=== PATIENT | female | born 1965 | race Caucasian/White ===

== ENCOUNTER → 2020-06-13 14:08 | Outpatient (BNVA) | payer OTHER, SELFPAY | PROVIDERS: PCP Internal Medicine; Visit Provider Physician Assistant | DX: M17.11 Unilateral primary osteoarthritis, right knee (principal) | CPT/HCPCS: 20610; 99213 ==

== ENCOUNTER 2020-06-29 10:14 | Outpatient (RCR) | payer OTHER, SELFPAY ==
--- NOTE | 2020-06-29 16:40 | MHC.PT.EP ---
[facility] [place] Office [place] Office [place] Office [address] [place] [address] [phone] F: [phone] F: [phone] F: [phone] F: [phone] Physical Therapy Plan of Care Date of Evaluation: 06/29/20 Date of Surgery: N/A Diagnosis: unilateral primary osteoarthritis, right knee Assessment: pt presents to physical therapy with pain, decreased range of motion, decreased strength, impaired functional mobility, impaired postural awareness, and gait deviations. pt is a good candidate for skilled PT due to age, potential remediation of impairments, typical disease/condition progression and prognosis, comorbidities, and motivation. pt would benefit from tailored strengthening and stretching exercise program, functional training, gait training, postural re-training, neuromuscular re-education, and modalities as needed for pain. Frequency and Duration: The patient will be seen 2x/wk for 5 wks Short Term Goals: pt will be I w/ HEP to promote self-management of condition. pt will improve R knee extension to 0 to remediate gait impairments on even ground. Advertising Space Clerk Goals: pt will report statistically significant improvement in self-reported outcome measure, LEFI, to facilitate return to PLOF. pt will report <2/10 R knee pain w/ standing for >30 min to facilitate return to toaster operator. Treatment Plan: Modalities to reduce pain, spasms and effusion. Manual therapy to restore motion and function. Therapeutic exercise to improve strength and flexibility. Neuromuscular re-education for posture and balance. Therapeutic activities to return to functional activities of daily living. Please sign and return to therapist. Thank you for your referral.
--- NOTE | 2020-07-23 13:43 | MHC.PT.DC ---
[facility] [place] Office [place] Office [address] [place] 140 [facility] [phone] F: [phone] F: [phone] F: [phone] F: [phone] Physical Therapy Discharge Report Diagnosis: unilateral primary osteoarthritis, right knee Date of Surgery: N/A Date of Evaluation: 06/29/20 Date of Discharge: 07/23/20 Treatments to Date: 1 Cancellations to Date: 5 No Shows to Date: 2 Discharge Status: Recommend MD Follow-up Visit Non-compliance Discharge Summary: The patient came for her initial evaluation and found out she tested positive for COVID-19 on the same day. She did not call our office to inform us of her status. We attempted to discharge her due to visit noncompliance; however, she explained that she was quarantining. She told us approximately a week ago she was going to have another follow-up regarding her COVID status. She has missed another two consecutive appointments without contacting our office. She is discharged from this physical therapy plan of care due to visit noncompliance. Electronically signed by: Daisy Haynes PT, DPT Please sign and return to therapist. Thank you for your referral.
== END 2020-07-23 13:43 | disposition other institution (70) ==
LOC: HO.PT 10:14
PROVIDERS: Visit Provider Physician Assistant
DX: M17.11 Unilateral primary osteoarthritis, right knee (principal)
CPT/HCPCS: 97110; 97161

== ENCOUNTER 2020-06-29 15:15 | Outpatient (REF) | payer OTHER, SELFPAY | END 2020-06-29 15:16 | disposition home or self-care (01) | LOC: HO.LAB 15:15 | PROVIDERS: PCP Nurse Practitioner Family; Visit Provider Internal Medicine | DX: Z20.828 Contact with and (suspected) exposure to other viral communicable diseases (principal) | CPT/HCPCS: 87635 ==

== ENCOUNTER 2020-07-31 09:32 | Outpatient (REF) | payer OTHER, SELFPAY | END 2020-07-31 09:33 | disposition home or self-care (01) | LOC: HO.LAB 09:32 | PROVIDERS: PCP Nurse Practitioner Family; Visit Provider Internal Medicine | DX: Z20.828 Contact with and (suspected) exposure to other viral communicable diseases (principal) | CPT/HCPCS: C9803; U0003 ==

== ENCOUNTER 2020-08-14 08:18 | Outpatient (REF) | payer OTHER, SELFPAY ==
[2020-08-14 08:39] LABS: MANUAL DIFF FLAG NO
[2020-08-14 08:43] LABS: Basophils Absolute Auto 0.1 X10*3/uL (0.0-0.2); Basophils Percent Auto 0.6 % (0-2); Eosinophils Absolute Auto 0.3 X10*3/uL (0.0-0.4); Eosinophils Percent Auto 2.5 % (0-4); Hematocrit 39.1 % (37-47); Hemoglobin 12.7 g/dl (12.0-16.0); Imm Gran Abs Auto 0.04 X10*3/uL (0.00-0.03); Imm Gran Pct Auto 0.3 % (0.0-0.4); Lymphocytes Absolute Auto 4.4 X10*3/uL (1.2-4.9); Lymphocytes Percent Auto 35.2 % (20-40); Mean Corpuscular HGB Conc 32.5 g/dl (31.0-35.0); Mean Corpuscular Hemoglobin 29.3 pg (27.0-33.0); Mean Corpuscular Volume 90.3 fL (80-98); Mean Platelet Volume 9.5 fL (9.4-12.3); Monocytes Absolute Auto 0.9 X10*3/uL (0.1-1.2); Monocytes Percent Auto 6.8 % (2-11); Neutrophils Absolute Auto 6.8 X10*3/uL (2.0-8.3); Neutrophils Percent Auto 54.6 % (45-73); Platelet Count 369 X10*3/uL (160-400); Red Blood Count 4.33 X10*6/uL (4.20-5.50); Red Cell Distribution Width 13.9 % (11.0-16.0); White Blood Count 12.5 X10*3/uL (4.8-10.8)
[2020-08-14 09:16] LABS: Anion Gap 11 (12-20); Blood Urea Nitrogen 11 mg/dL (9-16); Calcium 8.9 mg/dL (8.4-10.2); Carbon Dioxide 27 mmol/L (22-29); Chloride 104 mmol/L (96-108); Cholesterol 237 mg/dL; Estimated Glomerular Filt Rate > 60; Glucose Fasting 115 mg/dL (60-99); HDL Cholesterol 51 mg/dL; LDL Cholesterol Calculated 149 mg/dl; Potassium 4.2 mmol/l (3.3-5.1); Sodium 138 mmol/L (135-145); Triglycerides 185 mg/dL
[2020-08-14 11:41] LABS: Reflex LDLD? No
== END 2020-08-14 08:19 | disposition home or self-care (01) ==
LOC: HO.LAB 08:18
PROVIDERS: PCP Nurse Practitioner Family; Visit Provider Nurse Practitioner Family
DX: I10 Essential (primary) hypertension (principal)
CPT/HCPCS: 36415; 80048; 80061; 85025

== ENCOUNTER → 2020-08-16 10:11 | Outpatient (BNVA) | payer OTHER, SELFPAY | PROVIDERS: Visit Provider Physician Assistant | DX: M17.11 Unilateral primary osteoarthritis, right knee (principal) | CPT/HCPCS: 99212 ==

== ENCOUNTER 2020-10-18 09:00 | Outpatient (RCR) | payer OTHER, SELFPAY ==
--- NOTE | 2020-10-30 14:46 | MHC.PT.DC ---
[facility] [place] Office [place] Office [place] Office [address] [place] 140 [facility] [phone] F: [phone] F: [phone] F: [phone] F: [phone] Physical Therapy Discharge Report Diagnosis: RIGHT KNEE OA Date of Surgery: NA Date of Evaluation: 09/10/20 Date of Discharge: Treatments to Date: 6 Cancellations to Date: 0 No Shows to Date: 0 Discharge Status: Discharge Summary: OVERALL WILLIE HAS PROGRESSED ANTICIPATED WITH INCREASED AROM AND STRENGTH OF RIGHT LOWER EXTREMITY. SHE SUBJECTIVELY STATES DECREASED PAIN LEVELS AND IMPROVED SENSE OF BALANCE. WILLIE IS CONFIDENT WITH HEP. SHE WILL CONT HOME PROGRAM FOR 1-2 MONTHS AND FOLLOW UP WITH MD REGARDING ANY RESIDUAL SYMPTOMS. Electronically signed by: JERILYN JAVIER PT, DPT Please sign and return to therapist. Thank you for your referral.
== END 2020-10-30 14:52 | disposition other institution (70) ==
LOC: HO.PT 09:00
PROVIDERS: Visit Provider Physician Assistant
DX: M17.11 Unilateral primary osteoarthritis, right knee (principal)
CPT/HCPCS: 97110; 97140; 97162; 97530; 97535

== ENCOUNTER 2021-01-03 11:49 | Outpatient (REF) | payer MEDICARE, MEDICAID, SELFPAY ==
--- NOTE | ~2021-01-03 | MM_ITS ---
EXAMINATION: MM SCREENING DIGITAL BREAST TOMOSYNTHESIS, BILATERAL CLINICAL INFORMATION: Screening. Asymptomatic. The lifetime risk of breast cancer based on the Tyrer-Cuzick Model is 21%. COMPARISON: Mammography: 10/04/2019, 11/30/2017; outside mammography from [place] 10/13/2016 and 09/24/2015. TECHNIQUE: Digital breast tomosynthesis is performed in both the craniocaudal and mediolateral oblique views along with computer-aided detection (CAD). Synthesized 2D images are generated from the tomosynthesis. FINDINGS: There are scattered areas of fibroglandular density (ACR BI-RADS breast composition Category b). There are no significant masses, abnormal calcifications, or other abnormalities. There is a degenerating fibroadenoma are again noted left breast mid upper outer quadrant with some coarse peripheral calcification. The axilla and skin contours are unremarkable. No significant changes. MM/MM tomosynthesis screening BI IMPRESSION: 1. No mammographic evidence of malignancy. 2. Chronic nodule left breast with coarse calcification consistent with degenerating fibroadenoma. ASSESSMENT: BI-RADS 2: Benign RECOMMENDATION: 1. Routine annual mammography screening. 2. The lifetime risk of breast cancer based on the Tyrer-Cuzick Model is 21%. Additional annual adjunct screening with breast MRI may be of benefit in women with a risk score of 20% or greater. This patient's information was entered into a reminder system with a target due date for their next mammogram.
== END 2021-01-03 11:50 | disposition home or self-care (01) ==
LOC: HO.MAMMO 11:49
PROVIDERS: PCP Family Medicine; Visit Provider Family Medicine
DX: Z12.31 Encounter for screening mammogram for malignant neoplasm of breast (principal)
CPT/HCPCS: 77063; 77067

== ENCOUNTER 2021-01-24 11:10 | Outpatient (REF) | payer MEDICARE, MEDICAID, SELFPAY ==
[2021-01-24 14:19] LABS: MANUAL DIFF FLAG NO
[2021-01-24 14:20] LABS: Basophils Absolute Auto 0.1 X10*3/uL (0.0-0.2); Basophils Percent Auto 0.6 % (0-2); Eosinophils Absolute Auto 0.4 X10*3/uL (0.0-0.4); Eosinophils Percent Auto 3.2 % (0-4); Hematocrit 41.3 % (37-47); Hemoglobin 13.2 g/dl (12.0-16.0); Imm Gran Abs Auto 0.03 X10*3/uL (0.00-0.03); Imm Gran Pct Auto 0.3 % (0.0-0.4); Lymphocytes Absolute Auto 4.7 X10*3/uL (1.2-4.9); Lymphocytes Percent Auto 40.3 % (20-40); Mean Corpuscular Hemoglobin 29.3 pg (27.0-33.0); Mean Corpuscular Volume 91.8 fL (80-98); Mean Platelet Volume 10.1 fL (9.4-12.3); Monocytes Absolute Auto 0.9 X10*3/uL (0.1-1.2); Monocytes Percent Auto 7.4 % (2-11); Neutrophils Absolute Auto 5.6 X10*3/uL (2.0-8.3); Neutrophils Percent Auto 48.2 % (45-73); Platelet Count 383 X10*3/uL (160-400); Red Cell Distribution Width 13.5 % (11.0-16.0); White Blood Count 11.6 X10*3/uL (4.8-10.8)
[2021-01-24 14:52] LABS: Alanine Aminotransferase 19 U/L (0-31); Albumin Level 4.2 g/dL (3.5-5.0); Alkaline Phosphatase 67 U/L (39-117); Anion Gap 11 (12-20); Aspartate Amino Transferase 17 U/L (5-31); Bilirubin Total 0.6 mg/dL (0.0-1.0); Blood Urea Nitrogen 17 mg/dL (9-16); Calcium 9.8 mg/dL (8.4-10.2); Carbon Dioxide 33 mmol/L (22-29); Chloride 102 mmol/L (96-108); Estimated Glomerular Filt Rate > 60; Glucose Random 114 mg/dL (60-115); Potassium 4.6 mmol/L (3.3-5.1); Sodium 141 mmol/L (135-145); Total Protein 7.5 g/dL (6.5-8.0)
[2021-01-24 15:03] LABS: Erythrocyte Sedimentation Rate 18 MM/HR (0-20)
[2021-01-24 15:12] LABS: TSH reflex Free T4 1.05 uIU/mL (0.32-4.0)
[2021-01-25 13:47] LABS: CRP High Sensitivity >10.0 mg/L
== END 2021-01-24 11:11 | disposition home or self-care (01) ==
LOC: HO.WFDLDS 11:10
PROVIDERS: Visit Provider Family Medicine
DX: Z00.00 Encounter for general adult medical examination without abnormal findings (principal); R20.2 Paresthesia of skin; M79.10 Myalgia, unspecified site
CPT/HCPCS: 36415; 80053; 84443; 85025; 85652; 86141

== ENCOUNTER 2021-01-25 12:03 | Outpatient (REF) | payer MEDICARE, MEDICAID, SELFPAY ==
--- NOTE | ~2021-01-25 | XR_ITS ---
EXAMINATION: XR CERVICAL SPINE CLINICAL INFORMATION: Neck pain COMPARISON: Previous x-ray May 2019 TECHNIQUE: 3 views of the cervical spine were obtained. FINDINGS: Bone alignment is normal. No fracture or dislocation is seen. There is mild degenerative spondylosis at C3 C5-C6. Disc spaces are normal. Prevertebral soft tissues are normal. There is increased sclerosis in the right ankle of the mandible similar to May 2019 exam. XR/XR cervical spine 2V IMPRESSION: Mild degenerative spondylosis at C5-C6. Increased sclerosis in the right angle mandible similar to 2019 exam.
== END 2021-01-25 12:04 | disposition home or self-care (01) ==
LOC: HO.XRAY 12:03
PROVIDERS: PCP Family Medicine; Visit Provider Family Medicine
DX: M54.2 Cervicalgia (principal)
CPT/HCPCS: 72040

== ENCOUNTER 2021-04-15 10:00 | Outpatient (RCR) | payer MEDICARE, MEDICAID, SELFPAY ==
--- NOTE | 2021-05-21 08:35 | MHC.PT.DC ---
[facility] [place] Office [place] Office [place] Office [address] [place] [address] [phone] F: [phone] F: [phone] F: [phone] F: [phone] Physical Therapy Discharge Report Diagnosis: Cervicalgia Date of Surgery: N/A Date of Evaluation: 03/18/21 Date of Discharge: 04/25/21 Treatments to Date: 8 Cancellations to Date: 2 No Shows to Date: 1 Discharge Status: Visit Non-compliance Discharge Summary: Cancelled appointment as she was ill, no showed for last scheduled appointment and did not return phone calls to reschedule. Electronically signed by: Floresita Fletcher PT, DPT Please sign and return to therapist. Thank you for your referral.
== END 2021-05-21 08:36 | disposition home or self-care (01) ==
LOC: HO.PT 10:00
PROVIDERS: PCP Family Medicine; Visit Provider Family Medicine
DX: M54.2 Cervicalgia (principal)
CPT/HCPCS: 97110; 97112; 97140; 97150; 97161

== ENCOUNTER → 2021-06-13 13:36 | Outpatient (BNVA) | payer MEDICARE, SELFPAY | PROVIDERS: PCP Family Medicine; Referring Provider Family Medicine; Visit Provider Physician Assistant Surgical ==

== ENCOUNTER → 2021-07-01 08:10 | Outpatient (BNVA) | payer MEDICARE, SELFPAY | PROVIDERS: PCP Family Medicine; Visit Provider Surgery | CPT/HCPCS: Q3014 ==

== ENCOUNTER 2021-07-02 10:11 | Outpatient (REF) | payer MEDICARE, MEDICAID, SELFPAY ==
--- NOTE | ~2021-07-02 | XR_ITS ---
EXAMINATION: XR CHEST CLINICAL INFORMATION: Obesity COMPARISON: September 23, 2018 TECHNIQUE: 2 views of the chest were obtained. FINDINGS: No significant abnormality is noted involving the heart, lungs, mediastinum, bony thorax or soft tissues. XR/XR chest 2V IMPRESSION: No acute disease.
[2021-07-02 10:32] LABS: MANUAL DIFF FLAG NO
--- NOTE | 2021-07-02 10:33 | ECG_ITS ---
Test Reason : obesity Blood Pressure : / mmHG Vent. Rate : 076 BPM Atrial Rate : 076 BPM P-R Int : 152 ms QRS Dur : 076 ms QT Int : 374 ms P-R-T Axes : 060 074 088 degrees QTc Int : 420 ms Normal sinus rhythm Nonspecific T wave abnormality Abnormal ECG T wave amplitude has decreased in Lateral leads Referred By: Jeremy De Oliveira Electronically Signed By:PARISH ROMERO MD
[2021-07-02 11:16] LABS: Basophils Absolute Auto 0.1 X10*3/uL (0.0-0.2); Basophils Percent Auto 0.5 % (0-2); Eosinophils Absolute Auto 0.3 X10*3/uL (0.0-0.4); Eosinophils Percent Auto 2.8 % (0-4); Hematocrit 40.6 % (37-47); Hemoglobin 13.2 g/dl (12.0-16.0); Imm Gran Abs Auto 0.04 X10*3/uL (0.00-0.03); Imm Gran Pct Auto 0.3 % (0.0-0.4); Lymphocytes Absolute Auto 4.7 X10*3/uL (1.2-4.9); Lymphocytes Percent Auto 39.6 % (20-40); Mean Corpuscular HGB Conc 32.5 g/dl (31.0-35.0); Mean Corpuscular Hemoglobin 29.3 pg (27.0-33.0); Mean Platelet Volume 9.8 fL (9.4-12.3); Monocytes Absolute Auto 0.7 X10*3/uL (0.1-1.2); Monocytes Percent Auto 6.2 % (2-11); Neutrophils Percent Auto 50.6 % (45-73); Platelet Count 419 X10*3/uL (160-400); Red Blood Count 4.51 X10*6/uL (4.20-5.50); Red Cell Distribution Width 13.2 % (11.0-16.0); White Blood Count 11.9 X10*3/uL (4.8-10.8)
[2021-07-02 11:24] LABS: Estimated Average Glucose 126 mg/dL; Hemoglobin A1C 149.1602 umol/L
[2021-07-02 12:14] LABS: Ferritin 68 ng/mL (10-250); Insulin 18 uU/mL (2-29); TSH reflex Free T4 1.74 uIU/mL (0.32-4.0); Vitamin D 25-OH Total 71.3 ng/mL (>30)
[2021-07-02 12:19] LABS: Alanine Aminotransferase 22 U/L (0-31); Albumin Level 4.1 g/dL (3.5-5.0); Alkaline Phosphatase 56 U/L (39-117); Anion Gap 13 (12-20); Aspartate Amino Transferase 21 U/L (5-31); Bilirubin Total 0.7 mg/dL (0.0-1.0); Blood Urea Nitrogen 11 mg/dL (9-16); C Reactive Protein 1.11 mg/dL (< or = 0.50); Calcium 9.4 mg/dL (8.4-10.2); Carbon Dioxide 26 mmol/L (22-29); Chloride 104 mmol/L (96-108); Cholesterol 257 mg/dL; Estimated Glomerular Filt Rate > 60; Glucose Random 112 mg/dL (60-115); HDL Cholesterol 50 mg/dL; Iron 73 mcg/dL (30-160); LDL Cholesterol Calculated 174 mg/dl; Percent Iron Saturation 25 % (15-50); Potassium 4.2 mmol/L (3.3-5.1); Sodium 139 mmol/L (135-145); Total Iron Binding Capacity 294 mcg/dL (228-428); Total Protein 7.5 g/dL (6.5-8.0); Triglycerides 165 mg/dL; Unsaturated Iron Binding 221 ug/dL
[2021-07-02 12:22] LABS: Folate > 20.0 ng/mL (> or = 4.0); Vitamin B12 1378 pg/mL (200-900)
[2021-07-04 01:33] LABS: Calcium (PTHI) 9.3 mg/dL (8.6-10.4); PTHI 29 pg/mL (14-64)
[2021-07-05 07:11] LABS: Zinc 89 mcg/dL (60-130)
[2021-07-06 11:36] LABS: Vitamin B1 11 nmol/L (8-30)
[2021-07-07 16:07] LABS: Vitamin A 47 mcg/dL (38-98)
== END 2021-07-02 10:12 | disposition home or self-care (01) ==
LOC: HO.XRAY 10:11
PROVIDERS: PCP Internal Medicine; Visit Provider Surgery
DX: E66.9 Obesity, unspecified (principal); Z68.38 Body mass index [BMI] 38.0-38.9, adult; E78.00 Pure hypercholesterolemia, unspecified; I10 Essential (primary) hypertension
CPT/HCPCS: 36415; 71046; 80053; 80061; 82306; 82607; 82728; 82746; 83036; 83525; 83540; 83970; 84425; 84443; 84590; 84630; 85025; 86140; 93005

== ENCOUNTER 2021-07-03 10:56 | Outpatient (REF) | payer MEDICARE, SELFPAY ==
[2021-07-05 10:10] LABS: H Pylori Breath Test Positive (Negative)
== END 2021-07-03 10:57 | disposition home or self-care (01) ==
LOC: HO.LNP 10:56
PROVIDERS: PCP Internal Medicine; Referring Provider Internal Medicine; Visit Provider Surgery
DX: E66.9 Obesity, unspecified (principal); Z68.38 Body mass index [BMI] 38.0-38.9, adult; E78.00 Pure hypercholesterolemia, unspecified; I10 Essential (primary) hypertension
CPT/HCPCS: 83013

== ENCOUNTER → 2021-07-15 08:06 | Outpatient (BNVA) | payer MEDICARE, MEDICAID, SELFPAY | PROVIDERS: PCP Internal Medicine; Visit Provider Dietitian, Registered | DX: E66.01 Morbid (severe) obesity due to excess calories (principal) | CPT/HCPCS: 97802 ==

== ENCOUNTER → 2021-08-05 08:12 | Outpatient (BNVA) | payer MEDICARE, SELFPAY | PROVIDERS: PCP Family Medicine; Visit Provider Surgery | DX: Z13.89 Encounter for screening for other disorder (principal) | CPT/HCPCS: Q3014 ==

== ENCOUNTER → 2021-08-06 08:52 | Outpatient (REF) | payer MEDICARE, MEDICAID, SELFPAY ==
--- NOTE | ~2021-08-06 | US_ITS ---
EXAMINATION: US COMPLETE ABDOMEN WITH LIVER ELASTOGRAPHY CLINICAL INFORMATION: Preop. Morbid obesity. COMPARISON: None. TECHNIQUE: Real-time imaging of the abdominal viscera. Noninvasive ultrasound liver fibrosis assessment is performed using Bhupendra ElastPQ point quantification shear wave elastography (pSWE) with a C5-2 MHz transducer. Multiple elastography samples are obtained. FINDINGS: PANCREAS: The head and part of the body the pancreas is homogeneous in echotexture. The rest of the body or tail of pancreas obscured by overlying gas. ABDOMINAL AORTA: The proximal, middle, and distal aortic segments are normal in caliber. INFERIOR VENA CAVA: Visualized portions are normal. LIVER: The liver demonstrates normal size, contour and increased echogenicity. No focal lesion or intrahepatic biliary duct dilatation. The right lobe measures 15.5 cm in length. The left lobe measures 13.0 cm in length. Portal flow is hepatopedal. Shear wave liver elastography median stiffness is 1.47 m/s (reference: normal median stiffness is 1.3 m/s or less). IQR/median stiffness to assess sampling precision is 0.7 (reference: good quality data set is IQR/median stiffness of 0.15 or less). GALLBLADDER: Normal. The gallbladder is physiologically distended without evidence of stones, sludge, polyps, wall thickening or pericholecystic fluid. COMMON BILE DUCT: Normal in caliber measuring 0.4 cm in diameter. RIGHT KIDNEY: Normal. No hydronephrosis. No renal calculi or focal parenchymal lesions. The kidney measures 9.0 cm in maximum dimension. LEFT KIDNEY: Normal. No hydronephrosis. No renal calculi or focal parenchymal lesions. The kidney measures 10.3 cm in maximum dimension. SPLEEN: Normal. The spleen measures 8.0 cm in maximum dimension. FREE FLUID: None. US/US abdomen comp w elastography IMPRESSION: 1. Diffuse hepatic echogenicity without focal lesion seen. Rest of the abdominal ultrasound is unremarkable. 2. Liver elastography: Median liver stiffness 1.47 m/s corresponding to cACLD ruled out. REFERENCE: Society of Radiologists in Ultrasound Liver Stiffness Thresholds (2019): LIVER STIFFNESS THRESHOLDS: *Liver Stiffness equal or less than 1.3 m/s: High probability of being normal. *Liver Stiffness less than 1.7 m/s: In the absence of other known clinical signs, rules out compensated advanced chronic liver disease. *Liver Stiffness 1.7-2.1 m/s: Suggestive of compensated advanced chronic liver disease but need further test for confirmation. *Liver Stiffness over 2.1 m/s: Rules in compensated advanced chronic liver disease. *Liver Stiffness over 2.4 m/s: Suggestive of clinically significant portal hypertension. QUALITY OF DATA SET: *IQR/Median value equal or less than 0.15 implies a quality data set. *IQR/Median value over 0.15 implies a poor quality data set. SIGNIFICANT CHANGE FROM PRIOR EXAM: Significant change if liver stiffness measurement is 10% or greater from prior exam. OTHER CONSIDERATIONS: The stage of liver fibrosis may be overestimated in the setting of acute hepatitis, liver inflammation, elevated liver function tests, hepatic vascular congestion, obstructive cholestasis, non-fasting state, and infiltrative diseases such as amyloidosis and lymphoma. In some patients with NAFLD, the liver stiffness thresholds for compensated advanced chronic liver disease may be lower. In causes other than viral hepatitis and NAFLD, liver stiffness thresholds are not well established.
--- NOTE | ~2021-08-06 | FL_ITS ---
EXAMINATION: XR FLUOROSCOPY UPPER GI WITH AIR CLINICAL INFORMATION: Obesity COMPARISON: None TECHNIQUE: Upper GI was performed using thin and thick barium and effervescent granules. FINDINGS: Esophageal motility is normal. There is a small sliding-type hiatal hernia and Schatzki ring. No gastroesophageal reflux is seen. The stomach and duodenum are normal-appearing. No fold thickening, mass, ulcer or stricture is seen. FLUOROSCOPY TIME: 0.7 minutes DOSE AREA PRODUCT: 8 mGy-cm IMAGES SAVED: 17 saved fluoroscopic images FL/FL upper GI w air IMPRESSION: Small sliding-type hiatal hernia with Schatzki ring. Otherwise unremarkable exam.
== END ==
LOC: HO.SL 08:52
PROVIDERS: PCP Internal Medicine; Visit Provider Surgery
DX: G47.33 Obstructive sleep apnea (adult) (pediatric) (principal); E66.9 Obesity, unspecified; E78.00 Pure hypercholesterolemia, unspecified; I10 Essential (primary) hypertension
CPT/HCPCS: 74246; 76705; 76981; 95806

== ENCOUNTER 2021-08-09 11:22 | Outpatient (REF) | payer MEDICARE, SELFPAY ==
[2021-08-11 13:26] LABS: H Pylori Breath Test Negative (Negative)
== END 2021-08-09 11:23 | disposition home or self-care (01) ==
LOC: HO.LNP 11:22
PROVIDERS: PCP Internal Medicine; Referring Provider Internal Medicine; Visit Provider Physician Assistant
DX: Z01.818 Encounter for other preprocedural examination (principal)
CPT/HCPCS: 83013; 99211

== ENCOUNTER → 2021-08-20 08:26 | Outpatient (REF) | payer MEDICARE, MEDICAID, SELFPAY ==
--- NOTE | 2021-08-20 08:31 | CA_ITS ---
Transthoracic Echocardiogram Patient (Last, First, Middle): Adrianne Salomon D Gender: Female Date of : 1965 Age: 56 Procedure Date: 08/20/2021 Procedure Type: Transthoracic Echocardiogram Location: OP Height: 165.1 cm Weight: 98.43 kg BSA: 2.05 m2 Heart Rate: bpm BP: 122 / 70 mmHg Dry Cell Tester: Referring MD: Jeremy De Oliveira MD Tenderizer Tender: Jaciel Verduzco MD Symptoms: R94.31 - Abnormal electrocardiogram [ECG] [EKG] Study Quality: Good ECG Rhythm: Sinus Conclusions: - 1. Normal LV systolic function with grade 1 diastolic dysfunction 2. Normal cardiac valvular Doppler 3. Normal RV systolic pressure 4. No gross pericardial effusion Findings Procedure Information Contrast agent, definity, is being given per protocol without apparent complications. Left Ventricle Normal left ventricular size, thickness, and systolic function. The visually estimated ejection fraction is between 60-65%. Spectral Doppler is indicative of an impaired relaxation filling pattern. E/E prime ratio is <8, consistent with normal filling pressures. Evidence suggests grade I (mild) diastolic dysfunction. Right Ventricle Normal right ventricular cavity size and systolic function. Atria Both atria are normal in size. There is lipomatous hypertrophy of the interatrial septum. There is no evidence of interatrial shunt. Aortic Valve Normal aortic valve structure and function. There is no aortic valve stenosis. There is no aortic valve regurgitation. Mitral Valve Normal mitral valve structure and function. There is trace mitral valve regurgitation. There is no mitral valve stenosis. Pulmonic Valve The pulmonic valve was not well visualized. Tricuspid Valve Normal tricuspid valve structure. There is trace tricuspid valve regurgitation. The right ventricular systolic pressure is normal. The right ventricular systolic pressure is 15 mmHg. Normal right atrial pressure. There is no evidence of pulmonary hypertension. Great Vessels All visible segments of the aorta are normal in size. The pulmonary artery was not well visualized. Venous The inferior vena cava is normal in size and collapses greater than 50% with inspiration. Prior Study Comparison No prior study available for comparison. Measurements 2D Linear Measurements IVSd: 1.02 0.6-0.9/0.6-1.0 cm LVIDd: 4.16 3.9-5.3/4.2-5.9 cm LVIDd Index: 2.03 2.4-3.2/2.2-3.1 cm/m2 LVIDs: 2.33 2.0-3.6 cm LVPWd: 1.10 0.7-1.1 cm Ao Root: 2.40 2.1-3.5 cm LA Diam: 3.60 2.7-3.8/3.0-4.0 cm LAIDs Index: 1.76 1.5-2.3 cm/m2 LV Mass: 182.71 67-162/88-224 g LV Mass Index: 89.13 43-95/49-115 g/m2 LVOT Diam: 2.00 3.0+(-)1.3 cm Mitral Valve MV Pk E: 0.54 MV PK A: 0.72 MV Decel Time: 228.00 E/A: 0.70 E'Lateral: 11.60 E'Medial: 8.54 E/E' Med: 6.30 E/E' Lat: 4.70 PHT: 67.00 MVA PHT: 3.28 Decel [place]: 2.37 Aortic Valve AoV Pk Sujit: 1.39 AoV Mn Sujit: 0.92 AoV VTI: 0.30 AoV Pk Grad: 8.00 Aov Mn Grad: 4.00 JAYLON Cont.VTI: 2.19 LVOT LVOT Pk Sujit: 1.01 LVOT Mn Sujit: 0.64 LVOT VTI: 0.21 LVOT Pk Grad: 4.00 LVOT Mn Grad: 2.00 LVOT Diam: 2.00 LVOT Area: 3.14 Diastolic Function MV Pk E: 0.54 MV Pk A: 0.72 E/A: 0.70 E'Medial: 8.54 E/E' Med: 6.30 E' Laterial: 11.60 E/E' Lat: 4.70 Right Ventricle TAPSE (mm): 20.00 TVS' Sujit: 9.00 Tricuspid Valve TR Pk Sujit: 1.76 TR Pk Grad: 12.00 RA Press: 3.00 RVSP: 15.00 Great Vessels Aorta Ao Root-2D: 2.40 2.0-3.7 cm Ao Asc: 2.50 2.1-3.4 cm Pulmonary Valve PV Pk Sujit: 1.00 Peak PV Grad: 4.00 Updated in Other Vendor System with Status of Final Jaciel Verduzco MD electronically signed on 08/20/2021 11:47:12 AM with status of Final
== END ==
LOC: HO.CARD 08:26
PROVIDERS: PCP Family Medicine; Visit Provider Surgery
DX: R94.31 Abnormal electrocardiogram [ECG] [EKG] (principal)
CPT/HCPCS: 93306; Q9957

== ENCOUNTER → 2021-09-03 07:37 | Outpatient (BNVA) | payer MEDICARE, SELFPAY | PROVIDERS: PCP Family Medicine; Visit Provider Surgery | DX: E66.9 Obesity, unspecified (principal); Z68.37 Body mass index [BMI] 37.0-37.9, adult | CPT/HCPCS: Q3014 ==

== ENCOUNTER 2021-09-18 09:09 | Outpatient (REF) | payer MEDICARE, MEDICAID, SELFPAY ==
--- NOTE | 2021-09-18 09:13 | EMG_ITS ---
This is a 56-year-old woman with bilateral hand pain and numbness with the left being worse than the right. She has had a right carpal tunnel release done 2 years ago, but symptoms are coming back. PHYSICAL EXAMINATION: She is alert and oriented with normal intellectual functions. Cranial nerves II through XII are normal. No Tinel or Phalen sign. IMPRESSION: Carpal tunnel syndrome. Mild carpal tunnel syndrome on the left. Normal EMG of the left C5-T1 innervated muscles. MD BOBBY Burrows/JONNATHAN / [phone]
== END 2021-09-18 09:10 | disposition home or self-care (01) ==
LOC: HO.NEURO 09:09
PROVIDERS: PCP Internal Medicine; Visit Provider Internal Medicine
DX: G56.03 Carpal tunnel syndrome, bilateral upper limbs (principal); G47.33 Obstructive sleep apnea (adult) (pediatric)
CPT/HCPCS: 95885; 95913; 99202

== ENCOUNTER → 2021-09-27 08:03 | Outpatient (BNVA) | payer MEDICARE, MEDICAID, SELFPAY | PROVIDERS: PCP Family Medicine; Visit Provider Surgery | DX: E66.9 Obesity, unspecified (principal); G47.33 Obstructive sleep apnea (adult) (pediatric); E78.00 Pure hypercholesterolemia, unspecified; I10 Essential (primary) hypertension; Z68.33 Body mass index [BMI] 33.0-33.9, adult | CPT/HCPCS: Q3014 ==

== ENCOUNTER → 2021-10-01 13:25 | Outpatient (BNVA) | payer MEDICARE, MEDICAID, SELFPAY | PROVIDERS: PCP Internal Medicine; Referring Provider Family Medicine; Visit Provider Physician Assistant ==

== ENCOUNTER 2021-10-08 06:02 | Inpatient (IN) | payer MEDICARE, MEDICAID, SELFPAY ==
[2021-10-01 08:20] VITALS: BMI 33.6
[2021-10-02 07:08] LABS: MANUAL DIFF FLAG NO
[2021-10-02 07:19] LABS: Basophils Absolute Auto 0.1 X10*3/uL (0.0-0.2); Basophils Percent Auto 0.5 % (0-2); Eosinophils Absolute Auto 0.3 X10*3/uL (0.0-0.4); Eosinophils Percent Auto 2.6 % (0-4); Hematocrit 38.1 % (37.0-47.0); Hemoglobin 12.3 g/dl (12.0-16.0); Imm Gran Abs Auto 0.03 X10*3/uL (0.00-0.03); Imm Gran Pct Auto 0.3 % (0.0-0.4); Lymphocytes Absolute Auto 4.6 X10*3/uL (1.2-4.9); Lymphocytes Percent Auto 40.2 % (20-40); Mean Corpuscular HGB Conc 32.3 g/dl (31.0-35.0); Mean Corpuscular Hemoglobin 29.2 pg (27.0-33.0); Mean Corpuscular Volume 90.5 fL (80.0-98.0); Mean Platelet Volume 9.8 fL (9.4-12.3); Monocytes Absolute Auto 0.7 X10*3/uL (0.1-1.2); Monocytes Percent Auto 5.6 % (2-11); Neutrophils Absolute Auto 5.8 x10*3/uL (2.0-8.3); Neutrophils Percent Auto 50.8 % (45-73); Platelet Count 325 X10*3/uL (160-400); Red Blood Count 4.21 X10*6/uL (4.20-5.50); Red Cell Distribution Width 13.6 % (11.0-16.0); White Blood Count 11.5 X10*3/uL (4.8-10.8)
[2021-10-02 07:25] LABS: INTERNATIONAL NORM RATIO 1.1 (0.9-1.1); Prothrombin Time 12.1 SEC (9.9-13.0)
[2021-10-02 07:26] LABS: Estimated Average Glucose 111 mg/dL; Hemoglobin A1c % 5.5 %
[2021-10-02 07:27] LABS: Partial Thromboplastin Time 42.3 SEC (24.1-38.0)
[2021-10-02 07:38] LABS: Alanine Aminotransferase 13 U/L (0-31); Albumin Level 4.1 g/dL (3.5-5.0); Alkaline Phosphatase 47 U/L (39-117); Anion Gap 12 (12-20); Aspartate Amino Transferase 17 U/L (5-31); Bilirubin Total 0.8 mg/dL (0.0-1.0); Blood Urea Nitrogen 19 mg/dL (9-16); C Reactive Protein 0.79 mg/dL (< or = 0.50); Calcium 9.7 mg/dL (8.4-10.2); Carbon Dioxide 27 mmol/L (22-29); Chloride 104 mmol/L (96-108); Cholesterol 148 mg/dL; Creatinine Clr Calc Pharmacy 86.4; Estimated Glomerular Filt Rate > 60; Glucose Random 100 mg/dL (60-115); HDL Cholesterol 44 mg/dL; LDL Cholesterol Calculated 86 mg/dl; Potassium 3.7 mmol/L (3.3-5.1); Sodium 139 mmol/L (135-145); Total Protein 7.1 g/dL (6.5-8.0); Triglycerides 92 mg/dL
[2021-10-02 08:05] LABS: TSH reflex Free T4 2.03 uIU/mL (0.32-4.0)
[2021-10-02 08:41] LABS: Insulin 8 uU/mL (2-29)
--- NOTE | 2021-10-06 13:51 | MHC.SHP ---
Pre-Procedural Eval Section A Date of Service: 10/06/21 The patient is an INPATIENT: Yes The History & Physical has been completed within 30 days and I have reviewed it.: No Section B Chief Complaint: obesity Relevant Family History (Specify if Yes): Yes Relevant Social History: None Present Medications: None Medical History: No relevant PMH History of Previous Operations: No relevant previous surgery Allergies: Allergies Allergy/AdvReac Type Severity Reaction Status Date / Time atorvastatin AdvReac Intermediate headache Verified 09/30/21 14:54 Review of Systems Sugical H&P ROS: Negative: Constitution, Cardiovascular, Respiratory, Neurological, Psychiatric, Hem-Onc, Allergic/Immunologic, Gastrointestinal, Genitourinary, Musculoskeletal, Integumentary, Endocrine and Eyes/Ears/Nose/Throat Exam Surgical H&P Exam: Normal: HEENT, Normal: Heart, Normal: Lungs, Normal: Extremities, Normal: Abdomen, Normal: Skin and Normal: Neurological Plan Diagnosis/Plan: Unchanged I have reviewed the history and physical and performed a pertinent physical examination on my patient. No changes have occurred unless specified.
--- NOTE | 2021-10-07 09:16 | HO.ANESPROP2 ---
Documented by User: Michelle Garcia NP 10/07/21 09:17 [facility] Active Problems Active Problems: All Active Problems (Updated 10/01/21 @ 08:17 by Kinza Guerrero RN) Primary osteoarthritis of right knee (Acute Unknown) Hypertension (Acute) Upper back pain (Acute) Cervicalgia (Acute) Paresthesias (Acute) Myalgia (Acute) Right knee pain (Acute) Fibromyalgia (Acute) BMI 38.0-38.9,adult (Acute) H. pylori infection (Acute) Abnormal EKG (Acute) Binge eating disorder (Acute) BMI 36.0-36.9,adult (Acute) BMI 37.0-37.9, adult (Acute) Binge-eating disorder, in full remission, moderate (Acute) BMI 34.0-34.9,adult (Acute) CHARAN (obstructive sleep apnea) (Acute) Obesity (Acute) Physical examination of employee (Acute) Other specified nonscarring hair loss (Acute) High cholesterol (Acute) Knee pain, bilateral (Acute) Rash (Acute) Past Medical History Medical History COVID-19 vaccine series completed High cholesterol HTN (hypertension) Knee pain, bilateral Obesity CHARAN (obstructive sleep apnea) Other specified nonscarring hair loss Family History Family History Father Emphysema lung Mother Afib Hypertension Brother HIV (human immunodeficiency virus infection) Brother Afib Daughter No problems noted. Son No problems noted. Son No problems noted. Daughter No problems noted. Surgical History Surgical History H/O colonoscopy History of carpal tunnel release History of partial hysterectomy History of removal of ovarian cyst Hx of dilation and curettage Social History Social History (Updated 10/01/21 @ 08:26 by Kinza Guerrero RN) Household Members: Spouse Housing: Apartment Alcohol intake: never Patient Tobacco Use Status: Former Tobacco user Quit Date: age 36 Tobacco use type: Cigarette Use of substances other than those prescribed or required for medical reasons: No Have you been hit, kicked, punched, or otherwise hurt by someone within the past year? If so, by whom?: No Are you DNR?: No Advance Directives: No Advance Directives Information Provided: Yes (brochure mailed) Advance Directives on File: No Recently lost weight without trying: No Eating poorly because of decreased appetite: No Nutrition Risks: No Nutritional Risk Patient : No (N/A) FDLMP: N/A : No (N/A) Poor oral hygiene: No (upper partial denture) Current occupational status: unemployed Meds Allergies Allergy/AdvReac Type Severity Reaction Status Date / Time atorvastatin AdvReac Intermediate headache Verified 10/08/21 06:39 Home Medications Medication Instructions Recorded Confirmed Last Taken Type epinephrine 0.3 mg/0.3 mL 0.3 mg IM ONCE PRN 08/16/20 10/01/21 Unknown History injection, auto-injector losartan 50 mg tablet 50 mg PO DAILY 09/30/21 09/30/21 Unknown History Exam Exam Date and Time: October 07, 2021 0916 Height,Weight and Vital Signs: Height 5 ft 5.5 in Weight 93.043 kg Pertinent Lab Results Pertinent Lab Results: Laboratory Tests 10/02/21 10/02/21 10/02/21 06:58 07:06 07:06 WBC 11.5 H RBC 4.21 Hgb 12.3 Hct 38.1 MCV 90.5 MCH 29.2 MCHC 32.3 RDW 13.6 Plt Count 325 MPV 9.8 Immature Gran % (Auto) 0.3 Neut % (Auto) 50.8 Lymph % (Auto) 40.2 H Josephine % (Auto) 5.6 Eos % (Auto) 2.6 Baso % (Auto) 0.5 Lymph # (Auto) 4.6 Josephine # (Auto) 0.7 Eos # (Auto) 0.3 Baso # (Auto) 0.1 Abs Immat Gran (auto) 0.03 Absolute Neuts (auto) 5.8 Absolute Nucleated RBC 0.000 Nucleated RBC % (auto) 0.0 PT 12.1 INR 1.1 APTT 42.3 H Sodium Potassium Chloride Carbon Dioxide Anion Gap BUN Creatinine Estim Creat Clear Calc Estimated GFR Random Glucose Estimat Average Glucose Hemoglobin A1c % Insulin Level Calcium Total Bilirubin AST ALT Alkaline Phosphatase C-Reactive Protein Total Protein Albumin Triglycerides Cholesterol LDL Cholesterol, Calc HDL Cholesterol TSH Blood Type O Positive Antibody Screen NEGATIVE 10/02/21 10/02/21 07:06 07:06 WBC RBC Hgb Hct MCV MCH MCHC RDW Plt Count MPV Immature Gran % (Auto) Neut % (Auto) Lymph % (Auto) Josephine % (Auto) Eos % (Auto) Baso % (Auto) Lymph # (Auto) Josephine # (Auto) Eos # (Auto) Baso # (Auto) Abs Immat Gran (auto) Absolute Neuts (auto) Absolute Nucleated RBC Nucleated RBC % (auto) PT INR APTT Sodium 139 Potassium 3.7 Chloride 104 Carbon Dioxide 27 Anion Gap 12 BUN 19 H Creatinine 0.80 Estim Creat Clear Calc 86.4 Estimated GFR > 60 Random Glucose 100 Estimat Average Glucose 111 Hemoglobin A1c % 5.5 Insulin Level 8 Calcium 9.7 Total Bilirubin 0.8 AST 17 ALT 13 Alkaline Phosphatase 47 C-Reactive Protein 0.79 H Total Protein 7.1 Albumin 4.1 Triglycerides 92 Cholesterol 148 D LDL Cholesterol, Calc 86 HDL Cholesterol 44 TSH 2.03 Blood Type Antibody Screen Narrative Narrative: EKG 06/2021 Vent. Rate : 076 BPM ? ? Atrial Rate : 076 BPM ?? P-R Int : 152 ms? QRS Dur : 076 ms ? ? QT Int : 374 ms ? ? ? P-R-T Axes : 060 074 088 degrees ?? QTc Int : 420 ms ? Normal sinus rhythm Nonspecific T wave abnormality Abnormal ECG T wave amplitude has decreased in Lateral leads ECHO 08/2021 Conclusions: - 1.? Normal LV systolic function with grade 1 diastolic ? dysfunction? 2. Normal cardiac valvular Doppler ? 3. Normal RV systolic pressure ? 4. No gross pericardial effusion ?? Assessment and Plan Assessment Anesthesia Assessment: Chart Reviewed Documented by User: Harika Gates MD 10/08/21 07:47 HPI - Anesthesia Eval Consult details Narrative: 56 yo female patient for sleeve gastrectomy, EGD, possible diaphragmatic hernia repair,possible ventral hernia repair, possible open PMFSH Past Medical History Medical History COVID-19 vaccine series completed High cholesterol HTN (hypertension) Knee pain, bilateral Obesity CHARAN (obstructive sleep apnea) Other specified nonscarring hair loss Family History Family History Father Emphysema lung Mother Afib Hypertension Brother HIV (human immunodeficiency virus infection) Brother Afib Daughter No problems noted. Son No problems noted. Son No problems noted. Daughter No problems noted. Family history of problems with anesthesia: No Surgical History Surgical History H/O colonoscopy History of carpal tunnel release History of partial hysterectomy History of removal of ovarian cyst Hx of dilation and curettage History of Problems with Anesthesia: No Social History Social History (Updated 10/01/21 @ 08:26 by Kinza Guerrero RN) Household Members: Spouse Housing: Apartment Alcohol intake: never Patient Tobacco Use Status: Former Tobacco user Quit Date: age 36 Tobacco use type: Cigarette Use of substances other than those prescribed or required for medical reasons: No Have you been hit, kicked, punched, or otherwise hurt by someone within the past year? If so, by whom?: No Are you DNR?: No Advance Directives: No Advance Directives Information Provided: Yes (brochure mailed) Advance Directives on File: No Recently lost weight without trying: No Eating poorly because of decreased appetite: No Nutrition Risks: No Nutritional Risk Patient : No (N/A) FDLMP: N/A : No (N/A) Poor oral hygiene: No (upper partial denture) Current occupational status: unemployed Meds Allergies Allergy/AdvReac Type Severity Reaction Status Date / Time atorvastatin AdvReac Intermediate headache Verified 10/08/21 06:39 Home Medications Medication Instructions Recorded Confirmed Last Taken Type epinephrine 0.3 mg/0.3 mL 0.3 mg IM ONCE PRN 08/16/20 10/01/21 Unknown History injection, auto-injector losartan 50 mg tablet 50 mg PO DAILY 09/30/21 09/30/21 Unknown History Exam Height,Weight and Vital Signs: Height 5 ft 5.5 in Weight 93.043 kg Vital Signs Temp Pulse Resp BP Pulse Ox 10/08/21 06:12 97.2 F 79 16 152/67 H 99 Pertinent Lab Results Pertinent Lab Results: Laboratory Tests 10/02/21 10/02/21 10/02/21 06:58 07:06 07:06 WBC 11.5 H RBC 4.21 Hgb 12.3 Hct 38.1 MCV 90.5 MCH 29.2 MCHC 32.3 RDW 13.6 Plt Count 325 MPV 9.8 Immature Gran % (Auto) 0.3 Neut % (Auto) 50.8 Lymph % (Auto) 40.2 H Josephine % (Auto) 5.6 Eos % (Auto) 2.6 Baso % (Auto) 0.5 Lymph # (Auto) 4.6 Josephine # (Auto) 0.7 Eos # (Auto) 0.3 Baso # (Auto) 0.1 Abs Immat Gran (auto) 0.03 Absolute Neuts (auto) 5.8 Absolute Nucleated RBC 0.000 Nucleated RBC % (auto) 0.0 PT 12.1 INR 1.1 APTT 42.3 H Sodium Potassium Chloride Carbon Dioxide Anion Gap BUN Creatinine Estim Creat Clear Calc Estimated GFR Random Glucose Estimat Average Glucose Hemoglobin A1c % Insulin Level Calcium Total Bilirubin AST ALT Alkaline Phosphatase C-Reactive Protein Total Protein Albumin Triglycerides Cholesterol LDL Cholesterol, Calc HDL Cholesterol TSH Blood Type O Positive Antibody Screen NEGATIVE 10/02/21 10/02/21 07:06 07:06 WBC RBC Hgb Hct MCV MCH MCHC RDW Plt Count MPV Immature Gran % (Auto) Neut % (Auto) Lymph % (Auto) Josephine % (Auto) Eos % (Auto) Baso % (Auto) Lymph # (Auto) Josephine # (Auto) Eos # (Auto) Baso # (Auto) Abs Immat Gran (auto) Absolute Neuts (auto) Absolute Nucleated RBC Nucleated RBC % (auto) PT INR APTT Sodium 139 Potassium 3.7 Chloride 104 Carbon Dioxide 27 Anion Gap 12 BUN 19 H Creatinine 0.80 Estim Creat Clear Calc 86.4 Estimated GFR > 60 Random Glucose 100 Estimat Average Glucose 111 Hemoglobin A1c % 5.5 Insulin Level 8 Calcium 9.7 Total Bilirubin 0.8 AST 17 ALT 13 Alkaline Phosphatase 47 C-Reactive Protein 0.79 H Total Protein 7.1 Albumin 4.1 Triglycerides 92 Cholesterol 148 D LDL Cholesterol, Calc 86 HDL Cholesterol 44 TSH 2.03 Blood Type Antibody Screen Laboratory Results - last 24 hr 10/07/21 12:20 COVID-19 (PRIT[facility]) Negative COVID-19 Clin Com See Note Airway Mallampati Class: II TM Dist: >3cm Neck ROM: Full Partial: Upper Heart: RRR Lungs: CTAB Assessment and Plan Assessment Anesthesia Assessment: Anesthesia Plan Discussed Final Anesthetic Review Family History of Problems with Anesthesia: No History of Problems with Anesthesia: No NPO: Yes ASA Class: III Final Preanesthetic Review: No Changes in Pt Med Stat, Meds/Allgs Chart Reviewed, Consent Obtained/Reviewed and Anes Risks/Benef Reviewed Patient Risk: Intermediate Procedure Risk: Intermediate Anesthetic Plan Anesthetic Plan: GA Disposition: Standard PACU and Inp. Admit - Standard Bed
[2021-10-07 12:49] LABS: COVID-19 Test Negative (Negative); IDNOW Serial# 9DD0AD1C
[2021-10-08] VITALS (13 sets, daily range): BP systolic 143–169; BP diastolic 67–79; PULSE 77–99; RESP 14–20; TEMP 36.1–37.3; O2SAT 91–100
[2021-10-08] MEDS: Lactated Ringers 1,000 ML 100 ML IVCONT ×3 (06:37→18:29)
[2021-10-08] MEDS: Lactated Ringers 1,000 ML 999 ML IV (06:37)
--- NOTE | 2021-10-08 10:18 | P.DS_ITS ---
DS: Providers Provider Date of Service: 10/09/21 Date of admission: 10/08/21 06:02 Primary care physician: Efrain Aponte MD DS: Summary Hospital Course Hospital Course: ADMITTING DIAGNOSIS: morbid obesity, HTN, CHARAN, lipids, paraesophageal hernia DISCHARGE DIAGNOSIS: same, s/p laparoscopic sleeve gastrectomy and repair diaphragmatic hernia PAST SURGICAL HISTORY: hysterectomy, ovarian cystectomy PROCEDURE: upper endoscopy, laparoscopic sleeve gastrectomy and repair of diaphragmatic hernia hernia DISCHARGE SUMMARY: History of Present Illness: The patient is a 56year-old woman with a BMI of 38.2 kg/m2 and associated co- morbidities as described above. The patient had extensive work-up,lost 24.8 lbs preoperatively and was electively scheduled for laparoscopic, possible open sleeve gastrectomy and gastropexy. Risks and complications of the surgery were discussed with the patient in advance, particularly the possibility of , pulmonary embolism, anastomotic leak, bleeding, bowel injury, GERD, cardiac, renal or pulmonary complications. The patient understood all the risks and was in agreement with the surgical plan. Hospital Course: The patient underwent an uneventful laparoscopic sleeve gastrectomy with gastropexy and repair of diaphragmatic hernia on the day of admission. Postoperatively, the patient was transferred to the surgical floor. The patient received IV Acetaminophen and IV dilaudid for pain control. Patient was started on bariatric phase 1 diet POD #0. On postoperative day one, the patient was feeling well without nausea, vomiting, fevers, or tachycardia. The patient had some mild incisional pain and the abdomen was soft. On the morning of postoperative day one, the patient was continued on 1 ounce of water or ice every half hour. During the day, the patient did fairly well, having some incisional pain, but able to ambulate adequately and to tolerate liquids well. Since the patient is doing well, we decided that the patient was ready to be discharged. The patient was given instructions to follow-up with me next week and to call my office for any fever over 101, persistent abdominal pain, nausea, vomiting, GERD, symptoms of DVT such as calf tenderness, or leg swelling, or pulmonary embolism such as chest pain or shortness of breath. The patient was also instructed to drink 40-60 ounces of liquids per day using the 1-ounce cups. The patient had been given prescriptions for Tylenol for pain, Zofran prn for nausea, and pantoprazole and carafate previously. The patient was encouraged to ambulate and use the incentive spirometer. The patient was allowed to shower, but no baths, and encouraged to stay active at home. All of these instructions were given to the patient personally. All questions were answered and the patient understood all instructions, the instructions were also given to the patient in print. Time Spent with Patient Time attestation: Total time spent providing and/or coordinating discharge services: Discharge coordination time: Less than 30 minutes Quality: Stroke Does the patient have a stroke diagnosis?: No Physical Exam Verdana 4l Vital Signs: Verdana 4d Verdana 4d Vital Signs: Verdana 4d Verdana 4Bd Last Vital Signs Verdana 4d Distribution Operation Supervisor New 4d Distribution Operation Supervisor New 4d Temp 98.4 F 10/08/21 10:14 Distribution Operation Supervisor New 4d Pulse 90 10/08/21 10:14 Distribution Operation Supervisor New 4d Resp 14 10/08/21 10:14 BP 151/71 H 10/08/21 10:14 Pulse Ox 100 10/08/21 10:14 BMI result Body Mass Index 33.6 DS: Data Data Completed and Pending Pending studies at discharge: Pending at discharge 10/08/21 09:37 Surgical [PTH] Routine Labs on day of discharge: Laboratory Results - last 24 hr 10/07/21 12:20 COVID-19 ([facility]) Negative COVID-19 Clin Com See Note Discharge Plan Discharge Anticipated Discharge Date/Time: 10/09/21 10:13 Patient Disposition: Home, Self-Care Discharge Diagnosis: s/p sleeve gastrectyomy Referrals: Efrain Aponte MD [Primary Care Provider] - 1 Week Discharge Medications: Continued losartan 50 mg tablet 50 mg PO DAILY 0RF Eucerin Skin Calming Cream 1 appl topical Q6-8H 30 Days Qty: 226 0RF cyclobenzaprine 5 mg tablet 5 mg PO BEDTIME 30 Days Qty: 30 0RF epinephrine 0.3 mg/0.3 mL auto-injector 0.3 mg IM ONCE PRN (Reason: allergic reaction/etiology unk) 0RF ezetimibe 10 mg tablet 10 mg PO DAILY 60 Days Qty: 60 0RF Nizoral A-D 1 % shampoo 1 appl topical 2XW 28 Days Qty: 125 0RF pantoprazole 40 mg tablet,delayed release (DR/EC) 40 mg PO DAILY Qty: 30 2RF sucralfate 100 mg/mL suspension 10 ml PO BID Qty: 400 2RF ondansetron HCl 4 mg tablet 4 mg PO Q6H PRN (Reason: nausea and vomiting) Qty: 20 2RF Discontinued cholecalciferol (vitamin D3) 50 mcg (2,000 unit) capsule 50 mcg PO DAILY 30 Days Qty: 30 0RF polyethylene glycol 3350 [Miralax] 17 gram powder in packet 17 g PO DAILY Qty: 14 0RF Rx Instructions: Mix each packet with 8oz of water and do 7 packets on 10/06/21 and another 7 packets on 10/07/21 Discharge Orders: Discharge Order (Routine); Ordered 10/09/21 Ordered By: Jeremy De Oliveira Diet: other Activity on Discharge: No heavy lifting Stand Alone Forms: Patient Portal Discharge page Care Plan Goals: weight loss Health Concerns: obesity Plan of Treatment: No tub baths, sex or returning to work until discussed at first post op appointment. No exercise, alcohol, tobacco or illegal drug use. Continue to use incentive spirometer hourly while awake. Walk in home for 5- 10 minutes every 2 hours during the first week. Continue phase 1 diet today and start phase 2 diet tomorrow morning. Follow all instructions in the bariatric handbook and call with any questions. 1. Please call your doctor or come back to the emergency room should any new symptoms arise. 2. You will receive a courtesy call from [facility] 24-48 hours after discharge. 3. Activity: abstain from alcohol, practice limited stair climbing, no bending, no driving, no exercise, no illicit substances, no lifting, no sex, no tub bath, no work. 4. Diet: continue as discussed with Dr. De Oliveira. 5. Dressing Change/Wound Care: Do not change or remove surgical dressings unless they are wet or soiled. 6. Call your doctor if: - Your temperature exceeds 101.5 F - You experience excessive pain or swelling - You have an unexpected reaction to medication - You have excessive bleeding - You experience continued vomiting/nausea - Your incision begins to separate - Your incision shows signs of infection such as increased redness, swelling, excessive pain, heat, or drainage (light blood or clear fluid is normal) 7. General instructions: No lifting greater than 5 lbs for the next 4 weeks[address] within 24 hours of taking narcotic pain medications. If you do not move your bowels in the next 2 days, please take milk of magnesia over the counter. Please follow the post op diet and do not advance your diet until you are seen in the office in about 2 weeks. Please walk around your home every hour or two to prevent blood clots from forming in your legs. You do not need to wake from sleeping to walk. Please sleep in a bed or couch to prevent kinking at the hips and knees. Please take your incentive spirometer (your lung clinical editor) home with you and use it for the next few days to prevent pneumonias. You may shower, no hot tubs, baths or swimming pools. Please call the office with any questions or concerns such as increasing abdominal pain, fever, chills, shortness of breath, chest pain, leg pain or swelling, or redness or drainage from your incisions. Do not hesitate to contact the office with any questions at . The patient's medical history has been reviewed and they are considered low risk for post op DVT and therefore DVT prophylaxis is not considered necessary. Travel after surgery was reviewed. The patient has not disclosed any travel plans during the first 30 days after surgery and they have been advised that within the first 30 days after surgery any bus, plane, train or car travel over 2 hours in duration is contraindicated due to the possibility of developing blood clots from immobility. Any travel, needs to include periods of ambulation of 10 minutes in duration every 2 hours. The patient was instructed to discuss any plans for travel during this period with their bariatric surgeon. Assessment: s/p sleeve gastrectomy and paraesophageal hernia Discharge Date/Time: 10/09/21 13:52
[2021-10-08] MEDS: Famotidine/PF 20 MG/2 ML VIAL IVPUSH ×2 (10:20→20:15)
--- NOTE | 2021-10-08 10:23 | P.BOP_ITS ---
Brief Operative Note Date of Service: 10/08/21 Pre-op diagnosis: Severe obesity with comorbidities (see below) Post-op diagnosis: same (& diaphragmatic hernia) Procedure: INITIAL PATIENT BMI ON PRESENTATION AT OUR OFFICE: 38.3 kg/m2 LAST BMI BEFORE SURGERY: 34.4 kg/m2 COMORBIDITIES: Diaphragmatic hernia, hypertension, sleep apnea, hyperlipidemia, DJD, anxiety, depression, liver steatosis, grade I diastolic dysfunction, liver fibrosis ?The patient presented to the Weight Management Program with significant obesity that was negatively impacting the patient's comorbidities as listed above.? The program is a phased program with a special focus on preoperative medical weight management to promote substantial weight loss and prepare the patients for the second phase of the program: bariatric surgery. The patient participated in an intensive weekly lifestyle ?intervention and exercise program during which the patient ?has lost between the initial office visit and the last preoperative visit 25.8lbs, or 11.22% of initial actual body weight. It was deemed appropriate for the patient to now have bariatric surgery. In light of the current Covid-19 pandemic and the well documented strong association of obesity and increased risk of worse outcomes if infected with Covid-19 (REFERENCES: https://pubmed.ncbi.nlm.nih.gov/19469704/ ,? https://pubmed.ncbi.nlm.nih.gov/93843532/ ), any delay in undergoing bariatric surgery may lead to the patient's worsening health condition and increased?risk of more severe Covid-19 disease if infected. In addition a recent?study from [facility] published in [facility] on 09/02/2021 ([email or web address]) found that, among patients with obesity, substantial weight loss achieved with surgery was associated with improved outcomes of COVID-19 infection. The findings suggest that obesity can be a modifiable risk factor for the severity of COVID-19 infection. In addition, the patient met the BMI-criteria for bariatric surgery based on the BMI on initial presentation. The patient should not be penalized for achieving such weight loss because ?it is not sustainable long-term without surgical intervention and it was achieved in preparation for bariatric surgery ?under my direction and based on my published research ([email or web address]).pdf and? https://www.soard.org/article/[email or web address](29)57630-X/pdf ) ?that a 10% preoperative weight loss improves long-term weight loss after surgery and reduces perioperative complications.? Insurance carriers such as [facility] have endorsed my recommendations ?and have included in their policies criteria to include a 10% preoperative weight loss requirement. PROCEDURE: Esophago-gastroscopy, laparoscopic repair of incarcerated diaphragmatic hernia, laparoscopic sleeve gastrectomy and laparoscopic gastropexy INDICATIONS: This is a 56 year-old female who was electively scheduled for laparoscopic, possibly open sleeve gastrectomy. The risks and complications of the procedure were discussed with the patient in advance, particularly the possibility of ; pulmonary embolism; staple line leak; bleeding; GERD; cardiac, pulmonary, or renal complications; as well as long-term problems such as insufficient weight loss, vitamin deficiency, strictures, or ulcers. The patient understood all the risks, and was in agreement to proceed with surgery. DESCRIPTION OF PROCEDURE: After informed consent was obtained from the patient, the patient was given preoperative antibiotics, and was transferred to the operating room. After successful induction of general anesthesia, pneumatic compression devices were placed on both lower extremities. An upper endoscopy was performed next. The oropharynx and esophagus appeared to be within normal limits. There was a diaphragmatic hernia present of moderate size consistent with the findings of the preoperative upper GI. The stomach was entered. Then after all fluid and air were suctioned and the stomach was fully decompressed, the scope was withdrawn and secured in the mid esophagus. The patient was then prepped and draped in the usual sterile manner, and abdominal access was established at the right upper quadrant with the Michael technique. A 12 mm blunt port was inserted, and the abdomen was insufflated with CO2 to a pressure of 15 mmHg. Under direct visualization, additional ports were placed, specifically two 5 mm Versi-step ports to the left upper quadrant, and a 5 mm Versi-Step port to the right upper quadrant. 1% lidocaine plain was used to infiltrate all port sites as well as all fascia defects. Following that, the patient was placed in a steep reverse Trendelenburg position. An additional 5 mm port was placed to the right flank for the Mediflex retractor that was used to retract the left lobe of the liver. The gastro-esophageal fat pad was opened with the ultrasonic device (Thunderbeat, Olympus) and the anterior esophagus and hiatus were exposed. The angle of His was opened with the ultrasonic device the fundus of the stomach from any diaphragmatic and splenic attachments. I then opened the gastrocolic ligament between the transverse colon and the greater curvature of the stomach with the ultrasonic device to enter the lesser sac and facilitate the ligation of the short gastric vessels. I started at a mid-point along the greater curvature and using the Thunderbeat, all short gastric vessels were divided all the way to the angle of His until the left bella was completely dissected at its entirety. I then divided the gastro-colic ligament distally to a distance of about 3-4 cm proximal to the esophagus. There was an obvious significant-sized hiatal hernia. I continued dissecting along the hiatus toward the left bella and the angle of His. I fully mobilized the fat pad that was incarcerated in the hernia. I then continued by dissecting even further into the posterior retro-esophageal space all the way to the angle of His. I continued to mobilize the esophagus into the mediastinum circumferentially. Both vagal nerves were seen and preserved. At that point, I was able to have at least 3 to 5 cm of esophagus into the abdomen.? After I completely mobilized the esophagus from both the left and right bella and I had a good mobilization of the esophagus circumferentially, I closed the hernia defect with four interrupted #0 Surgidac sutures using the Endo Stitch device, ?three of which was placed posterior and one of which anterior to the esophagus. ? The stomach was then divided transversely with one Endo GEREMIAS-45 purple and five GEREMIAS-60 articulating orange loads using the AEON stapler and loads. Every effort was made that the gastric sleeve had a tubular shape and an even caliber throughout. Once the sleeve resection was completed, the staple line of the gastric sleeve was reinforced with Hemoclips. The resected stomach was retrieved without difficulty from the Michael port. A gastropexy was then performed in order to prevent postoperative GERD and partial gastric volvulus. Several interrupted 2.0 Surgidac sutures were placed between the sleeve's staple line and the previously divided greater omentum and gastro-colic ligament using the Endo-Stitch device. ?An upper endoscopy was performed. There was no narrowing at the GE junction. The scope was easily advanced all the way to the pylorus which was clearly visualized. There was no narrowing anywhere and the sleeve's caliber was even throughout. The sleeve's staple line was inspected and there was no evidence of ischemia, bleeding or dehiscence. At that point the gastroscope was withdrawn from the patient?s mouth while we were decompressing the bowel and the stomach from any remaining air. I looked into the lesser sac to see how the sleeve was situating and it was situating well. There was no bleeding from the staple line, spleen, or short gastric vessels. The Mediflex retractor was removed, and the undersurface of the liver was inspected and there was no bleeding. The patient was placed in supine position. I closed the fascial defect of the 12 mm port site with a figure of eight #1 Polysorb suture. Then 100 cc 0.25 % Marcaine plain with 10 mg of Dexamethasone were used to infiltrate the fascial closure as well as all skin incisions. At this point, the abdomen was deflated, all ports were removed under direct vision, and no bleeding was noted from any of the port sites. The skin incisions were irrigated with saline and were closed with 4-0 absorbable monofilament sutures. Steri-Strips and OpSites were used to cover all incisions. The patient was extubated and was transferred in stable condition to the recovery room for further care. I was present and performed all desai parts of the procedure. Jude was the assistant professor of radiology. There were no residents to assist with this case. Khari De Oliveira MD, PhD, FACS Surgeon: Jeremy De Oliveira MD Anesthesia: GETA, local and other (TAP block) Was an Scale Manager used for this Procedure?: Yes Scale Manager: Terri Roque Estimated blood loss (mL): 10 IV fluids (mL): 3,000 Urine output (mL): 0 (No [place] to record) Pathology: other (Stomach) Condition: stable Disposition: PACU
--- NOTE | 2021-10-08 10:30 | P.PNGS_ITS ---
Subjective Subjective Date of Service: 10/09/21 Interval history: Patient has mild incisional pain, but was able to ambulate and use the incentive spirometer. She is tolerating phase 1 bariatric diet Physical Exam Verdana 4l Vital Signs: Verdana 4d Verdana 4d Vital Signs: Verdana 4d Verdana 4Bd Last Vital Signs Verdana 4d Durability Engineer New 4d Durability Engineer New 4d Temp 98.4 F 10/08/21 10:14 Durability Engineer New 4d Pulse 91 10/08/21 10:19 Durability Engineer New 4d Resp 17 10/08/21 10:19 BP 155/68 H 10/08/21 10:19 Pulse Ox 100 10/08/21 10:19 BMI result Body Mass Index 33.6 GI: Inspection: Yes normal to inspection, Yes incision (clean, dry and intact) and Yes obesity Extrem: Right lower extremity: normal to inspection (no calf tenderness) Left lower extremity: normal to inspection (no calf tenderness) Objective Data Active Medications Famotidine (Famotidine/Pf 20 Mg/2 Ml Vial) 20 mg IVPUSH BID [facility] Last Admin: 10/08/21 10:20 Dose: 20 mg Documented by: CAESAR Fentanyl (Fentanyl Citrate/Pf 100 Mcg/2 Ml Vial) 25 mcg IVPUSH Q5M PRN; Protocol PRN Reason: Pain, Moderate (Pain Scale 4-6 Hydromorphone HCl (Hydromorphone Hcl 0.5 Mg/0.5 Ml Syringe) 0.25 mg IVPUSH Q5M PRN; Protocol PRN Reason: Pain, Severe (Pain Scale 7-10) Lactated Ringer's (Lr) 1,000 mls @ 100 mls/hr IVCONT .Q10H [facility] Last Admin: 10/08/21 06:37 Dose: 100 mls/hr Documented by: VLADISLAV Promethazine HCl 6.25 mg/ (Sodium Chloride) 50.25 mls @ 201 mls/hr IV ONCE PRN PRN Reason: Nausea and Vomiting Ondansetron HCl (Ondansetron Hcl 4 Mg/2 Ml Vial) 4 mg IVPUSH ONCE PRN PRN Reason: Nausea and Vomiting Labs CBC & Chem 7: 10/09/21 05:58 10/09/21 05:58 Labs: Laboratory Results - last 24 hr 10/07/21 12:20 COVID-19 (PRITESH) Negative COVID-19 Clin Com See Note Procedures Date of Service Date of Service: 10/09/21 Progress Note: A&P Assessment and plan (1) S/P laparoscopic sleeve gastrectomy: Status: Acute Assessment and Plan: s/p laparoscopic sleeve gastrectomy, repair of diaphragmatic hernia, and gastropexy Doing well Check am labs. If OK, will discharge home? (2) S/P repair of paraesophageal hernia: Status: Acute (3) Paraesophageal hernia: Status: Acute (4) Obesity: Status: Acute (5) BMI 34.0-34.9,adult: (6) CHARAN (obstructive sleep apnea): Status: Acute (7) High cholesterol: Status: Acute (8) Knee pain, bilateral: (9) Hypertension: Status: Acute (10) Primary osteoarthritis of right knee: (11) Anxiety: Status: Acute (12) Depression: Status: Acute (13) Steatosis, liver: Status: Acute (14) Liver fibrosis: Status: Acute (15) Diastolic dysfunction without heart failure: Status: Acute Fall Risk Details Current Medications: Current Medications Famotidine (Famotidine/Pf 20 Mg/2 Ml Vial) 20 mg IVPUSH BID [facility] Last Admin: 10/08/21 10:20 Dose: 20 mg Documented by: Fentanyl (Fentanyl Citrate/Pf 100 Mcg/2 Ml Vial) 25 mcg IVPUSH Q5M PRN; Protocol PRN Reason: Pain, Moderate (Pain Scale 4-6 Hydromorphone HCl (Hydromorphone Hcl 0.5 Mg/0.5 Ml Syringe) 0.25 mg IVPUSH Q5M PRN; Protocol PRN Reason: Pain, Severe (Pain Scale 7-10) Lactated Ringer's (Lr) 1,000 mls @ 100 mls/hr IVCONT .Q10H [facility] Last Admin: 10/08/21 06:37 Dose: 100 mls/hr Documented by: Promethazine HCl 6.25 mg/ (Sodium Chloride) 50.25 mls @ 201 mls/hr IV ONCE PRN PRN Reason: Nausea and Vomiting Ondansetron HCl (Ondansetron Hcl 4 Mg/2 Ml Vial) 4 mg IVPUSH ONCE PRN PRN Reason: Nausea and Vomiting Time Spent With Patient Time: Total time spent is greater than 50% in coordination of care (as documented) at patient's floor/unit and/or counseling patient: Time with patient: less than 15 minutes Quality Stroke Does the patient have a stroke diagnosis?: No VTE Prior VTE?: No VTE Risk Level:: Surgical - moderate VTE Device Contraindication: N/A - Device Ordered VTE Drug Contraindication: Treatment Not Indicated
[2021-10-08 10:58] LABS: Hematocrit 37.6 % (37.0-47.0); Hemoglobin 12.1 g/dl (12.0-16.0)
[2021-10-08 11:20] LABS: Anion Gap 10 (12-20); Blood Urea Nitrogen 9 mg/dL (9-16); Calcium 9.3 mg/dL (8.4-10.2); Carbon Dioxide 29 mmol/L (22-29); Chloride 104 mmol/L (96-108); Estimated Glomerular Filt Rate 60; Glucose Random 143 mg/dL (60-115); Potassium 3.9 mmol/L (3.3-5.1); Sodium 139 mmol/L (135-145)
[2021-10-08] MEDS: ceFAZolin Sodium/Dextrose,Iso 2 GM/50 ML PIGGYBACK IV (12:58)
[2021-10-08] MEDS: ondansetron HCL 4 MG/2 ML VIAL IVPUSH ×2 (15:24→23:57)
[2021-10-08] MEDS: HYDROmorphone HCl 1 MG/ML SYRINGE 0.25 MG IVPUSH ×2 (16:16→20:15)
[2021-10-08] MEDS: 0.9 % Sodium Chloride Flush 3 ML SYRINGE IVFLUSH (20:16)
[2021-10-09] MEDS: HYDROmorphone HCl 1 MG/ML SYRINGE 0.25 MG IVPUSH (02:19)
[2021-10-09 04:00] VITALS: BP 154/75; PULSE 92; RESP 18; TEMP 36.3; O2SAT 93
[2021-10-09] MEDS: Lactated Ringers 1,000 ML 100 ML IVCONT (04:11)
[2021-10-09 06:00] LABS: MANUAL DIFF FLAG NO
[2021-10-09 06:09] LABS: Basophils Percent Auto 0.1 % (0-2); Eosinophils Percent Auto 0.1 % (0-4); Hematocrit 34.3 % (37.0-47.0); Hemoglobin 11.3 g/dl (12.0-16.0); Imm Gran Abs Auto 0.07 X10*3/uL (0.00-0.03); Imm Gran Pct Auto 0.4 % (0.0-0.4); Lymphocytes Absolute Auto 3.5 X10*3/uL (1.2-4.9); Mean Corpuscular HGB Conc 32.9 g/dl (31.0-35.0); Mean Corpuscular Hemoglobin 29.7 pg (27.0-33.0); Mean Corpuscular Volume 90.3 fL (80.0-98.0); Mean Platelet Volume 10.2 fL (9.4-12.3); Monocytes Absolute Auto 1.4 X10*3/uL (0.1-1.2); Monocytes Percent Auto 7.3 % (2-11); Neutrophils Absolute Auto 13.6 x10*3/uL (2.0-8.3); Neutrophils Percent Auto 73.1 % (45-73); Platelet Count 332 X10*3/uL (160-400); Red Cell Distribution Width 13.4 % (11.0-16.0); White Blood Count 18.6 X10*3/uL (4.8-10.8)
[2021-10-09 06:20] LABS: Anion Gap 14 (12-20); Blood Urea Nitrogen 9 mg/dL (9-16); Calcium 9.4 mg/dL (8.4-10.2); Carbon Dioxide 27 mmol/L (22-29); Chloride 101 mmol/L (96-108); Creatinine Clr Calc Pharmacy 86.4; Estimated Glomerular Filt Rate > 60; Glucose Random 103 mg/dL (60-115); Potassium 4.3 mmol/L (3.3-5.1); Sodium 138 mmol/L (135-145)
--- NOTE | 2021-10-09 06:58 | HO.POSTANES ---
Post Anesthesia Evaluation Post Anesthesia Evaluation Vital Signs: Vital Signs Temp Pulse Resp BP Pulse Ox 10/09/21 04:00 97.3 F 92 18 154/75 H 93 10/08/21 23:51 97.2 F 99 18 148/76 H 94 10/08/21 19:46 99.2 F 92 18 149/72 H 95 Anesthesia: General Endotracheal-GETA Mental Status: Awake Pain Control: Satisfactory Nausea/Vomiting: None Hydration: Adequate Anesthesia-Related Issues: No Anes. Related Issues
[2021-10-09] MEDS: Famotidine/PF 20 MG/2 ML VIAL IVPUSH (07:05)
[2021-10-09] MEDS: ondansetron HCL 4 MG/2 ML VIAL IVPUSH (07:05)
[2021-10-09] MEDS: Losartan Potassium 50 MG TABLET PO (07:05)
[2021-10-09 07:37] VITALS: BP 172/72; PULSE 87; RESP 18; TEMP 37.1; O2SAT 94
[2021-10-09 08:15] VITALS: BP 157/69; PULSE 80; RESP 18; O2SAT 96
[2021-10-09 11:58] VITALS: BP 155/74; PULSE 81; RESP 18; TEMP 36.7; O2SAT 97
--- NOTE | 2021-10-09 13:10 | MHC.CM.PN ---
PATIENT IS FULLY INDEPENDENT SHE LIVES WITH HER SPOUSE WHO IS PROVIDING TRANSPORT HOME. SHE BELIEVES SHE ASSIGNED A HCP PRIOR TO HER PROCEDURE AND WILL LOOK FOR IT IN HER BELONGINGS SHE IS DISCHARGED HOME TODAY, SELF CARE PATIENT REPORTS BEING VACCINATED AGAINST COVID-19 BUT DOES NOT RECALL THE DATES. IMM 10/09 IN CHART
== END 2021-10-09 13:52 | disposition home or self-care (01) | DRG 620 ==
LOC: HO.SSSA 10:18 → HO.S3 11:38
PROVIDERS: Nurse Practitioner; Physician Assistant; Admitting Provider Surgery; PCP Internal Medicine; Visit Provider Surgery
PROC: 0DB64Z3 Excision of Stomach, Percutaneous Endoscopic Approach, Vertical (ICD-10-PCS; CPT 43845; principal; 2021-10-08 07:30)
DX: E66.01 Morbid (severe) obesity due to excess calories (principal); K44.0 Diaphragmatic hernia with obstruction, without gangrene; G47.33 Obstructive sleep apnea (adult) (pediatric); M19.90 Unspecified osteoarthritis, unspecified site; I10 Essential (primary) hypertension; F32.A Depression, unspecified; I51.89 Other ill-defined heart diseases; Z68.34 Body mass index [BMI] 34.0-34.9, adult; E78.00 Pure hypercholesterolemia, unspecified; F41.9 Anxiety disorder, unspecified; K74.00 Hepatic fibrosis, unspecified; M17.11 Unilateral primary osteoarthritis, right knee; Z20.822 Contact with and (suspected) exposure to COVID-19; Z87.891 Personal history of nicotine dependence; Z79.899 Other long term (current) drug therapy
CPT/HCPCS: 36415; 80048; 80053; 80061; 83036; 83525; 84443; 85014; 85018; 85025; 85610; 85730; 86140; 86850; 86900; 86901; 87635; 88307; 88342; 99024; A4649; J0131; J0690; J1100; J1170; J2250; J2370; J2405; J3010

== ENCOUNTER → 2021-10-14 08:25 | Outpatient (BNVA) | payer MEDICARE, MEDICAID, SELFPAY | PROVIDERS: PCP Internal Medicine; Referring Provider Internal Medicine; Visit Provider Surgery | DX: E66.9 Obesity, unspecified (principal); Z98.84 Bariatric surgery status; Z68.33 Body mass index [BMI] 33.0-33.9, adult | CPT/HCPCS: 99212 ==

== ENCOUNTER → 2021-11-15 08:07 | Outpatient (BNVA) | payer MEDICARE, MEDICAID, SELFPAY | PROVIDERS: PCP Internal Medicine; Visit Provider Surgery | DX: E66.9 Obesity, unspecified (principal); Z68.31 Body mass index [BMI] 31.0-31.9, adult | CPT/HCPCS: 99212 ==

== ENCOUNTER → 2021-12-13 10:17 | Outpatient (BNVA) | payer MEDICARE, MEDICAID, SELFPAY | PROVIDERS: PCP Internal Medicine; Referring Provider Internal Medicine; Visit Provider Physician Assistant | DX: E66.9 Obesity, unspecified (principal); Z68.30 Body mass index [BMI] 30.0-30.9, adult; Z71.3 Dietary counseling and surveillance; Z98.84 Bariatric surgery status | CPT/HCPCS: 99212 ==

== ENCOUNTER → 2021-12-18 10:54 | Outpatient (BNVA) | payer MEDICARE, MEDICAID, SELFPAY | PROVIDERS: PCP Internal Medicine; Visit Provider Internal Medicine | DX: G47.33 Obstructive sleep apnea (adult) (pediatric) (principal); E66.9 Obesity, unspecified; Z68.30 Body mass index [BMI] 30.0-30.9, adult | CPT/HCPCS: 99212 ==

== ENCOUNTER → 2022-01-08 09:51 | Outpatient (BNVA) | payer MEDICARE, MEDICAID, SELFPAY | PROVIDERS: PCP Internal Medicine; Referring Provider Internal Medicine; Visit Provider Physician Assistant | DX: E66.3 Overweight (principal); Z98.84 Bariatric surgery status; Z68.29 Body mass index [BMI] 29.0-29.9, adult | CPT/HCPCS: 99212 ==

== ENCOUNTER → 2022-02-13 15:43 | Outpatient (BNVA) | payer MEDICARE, MEDICAID, SELFPAY | PROVIDERS: PCP Internal Medicine; Visit Provider Physician Assistant | DX: E66.3 Overweight (principal); Z98.84 Bariatric surgery status; Z68.27 Body mass index [BMI] 27.0-27.9, adult | CPT/HCPCS: 99212 ==

== ENCOUNTER 2022-04-10 13:44 | Outpatient (REF) | payer MEDICARE, MEDICAID, SELFPAY ==
--- NOTE | ~2022-04-10 | MM_ITS ---
EXAMINATION: MM SCREENING DIGITAL BREAST TOMOSYNTHESIS, BILATERAL CLINICAL INFORMATION: Screening. Asymptomatic. The lifetime risk of breast cancer based on the Tyrer-Cuzick Model is 7.6%. COMPARISON: Mammography: January 03, 2021 and studies dating back to April 26, 2009 TECHNIQUE: Digital breast tomosynthesis is performed in both the craniocaudal and mediolateral oblique views along with computer-aided detection (CAD). Synthesized 2D images are generated from the tomosynthesis. FINDINGS: There are scattered areas of fibroglandular density (ACR BI-RADS breast composition Category b). There are no significant masses, abnormal calcifications, or other abnormalities. MM/MM tomosynthesis screening BI IMPRESSION: There are no significant changes from prior study. ASSESSMENT: BI-RADS 1: Negative RECOMMENDATION: Routine annual mammography screening. This patient's information was entered into a reminder system with a target due date for their next mammogram.
== END 2022-04-10 13:45 | disposition home or self-care (01) ==
LOC: HO.MAMMO 13:44
PROVIDERS: PCP Internal Medicine; Visit Provider Internal Medicine
DX: Z12.31 Encounter for screening mammogram for malignant neoplasm of breast (principal)
CPT/HCPCS: 77063; 77067

== ENCOUNTER → 2022-04-17 15:18 | Outpatient (BNVA) | payer MEDICARE, MEDICAID, SELFPAY | PROVIDERS: PCP Internal Medicine; Visit Provider Physician Assistant Surgical | DX: Z98.84 Bariatric surgery status (principal) | CPT/HCPCS: 99212 ==

== ENCOUNTER 2022-04-21 08:13 | Outpatient (REF) | payer MEDICARE, MEDICAID, SELFPAY ==
[2022-04-21 09:40] LABS: MANUAL DIFF FLAG NO
[2022-04-21 10:07] LABS: Basophils Absolute Auto 0.1 X10*3/uL (0.0-0.2); Basophils Percent Auto 0.8 % (0-2); Eosinophils Absolute Auto 0.2 X10*3/uL (0.0-0.4); Eosinophils Percent Auto 2.2 % (0-4); Hematocrit 39.2 % (37.0-47.0); Hemoglobin 12.7 g/dl (12.0-16.0); Imm Gran Abs Auto 0.02 X10*3/uL (0.00-0.03); Imm Gran Pct Auto 0.2 % (0.0-0.4); Lymphocytes Absolute Auto 3.8 X10*3/uL (1.2-4.9); Mean Corpuscular HGB Conc 32.4 g/dl (31.0-35.0); Mean Corpuscular Hemoglobin 29.9 pg (27.0-33.0); Mean Corpuscular Volume 92.2 fL (80.0-98.0); Mean Platelet Volume 10.2 fL (9.4-12.3); Monocytes Absolute Auto 0.5 X10*3/uL (0.1-1.2); Monocytes Percent Auto 5.6 % (2-11); Neutrophils Percent Auto 47.2 % (45-73); Platelet Count 312 X10*3/uL (160-400); Red Blood Count 4.25 X10*6/uL (4.20-5.50); Red Cell Distribution Width 13.6 % (11.0-16.0); White Blood Count 8.6 X10*3/uL (4.8-10.8)
[2022-04-21 10:09] LABS: Estimated Average Glucose 103 mg/dL; Hemoglobin A1c % 5.2 %
[2022-04-21 10:24] LABS: Alanine Aminotransferase 12 U/L (0-31); Alkaline Phosphatase 56 U/L (39-117); Anion Gap 13 (12-20); Aspartate Amino Transferase 17 U/L (5-31); Bilirubin Total 0.8 mg/dL (0.0-1.0); Blood Urea Nitrogen 11 mg/dL (9-16); Calcium 9.2 mg/dL (8.4-10.2); Carbon Dioxide 30 mmol/L (22-29); Chloride 103 mmol/L (96-108); Cholesterol 226 mg/dL; Estimated Glomerular Filt Rate > 60; Glucose Random 90 mg/dL (60-115); HDL Cholesterol 69 mg/dL; Iron 89 mcg/dL (30-160); LDL Cholesterol Calculated 144 mg/dl; Percent Iron Saturation 31 % (15-50); Potassium 4.5 mmol/L (3.3-5.1); Sodium 141 mmol/L (135-145); Total Iron Binding Capacity 284 mcg/dL (228-428); Total Protein 6.9 g/dL (6.5-8.0); Triglycerides 69 mg/dL; Unsaturated Iron Binding 195 ug/dL
[2022-04-21 10:35] LABS: Ferritin 70 ng/mL (10-250); Syphilis Screen Nonreactive (Nonreactive); TSH reflex Free T4 1.17 uIU/mL (0.32-4.0); Vitamin D 25-OH Total 70.8 ng/mL (>30)
[2022-04-21 11:06] LABS: Insulin 3 uU/mL (2-29)
[2022-04-21 11:21] LABS: Folate > 20.0 ng/mL (> or = 4.0); Vitamin B12 1011 pg/mL (200-900)
[2022-04-23 11:57] LABS: Calcium (PTHI) 9.6 mg/dL (8.6-10.4); PTHI 21 pg/mL (16-77)
[2022-04-24 23:52] LABS: Zinc 84 mcg/dL (60-130)
[2022-04-25 17:35] LABS: Vitamin A 43 mcg/dL (38-98)
[2022-04-28 05:17] LABS: Vitamin B1 <6 nmol/L (8-30)
== END 2022-04-21 08:14 | disposition home or self-care (01) ==
LOC: HO.LAB 08:13
PROVIDERS: Absent Provider Family Medicine; PCP Internal Medicine; Visit Provider Physician Assistant Surgical
DX: Z00.00 Encounter for general adult medical examination without abnormal findings (principal); K91.2 Postsurgical malabsorption, not elsewhere classified; F39 Unspecified mood [affective] disorder; G47.30 Sleep apnea, unspecified; I10 Essential (primary) hypertension; K21.9 Gastro-esophageal reflux disease without esophagitis; Z98.890 Other specified postprocedural states; Z98.84 Bariatric surgery status
CPT/HCPCS: 36415; 80053; 80061; 82306; 82607; 82728; 82746; 83036; 83525; 83540; 83970; 84425; 84443; 84590; 84630; 85025; 86140; 86780

== ENCOUNTER 2022-06-21 21:52 | Emergency (ER) | payer MEDICARE, MEDICAID, SELFPAY ==
[2022-06-21 21:55] VITALS: BP 172/85; PULSE 86; RESP 16; TEMP 36.8; O2SAT 100; BMI 25.0
--- OUTSIDE RECORDS SUMMARY | 2022-06-21 22:09 | XMS_ITS | Continuity of Care Document ---
:1965 Author Organization [facility] Address [address] [place] [phone]- Care Team Providers Name Role Phone Adrianne Camacho MD Primary Care Physician Encounter [facility] [place] Date(s): 01/17/20 - 04/05/20 [facility] [address] [place] [phone]- [facility] Attending Physician: Merlin Bey MD Admitting Physician: Merlin Bey MD Referring Physician: Sara Cloud MD Allergies, Adverse Reactions, Alerts Substance Reaction Severity Status ciprofloxacin Active aspirin Active shellfish hives Active Immunizations Given and Recorded Vaccine Date Status Refusal Reason Influenza Inactive (IM) (oldterm)1 06/15/08 Given Pneumococcal Vaccine (oldterm)2 04/10/08 Given 1Admin Note: SANOFI [id number] Comment: [id number] exp [id number] Medications Advair Diskus 250 mcg-50 mcg inhalation powder 1 puffs, Inhalation, 2 times a day, # 180 each, 0 Refills, Maintenance, 10/27/13 14:43:15, Powder Start Date: 10/27/13 Status: Orderedamoxicillin 500 mg oral capsule 4 capsule = 2,000 mg, By Mouth, Once, given 1 hour prior to the procedure, # 4 capsule, 1 Refills, Soft Stop, 08/11/17 8:09:10 Start Date: 08/11/17 Status: OrderedBenzonatate = 100 mg, By Mouth, 3 times a day, 0 Refills, Maintenance, 08/11/17 7:54:28 Start Date: 08/11/17 Status: Orderedbisacodyl 5 mg oral delayed release tablet = 5 mg, By Mouth, Daily, PRN Constipation, 0 Refills, Maintenance, 05/31/17 14:30:04, EC Tablet Start Date: 05/31/17 Status: OrderedDulcolax Stool Softener = 100 mg, By Mouth, 2 times a day, 0 Refills, Maintenance, 08/11/17 7:53:34 Start Date: 08/11/17 Status: Orderedfurosemide 20 mg oral tablet 20 mg, 1, tablet, By Mouth, Daily, # 90 tablet, Refills 3, Tot. Refills 3, Maintenance, 01/22/20 15:19:00 EDT, Route to Pharmacy Electronically, [facility], 150, cm, 10/10/19 14:50:00 EST, Height, 79.5, kg, 11/01/18 7:46:00 EST, Dr... Start Date: 01/22/20 Stop Date: 01/16/21 Status: OrderedLoratadine 10 mg, By Mouth, Daily, Refills 0, Maintenance, 08/11/17 7:53:11 Start Date: 08/11/17 Status: OrderedLosartan = 100 mg, By Mouth, Daily, 0 Refills, Maintenance, 08/11/17 7:53:18 Start Date: 08/11/17 Status: OrderedMetformin = 500 mg, By Mouth, 2 times a day, 0 Refills, Maintenance, 08/11/17 7:53:24 Start Date: 08/11/17 Status: OrderedPlavix 75 mg oral tablet 75 mg, 1, tablet, By Mouth, Daily, # 90 tablet, Refills 3, Tot. Refills 3, Maintenance, 09/14/19 15:15:00 EST, Route to Pharmacy Electronically, [facility] - , 150, cm, 07/21/19 12:50:00 EST, Height, 79.5, kg, 11/01/18 7:46:00 ES... Start Date: 09/14/19 Status: OrderedpredniSONE 5 mg oral tablet = 2.5 mg, By Mouth, Daily, 0 Refills, Maintenance, 05/31/17 14:28:45, Tablet Start Date: 05/31/17 Status: OrderedProventil HFA 90 mcg/inh inhalation aerosol with adapter 1 puffs, Inhalation, 4 times a day, PRN for wheezing, # 25 Gm, 0 Refills, Maintenance, 10/27/13 14:44:10, Aerosol Start Date: 10/27/13 Status: Orderedranitidine 150 mg oral capsule 1 capsule = 150 mg, By Mouth, 2 times a day, 0 Refills, Maintenance Start Date: 04/09/11 Status: Orderedrosuvastatin 20 mg oral tablet 1 tablet = 20 mg, By Mouth, Daily, # 90 tablet, 3 Refills, Maintenance, 10/14/18 10:16:01 EST, Tablet Start Date: 10/14/18 Status: Orderedsertraline 50 mg oral tablet 1 tablet = 50 mg, By Mouth, Daily, # 30 tablet, 0 Refills, Maintenance, 10/27/13 14:42:40, Tablet Start Date: 10/27/13 Status: OrderedSingulair 10 mg oral tablet 1 tablet = 10 mg, By Mouth, Daily in PM, # 30 tablet, 0 Refills, Maintenance, 10/27/13 14:42:10, Tablet Start Date: 10/27/13 Status: OrderedSpiriva HandiHaler 18 mcg Inhalation Capsule 1 capsule = 18 mcg, Inhalation, Daily, # 90 capsule, 0 Refills, Maintenance, Capsule Start Date: 05/04/12 Status: OrderedTizanidine 4 mg, By Mouth, Refills 0, Maintenance, 08/11/17 7:53:43 Start Date: 08/11/17 Status: Orderedtrazodone 100 mg oral tablet 1.5 tablet, By Mouth, Daily at bedtime, 0 Refills, Maintenance, 11/27/11 13:24:22 Start Date: 11/27/11 Status: Orderedtylenol arthgritis 650mg tylenol arthgritis 650mg, Refills 0, Maintenance, 10/01/17 11:27:58, Compound Start Date: 10/01/17 Status: Ordered Social History Social History Type Response Smoking Status Current every day smoker; To bacco user in household: Yes entered on: 10/01/17 Sex
--- OUTSIDE RECORDS SUMMARY | 2022-06-21 22:09 | XMS_ITS | Continuity of Care Document ---
:1965 Author Organization [facility] Address [address] [place] [phone]- Care Team Providers Name Role Phone Sara Cloud MD Primary Care Physician Encounter [facility] [place] Date(s): 11/23/19 - 12/28/19 [facility] [address] [place] [phone]- [facility] Attending Physician: Merlin Bey MD Admitting Physician: Merlin Bey MD Referring Physician: Sara Cloud MD Allergies, Adverse Reactions, Alerts Substance Reaction Severity Status ciprofloxacin Active aspirin Active shellfish hives Active Immunizations Given and Recorded Vaccine Date Status Refusal Reason Influenza Inactive (IM) (oldterm)1 06/15/08 Given Pneumococcal Vaccine (oldterm)2 04/10/08 Given 1Admin Note: SANOFI [id number] Comment: [id number] exp [id number] Medications Advair Diskus 250 mcg-50 mcg inhalation [...] tablet, Refills 3, Tot. Refills 3, Maintenance, 01/27/19 15:19:22 EDT, Route to Pharmacy Electronically, [id number], [facility] Start Date: 01/27/19 Stop Date: 01/22/20 Status: OrderedLoratadine 10 mg, By Mouth, Daily, [...] 09/14/19 15:15:00 EST, Route to Pharmacy Electronically, [facility], 150, cm, 07/21/19 12:50:00 EST, Height, 79.5, [...]
--- OUTSIDE RECORDS SUMMARY | 2022-06-21 22:09 | XMS_ITS | Continuity of Care Document ---
:1965 Author Organization [facility] Address [address] [place] [phone]- Care Team Providers Name Role Phone Adrianne Camacho MD Primary Care Physician Encounter [facility] [place] Date(s): 02/22/21 - 06/22/21 [facility] [address] [place] [phone]- Attending Physician: Samson Abreu MD Admitting Physician: Samson Abreu MD Referring Physician: Adrianne Camacho MD Allergies, Adverse Reactions, Alerts Substance Reaction Severity Status ciprofloxacin Active aspirin Active shellfish hives Active Immunizations Given and Recorded Vaccine Date Status Refusal Reason Influenza Inactive (IM) (oldterm)1 06/15/08 Given Pneumococcal Vaccine (oldterm)2 04/10/08 Given 1Admin Note: SANOFI [id number] Comment: [id number] exp [id number] Medications Advair Diskus 250 mcg-50 mcg inhalation [...] By Mouth, Daily, # 90 tablet, Refills 2, Tot. Refills 2, Maintenance, 05/02/21 9:36:00 EDT, Route to Pharmacy Electronically, [facility], 150, cm, 05/16/20 17:54:00 EDT, Height Start Date: 05/02/21 Stop Date: 01/27/22 Status: OrderedLoratadine 10 mg, By Mouth, Daily, [...] tablet, Refills 3, Tot. Refills 3, Maintenance, 08/20/20 14:20:00 EST, Route to Pharmacy Electronically, [facility], 150, cm, 05/16/20 17:54:00 EDT, Height, 79.5, kg, 11/01/18 7:46:00 ESTDr... Start Date: 08/20/20 Stop Date: 08/15/21 Status: OrderedpredniSONE 5 mg oral tablet = [...] 11:27:58, Compound Start Date: 10/01/17 Status: Ordered Problem List Condition Effective Dates Status Health Status Informant Arthritis(Confirmed) Active Asthma(Confirmed) Active Back pain(Confirmed) Active Diabetes mellitus(Confirmed) Active Hypertension(Confirmed) Active Social History Social History Type Response Smoking Status Current every day smoker; To bacco user in household: Yes entered on: 10/01/17 Sex
--- OUTSIDE RECORDS SUMMARY | 2022-06-21 22:09 | XMS_ITS | Continuity of Care Document ---
:1965 Author Organization [facility] Address [address] [place] [address]- Care Team Providers Name Role Phone Sara Cloud MD Primary Care Physician Encounter [facility] Date(s): 08/12/19 - 12/10/19 [facility] [address] [place] [address]- [facility] Attending Physician: Merlin Bey MD Admitting Physician: Merlin Bey MD Referring Physician: Sara Cloud MD Allergies, Adverse Reactions, Alerts Substance Reaction Severity Status ciprofloxacin Active aspirin Active shellfish hives Active Immunizations Given and Recorded Vaccine Date Status Refusal Reason Influenza Inactive (IM) (oldterm)1 06/15/08 Given Pneumococcal Vaccine (oldterm)2 04/10/08 Given 1Admin Note: SANOFI [id number] Comment: [id number] 0519x exp [id number] Medications Advair Diskus 250 mcg-50 mcg inhalation [...] 01/27/19 15:19:22 EDT, Route to Pharmacy Electronically, [id number], [facility] Start Date: 01/27/19 Stop Date: 01/22/20 Status: [...] 09/14/19 15:15:00 EST, Route to Pharmacy Electronically, [facility], 150, cm, 07/21/19 12:50:00 EST, Height, 79.5, [...]
--- OUTSIDE RECORDS SUMMARY | 2022-06-21 22:09 | XMS_ITS | Continuity of Care Document ---
:1965 Author Organization [facility] Address [address] [place] [address]- Care Team Providers Name Role Phone Adrianne Camacho MD Primary Care Physician Encounter [facility] [place] Date(s): 10/23/20 - 12/22/20 [facility] [address] [place] [address]- Attending Physician: Samson Abreu MD Admitting Physician: Samson Abreu MD Allergies, Adverse Reactions, Alerts Substance Reaction Severity Status ciprofloxacin Active aspirin Active shellfish hives Active Immunizations Given and Recorded Vaccine Date Status Refusal Reason Influenza Inactive (IM) (oldterm)1 06/15/08 Given Pneumococcal Vaccine (oldterm)2 04/10/08 Given 1Admin Note: SANOFI [id number] Comment: [id number] 0519x exp [id number] Medications Advair Diskus 250 mcg-50 mcg inhalation [...] 01/22/20 15:19:00 EDT, Route to Pharmacy Electronically, [facility], 150, cm, 10/10/19 14:50:00 EST, Height, 79.5, kg, 11/01/18 7:46:00 ESTDr... Start Date: 01/22/20 Stop Date: 01/16/21 Status: [...] 08/20/20 14:20:00 EST, Route to Pharmacy Electronically, [facility], 150, cm, 05/16/20 17:54:00 EDT, Height, 79.5, kg, 11/01/18 7:46:00 Dr.. GUY. Start Date: 08/20/20 Stop Date: 08/15/21 Status: [...]
--- OUTSIDE RECORDS SUMMARY | 2022-06-21 22:09 | XMS_ITS | Continuity of Care Document ---
:1965 Author Organization [facility] Address [address] [place] [address]- Care Team Providers Name Role Phone Adrianne Camacho MD Primary Care Physician Encounter [facility] Date(s): 09/12/20 - 10/12/20 [facility] [address] [place] [address]- Allergies, Adverse Reactions, Alerts Substance Reaction Severity Status ciprofloxacin Active aspirin Active shellfish hives Active Immunizations Given and Recorded Vaccine Date Status Refusal Reason Influenza Inactive (IM) (oldterm)1 06/15/08 Given Pneumococcal Vaccine (oldterm)2 04/10/08 Given 1Admin Note: SANOFI [id number] Comment: [id number] 0519x exp [id number] Medications Advair Diskus 250 mcg-50 mcg inhalation [...] 01/22/20 15:19:00 EDT, Route to Pharmacy Electronically, [facility], 150, cm, 10/10/19 14:50:00 EST, Height, 79.5, kg, 11/01/18 7:46:00 EST, . Start Date: 01/22/20 Stop Date: 01/16/21 Status: [...] 08/20/20 14:20:00 EST, Route to Pharmacy Electronically, [facility], 150, cm, 05/16/20 17:54:00 EDT, Height, [...]
--- OUTSIDE RECORDS SUMMARY | 2022-06-21 22:09 | XMS_ITS | Continuity of Care Document ---
:1965 Author Organization [facility] Address [address] [place] [address]- Care Team Providers Name Role Phone Sara Cloud MD Primary Care Physician Encounter [facility] Date(s): 11/14/19 - 12/28/19 [facility] [address] [place] [address]- [facility] Attending Physician: Merlin Bey MD Admitting Physician: Merlin Bey MD Referring Physician: Merlin Bey MD Allergies, Adverse Reactions, Alerts Substance Reaction Severity Status ciprofloxacin Active aspirin Active shellfish hives Active Immunizations Given and Recorded Vaccine Date Status Refusal Reason Influenza Inactive (IM) (oldterm)1 06/15/08 Given Pneumococcal Vaccine (oldterm)2 04/10/08 Given 1Admin Note: SANOFI [id number] Comment: [id number] 0519x exp [id number] Medications Advair Diskus 250 mcg-50 mcg inhalation [...] 01/27/19 15:19:22 EDT, Route to Pharmacy Electronically, [id number], [facility] Start Date: 01/27/19 Stop Date: 01/22/20 Status: [...] 09/14/19 15:15:00 EST, Route to Pharmacy Electronically, [facility], 150, cm, 07/21/19 12:50:00 EST, Height, 79.5, [...]
--- OUTSIDE RECORDS SUMMARY | 2022-06-21 22:09 | XMS_ITS | Continuity of Care Document ---
:1965 Author Organization [facility] Address [address] [place] [address]- Care Team Providers Name Role Phone Sara Cloud MD Primary Care Physician Encounter [facility] [place] Date(s): 10/24/19 - 12/03/[address] [address]- [facility] Attending Physician: Samson Abreu MD Admitting Physician: Samson Abreu MD Referring Physician: Samson Abreu MD Allergies, Adverse Reactions, Alerts Substance Reaction Severity Status ciprofloxacin Active aspirin Active shellfish hives Active Immunizations Given and Recorded Vaccine Date Status Refusal Reason Influenza Inactive (IM) (oldterm)1 06/15/08 Given Pneumococcal Vaccine (oldterm)2 04/10/08 Given 1Admin Note: SANOFI [id number] Comment: [id number] 0519x exp [id number] Medications Advair Diskus 250 mcg-50 mcg inhalation [...] 01/27/19 15:19:22 EDT, Route to Pharmacy Electronically, [id number], [facility] Start Date: 01/27/19 Stop Date: 01/22/20 Status: [...] 09/14/19 15:15:00 EST, Route to Pharmacy Electronically, [facility], 150, cm, 07/21/19 12:50:00 EST, Height, 79.5, [...]
--- OUTSIDE RECORDS SUMMARY | 2022-06-21 22:09 | XMS_ITS | Continuity of Care Document ---
:1965 Author Organization [facility] Address [address] [place] [address]- Care Team Providers Name Role Phone Fay GALVAN, Efrain Mason Primary Care Physician Encounter [facility] Date(s): 11/25/21 - 11/25/[address] [address]- Discharge Disposition: A-D/C Home Attending Physician: Migel Ferrara MD, I Admitting Physician: Migel Ferrara MD, I Referring Physician: Migel Ferrara MD, I Allergies, Adverse Reactions, Alerts No Known Allergies Medications calcium (as citrate)-vitamin D 200 mg-250 intl units oral tablet 2 tablet, By Mouth, Daily, 0 Refills, Maintenance, 11/18/21 11:01:00 EDT, Partial fill upon patient request if the prescription is for a schedule II opioid drug. Start Date: 11/18/21 Status: Ordereddocusate sodium 100 mg oral capsule 100 mg, 1, capsule, By Mouth, 2 times a day, Refills 0, Maintenance, 11/18/21 10:58:00 EDT, Partial fill upon patient request if the prescription is for a schedule II opioid drug. Start Date: 11/18/21 Status: Orderedlosartan 25 mg oral tablet 25 mg, 1, tablet, By Mouth, Daily, # 30 tablet, Refills 0, Maintenance, 11/18/21 10:35:00 EDT, Partial fill upon patient request if the prescription is for a schedule II opioid drug. Start Date: 11/18/21 Status: Orderedpantoprazole 40 mg oral delayed release tablet 1 tablet = 40 mg, By Mouth, Daily, # 30 tablet, 0 Refills, Maintenance, 11/18/21 10:57:00 EDT, EC Tablet Start Date: 11/18/21 Status: OrderedSucralfate = 10 mg, By Mouth, 2 times a day, 0 Refills, Maintenance, 11/18/21 10:55:00 EDT, Partial fill upon patient request if the prescription is for a schedule II opioid drug. Start Date: 11/18/21 Status: Ordered Problem List Condition Effective Dates Status Health Status Informant Obese class I(Confirmed) Active Vital Signs Most recent to oldest 1 2 3 [Reference Range]: Height 165 cm 165 cm (11/25/21 10:34 AM) (11/18/21 11:12 AM) Weight 84 kg 84 kg (11/25/21 10:34 AM) (11/18/21 11:12 AM) Oxygen Saturation [94-100 96 % 100 % 99 % %] (11/25/21 1:45 PM) (11/25/21 1:30 PM) (11/25/21 1:1 5 PM) Pulse Rate [55-90 bpm] 68 bpm (11/25/21 10:34 AM) Body Mass Index 30.85 30.85 [18.5-24.99] *>HHI* *>HHI* (11/25/21 10:34 AM) (11/18/21 11:12 AM) Blood Pressure 133/54 mm Hg 131/56 mm Hg 123/54 mm Hg [90-138/55-84 mm Hg] (11/25/21 1:45 PM) (11/25/21 1:30 PM) ( 2 1:15 PM) Respiratory Rate [16-30 15 br/min 21 br/min 17 br/mi n br/min] *L* (11/25/21 1:30 PM) (11/25/21 1:15 PM) (11/25/21 1:45 PM) Temperature [96.8-100.4 97.9 DegF 97.3 DegF DegF] (11/25/21 1:09 PM) (11/25/21 10:34 AM) Liters per Minute 4 L/min 4 L/min (11/25/21 1:15 PM) (11/25/21 1:09 PM) Mode of Delivery (Oxygen) Room air Room air Room a ir (11/25/21 2:15 PM) (11/25/21 1:45 PM) (11/25/21 1:3 0 PM) Blood pressure sites Arm, left Arm, left (11/25/21 1:09 PM) (11/25/21 10:34 AM) Temperature Route Temporal Temporal (11/25/21 1:09 PM) (11/25/21 10:34 AM) Dry Weight 84 kg (11/18/21 11:12 AM) Weight Obtained Via Patient/family stated (11/18/21 11:12 AM) Dry Weight Obtained Via Patient/family stated (11/18/21 11:12 AM)
--- OUTSIDE RECORDS SUMMARY | 2022-06-21 22:09 | XMS_ITS | Continuity of Care Document ---
:1965 Author Organization [facility] Address [address] [place] [address]- Care Team Providers Name Role Phone Delores Cid MD, Adrianne Nielsen Primary Care Physician [phone] Encounter [facility] Date(s): 08/29/20 - 09/28/20 [facility] [address] [place] [id number] Allergies, Adverse Reactions, Alerts Substance Reaction Severity Status ciprofloxacin Active aspirin Active shellfish hives Active Immunizations Given and Recorded Vaccine Date Status Refusal Reason Influenza Inactive (IM) (oldterm)1 06/15/08 Given Pneumococcal Vaccine (oldterm)2 04/10/08 Given 1Admin Note: SANOFI [id number] Comment: [id number] 0519x exp [id number] Medications Advair Diskus 250 mcg-50 mcg inhalation [...] 01/22/20 15:19:00 EDT, Route to Pharmacy Electronically, [facility], 150, cm, 10/10/19 14:50:00 EST, [...] 08/20/20 14:20:00 EST, Route to Pharmacy Electronically, [facility], 150, cm, 05/16/20 17:54:00 EDT, [...]
--- OUTSIDE RECORDS SUMMARY | 2022-06-21 22:09 | XMS_ITS | Continuity of Care Document ---
:1965 Author Organization [facility] Address [address] [place] [address]- Care Team Providers Name Role Phone Sara Cloud MD Primary Care Physician Encounter [facility] Date(s): 09/19/19 - 10/29/[address] [address]- [facility] Attending Physician: Samson Abreu MD Admitting Physician: Samson Abreu MD Referring Physician: Samson Abreu MD Allergies, Adverse Reactions, Alerts Substance Reaction Severity Status ciprofloxacin Active aspirin Active shellfish hives Active Immunizations Given and Recorded Vaccine Date Status Refusal Reason Influenza Inactive (IM) (oldterm)1 06/15/08 Given Pneumococcal Vaccine (oldterm)2 04/10/08 Given 1Admin Note: SANOFI [id number] Comment: [id number] 0519x exp [id number] Medications Advair Diskus 250 mcg-50 mcg inhalation [...] 01/27/19 15:19:22 EDT, Route to Pharmacy Electronically, [id number], [facility] Start Date: 01/27/19 Stop Date: [...] 09/14/19 15:15:00 EST, Route to Pharmacy Electronically, [facility], 150, cm, 07/21/19 12:50:00 EST, [...]
--- OUTSIDE RECORDS SUMMARY | 2022-06-21 22:09 | XMS_ITS | Continuity of Care Document ---
:1965 Author Organization [facility] Address [address] [place] [address]- Care Team Providers Name Role Phone Willie Camacho MD Primary Care Physician Encounter [facility] Date(s): 05/17/20 - 06/16/20 [facility] [address] [place] [address]- [facility] Attending Physician: Admkimberlee, Esau Admitting Physician: Admtr, Aaron8 Referring Physician: Admtr, Ar8 Allergies, Adverse Reactions, Alerts Substance Reaction Severity Status ciprofloxacin Active aspirin Active shellfish hives Active Immunizations Given and Recorded Vaccine Date Status Refusal Reason Influenza Inactive (IM) (oldterm)1 06/15/08 Given Pneumococcal Vaccine (oldterm)2 04/10/08 Given 1Admin Note: SANOFI [id number] Comment: [id number] 0519x exp [id number] Medications Advair Diskus 250 mcg-50 mcg inhalation [...] 01/22/20 15:19:00 EDT, Route to Pharmacy Electronically, [facility], 150, cm, 10/10/19 14:50:00 EST, [...] 09/14/19 15:15:00 EST, Route to Pharmacy Electronically, [facility] - , 150, cm, 07/21/19 12:50:00 [...]
--- OUTSIDE RECORDS SUMMARY | 2022-06-21 22:09 | XMS_ITS | Continuity of Care Document ---
:1965 Author Organization [facility] Address [address] [place] [address]- Care Team Providers Name Role Phone Adrianne Camacho MD Primary Care Physician Encounter [facility] Date(s): 06/13/20 - 10/11/20 [facility] [address] [place] [address]- Attending Physician: Merlin Bey MD Admitting Physician: Merlin Bey MD Referring Physician: Adrianne Camacho MD Allergies, Adverse Reactions, Alerts Substance Reaction Severity Status ciprofloxacin Active aspirin Active shellfish hives Active Immunizations Given and Recorded Vaccine Date Status Refusal Reason Influenza Inactive (IM) (oldterm)1 06/15/08 Given Pneumococcal Vaccine (oldterm)2 04/10/08 Given 1Admin Note: SANOFI [id number] Comment: [id number] 0519x exp [id number] Medications Advair Diskus 250 mcg-50 mcg inhalation [...] 01/22/20 15:19:00 EDT, Route to Pharmacy Electronically, [facility], 150, cm, 10/10/19 14:50:00 EST, Height, [...] 08/20/20 14:20:00 EST, Route to Pharmacy Electronically, [facility], 150, cm, 05/16/20 17:54:00 EDT, Height, [...]
--- OUTSIDE RECORDS SUMMARY | 2022-06-21 22:09 | XMS_ITS | Continuity of Care Document ---
:1965 Author Organization [facility] Address [address] [place] [address]- Care Team Providers Name Role Phone Adrianne Camacho MD Primary Care Physician Encounter [facility] [place] [place] Date(s): 06/24/21 - 08/22/21 [facility] [address] [place] [address]- Attending Physician: Merlin Bey MD Admitting Physician: Merlin Bey MD Referring Physician: Adrianne Camacho MD Allergies, Adverse Reactions, Alerts Substance Reaction Severity Status ciprofloxacin Active shellfish hives Active aspirin Active Immunizations Given and Recorded Vaccine Date Status Refusal Reason Influenza Inactive (IM) (oldterm)1 06/15/08 Given Pneumococcal Vaccine (oldterm)2 04/10/08 Given 1Admin Note: SANOFI [id number] Comment: [id number] 0519x exp [id number] Medications Advair Diskus 250 mcg-50 mcg inhalation [...] 05/02/21 9:36:00 EDT, Route to Pharmacy Electronically, [facility], 150, cm, 05/16/20 17:54:00 EDT, [...] tablet, Refills 3, Tot. Refills 3, Maintenance, 08/20/21 7:45:00 EST, Route to Pharmacy Electronically, [facility], 150, cm, 05/16/20 17:54:00 EDT, Height Start Date: 08/20/21 Stop Date: 08/15/22 Status: OrderedpredniSONE 5 mg oral tablet = [...]
--- OUTSIDE RECORDS SUMMARY | 2022-06-21 22:09 | XMS_ITS | Continuity of Care Document ---
:1965 Author Organization [facility] Address [address] [place] [address]- Care Team Providers Name Role Phone Sara Cloud MD Primary Care Physician En[place] [facility] [place]s): 09/14/19 - 01/07/20 [facility] [address] [place] [address]- [facility] Attending Physician: Samson Abreu MD Admitting Physician: Samson Abreu MD Referring Physician: Sara Cloud MD Allergies, Adverse Reactions, Alerts Substance Reaction Severity Status ciprofloxacin Active aspirin Active shellfish hives Active Immunizations Given and Recorded Vaccine Date Status Refusal Reason Influenza Inactive (IM) (oldterm)1 06/15/08 Given Pneumococcal Vaccine (oldterm)2 04/10/08 Given 1Admin Note: SANOFI [id number] Comment: [id number] 0519x exp [id number] Medications Advair Diskus 250 mcg-50 mcg inhalation [...] 01/27/19 15:19:22 EDT, Route to Pharmacy Electronically, [id number], [facility] Start Date: 01/27/19 Stop Date: 01/22/20 [...] 09/14/19 15:15:00 EST, Route to Pharmacy Electronically, [facility], 150, cm, 07/21/19 12:50:00 EST, Height, [...]
--- OUTSIDE RECORDS SUMMARY | 2022-06-21 22:09 | XMS_ITS | Continuity of Care Document ---
:1965 Author Organization [facility] Address [address] [place] [address]- Care Team Providers Name Role Phone Adrianne Camacho MD Primary Care Physician [phone] [place] [facility] [place](s): 09/12/20 - 10/27/20 [facility] [address] [place] [address] Attending Physician: Merlin Bey MD Admitting Physician: Merlin Bey MD Referring Physician: Adrianne Camacho MD Allergies, Adverse Reactions, Alerts Substance Reaction Severity Status ciprofloxacin Active aspirin Active shellfish hives Active Immunizations Given and Recorded Vaccine Date Status Refusal Reason Influenza Inactive (IM) (oldterm)1 06/15/08 Given Pneumococcal Vaccine (oldterm)2 04/10/08 Given 1Admin Note: SANOFI [id number] Comment: [id number] 0519x exp [id number] Medications Advair Diskus 250 mcg-50 mcg inhalation [...] 01/22/20 15:19:00 EDT, Route to Pharmacy Electronically, [facility], 150, cm, 10/10/19 14:50:00 EST, Height, [...] 08/20/20 14:20:00 EST, Route to Pharmacy Electronically, [facility], 150, cm, 05/16/20 17:54:00 EDT, Height, [...]
--- OUTSIDE RECORDS SUMMARY | 2022-06-21 22:09 | XMS_ITS | Continuity of Care Document ---
:1965 Author Organization [facility] Address [address] [place] [address]- Care Team Providers Name Role Phone Sara Cloud MD Primary Care Physician [place] [facility] [place](s): 12/08/19 - 12/18/19 [facility] [address] [place] [address]- [facility] Attending Physician: Esau Lyons Admitting Physician: AdmtrEsau Referring Physician: Admtr, Ar8 Allergies, Adverse Reactions, Alerts Substance Reaction Severity Status ciprofloxacin Active aspirin Active shellfish hives Active Immunizations Given and Recorded Vaccine Date Status Refusal Reason Influenza Inactive (IM) (oldterm)1 06/15/08 Given Pneumococcal Vaccine (oldterm)2 04/10/08 Given 1Admin Note: SANOFI [id number] Comment: [id number] 0519x exp [id number] Medications Advair Diskus 250 mcg-50 mcg inhalation [...] 01/27/19 15:19:22 EDT, Route to Pharmacy Electronically, [id number], [facility] Start Date: 01/27/19 Stop Date: 01/22/20 Status: [...] 15:15:00 EST, Route to Pharmacy Electronically, [facility], 150, cm, 07/21/19 12:50:00 EST, Height, 79.5, [...]
--- OUTSIDE RECORDS SUMMARY | 2022-06-21 22:09 | XMS_ITS | Continuity of Care Document ---
:1965 Author Organization [facility] Address [address] [place] [address]- Care Team Providers Name Role Phone Adrianne Camacho MD Primary Care Physician Encounter [facility] [place] [facility] [id number] Date(s): 05/23/21 - 06/22/21 [facility] [address] [place] [address]- Attending Physician: Esau Lyons Admitting Physician: Esau Lyons Referring Physician: AdmtrEsau Allergies, Adverse Reactions, Alerts Substance Reaction Severity Status ciprofloxacin Active aspirin Active shellfish hives Active Immunizations Given and Recorded Vaccine Date Status Refusal Reason Influenza Inactive (IM) (oldterm)1 06/15/08 Given Pneumococcal Vaccine (oldterm)2 04/10/08 Given 1Admin Note: SANOFI [id number] Comment: [id number] 0519x exp [id number] Medications Advair Diskus 250 mcg-50 mcg inhalation [...] 05/02/21 9:36:00 EDT, Route to Pharmacy Electronically, [facility], 150, cm, 05/16/20 17:54:00 EDT, [...] 08/20/20 14:20:00 EST, Route to Pharmacy Electronically, [facility], 150, cm, 05/16/20 17:54:00 EDT, [...]
--- OUTSIDE RECORDS SUMMARY | 2022-06-21 22:09 | XMS_ITS | Continuity of Care Document ---
:1965 Author Organization [facility] Address [address] [place] [address]- Care Team Providers Name Role Phone Delores Cid MD, Adrianne Nielsen Primary Care Physician Encounter [facility] [place] Date(s): 08/16/20 - 09/15/20 [facility] [address] [place] [address]- Allergies, Adverse Reactions, Alerts Substance Reaction Severity Status ciprofloxacin Active aspirin Active shellfish hives Active Immunizations Given and Recorded Vaccine Date Status Refusal Reason Influenza Inactive (IM) (oldterm)1 06/15/08 Given Pneumococcal Vaccine (oldterm)2 04/10/08 Given 1Admin Note: SANOFI [id number] Comment: [id number] 0519x exp [id number] Medications Advair Diskus 250 mcg-50 mcg inhalation [...] 15:19:00 EDT, Route to Pharmacy Electronically, [facility], 150, cm, 10/10/19 14:50:00 EST, [...] 14:20:00 EST, Route to Pharmacy Electronically, [facility], 150, cm, 05/16/20 17:54:00 EDT, [...]
--- OUTSIDE RECORDS SUMMARY | 2022-06-21 22:09 | XMS_ITS | Continuity of Care Document ---
:1965 Author Organization [facility] Address [address] [place] [address]- Care Team Providers Name Role Phone Adrianne Camacho MD Primary Care Physician Encounter [facility] [place] Date(s): 05/14/22 - 06/13/22 [facility] [address] [place] [address]- Allergies, Adverse Reactions, Alerts Substance Reaction Severity Status ciprofloxacin Active aspirin Active shellfish hives Active Immunizations Given and Recorded Vaccine Date Status Refusal Reason Influenza Inactive (IM) (oldterm)1 06/15/08 Given Pneumococcal Vaccine (oldterm)2 04/10/08 Given 1Admin Note: SANOFI [id number] Comment: [id number] 0519x exp [id number] Medications Advair Diskus 250 mcg-50 mcg inhalation [...] By Mouth, Daily, # 90 tablet, Refills 0, Tot. Refills 0, Maintenance, 05/08/22 16:58:00 EDT, Route to Pharmacy Electronically, [facility], 150, cm, 05/16/20 17:54:00 EDT, Height Start Date: 05/08/22 Stop Date: 08/06/22 Status: OrderedLoratadine 10 mg, By Mouth, Daily, [...] 08/20/21 7:45:00 EST, Route to Pharmacy Electronically, [facility], 150, cm, 05/16/20 17:54:00 EDT, [...] Date: 10/01/17 Status: Ordered Problem List Condition Confirmation Course Effective Dates Status Health Stat us Informant Arthritis Confirmed Active Asthma Confirmed Active Back pain Confirmed Active Diabetes mellitus Confirmed Active Hypertension Confirmed Active Social History Social History Type Response Smoking Status Current every day smoker; To bacco user in household: Yes entered on: 10/01/17 Sex Patient Care team information PersonnelName: Adrianne Camacho MD Address: Address: [address] [place] [address] [address] [place], [place] [address]
--- OUTSIDE RECORDS SUMMARY | 2022-06-21 22:09 | XMS_ITS | Continuity of Care Document ---
:1965 Author Organization [facility] Address [address] [place] [address]- Care Team Providers Name Role Phone Delores Cid MD, Willie Nielsen Primary Care Physician [phone] Encounter [facility] [place] Date(s): 10/09/20 - 11/08/20 [facility] [address] [place] [address]- Attending Physician: AdmEsau mohan Admitting Physician: AdmtrEsau Referring Physician: Admtr, Ar8 Allergies, Adverse Reactions, Alerts Substance Reaction Severity Status ciprofloxacin Active aspirin Active shellfish hives Active Immunizations Given and Recorded Vaccine Date Status Refusal Reason Influenza Inactive (IM) (oldterm)1 06/15/08 Given Pneumococcal Vaccine (oldterm)2 04/10/08 Given 1Admin Note: SANOFI [id number] Comment: [id number] 0519x exp [id number] Medications Advair Diskus 250 mcg-50 mcg inhalation [...] 01/22/20 15:19:00 EDT, Route to Pharmacy Electronically, [facility], 150, cm, 10/10/19 14:50:00 EST, [...] 08/20/20 14:20:00 EST, Route to Pharmacy Electronically, [facility], 150, cm, 05/16/20 17:54:00 EDT, [...]
--- OUTSIDE RECORDS SUMMARY | 2022-06-21 22:10 | XMS_ITS | Continuity of Care Document ---
:1965 Author Organization [facility] Address [address] [place] [address]- Care Team Providers Name Role Phone Sara Cloud MD Primary Care Physician Encounter [place] Date(s): 11/28/19 - 12/08/19 [facility] [address] [place] [address]- [facility] Attending Physician: Admtr, Esau Admitting Physician: AdmtrEsau Referring Physician: Admtr, Ar8 Allergies, Adverse Reactions, Alerts Substance Reaction Severity Status ciprofloxacin Active aspirin Active shellfish hives Active Immunizations Given and Recorded Vaccine Date Status Refusal Reason Influenza Inactive (IM) (oldterm)1 06/15/08 Given Pneumococcal Vaccine (oldterm)2 04/10/08 Given 1Admin Note: SANOFI [id number] Comment: [id number] 0519x exp [id number] Medications Advair Diskus 250 mcg-50 mcg inhalation [...] 01/27/19 15:19:22 EDT, Route to Pharmacy Electronically, [id number], [facility] Start Date: 01/27/19 Stop Date: [...] 09/14/19 15:15:00 EST, Route to Pharmacy Electronically, [facility], 150, cm, 07/21/19 12:50:00 EST, [...]
--- OUTSIDE RECORDS SUMMARY | 2022-06-21 22:10 | XMS_ITS | Continuity of Care Document ---
:1965 Author Organization [facility] Address [address] [place] [address]- Care Team Providers Name Role Phone Adrianne Camacho MD Primary Care Physician En[place] [facility] [place](s): 10/01/20 - 11/08/20 [facility] [address] [place] [address] Attending Physician: Merlin Bey MD Admitting Physician: Merlin Bey MD Referring Physician: Adrianne Camacho MD Allergies, Adverse Reactions, Alerts Substance Reaction Severity Status ciprofloxacin Active aspirin Active shellfish hives Active Immunizations Given and Recorded Vaccine Date Status Refusal Reason Influenza Inactive (IM) (oldterm)1 06/15/08 Given Pneumococcal Vaccine (oldterm)2 04/10/08 Given 1Admin Note: SANOFI [id number] Comment: [id number] 0519x exp [id number] Medications Advair Diskus 250 mcg-50 mcg inhalation [...] 01/22/20 15:19:00 EDT, Route to Pharmacy Electronically, [facility], 150, cm, 10/10/19 14:50:00 EST, Height, [...] 08/20/20 14:20:00 EST, Route to Pharmacy Electronically, [facility], 150, cm, 05/16/20 17:54:00 EDT, Height, [...]
--- OUTSIDE RECORDS SUMMARY | 2022-06-21 22:10 | XMS_ITS | Continuity of Care Document ---
:1965 Author Organization [facility] Address [address] [place] [address]- Care Team Providers Name Role Phone Adrianne Camacho MD Primary Care Physician [place] [facility] [place] 09/06/21 - 01/04/22 [facility] [address] [place] [address]- Attending Physician: Samson Abreu MD Admitting Physician: Samson Abreu MD Allergies, Adverse Reactions, Alerts Substance Reaction Severity Status ciprofloxacin Active aspirin Active shellfish hives Active Immunizations Given and Recorded Vaccine Date Status Refusal Reason Influenza Inactive (IM) (oldterm)1 06/15/08 Given Pneumococcal Vaccine (oldterm)2 04/10/08 Given 1Admin Note: SANOFI [id number] Comment: [id number] 0519x exp [id number] Medications Advair Diskus 250 mcg-50 mcg inhalation [...] 05/02/21 9:36:00 EDT, Route to Pharmacy Electronically, [facility], 150, cm, 05/16/20 17:54:00 EDT, Height [...] 08/20/21 7:45:00 EST, Route to Pharmacy Electronically, [facility], 150, cm, 05/16/20 17:54:00 EDT, Height [...]
--- OUTSIDE RECORDS SUMMARY | 2022-06-21 22:10 | XMS_ITS | Continuity of Care Document ---
:1965 Author Organization [facility] Address [address] [place] [address]- Care Team Providers Name Role Phone Delores Cid MD, Adrianne Nielsen Primary Care Physician [phone] [place] [facility] [place](s): 08/20/20 - 09/19/20 [facility] [address] [place] [address]- Allergies, Adverse Reactions, Alerts Substance Reaction Severity Status ciprofloxacin Active aspirin Active shellfish hives Active Immunizations Given and Recorded Vaccine Date Status Refusal Reason Influenza Inactive (IM) (oldterm)1 06/15/08 Given Pneumococcal Vaccine (oldterm)2 04/10/08 Given 1Admin Note: SANOFI [id number] Comment: [id number] 0519x exp [id number] Medications Advair Diskus 250 mcg-50 mcg inhalation [...] 01/22/20 15:19:00 EDT, Route to Pharmacy Electronically, [facility], 150, cm, 10/10/19 14:50:00 EST, [...] 08/20/20 14:20:00 EST, Route to Pharmacy Electronically, [facility], 150, cm, 05/16/20 17:54:00 [...]
--- OUTSIDE RECORDS SUMMARY | 2022-06-21 22:10 | XMS_ITS | Continuity of Care Document ---
:1965 Author Organization [facility] Address [address] [place] [address]- Care Team Providers Name Role Phone Adrianne Camacho MD Primary Care Physician En[place] [facility] [place] Date(s): 07/24/21 - 09/19/21 [facility] [address] [place] [address]- Attending Physician: Merlin Bey MD Admitting Physician: Merlin Bey MD Referring Physician: Adrianne Camacho MD Allergies, Adverse Reactions, Alerts Substance Reaction Severity Status ciprofloxacin Active aspirin Active shellfish hives Active Immunizations Given and Recorded Vaccine Date Status Refusal Reason Influenza Inactive (IM) (oldterm)1 06/15/08 Given Pneumococcal Vaccine (oldterm)2 04/10/08 Given 1Admin Note: SANOFI [id number] Comment: [id number] 0519x exp [id number] Medications Advair Diskus 250 mcg-50 mcg inhalation [...] 05/02/21 9:36:00 EDT, Route to Pharmacy Electronically, [facility], 150, cm, 05/16/20 17:54:00 EDT, [...] 08/20/21 7:45:00 EST, Route to Pharmacy Electronically, [facility], 150, cm, 05/16/20 17:54:00 EDT, [...]
--- OUTSIDE RECORDS SUMMARY | 2022-06-21 22:10 | XMS_ITS | Continuity of Care Document ---
:1965 Author Organization [facility] Address [address] [place] [address]- Care Team Providers Name Role Phone Delores Cid MD, Willie Nielsen Primary Care Physician [phone] Encounter [facility] [place] Date(s): 11/22/20 - 12/22/20 [facility] [address] [place] [address] Attending Physician: AdmEsau mohan Admitting Physician: Admtr, Aaron8 Referring Physician: Admtr, Ar8 Allergies, Adverse Reactions, Alerts Substance Reaction Severity Status ciprofloxacin Active aspirin Active shellfish hives Active Immunizations Given and Recorded Vaccine Date Status Refusal Reason Influenza Inactive (IM) (oldterm)1 06/15/08 Given Pneumococcal Vaccine (oldterm)2 04/10/08 Given 1Admin Note: SANOFI [id number] Comment: [id number] 0519x exp [id number] Medications Advair Diskus 250 mcg-50 mcg inhalation [...] 01/22/20 15:19:00 EDT, Route to Pharmacy Electronically, [facility], 150, cm, 10/10/19 14:50:00 EST, [...] 08/20/20 14:20:00 EST, Route to Pharmacy Electronically, [facility], 150, cm, 05/16/20 17:54:00 EDT, [...]
--- OUTSIDE RECORDS SUMMARY | 2022-06-21 22:10 | XMS_ITS | Continuity of Care Document ---
:1965 Author Organization [facility] Address [address] [place] [address]- Care Team Providers Name Role Phone Sara Cloud MD Primary Care Physician [place] [facility] [place] 10[place]10/19 - 11/18/19 [facility] [address] [place] [address]- [facility] Attending Physician: Samson Abreu MD Admitting Physician: Samson Abreu MD Referring Physician: Sara Cloud MD Allergies, Adverse Reactions, Alerts Substance Reaction Severity Status ciprofloxacin Active aspirin Active shellfish hives Active Immunizations Given and Recorded Vaccine Date Status Refusal Reason Influenza Inactive (IM) (oldterm)1 06/15/08 Given Pneumococcal Vaccine (oldterm)2 04/10/08 Given 1Admin Note: SANOFI [id number] Comment: [id number] 0519x exp [id number] Medications Advair Diskus 250 mcg-50 mcg inhalation [...] 01/27/19 15:19:22 EDT, Route to Pharmacy Electronically, [id number], [facility] Start Date: 01/27/19 Stop Date: 01/22/20 [...] 09/14/19 15:15:00 EST, Route to Pharmacy Electronically, [facility], 150, cm, 07/21/19 12:50:00 EST, Height, [...]
--- OUTSIDE RECORDS SUMMARY | 2022-06-21 22:10 | XMS_ITS | Continuity of Care Document ---
:1965 Author Organization [facility] Address [address] [place] [address]- Care Team Providers Name Role Phone Delores Cid MD, Christy Primary Care Physician [phone] Encounter [facility] Date(s): 09/28/20 - 10/28/20 [facility] [address] [address] Allergies, Adverse Reactions, Alerts Substance Reaction Severity Status ciprofloxacin Active aspirin Active shellfish hives Active Immunizations Given and Recorded Vaccine Date Status Refusal Reason Influenza Inactive (IM) (oldterm)1 06/15/08 Given Pneumococcal Vaccine (oldterm)2 04/10/08 Given 1Admin Note: SANOFI [id number] Comment: [id number] 0519x exp [id number] Medications Advair Diskus 250 mcg-50 mcg inhalation [...] 01/22/20 15:19:00 EDT, Route to Pharmacy Electronically, [facility], 150, cm, 10/10/19 14:50:00 EST, [...] 08/20/20 14:20:00 EST, Route to Pharmacy Electronically, [facility], 150, cm, 05/16/20 17:54:00 EDT, [...]
--- OUTSIDE RECORDS SUMMARY | 2022-06-21 22:10 | XMS_ITS | Continuity of Care Document ---
:1965 Author Organization [facility] Address [address] [place] [address]- Care Team Providers Name Role Phone Adrianne Camacho MD Primary Care Physician En[place] [facility] [place] Date(s): 05/08/22 - 06/07/22 [facility] [address] [place] [address]- Allergies, Adverse Reactions, Alerts Substance Reaction Severity Status ciprofloxacin Active aspirin Active shellfish hives Active Immunizations Given and Recorded Vaccine Date Status Refusal Reason Influenza Inactive (IM) (oldterm)1 06/15/08 Given Pneumococcal Vaccine (oldterm)2 04/10/08 Given 1Admin Note: SANOFI [id number] Comment: [id number] 0519x exp [id number] Medications Advair Diskus 250 mcg-50 mcg inhalation [...] 05/08/22 16:58:00 EDT, Route to Pharmacy Electronically, [facility], 150, cm, 05/16/20 17:54:00 [...] 08/20/21 7:45:00 EST, Route to Pharmacy Electronically, [facility], 150, cm, 05/16/20 17:54:00 [...] information PersonnelName: Adrianne Camacho MD Address: Address: [address] [place] [address] [address] [place], [place] [address]
--- OUTSIDE RECORDS SUMMARY | 2022-06-21 22:10 | XMS_ITS | Continuity of Care Document ---
:1965 Author Organization [facility] Address [address] [place] [address]- Care Team Providers Name Role Phone Adrianne Camacho MD Primary Care Physician Encounter [facility] [place] Date(s): 03/06/21 - 07/04/21 [facility] [address] [place] [address]- Attending Physician: Merlin Bey MD Admitting Physician: Merlin Bey MD Referring Physician: Adrianne Camacho MD Allergies, Adverse Reactions, Alerts Substance Reaction Severity Status ciprofloxacin Active aspirin Active shellfish hives Active Immunizations Given and Recorded Vaccine Date Status Refusal Reason Influenza Inactive (IM) (oldterm)1 06/15/08 Given Pneumococcal Vaccine (oldterm)2 04/10/08 Given 1Admin Note: SANOFI [id number] Comment: [id number] 0519x exp [id number] Medications Advair Diskus 250 mcg-50 mcg inhalation [...] 05/02/21 9:36:00 EDT, Route to Pharmacy Electronically, [facility], 150, cm, 05/16/20 17:54:00 EDT, [...] 08/20/20 14:20:00 EST, Route to Pharmacy Electronically, [facility], 150, cm, 05/16/20 17:54:00 EDT, [...]
--- OUTSIDE RECORDS SUMMARY | 2022-06-21 22:10 | XMS_ITS | Continuity of Care Document ---
:1965 Author Organization [facility] Address [address] [place] [address]- Care Team Providers Name Role Phone Sara Cloud MD Primary Care Physician En[place] [facility] [place] Date(s): 10/19/19 - 10/29/19 [facility] [address] [place] [address]- [facility] Attending Physician: Esau Lyons Admitting Physician: AdmtrEsau Referring Physician: Admtr, Ar8 Allergies, Adverse Reactions, Alerts Substance Reaction Severity Status ciprofloxacin Active aspirin Active shellfish hives Active Immunizations Given and Recorded Vaccine Date Status Refusal Reason Influenza Inactive (IM) (oldterm)1 06/15/08 Given Pneumococcal Vaccine (oldterm)2 04/10/08 Given 1Admin Note: SANOFI [id number] Comment: [id number] 0519x exp [id number] Medications Advair Diskus 250 mcg-50 mcg inhalation [...] 01/27/19 15:19:22 EDT, Route to Pharmacy Electronically, [id number], [facility] Start Date: 01/27/19 Stop Date: [...] 15:15:00 EST, Route to Pharmacy Electronically, [facility], 150, cm, 07/21/19 12:50:00 EST, [...]
--- OUTSIDE RECORDS SUMMARY | 2022-06-21 22:10 | XMS_ITS | Continuity of Care Document ---
:1965 Author Organization [facility] Address [address] [place] [address]- Care Team Providers Name Role Phone Adrianne Camacho MD Primary Care Physician Encounter [facility] [place] Date(s): 05/01/21 - 05/31/[address] [address]- [place] Allergies, Adverse Reactions, Alerts Substance Reaction Severity Status ciprofloxacin Active aspirin Active shellfish hives Active Immunizations Given and Recorded Vaccine Date Status Refusal Reason Influenza Inactive (IM) (oldterm)1 06/15/08 Given Pneumococcal Vaccine (oldterm)2 04/10/08 Given 1Admin Note: SANOFI [id number] Comment: [id number] 0519x exp [id number] Medications Advair Diskus 250 mcg-50 mcg inhalation [...] 05/02/21 9:36:00 EDT, Route to Pharmacy Electronically, [facility], 150, cm, 05/16/20 17:54:00 EDT, [...] 08/20/20 14:20:00 EST, Route to Pharmacy Electronically, [facility], 150, cm, 05/16/20 17:54:00 EDT, [...]
--- OUTSIDE RECORDS SUMMARY | 2022-06-21 22:10 | XMS_ITS | Continuity of Care Document ---
:1965 Author Organization [facility] Address [address] [place] [address]- Care Team Providers Name Role Phone Delores Cid MD, Adrianne Nielsen Primary Care Physician En[place] [facility] [place] Date(s): 10/23/20 - 11/22/20 [facility] [address] [place] [address]- Allergies, Adverse Reactions, Alerts Substance Reaction Severity Status ciprofloxacin Active aspirin Active shellfish hives Active Immunizations Given and Recorded Vaccine Date Status Refusal Reason Influenza Inactive (IM) (oldterm)1 06/15/08 Given Pneumococcal Vaccine (oldterm)2 04/10/08 Given 1Admin Note: SANOFI [id number] Comment: [id number] 0519x exp [id number] Medications Advair Diskus 250 mcg-50 mcg inhalation [...]
--- OUTSIDE RECORDS SUMMARY | 2022-06-21 22:10 | XMS_ITS | Continuity of Care Document ---
:1965 Author Organization [facility] Address [address] [place] [address]- Care Team Providers Name Role Phone Willie Camacho MD Primary Care Physician Encounter [facility] [place] Date(s): 07/25/20 - 08/24/20 [facility] [address] [place] [address]- Attending Physician: AdmEsau mohan Admitting Physician: Admtr, Aaron8 Referring Physician: Admtr, Ar8 Allergies, Adverse Reactions, Alerts Substance Reaction Severity Status ciprofloxacin Active aspirin Active shellfish hives Active Immunizations Given and Recorded Vaccine Date Status Refusal Reason Influenza Inactive (IM) (oldterm)1 06/15/08 Given Pneumococcal Vaccine (oldterm)2 04/10/08 Given 1Admin Note: SANOFI [id number] Comment: [id number] 0519x exp [id number] Medications Advair Diskus 250 mcg-50 mcg inhalation [...] 01/22/20 15:19:00 EDT, Route to Pharmacy Electronically, [facility], 150, cm, 10/10/19 14:50:00 EST, [...] 08/20/20 14:20:00 EST, Route to Pharmacy Electronically, [facility], 150, cm, 05/16/20 17:54:00 EDT, [...]
--- OUTSIDE RECORDS SUMMARY | 2022-06-21 22:10 | XMS_ITS | Continuity of Care Document ---
:1965 Author Organization [facility] Address [address] [place] [address]- Care Team Providers Name Role Phone Adrianne Camacho MD Primary Care Physician En[place] [facility] [place] Date(s): 07/02/20 - 08/24/20 [facility] [address] [place] [address]- Attending Physician: Earlene Rose NP Admitting Physician: Earlene Rose NP Referring Physician: Earlene Rose NP Allergies, Adverse Reactions, Alerts Substance Reaction Severity Status ciprofloxacin Active aspirin Active shellfish hives Active Immunizations Given and Recorded Vaccine Date Status Refusal Reason Influenza Inactive (IM) (oldterm)1 06/15/08 Given Pneumococcal Vaccine (oldterm)2 04/10/08 Given 1Admin Note: SANOFI [id number] Comment: [id number] 0519x exp [id number] Medications Advair Diskus 250 mcg-50 mcg inhalation [...] 01/22/20 15:19:00 EDT, Route to Pharmacy Electronically, [facility], 150, cm, 10/10/19 14:50:00 EST, [...] 08/20/20 14:20:00 EST, Route to Pharmacy Electronically, [facility], 150, cm, 05/16/20 17:54:00 EDT, [...]
--- OUTSIDE RECORDS SUMMARY | 2022-06-21 22:10 | XMS_ITS | Continuity of Care Document ---
:1965 Author Organization [facility] Address [address] [place] [address]- Care Team Providers Name Role Phone Delores Cid MD, Adrianne Nielsen Primary Care Physician En[place] [facility] [place] Date(s): 01/17/20 - 02/16/20 [facility] [address] [place] [address]- [facility] Attending Physician: Admtr, Aaron8 Admitting Physician: AdmtrAaron8 Referring Physician: Admtr, Ar8 Allergies, Adverse Reactions, Alerts Substance Reaction Severity Status ciprofloxacin Active aspirin Active shellfish hives Active Immunizations Given and Recorded Vaccine Date Status Refusal Reason Influenza Inactive (IM) (oldterm)1 06/15/08 Given Pneumococcal Vaccine (oldterm)2 04/10/08 Given 1Admin Note: SANOFI [id number] Comment: [id number] 0519x exp [id number] Medications Advair Diskus 250 mcg-50 mcg inhalation [...] 01/22/20 15:19:00 EDT, Route to Pharmacy Electronically, [facility], 150, cm, 10/10/19 14:50:00 EST, [...] 09/14/19 15:15:00 EST, Route to Pharmacy Electronically, [facility] - , 150, cm, 07/21/19 [...]
--- OUTSIDE RECORDS SUMMARY | 2022-06-21 22:10 | XMS_ITS | Continuity of Care Document ---
:1965 Author Organization [facility] Address [address] [place] [address]- Care Team Providers Name Role Phone Sraa Cluod MD Primary Care Physician [place] [facility] [place](s): 09/02/19 - 09/12/19 [facility] [address] [place] [address]- [facility] Attending Physician: Esau Lyons Admitting Physician: AdmtrEsau Referring Physician: Admtr, Ar8 Allergies, Adverse Reactions, Alerts Substance Reaction Severity Status ciprofloxacin Active aspirin Active shellfish hives Active Immunizations Given and Recorded Vaccine Date Status Refusal Reason Influenza Inactive (IM) (oldterm)1 06/15/08 Given Pneumococcal Vaccine (oldterm)2 04/10/08 Given 1Admin Note: SANOFI [id number] Comment: [id number] 0519x exp [id number] Medications Advair Diskus 250 mcg-50 mcg inhalation [...] 01/27/19 15:19:22 EDT, Route to Pharmacy Electronically, [id number], [facility] Start Date: 01/27/19 Stop Date: 01/22/20 Status: [...] tablet, Refills 3, Tot. Refills 3, Maintenance, 10/14/18 10:15:17 EST, Route to Pharmacy Electronically, [id number], [facility] Start Date: 10/14/18 Status: OrderedpredniSONE 5 mg oral tablet = [...]
--- OUTSIDE RECORDS SUMMARY | 2022-06-21 22:10 | XMS_ITS | Continuity of Care Document ---
:1965 Author Organization [facility] Address [address] [place] [id number]- Care Team Providers Name Role Phone Sara Cloud MD Primary Care Phys[place] [facility] [place]20 [facility] [address] [place] [phone]- [facility] Attending Physician: Earlene Rose NP Referring Physician: Sara Cloud MD Allergies, Adverse Reactions, Alerts Substance Reaction Severity Status ciprofloxacin Active aspirin Active shellfish hives Active Immunizations Given and Recorded Vaccine Date Status Refusal Reason Influenza Inactive (IM) (oldterm)1 06/15/08 Given Pneumococcal Vaccine (oldterm)2 04/10/08 Given 1Admin Note: SANOFI [id number] Comment: [id number] exp [id number] Medications Advair Diskus 250 mcg-50 mcg inhalation [...] 01/22/20 15:19:00 EDT, Route to Pharmacy Electronically, [facility], 150, cm, 10/10/19 14:50:00 EST, Height, 79.5, kg, 11/01/18 7:46:00 EST, Dr..Foreign Start Date: 01/22/20 Stop Date: 01/16/21 Status: [...] 09/14/19 15:15:00 EST, Route to Pharmacy Electronically, [facility] - , 150, cm, [...]
--- OUTSIDE RECORDS SUMMARY | 2022-06-21 22:10 | XMS_ITS | Continuity of Care Document ---
:1965 Author Organization [facility] Address [address] [place] [phone]- Care Team Providers Name Role Phone Sara Cloud MD Primary Care Physician Encounter [facility] [place] Date(s): 08/02/19 - 10/02/19 [facility] [address] [place] [phone]- [facility] Attending Physician: Samson Abreu MD Admitting Physician: Samson Abreu MD Referring Physician: Sara Cloud MD Allergies, Adverse Reactions, Alerts Substance Reaction Severity Status ciprofloxacin Active aspirin Active shellfish hives Active Immunizations Given and Recorded Vaccine Date Status Refusal Reason Influenza Inactive (IM) (oldterm)1 06/15/08 Given Pneumococcal Vaccine (oldterm)2 04/10/08 Given 1Admin Note: SANOFI [id number] Comment: [id number] exp [id number] Medications Advair Diskus 250 mcg-50 mcg inhalation [...] 01/27/19 15:19:22 EDT, Route to Pharmacy Electronically, [id number], [facility] Start Date: 01/27/19 Stop Date: 01/22/20 [...] 09/14/19 15:15:00 EST, Route to Pharmacy Electronically, [facility], 150, cm, 07/21/19 12:50:00 EST, Height, [...]
--- OUTSIDE RECORDS SUMMARY | 2022-06-21 22:10 | XMS_ITS | Continuity of Care Document ---
:1965 Author Organization [facility] Address [address] [place] [id number]- Care Team Providers Name Role Phone Adrianne Camacho MD Primary Care Physician Encounter [facility] [place] Date(s): 08/19/21 - 09/18/21 [facility] [address] [place] [id number]- [place] Allergies, Adverse Reactions, Alerts Substance Reaction Severity Status ciprofloxacin Active aspirin Active shellfish hives Active Immunizations Given and Recorded Vaccine Date Status Refusal Reason Influenza Inactive (IM) (oldterm)1 06/15/08 Given Pneumococcal Vaccine (oldterm)2 04/10/08 Given 1Admin Note: SANOFI [id number] Comment: [id number] exp [id number] Medications Advair Diskus 250 mcg-50 mcg inhalation [...] 05/02/21 9:36:00 EDT, Route to Pharmacy Electronically, [facility], 150, cm, 05/16/20 17:54:00 EDT, [...] 08/20/21 7:45:00 EST, Route to Pharmacy Electronically, [facility], 150, cm, 05/16/20 17:54:00 EDT, [...]
--- NOTE | 2022-06-21 23:03 | ED_ITS ---
HPI - Allergic Reaction General Chief complaint: Allergic Reaction Stated complaint: itching, hives Time Seen by Provider: 06/21/22 22:31 Source: patient Mode of arrival: ambulatory Limitations: no limitations History of Present Illness HPI narrative: 57-year-old female presents to the emergency department with swollen eyes and pruritus x 1.5 hours after consuming lobster and crab. Patient states after she ate the lobster and crab and minutes later she experienced swollen eyes, blurry vision, hives, a burning sensation throughout her entire body. Patient states she previously had a reaction to eating lobster 2 weeks ago, in which she experienced vomiting and upset stomach. Patient states before coming to the emergency department she took 2 Benadryl which relieved symptoms. She still is reporting significant itching to the top of her head and she still feels as though her eyes are slightly swollen. Patient denies changes in voice, difficulty breathing, trouble controlling secretion, chest pain, nausea, vomiting, weakness, headache, dizziness. Related Data Home Medications Medication Instructions Recorded Confirmed epinephrine 0.3 mg/0.3 mL 0.3 mg IM ONCE PRN allergic 08/16/20 04/17/22 injection, auto-injector reaction/etiology unk calcium citrate 315 mg-vitamin D3 1 tab PO BID 12/13/21 04/17/22 5 mcg (200 unit) tablet (Calcium Citrate + D) [id number] 45 mg-folic cap PO 12/13/21 04/17/22 acid 800 mcg-vit K 120 mcg capsule (Bariatric Multivitamins) losartan 50 mg tablet 25 mg PO DAILY 01/08/22 04/17/22 Previous Rx's Medication Instructions Recorded emollient combination no.69 1 appl topical Q6-8H 30 days #226 10/15/20 (Eucerin Skin Calming cream) grams cyclobenzaprine 5 mg tablet 5 mg PO BEDTIME 30 days #30 tabs 05/20/21 inulin 2 gram chewable tablet 2 g PO BID #60 tabs 01/08/22 (Fiber Gummies) docusate sodium 100 mg capsule 100 mg PO DAILY #30 caps 02/10/22 polyethylene glycol 3350 17 17 g PO DAILY PRN constipation 04/17/22 gram/dose oral powder (Miralax) #238 grams thiamine HCl (vitamin B1) 100 mg 100 mg PO DAILY #90 tabs 04/28/22 tablet diphenhydramine HCl 25 mg tablet 25 mg PO TID PRN allergic reaction 06/21/22 (Benadryl Allergy) #14 tabs epinephrine 0.3 mg/0.3 mL 0.3 mg (0.3 mL) IM Q4H PRN 06/21/22 injection, auto-injector (EpiPen anaphylaxis #2 ea 2-Juan Carlos) Allergies Allergy/AdvReac Type Severity Reaction Status Date / Time atorvastatin AdvReac Intermediate headache Verified 04/17/22 15:26 Review of Systems Review of Systems: Constitutional : No Weight loss, No Fever, No Chills, No Fatigue, No Malaise ENT/Mouth : No sore throat, No Rhinorrhea Eyes: No Eye Pain, + Swelling, No Redness Cardiovascular : No Chest Pain, No SOB, No Dyspnea on Exertion, No Orthopnea, No Edema, No Palpitations Respiratory : No Cough, No Sputum, No Wheezing Gastrointestinal : No Nausea, No Vomiting, No Diarrhea, No Constipation, No abdominal Pain, No Hematochezia, No Melena Genitourinary : No Dysuria, No Urinary Frequency, No Hematuria, Musculoskeletal : No joint pain, No Myalgias, No Joint Swelling Skin : No Skin Lesions, No rash, + puritis Neuro : No Weakness, No Numbness, No Dizziness, No Headache Psych : No Anxiety/Panic, No Depression All other systems reviewed and are negative Yes all other systems are reviewed and are negative ON LICENSE OF [facility] Past Medical History Attestation statement: The following information was validated with the patient. Source: old records reviewed and nursing notes reviewed Medical History Abnormal EKG Anxiety Binge eating disorder Binge-eating disorder, in full remission, moderate BMI 34.0-34.9,adult BMI 36.0-36.9,adult BMI 37.0-37.9, adult Cervicalgia COVID-19 vaccine series completed Depression H. pylori infection High cholesterol HTN (hypertension) Knee pain, bilateral Liver fibrosis Myalgia Obesity CHARAN (obstructive sleep apnea) Other specified nonscarring hair loss Paresthesias Physical examination of employee Primary osteoarthritis of right knee (Unknown) Rash Right knee pain Steatosis, liver Upper back pain Surgical History H/O colonoscopy History of carpal tunnel release History of partial hysterectomy History of removal of ovarian cyst Hx of dilation and curettage S/P laparoscopic sleeve gastrectomy Family History Family History Father Emphysema lung Mother Afib Hypertension Brother HIV (human immunodeficiency virus infection) Brother Afib Daughter No problems noted. Son No problems noted. Son No problems noted. Daughter No problems noted. Social History Social History Household Members: Spouse Housing: Apartment Alcohol intake: never Patient Tobacco Use Status: Former Tobacco user Quit Date: age 36 Tobacco use type: Cigarette Advance Directives: No Advance Directives Information Provided: Yes service: No Current occupational status: unemployed Physical Exam ED Vital Signs: Vital Signs - 24 hr 06/21/22 21:55 Temperature 98.2 F Pulse Rate 86 Respiratory Rate 16 Blood Pressure 172/85 H Pulse Oximetry 100 Oxygen Delivery Method Room Air BMI result Body Mass Index 25.0 vss Appearance: Alert.? Oriented X3.? No acute distress.? Patient speaking in full sentences controlling secretions well. Head: Normocephalic, atraumatic, no step-offs or deformities Eyes: Pupils equal, round and reactive to light.?+ mild swelling surrounding bilateral eyes. ENT: Pharynx normal.? No swelling to harder soft palate, lips, uvula, bilateral tonsillar pillars or posterior pharynx. Neck: Normal inspection.? Neck supple.? CVS: Normal heart rate and rhythm.? Pulses normal.? Respiratory: No respiratory distress.? Breath sounds normal.? No stridor. Abdomen: Soft and nontender.? Skin: Skin warm and dry.? Normal skin color.? Normal skin turgor.?+ excoriations throughout skin, upper extremities, lower extremities in abdomen secondary to patient's scratching hives earlier Extremities: No lower extremity edema.? No calf ttp. 5/5 strength to bilateral upper and lower extremities Neuro: Oriented X 3.? No motor deficit.? No sensory deficit. CN 2-12 intact MDM - Allergic Reaction MDM Narrative Medical decision making narrative: 2300 57-year-old female presents after eating lobster and crab suspected acute allergic reaction. Reports she had hives earlier in now complaining of itchiness throughout body and eye swelling. Took Benadryl prior to arrival. Physical exam benign. Patent airway. Vital signs stable, saturating well on room air. Plan at this time is to give Decadron. And monitor Medical Records Attestation: I reviewed the patient's medical records. Lab Data Attestation: I reviewed the patient's lab results. Critical Care Time Critical Care Time Critical Care Time: No Discharge Plan Discharge Clinical Impression: Allergic reaction Patient Disposition: Home, Self-Care Instructions: General Allergic Reaction (ED), Allergy Testing (ED) Additional Instructions: Take your medications as prescribed. If you were prescribed antibiotics today, it is important that you take your medication to their entirety, do not skip any doses, do not finish them early. Follow-up with your primary care provider this week. Return to the emergency department with new or worsening symptoms. Such as fevers, chills, chest pain, shortness of breath, nausea, vomiting, dizziness, headache, vision changes, lethargy In case of emergency call 911 Please follow-up with an outdoor recreation specialist information below: JASE: [facility] Office. [address] DO, [facility] -11-7 We discussed proper use of an EpiPen, if you start experiencing shortness of breath, feeling like her throat was closing any signs of anaphylaxis you should use an EpiPen, after using it you should call 911 and seek immediate medical attention. For now please avoid all seafood, shellfish, peanuts. Prescriptions: New diphenhydramine HCl [Benadryl Allergy] 25 mg tablet 25 mg PO TID PRN (Reason: allergic reaction) Qty: 14 0RF epinephrine [EpiPen 2-Juan Carlos] 0.3 mg/0.3 mL auto-injector 0.3 mg IM Q4H PRN (Reason: anaphylaxis) Qty: 2 0RF No Action docusate sodium 100 mg capsule 100 mg PO DAILY Qty: 30 6RF thiamine HCl (vitamin B1) 100 mg tablet 100 mg PO DAILY Qty: 90 3RF losartan 50 mg tablet 25 mg PO DAILY Eucerin Skin Calming Cream 1 appl topical Q6-8H 30 Days Qty: 226 0RF cyclobenzaprine 5 mg tablet 5 mg PO BEDTIME 30 Days Qty: 30 0RF epinephrine 0.3 mg/0.3 mL auto-injector 0.3 mg IM ONCE PRN (Reason: allergic reaction/etiology unk) polyethylene glycol 3350 [Miralax] 17 gram/dose powder 17 g PO DAILY PRN (Reason: constipation) Qty: 238 3RF Bariatric Multivitamins 45 mg iron- 800 mcg-120 mcg capsule PO calcium citrate-vitamin D3 [Calcium Citrate + D] 315 mg-5 mcg (200 unit) tablet 1 tab PO BID Fiber Gummies 2 gram tablet,chewable 2 g PO BID Qty: 60 6RF Referrals: Efrain Aponte MD [Primary Care Provider] - 2 days Stand Alone Forms: Work/School Release
[2022-06-21] MEDS: dexAMETHasone sod phosphate 10 MG/ML VIAL IVPUSH (23:35)
== END 2022-06-21 23:38 | disposition home or self-care (01) ==
PROVIDERS: Emergency Provider Emergency Medicine; PCP Internal Medicine
DX: T78.1XXA Other adverse food reactions, not elsewhere classified, initial encounter (principal); L29.9 Pruritus, unspecified; X58.XXXA Exposure to other specified factors, initial encounter; I10 Essential (primary) hypertension; E78.00 Pure hypercholesterolemia, unspecified; Z98.84 Bariatric surgery status; Z79.899 Other long term (current) drug therapy
CPT/HCPCS: 96374; 99282; 99284; J1100

== ENCOUNTER → 2022-06-24 13:39 | Outpatient (BNVA) | payer MEDICARE, MEDICAID, SELFPAY | PROVIDERS: PCP Internal Medicine; Visit Provider Physician Assistant Surgical | DX: E66.3 Overweight (principal); Z68.24 Body mass index [BMI] 24.0-24.9, adult; Z98.84 Bariatric surgery status | CPT/HCPCS: 99212 ==

== ENCOUNTER → 2022-07-28 13:41 | Outpatient (BNVA) | payer MEDICARE, MEDICAID, SELFPAY | PROVIDERS: PCP Internal Medicine; Visit Provider Dietitian, Registered | DX: E66.9 Obesity, unspecified (principal); Z90.3 Acquired absence of stomach [part of] | CPT/HCPCS: 97803 ==

== ENCOUNTER 2022-08-07 14:25 | Outpatient (REF) | payer MEDICARE, MEDICAID, SELFPAY ==
--- NOTE | 2022-08-07 09:00 | EMG_ITS ---
Bilateral median and ulnar motor and sensory studies were performed. Bilateral radial sensory studies were performed and paraspinal muscles were tested. IMPRESSION: Mild to moderate bilateral median neuropathy across carpal tunnel. MD SHADI Gonzalez/JONNATHAN / [id number]
== END 2022-08-07 14:26 | disposition home or self-care (01) ==
LOC: HO.NEURO 14:25
PROVIDERS: PCP Internal Medicine; Visit Provider Internal Medicine
DX: G56.03 Carpal tunnel syndrome, bilateral upper limbs (principal)
CPT/HCPCS: 95886; 95911

== ENCOUNTER → 2022-10-17 13:02 | Outpatient (BNVA) | payer MEDICARE, MEDICAID, SELFPAY | PROVIDERS: PCP Internal Medicine; Visit Provider Physician Assistant Surgical | DX: F50.81 Binge eating disorder (principal); E66.3 Overweight; L98.7 Excessive and redundant skin and subcutaneous tissue; Z68.25 Body mass index [BMI] 25.0-25.9, adult; Z90.3 Acquired absence of stomach [part of] | CPT/HCPCS: 99212 ==

== ENCOUNTER 2022-10-21 08:34 | Outpatient (REF) | payer MEDICARE, SELFPAY ==
[2022-10-21 09:01] LABS: MANUAL DIFF FLAG NO
[2022-10-21 09:21] LABS: Basophils Absolute Auto 0.1 X10*3/uL (0.0-0.2); Basophils Percent Auto 0.8 % (0-2); Eosinophils Absolute Auto 0.4 X10*3/uL (0.0-0.4); Eosinophils Percent Auto 4.9 % (0-4); Hematocrit 39.9 % (37.0-47.0); Hemoglobin 12.9 g/dl (12.0-16.0); Imm Gran Abs Auto 0.01 X10*3/uL (0.00-0.03); Imm Gran Pct Auto 0.1 % (0.0-0.4); Lymphocytes Absolute Auto 3.7 X10*3/uL (1.2-4.9); Lymphocytes Percent Auto 47.6 % (20-40); Mean Corpuscular HGB Conc 32.3 g/dl (31.0-35.0); Mean Corpuscular Hemoglobin 29.6 pg (27.0-33.0); Mean Corpuscular Volume 91.5 fL (80.0-98.0); Mean Platelet Volume 9.6 fL (9.4-12.3); Monocytes Absolute Auto 0.5 X10*3/uL (0.1-1.2); Monocytes Percent Auto 6.2 % (2-11); Neutrophils Absolute Auto 3.1 x10*3/uL (2.0-8.3); Neutrophils Percent Auto 40.4 % (45-73); Platelet Count 285 X10*3/uL (160-400); Red Blood Count 4.36 X10*6/uL (4.20-5.50); Red Cell Distribution Width 12.8 % (11.0-16.0); White Blood Count 7.8 X10*3/uL (4.8-10.8)
[2022-10-21 09:32] LABS: Estimated Average Glucose 100 mg/dL; Hemoglobin A1c % 5.1 %
[2022-10-21 10:31] LABS: Alanine Aminotransferase 19 U/L (0-31); Anion Gap 13 (12-20); Aspartate Amino Transferase 22 U/L (5-31); Blood Urea Nitrogen 13 mg/dL (9-16); C Reactive Protein < 0.10 mg/dL (< or = 0.50); Calcium 9.6 mg/dL (8.4-10.2); Carbon Dioxide 29 mmol/L (22-29); Chloride 103 mmol/L (96-108); Estimated Glomerular Filt Rate > 60; Glucose Random 98 mg/dL (60-115); Iron 84 mcg/dL (30-160); Percent Iron Saturation 32 % (15-50); Potassium 4.4 mmol/L (3.3-5.1); Sodium 141 mmol/L (135-145); Total Iron Binding Capacity 260 mcg/dL (228-428); Unsaturated Iron Binding 176 ug/dL
[2022-10-21 10:32] LABS: Alkaline Phosphatase 56 U/L (39-117); Cholesterol 176 mg/dL; HDL Cholesterol 67 mg/dL; LDL Cholesterol Calculated 97 mg/dl; Total Protein 6.6 g/dL (6.5-8.0); Triglycerides 64 mg/dL
[2022-10-21 10:59] LABS: Ferritin 62 ng/mL (10-250); Folate 17.7 ng/mL (> or = 4.0); Insulin 5 uU/mL (2-29); TSH reflex Free T4 1.64 uIU/mL (0.32-4.0); Vitamin B12 1330 pg/mL (200-900); Vitamin D 25-OH Total 66.6 ng/mL (>30)
[2022-10-22 17:43] LABS: PTHI 26 pg/mL (16-77)
[2022-10-25 06:44] LABS: Zinc 93 mcg/dL (60-130)
[2022-10-28 02:33] LABS: Vitamin A 77 mcg/dL (38-98)
[2022-10-30 14:33] LABS: Vitamin B1 40 nmol/L (8-30)
== END 2022-10-21 08:35 | disposition home or self-care (01) ==
LOC: HO.LAB 08:34
PROVIDERS: PCP Internal Medicine; Visit Provider Physician Assistant Surgical
DX: K91.2 Postsurgical malabsorption, not elsewhere classified (principal); Z98.84 Bariatric surgery status
CPT/HCPCS: 36415; 80053; 80061; 82306; 82607; 82728; 82746; 83036; 83525; 83540; 83970; 84425; 84443; 84590; 84630; 85025; 86140

== ENCOUNTER → 2022-11-28 13:19 | Outpatient (BNVA) | payer MEDICARE, MEDICAID, SELFPAY | PROVIDERS: PCP Internal Medicine; Visit Provider Physician Assistant Surgical | DX: E66.3 Overweight (principal); L98.7 Excessive and redundant skin and subcutaneous tissue; Z98.84 Bariatric surgery status; Z68.25 Body mass index [BMI] 25.0-25.9, adult | CPT/HCPCS: 99212 ==

== ENCOUNTER → 2022-12-15 13:08 | Outpatient (BNVA) | payer MEDICARE, MEDICAID, SELFPAY | PROVIDERS: PCP Internal Medicine; Referring Provider Internal Medicine; Visit Provider Physician Assistant Surgical ==

== ENCOUNTER → 2022-12-15 13:33 | Outpatient (REF) | payer MEDICARE, MEDICAID, SELFPAY ==
--- NOTE | 2022-12-15 14:11 | ECG_ITS ---
Test Reason : obesity Blood Pressure : / mmHG Vent. Rate : 075 BPM Atrial Rate : 075 BPM P-R Int : 176 ms QRS Dur : 082 ms QT Int : 388 ms P-R-T Axes : 074 079 070 degrees QTc Int : 433 ms Normal sinus rhythm Normal ECG When compared with ECG of 02-JUL-2021 10:39, Nonspecific T wave abnormality no longer evident in Lateral leads Referred By: Ivette Dennison Electronically Signed By:RICHARDSON RODRIGUEZ MD
== END ==
LOC: HO.CARD 13:33
PROVIDERS: PCP Internal Medicine; Visit Provider Physician Assistant Surgical
DX: Z98.84 Bariatric surgery status (principal)
CPT/HCPCS: 93005

== ENCOUNTER → 2022-12-16 12:24 | Outpatient (BNVA) | payer MEDICARE, MEDICAID, SELFPAY | PROVIDERS: PCP Internal Medicine; Visit Provider Orthopaedic Surgery | DX: G56.02 Carpal tunnel syndrome, left upper limb (principal); Z98.890 Other specified postprocedural states | CPT/HCPCS: 99202 ==

== ENCOUNTER → 2022-12-17 10:53 | Outpatient (BNVA) | payer MEDICARE, MEDICAID, SELFPAY | PROVIDERS: PCP Internal Medicine; Visit Provider Surgery | DX: L98.7 Excessive and redundant skin and subcutaneous tissue (principal) | CPT/HCPCS: Q3014 ==

== ENCOUNTER 2022-12-23 09:46 | Day surgery (SDC) | payer MEDICARE, MEDICAID, SELFPAY ==
[2022-12-09 12:52] VITALS: BMI 24.5
[2022-12-19 08:39] LABS: MANUAL DIFF FLAG NO
[2022-12-19 08:47] LABS: Basophils Absolute Auto 0.1 X10*3/uL (0.0-0.2); Basophils Percent Auto 0.8 % (0-2); Eosinophils Absolute Auto 0.3 X10*3/uL (0.0-0.4); Hematocrit 36.3 % (37.0-47.0); Hemoglobin 12.1 g/dl (12.0-16.0); Imm Gran Abs Auto 0.03 X10*3/uL (0.00-0.03); Imm Gran Pct Auto 0.3 % (0.0-0.4); Lymphocytes Absolute Auto 3.5 X10*3/uL (1.2-4.9); Lymphocytes Percent Auto 32.9 % (20-40); Mean Corpuscular HGB Conc 33.3 g/dl (31.0-35.0); Mean Corpuscular Hemoglobin 30.3 pg (27.0-33.0); Mean Platelet Volume 9.2 fL (9.4-12.3); Monocytes Absolute Auto 0.7 X10*3/uL (0.1-1.2); Monocytes Percent Auto 6.8 % (2-11); Neutrophils Percent Auto 56.2 % (45-73); Platelet Count 329 X10*3/uL (160-400); Red Blood Count 3.99 X10*6/uL (4.20-5.50); Red Cell Distribution Width 13.2 % (11.0-16.0); White Blood Count 10.7 X10*3/uL (4.8-10.8)
[2022-12-19 08:59] LABS: Prothrombin Time 10.9 SEC (10.0-13.1)
[2022-12-19 09:31] LABS: Estimated Average Glucose 111 mg/dL; Hemoglobin A1c % 5.5 %
[2022-12-19 09:41] LABS: Alanine Aminotransferase 19 U/L (0-31); Albumin Level 4.1 g/dL (3.5-5.0); Alkaline Phosphatase 54 U/L (39-117); Anion Gap 10 (12-20); Aspartate Amino Transferase 18 U/L (5-31); Bilirubin Total 1.2 mg/dL (0.0-1.0); Blood Urea Nitrogen 18 mg/dL (9-16); Calcium 9.6 mg/dL (8.4-10.2); Carbon Dioxide 28 mmol/L (22-29); Chloride 107 mmol/L (96-108); Creatinine Clr Calc Pharmacy 70.7; Estimated Glomerular Filt Rate > 60; Glucose Random 92 mg/dL (60-115); Potassium 4.2 mmol/L (3.3-5.1); Sodium 141 mmol/L (135-145); Total Protein 6.8 g/dL (6.5-8.0)
--- NOTE | 2022-12-19 10:36 | P.CONAN_ITS ---
Documented by User: Michelle Garcia NP 12/19/22 10:40 HPI - Anesthesia Eval Consult details Narrative: 57yo F for Panniculectomy PMFSH Active Problems Active Problems: All Active Problems (Updated 12/17/22 @ 13:52 by Jeremy De Oliveira MD) Postgastrectomy malabsorption (Acute) History of carpal tunnel surgery of right wrist (Acute) Carpal tunnel syndrome of left wrist (Acute) Excess skin (Acute) Overweight (Acute) BMI 31.0-31.9,adult (Acute) Constipation (Acute) BMI 33.0-33.9,adult (Acute) S/P laparoscopic sleeve gastrectomy (Acute) Diastolic dysfunction without heart failure (Acute) Liver fibrosis (Acute) Steatosis, liver (Acute) Depression (Acute) Anxiety (Acute) S/P repair of paraesophageal hernia (Acute) Paraesophageal hernia (Acute) Hypertension (Acute) Fibromyalgia (Acute) BMI 38.0-38.9,adult (Acute) CHARAN (obstructive sleep apnea) (Acute) Obesity (Acute) High cholesterol (Acute) Past Medical History Medical History Abnormal EKG Anxiety Binge eating disorder Binge-eating disorder, in full remission, moderate BMI 34.0-34.9,adult BMI 36.0-36.9,adult BMI 37.0-37.9, adult Cervicalgia COVID-19 vaccine series completed Depression H. pylori infection High cholesterol HTN (hypertension) Knee pain, bilateral Liver fibrosis Myalgia Obesity CHARAN (obstructive sleep apnea) Other specified nonscarring hair loss Paresthesias Physical examination of employee Primary osteoarthritis of right knee (Unknown) Rash Right knee pain Steatosis, liver Upper back pain Family History Family History Father Emphysema lung Mother Afib Hypertension Brother HIV (human immunodeficiency virus infection) Brother Afib Daughter No problems noted. Son No problems noted. Son No problems noted. Daughter No problems noted. Family history of problems with anesthesia: No Surgical History Surgical History H/O colonoscopy History of carpal tunnel release History of partial hysterectomy History of removal of ovarian cyst Hx of dilation and curettage S/P laparoscopic sleeve gastrectomy History of Problems with Anesthesia: No Social History Social History Household Members: Spouse Housing: Apartment Are you a primary date night caregiver to a significant other at home: No Do you presently have visiting nurse or other home services: No Alcohol intake: never Patient Tobacco Use Status: Former Tobacco user Quit Date: age 36 Tobacco use type: Cigarette Use of substances other than those prescribed or required for medical reasons: No Have you been hit, kicked, punched, or otherwise hurt by someone within the past year? If so, by whom?: No Are you DNR?: No Advance Directives: No Advance Directives Information Provided: Yes (brochure mailed) Advance Directives on File: No Recently lost weight without trying: No Eating poorly because of decreased appetite: No Nutrition Risks: No Nutritional Risk Patient : No FDLMP: N/A : No Poor oral hygiene: No (upper partial denture) service: No Current occupational status: unemployed Meds Allergies Allergy/AdvReac Type Severity Reaction Status Date / Time atorvastatin AdvReac Intermediate headache Verified 12/23/22 10:08 Home Medications Medication Instructions Recorded Confirmed Last Taken Type calcium citrate 315 mg-vitamin D3 1 tab PO BID 12/13/21 12/23/22 Unknown History 5 mcg (200 unit) tablet (Calcium Citrate + D) [id number] 45 mg-folic 1 cap PO DAILY 12/13/21 12/23/22 Unknown History acid 800 mcg-vit K 120 mcg capsule (Bariatric Multivitamins) losartan 50 mg tablet 25 mg PO DAILY 01/08/22 12/23/22 Unknown History Exam Exam Date and Time: December 19, 2022 1036 Height,Weight and Vital Signs: Height 5 ft 5.5 in Weight 68.039 kg Pertinent Lab Results Pertinent Lab Results: Laboratory Tests 12/19/22 12/19/22 12/19/22 08:35 08:35 08:35 WBC 10.7 RBC 3.99 L Hgb 12.1 Hct 36.3 L MCV 91.0 MCH 30.3 MCHC 33.3 RDW 13.2 Plt Count 329 MPV 9.2 L Immature Gran % (Auto) 0.3 Neut % (Auto) 56.2 Lymph % (Auto) 32.9 Hudspeth % (Auto) 6.8 Eos % (Auto) 3.0 Baso % (Auto) 0.8 Lymph # (Auto) 3.5 Hudspeth # (Auto) 0.7 Eos # (Auto) 0.3 Baso # (Auto) 0.1 Abs Immat Gran (auto) 0.03 Absolute Neuts (auto) 6.0 Absolute Nucleated RBC 0.000 Nucleated RBC % (auto) 0.0 PT 10.9 INR 1.0 APTT 36.0 Sodium 141 Potassium 4.2 Chloride 107 Carbon Dioxide 28 Anion Gap 10 L BUN 18 H Creatinine 0.77 Estim Creat Clear Calc 70.7 Estimated GFR > 60 Random Glucose 92 Estimat Average Glucose Hemoglobin A1c % Calcium 9.6 Total Bilirubin 1.2 H AST 18 ALT 19 Alkaline Phosphatase 54 Total Protein 6.8 Albumin 4.1 Blood Type Antibody Screen 12/19/22 12/19/22 08:35 08:35 WBC RBC Hgb Hct MCV MCH MCHC RDW Plt Count MPV Immature Gran % (Auto) Neut % (Auto) Lymph % (Auto) Hudspeth % (Auto) Eos % (Auto) Baso % (Auto) Lymph # (Auto) Hudspeth # (Auto) Eos # (Auto) Baso # (Auto) Abs Immat Gran (auto) Absolute Neuts (auto) Absolute Nucleated RBC Nucleated RBC % (auto) PT INR APTT Sodium Potassium Chloride Carbon Dioxide Anion Gap BUN Creatinine Estim Creat Clear Calc Estimated GFR Random Glucose Estimat Average Glucose 111 Hemoglobin A1c % 5.5 Calcium Total Bilirubin AST ALT Alkaline Phosphatase Total Protein Albumin Blood Type O Positive Antibody Screen NEGATIVE Narrative Narrative: EKG 12/2022 Vent. Rate : 075 BPM ? ? Atrial Rate : 075 BPM ?? P-R Int : 176 ms? QRS Dur : 082 ms ? ? QT Int : 388 ms ? ? ? P-R-T Axes : 074 079 070 degrees ?? QTc Int : 433 ms ? Normal sinus rhythm Normal ECG When compared with ECG of 02-JUL-2021 10:39, Nonspecific T wave abnormality no longer evident in Lateral leads Echo 2020 Conclusions: - 1.? Normal LV systolic function with grade 1 diastolic ? dysfunction? 2. Normal cardiac valvular Doppler ? 3. Normal RV systolic pressure ? 4. No gross pericardial effusion ? ? Assessment and Plan Assessment Anesthesia Assessment: Chart Reviewed Final Anesthetic Review Family History of Problems with Anesthesia: No History of Problems with Anesthesia: No Documented by User: Trinidad Graf MD 12/23/22 11:50 PMFSH Past Medical History Medical History Abnormal EKG Anxiety Binge eating disorder Binge-eating disorder, in full remission, moderate BMI 34.0-34.9,adult BMI 36.0-36.9,adult BMI 37.0-37.9, adult Cervicalgia COVID-19 vaccine series completed Depression H. pylori infection High cholesterol HTN (hypertension) Knee pain, bilateral Liver fibrosis Myalgia Obesity CHARAN (obstructive sleep apnea) Other specified nonscarring hair loss Paresthesias Physical examination of employee Primary osteoarthritis of right knee (Unknown) Rash Right knee pain Steatosis, liver Upper back pain Family History Family History Father Emphysema lung Mother Afib Hypertension Brother HIV (human immunodeficiency virus infection) Brother Afib Daughter No problems noted. Son No problems noted. Son No problems noted. Daughter No problems noted. Surgical History Surgical History H/O colonoscopy History of carpal tunnel release History of partial hysterectomy History of removal of ovarian cyst Hx of dilation and curettage S/P laparoscopic sleeve gastrectomy Social History Social History Household Members: Spouse Housing: Apartment Are you a primary date night caregiver to a significant other at home: No Do you presently have visiting nurse or other home services: No Alcohol intake: never Patient Tobacco Use Status: Former Tobacco user Quit Date: age 36 Tobacco use type: Cigarette Use of substances other than those prescribed or required for medical reasons: No Have you been hit, kicked, punched, or otherwise hurt by someone within the past year? If so, by whom?: No Are you DNR?: No Advance Directives: No Advance Directives Information Provided: Yes (brochure mailed) Advance Directives on File: No Recently lost weight without trying: No Eating poorly because of decreased appetite: No Nutrition Risks: No Nutritional Risk Patient : No FDLMP: N/A : No Poor oral hygiene: No (upper partial denture) service: No Current occupational status: unemployed Meds Allergies Allergy/AdvReac Type Severity Reaction Status Date / Time atorvastatin AdvReac Intermediate headache Verified 12/23/22 10:08 Home Medications Medication Instructions Recorded Confirmed Last Taken Type calcium citrate 315 mg-vitamin D3 1 tab PO BID 12/13/21 12/23/22 Unknown History 5 mcg (200 unit) tablet (Calcium Citrate + D) velpoibv-iuhdzakz-wvus 45 mg-folic 1 cap PO DAILY 12/13/21 12/23/22 Unknown History acid 800 mcg-vit K 120 mcg capsule (Bariatric Multivitamins) losartan 50 mg tablet 25 mg PO DAILY 01/08/22 12/23/22 Unknown History Exam Airway Mallampati Class: II TM Dist: >3cm Neck ROM: Full Partial: Upper Loose/Missing/Broken Teeth: Yes, Upper and Lower Heart: rrr Lungs: dcta Assessment and Plan Assessment Anesthesia Assessment: Anesthesia Plan Discussed Final Anesthetic Review NPO: Yes ASA Class: III Final Preanesthetic Review: No Changes in Pt Med Stat, Meds/Allgs Chart R brandon, Consent Obtained/Reviewed and Anes Risks/Benef Reviewed Patient Risk: Intermediate Procedure Risk: Intermediate Anesthetic Plan Anesthetic Plan: GA Disposition: Standard PACU Documented by User: Harika Gates MD 12/23/22 12:58 [facility] Past Medical History Medical History Abnormal EKG Anxiety Binge eating disorder Binge-eating disorder, in full remission, moderate BMI 34.0-34.9,adult BMI 36.0-36.9,adult BMI 37.0-37.9, adult Cervicalgia COVID-19 vaccine series completed Depression H. pylori infection High cholesterol HTN (hypertension) Knee pain, bilateral Liver fibrosis Myalgia Obesity CHARAN (obstructive sleep apnea) Other specified nonscarring hair loss Paresthesias Physical examination of employee Primary osteoarthritis of right knee (Unknown) Rash Right knee pain Steatosis, liver Upper back pain Family History Family History Father Emphysema lung Mother Afib Hypertension Brother HIV (human immunodeficiency virus infection) Brother Afib Daughter No problems noted. Son No problems noted. Son No problems noted. Daughter No problems noted. Surgical History Surgical History H/O colonoscopy History of carpal tunnel release History of partial hysterectomy History of removal of ovarian cyst Hx of dilation and curettage S/P laparoscopic sleeve gastrectomy Social History Social History Household Members: Spouse Housing: Apartment Are you a primary date night caregiver to a significant other at home: No Do you presently have visiting nurse or other home services: No Alcohol intake: never Patient Tobacco Use Status: Former Tobacco user Quit Date: age 36 Tobacco use type: Cigarette Use of substances other than those prescribed or required for medical reasons: No Have you been hit, kicked, punched, or otherwise hurt by someone within the past year? If so, by whom?: No Are you DNR?: No Advance Directives: No Advance Directives Information Provided: Yes (brochure mailed) Advance Directives on File: No Recently lost weight without trying: No Eating poorly because of decreased appetite: No Nutrition Risks: No Nutritional Risk Patient : No FDLMP: N/A : No Poor oral hygiene: No (upper partial denture) service: No Current occupational status: unemployed Meds Allergies Allergy/AdvReac Type Severity Reaction Status Date / Time atorvastatin AdvReac Intermediate headache Verified 12/23/22 10:08 Home Medications Medication Instructions Recorded Confirmed Last Taken Type calcium citrate 315 mg-vitamin D3 1 tab PO BID 12/13/21 12/23/22 Unknown History 5 mcg (200 unit) tablet (Calcium Citrate + D) hejkiyqo-zhjllrcs-gjfz 45 mg-folic 1 cap PO DAILY 12/13/21 12/23/22 Unknown History acid 800 mcg-vit K 120 mcg capsule (Bariatric Multivitamins) losartan 50 mg tablet 25 mg PO DAILY 01/08/22 12/23/22 Unknown History Exam Height,Weight and Vital Signs: Height 5 ft 5.5 in Weight 68.039 kg Vital Signs Temp Pulse Resp BP Pulse Ox O2 Del Method 12/23/22 10:15 97.0 F 75 16 151/69 H 99 Room Air Pertinent Lab Results Pertinent Lab Results: Laboratory Tests 12/19/22 12/19/22 12/19/22 08:35 08:35 08:35 WBC 10.7 RBC 3.99 L Hgb 12.1 Hct 36.3 L MCV 91.0 MCH 30.3 MCHC 33.3 RDW 13.2 Plt Count 329 MPV 9.2 L Immature Gran % (Auto) 0.3 Neut % (Auto) 56.2 Lymph % (Auto) 32.9 Hudspeth % (Auto) 6.8 Eos % (Auto) 3.0 Baso % (Auto) 0.8 Lymph # (Auto) 3.5 Hudspeth # (Auto) 0.7 Eos # (Auto) 0.3 Baso # (Auto) 0.1 Abs Immat Gran (auto) 0.03 Absolute Neuts (auto) 6.0 Absolute Nucleated RBC 0.000 Nucleated RBC % (auto) 0.0 PT 10.9 INR 1.0 APTT 36.0 Sodium 141 Potassium 4.2 Chloride 107 Carbon Dioxide 28 Anion Gap 10 L BUN 18 H Creatinine 0.77 Estim Creat Clear Calc 70.7 Estimated GFR > 60 Random Glucose 92 Estimat Average Glucose Hemoglobin A1c % Calcium 9.6 Total Bilirubin 1.2 H AST 18 ALT 19 Alkaline Phosphatase 54 Total Protein 6.8 Albumin 4.1 Blood Type Antibody Screen 12/19/22 12/19/22 08:35 08:35 WBC RBC Hgb Hct MCV MCH MCHC RDW Plt Count MPV Immature Gran % (Auto) Neut % (Auto) Lymph % (Auto) Hudspeth % (Auto) Eos % (Auto) Baso % (Auto) Lymph # (Auto) Hudspeth # (Auto) Eos # (Auto) Baso # (Auto) Abs Immat Gran (auto) Absolute Neuts (auto) Absolute Nucleated RBC Nucleated RBC % (auto) PT INR APTT Sodium Potassium Chloride Carbon Dioxide Anion Gap BUN Creatinine Estim Creat Clear Calc Estimated GFR Random Glucose Estimat Average Glucose 111 Hemoglobin A1c % 5.5 Calcium Total Bilirubin AST ALT Alkaline Phosphatase Total Protein Albumin Blood Type O Positive Antibody Screen NEGATIVE Laboratory Results - last 24 hr 12/23/22 09:55 COVID-19 (PRITESH) Negative COVID-19 Clin Com See Note
--- NOTE | 2022-12-21 22:49 | P.HPSUR_ITS ---
Pre-Procedural Eval Section A Date of Service: 12/21/22 The patient is an INPATIENT: No The History & Physical has been completed within 30 days and I have reviewed it.: Yes Section B Chief Complaint: Excessive and redundant skin and subcutaneous tiss Relevant Family History (Specify if Yes): Yes Relevant Social History: None Present Medications: None Medical History: No relevant PMH History of Previous Operations: Relevant previous surgery/procedure and date(s) (Laparoscopic sleeve gastrectomy) Allergies: Allergies Allergy/AdvReac Type Severity Reaction Status Date / Time atorvastatin AdvReac Intermediate headache Verified 12/17/22 13:59 Review of Systems Sugical H&P ROS: Negative: Constitution, Cardiovascular, Respiratory, Neurological, Psychiatric, Hem-Onc, Allergic/Immunologic, Gastrointestinal, Ge nitourinary, Musculoskeletal, Integumentary, Endocrine and Eyes/Ears/Nose/Throat Exam Surgical H&P Exam: Normal: HEENT, Normal: Heart, Normal: Lungs, Normal: Extremities, Normal: Abdomen, Normal: Skin and Normal: Neurological Plan Diagnosis/Plan: Unchanged I have reviewed the history and physical and performed a pertinent physical examination on my patient. No changes have occurred unless specified. Time Spent With Patient Time: Total time managing care of this patient today ____ minutes.
[2022-12-23] VITALS (8 sets, daily range): BP systolic 122–151; BP diastolic 56–69; PULSE 75–94; RESP 14–17; TEMP 36.1–36.6; O2SAT 96–99
[2022-12-23] MEDS: Lactated Ringers 1,000 ML 80 ML IVCONT (10:25)
[2022-12-23 10:49] LABS: COVID-19 Test Negative (Negative); IDNOW Serial# 08D9AD1C
--- NOTE | 2022-12-23 11:57 | P.BOP_ITS ---
Brief Operative Note Date of Service: 12/23/22 Pre-op diagnosis: Excess skin Post-op diagnosis: same Procedure: PROCEDURE: Panniculectomy with umbilical transposition and bilateral subcutaneous fat flaps INDICATION: This a 57 year old female who underwent laparoscopic sleeve gastrectomy on 10/08/21. She had an excellent result achieving a BMI of 25 kg/m2 with a total weight loss of 80lbs, or 34.78% of her TBWL. As a result, she has developed panniculitis which has not resolved despite continuous use of clotrimazole ointment as well as skin irritation. On exam she has extreme skin laxity due to massive weight loss, with the abdominal pannus completely hanging 4cm below the pubis. Panniculectomy was recommended. We discussed the two options for the panniculectomy of using a combined vertical and horizontal incisions or just a horizontal (bikini) incision. It was my recommendation to do only horizontal incision based on her body habitus and skin laxity. The patient agreed with this. Risks and complications were discussed with the patient including bleeding, infection, umbilical loss, flap necrosis, asymmetry, dehiscence, seroma, VTE. The patient understood the risks and was in agreement to proceed with surgery. PROCEDURE: The incisions were appropriately marked at the preop area with the patient standing and laying down. After induction of general anesthesia a Loomis catheter and pneumatic compression devices were placed. The patient was prepped and draped in the usual sterile manner and the incisions were marked again and confirmed. The skin was infiltrated with lidocaine and epinephrine. The #10 blade scalpel was used for the large incisions and the #15 blade scalpel for the umbilicus. Cautery was used to divide the subcutaneous tissues until the fascia was identified. Then I used the Thunderbeat (Olympus) to separate the pannus from the fascia. The inferior incision was made initially and I mobilized the flap for a several centimeters cephalad to the umbilicus. The umbilicus was incised circumferentially and detached from the surrounding tissues all the way to the fascia while its stalk was preserved. With the patient in reflex position I confirmed that the skin flaps were appropriate and would allow for the tissues to come together with reasonable tension. At that point a horizontal incision was made 4 cm above the umbilicus. #10 blade was used for the skin, cautery for the dermis and the Thunderbeat for the remaining tissues. A subcutaneous fat flap was raised from the upper skin flap in order to fill the space under the skin and support the closure of the two flaps. In addition the inferior flap was mobilized caudally for a few centimeters to create a space for the subcutaneous fat flap as well as relieve tension from the closure. A circumferential incision was made at the area where the umbilicus would be re-implanted. The umbilicus was appropriately oriented and was delivered through the defect and was secured in place with a Claudia. No bleeding was noted anywhere. One VISHAL drain was placed from the left corner of the horizontal incision across the wound and was secured in place with a silk suture. A total of 14ml of Zynrelef was applied on top of the fascia and under the subc utaneous fat flaps. The subcutaneous fat flap was secured under the inferior flap with several interrupted 3.0 Monocryl sutures. The two flaps were brought together and were attached at the midline of the horizontal incision with a #3.0 Monocryl suture. At that point the umbilicus was properly oriented and was re-approximated to the skin with 8 interrupted 3.0 Monocryl sutures. In a similar fashion the skin flaps were re-approximated with multiple 3.0 Monocryl sutures. The skin was closed in all incisions and umbilicus with 4.0 Monocryl sutures. Steri-strips, xeroform gauzes and gauzes were used to cover the incisions. An abdominal binder was also placed. The was awaken and was transferred to the recover room in a stable condition. I was present and performed the entire procedure. Ms. Roque was the lead assistant manager. Khari De Oliveira MD, PhD, FACS Surgeon: Jeremy De Oliveira MD Surgeon: Jeremy De Oliveira MD Anesthesia: GETA and local (& 14ml Zynrelef) Was an Monitor Technician used for this Procedure?: No Monitor Technician: Ivette Dennison Estimated blood loss (mL): 20 IV fluids (mL): 2,700 Urine output (mL): 75 Pathology: other (Abdominal pannus) Condition: stable Disposition: PACU
--- NOTE | 2022-12-23 16:53 | PC.NURSE ---
Pt arrived in PACU on stretcher in semi-Fowlers with legs extended. Two pillows and two folded blankets placed beneath legs to keep knees in bent position as ordered.
--- NOTE | 2022-12-24 08:01 | P.F2F_ITS ---
Service Date Service Date: 12/24/22 Encounter Date of encounter: 12/23/22 Reasons for Services Signs and symptoms assessed: s/p panniculectomy Reason for [facility]: wound care and other (drain care) Homebound: Leaving the home is medically contraindicated at this time without the asist of a device and/or another person due th the listed conditions above and below. Reason homebound: unable to drive Certification: Based on the above findings, I certify that this patient is confined to the home and needs intermittent [facility] care, physical therapy and/or speech therapy, or continues to need occupational therapy. The patient is under my care, and I have initiated the establishment of the plan of care. The patient will be followed by a physician who will periodically review the plan of care. Time Spent With Patient Time: Total time managing care of this patient today __30__ minutes.
== END 2022-12-23 18:16 | disposition home or self-care (01) ==
PROVIDERS: PCP Internal Medicine; Visit Provider Surgery
PROC: 0JB80ZZ Excision of Abdomen Subcutaneous Tissue and Fascia, Open Approach (ICD-10-PCS; CPT 15830; principal; 2022-12-23 12:10)
DX: L98.7 Excessive and redundant skin and subcutaneous tissue (principal); M79.3 Panniculitis, unspecified; Z74.09 Other reduced mobility; K91.2 Postsurgical malabsorption, not elsewhere classified; E66.3 Overweight; Z68.24 Body mass index [BMI] 24.0-24.9, adult; Z98.84 Bariatric surgery status; F41.1 Generalized anxiety disorder; Z90.3 Acquired absence of stomach [part of]; K59.00 Constipation, unspecified; K74.00 Hepatic fibrosis, unspecified; I10 Essential (primary) hypertension; E78.00 Pure hypercholesterolemia, unspecified; G47.33 Obstructive sleep apnea (adult) (pediatric); M17.11 Unilateral primary osteoarthritis, right knee; Z79.899 Other long term (current) drug therapy; Z88.8 Allergy status to other drugs, medicaments and biological substances; Z87.891 Personal history of nicotine dependence
CPT/HCPCS: 15830; 15847; 36415; 80053; 83036; 85025; 85610; 85730; 86850; 86900; 86901; 87635; 88304; C9088; J0131; J0690; J1100; J1170; J2250; J2405; J3010; J3370

== ENCOUNTER → 2022-12-24 15:19 | Outpatient (BNVA) | payer MEDICARE, MEDICAID, SELFPAY | PROVIDERS: PCP Internal Medicine; Visit Provider Physician Assistant Surgical | DX: Z48.817 Encounter for surgical aftercare following surgery on the skin and subcutaneous tissue (principal); Z90.3 Acquired absence of stomach [part of]; Z48.03 Encounter for change or removal of drains | CPT/HCPCS: 99212 ==

== ENCOUNTER → 2022-12-26 08:58 | Outpatient (BNVA) | payer MEDICARE, MEDICAID, SELFPAY | PROVIDERS: PCP Internal Medicine; Visit Provider Physician Assistant Surgical ==

== ENCOUNTER → 2022-12-29 13:05 | Outpatient (BNVA) | payer MEDICARE, MEDICAID, SELFPAY | PROVIDERS: PCP Internal Medicine; Visit Provider Physician Assistant Surgical ==

== ENCOUNTER → 2023-01-02 12:27 | Outpatient (BNVA) | payer MEDICARE, MEDICAID, SELFPAY | PROVIDERS: PCP Internal Medicine; Visit Provider Physician Assistant Surgical | DX: Z98.890 Other specified postprocedural states (principal) ==

== ENCOUNTER → 2023-01-12 09:26 | Outpatient (BNVA) | payer MEDICARE, MEDICAID, SELFPAY | PROVIDERS: PCP Internal Medicine; Visit Provider Physician Assistant Surgical | DX: Z98.890 Other specified postprocedural states (principal) | CPT/HCPCS: 99212 ==

== ENCOUNTER → 2023-01-19 15:00 | Outpatient (BNVA) | payer MEDICARE, MEDICAID, SELFPAY | PROVIDERS: PCP Internal Medicine; Visit Provider Physician Assistant Surgical | DX: Z48.817 Encounter for surgical aftercare following surgery on the skin and subcutaneous tissue (principal); Z98.890 Other specified postprocedural states | CPT/HCPCS: 99212 ==

== ENCOUNTER → 2023-01-30 09:20 | Outpatient (BNVA) | payer MEDICARE, MEDICAID, SELFPAY | PROVIDERS: PCP Internal Medicine; Referring Provider Internal Medicine; Visit Provider Physician Assistant Surgical | DX: M79.3 Panniculitis, unspecified (principal); K59.00 Constipation, unspecified; F50.81 Binge eating disorder; Z68.25 Body mass index [BMI] 25.0-25.9, adult; Z90.3 Acquired absence of stomach [part of]; Z98.890 Other specified postprocedural states | CPT/HCPCS: 99212 ==

== ENCOUNTER 2023-02-19 14:04 | Outpatient (REF) | payer MEDICARE, MEDICAID, SELFPAY ==
--- NOTE | ~2023-02-19 | XR_ITS ---
EXAMINATION: XR CERVICAL SPINE CLINICAL INFORMATION: Right neck pain. COMPARISON: None available. TECHNIQUE: 6 views of the cervical spine, inclusive of flexion and extension views, were obtained. FINDINGS: The vertebral alignment is normal. No intrinsic bony abnormality. The disc heights and neural foramina are well maintained. The endplates and posterior elements are normal. No fracture or subluxation. The surrounding prevertebral soft tissues are unremarkable. XR/XR cervical spine 5V IMPRESSION: Unremarkable examination.
== END 2023-02-19 14:05 | disposition home or self-care (01) ==
LOC: HO.XRAY 14:04
PROVIDERS: PCP Internal Medicine; Visit Provider Internal Medicine
DX: M54.2 Cervicalgia (principal)
CPT/HCPCS: 72050

== ENCOUNTER 2023-03-25 14:20 | Outpatient (AMB) | payer MEDICARE, MEDICAID, SELFPAY ==
[2023-03-25 14:37] VITALS: BMI 25.7
--- NOTE | 2023-03-25 14:37 | A.OFFVIS_ITS ---
Intake Vital Signs 03/25/23 14:37 Height 5 ft 4 in Weight 150 lb BMI 25.7 Intake Visit Reasons: Pre- L CTR 03/30/23 AR Intake Note: Adrianne 57 yr old female presents today for her pre op visit for her left CTR schedule for 03/30/23. Consent signed and reviewed. Allergies atorvastatin Adverse Reaction (Intermediate, Verified 03/25/23 14:42) headache HPI Pre- L CTR 03/30/23 AR HPI Details Adrianne is a 57 year old right hand dominant woman who presents to discuss her left carpal tunnel syndrome. She has a Hx of right carpal tunnel release, DOS: 05/06/17, at an outside clinic. She complains primarily of numbness in her left median nerve distribution. Her symptoms are constant, worse at night or with activity. She says driving is particularly difficult. She complains of numbness in her right hand. After some discussion she reports her numbness is the same as it was following her right carpal tunnel release, and has not worsened since that time. [facility] Medical History Abnormal EKG Anxiety Binge eating disorder Binge-eating disorder, in full remission, moderate BMI 34.0-34.9,adult BMI 36.0-36.9,adult BMI 37.0-37.9, adult Cervicalgia COVID-19 vaccine series completed Depression H. 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 Son No problems noted. Son No problems noted. Daughter No problems noted. Social History Household Members: Spouse Housing: Apartment Are you a primary resident care spec to a significant other at home: No Do you presently have visiting nurse or other home services: No Alcohol intake: never Patient Tobacco Use Status: Former Tobacco user Quit Date: age 36 Tobacco use type: Cigarette service: No Current occupational status: unemployed Review of Systems Const All systems reviewed & are unremarkable except as noted in HPI and below Physical Exam Vital Signs: BMI result Body Mass Index 25.7 Const General: no acute distress and alert Orientation/consciousness: patient oriented x3 Neuro General: patient oriented x3 Extrem Other: Evaluation of Left Upper Extremity: The patient is alert, oriented, and in no acute distress Neuro: Median, Ulnar, Radial nerves motor and sensory grossly intact except for some persistent numbness in the thumb index and middle fingers No thenar or intrinsic wasting Good APB muscle belly firing and good finger cross Vascular: Cap refill brisk ROM: She can make a fist and extend all her digits No locking or catching Nerve Conduction Study: IMPRESSION: Mild to moderate bilateral median neuropathy across carpal tunnel. Araseli De La Torre MD 08/07/2022 Psych Appearance: grossly normal Affect: normal affect Attitude: cooperative Assessment & Plan Assessment & Plan (1) Carpal tunnel syndrome of left wrist: Code(s): G56.02 - Carpal tunnel syndrome, left upper limb (2) History of carpal tunnel surgery of right wrist: Code(s): Z98.890 - Other specified postprocedural states Plan Assessment & Plan: 1. Left Carpal tunnel syndrome, mild-moderate With dense numbness, worse at night I educated her about this condition I discussed treatment options I recommend surgery, and she is in agreement The risks and benefits of operative treatment were discussed with the patient and the patient wishes to proceed with surgery. These risks include, but are not limited to risk of damage to blood vessels, nerves, tendons, infection, recurrence, incomplete relief of preoperative symptoms, persistent pain, possible need for further surgery and the risks associated with regional blocks and anesthesia. The plan is to take the patient to the operating room sometime on 03/30/23 for the following procedures: 1. Left Carpal tunnel release, under local All of the preoperative paperwork including the consent was filled out today. All the patient's questions were answered. She denies Diabetes, blood thinners, asthma, heart, lung, kidney issues 2. Right Carpal tunnel syndrome, S/P release DOS: 05/06/17 With persistent mild numbness in the median nerve distribution, which has not changed following her surgery No intervention warranted for her right side at this time Scribed for Ivanna Urena MD by Espinoza Velasquez, nuclear medical technologist, on 03/25/23 at 2:40 PM, EST. Coding Level of Care Code Est Pt Level 4 (29225) Diagnoses Carpal tunnel syndrome of left wrist G56.02 History of carpal tunnel surgery of right wrist Z98.890
== END 2023-03-25 15:45 | disposition home or self-care (01) ==
PROVIDERS: Visit Provider Orthopaedic Surgery
DX: G56.02 Carpal tunnel syndrome, left upper limb (principal)
CPT/HCPCS: 99024

== ENCOUNTER → 2023-03-25 14:20 | Outpatient (BNVA) | payer MEDICARE, MEDICAID, SELFPAY | PROVIDERS: Visit Provider Orthopaedic Surgery | DX: G56.02 Carpal tunnel syndrome, left upper limb (principal); Z98.890 Other specified postprocedural states | CPT/HCPCS: 99212 ==

== ENCOUNTER 2023-03-27 12:57 | Outpatient (AMB) | payer MEDICARE, MEDICAID, SELFPAY ==
--- NOTE | 2023-03-27 13:00 | MHC.OFFVISWM ---
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: No Allergies atorvastatin Adverse Reaction (Intermediate, Verified 03/27/23 13:10) headache Medication List - Last Reconciled 03/27/23 by YVES Alcantar calcium citrate-vitamin D3 315 mg-5 mcg (200 unit) (Calcium Citrate + D) 1 tab PO BID cyclobenzaprine 5 mg PO BEDTIME 30 days diphenhydramine HCl (Benadryl Allergy) 25 mg PO TID PRN docusate sodium (Colace) 100 mg orally once a day; 90 days emollient combination no.69 (Eucerin Skin Calming cream) 1 appl topical Q6-8H 30 days epinephrine (EpiPen 2-Juan Carlos) 0.3 mg (0.3 mL) IM Q4H PRN losartan 25 mg PO DAILY xsvffquiyyyd-hbk-bnbx-FA-vit K 45 mg iron- 800 mcg-120 mcg (Bariatric Multivitamins) 1 cap PO DAILY polyethylene glycol 3350 (Miralax) 17 grams PO DAILY PRN thiamine HCl (vitamin B1) 100 mg PO DAILY HPI HPI Comments History of Present Illness Details 57 yo femal e3 months s/p panniculectomy on 12/23/22 reports returned from [facility] Doing very well Completely satisfied with weight loss and results from panniculectomy PFSH Medical History Abnormal EKG Anxiety Binge eating disorder Binge-eating disorder, in full remission, moderate BMI 34.0-34.9,adult BMI 36.0-36.9,adult BMI 37.0-37.9, adult Cervicalgia COVID-19 vaccine series completed Depression H. 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 Son No problems noted. Son No problems noted. Daughter No problems noted. Social History Household Members: Spouse Housing: Apartment Are you a primary direct support professional caregiver to a significant other at home: No Do you presently have visiting nurse or other home services: No Alcohol intake: never Patient Tobacco Use Status: Former Tobacco user Quit Date: age 36 Tobacco use type: Cigarette service: No Current occupational status: unemployed Review of Systems Const All systems reviewed & are unremarkable except as noted in HPI and below Physical Exam Const General: healthy appearing and no acute distress GI Other: healed incisions of transverse abdomen and umbilcus Assessment & Plan Assessment & Plan (1) S/P panniculectomy: Code(s): Z98.890 - Other specified postprocedural states Plan: healed well, continue current meal plan rtc 3 months no restriction on exercise Coding Level of Care Code Est Pt Level 3 (93140) Diagnoses S/P panniculectomy Z98.890
[2023-03-27 13:12] VITALS: BP 166/68; PULSE 100; TEMP 37.7; O2SAT 100; BMI 26.1
== END 2023-03-27 13:27 | disposition home or self-care (01) ==
PROVIDERS: PCP Internal Medicine; Visit Provider Physician Assistant Surgical
DX: L98.7 Excessive and redundant skin and subcutaneous tissue (principal); Z48.817 Encounter for surgical aftercare following surgery on the skin and subcutaneous tissue
CPT/HCPCS: 99213

== ENCOUNTER → 2023-03-27 12:57 | Outpatient (BNVA) | payer MEDICARE, MEDICAID, SELFPAY | PROVIDERS: PCP Internal Medicine; Visit Provider Physician Assistant Surgical | DX: Z90.3 Acquired absence of stomach [part of] (principal); Z98.890 Other specified postprocedural states | CPT/HCPCS: 99212 ==

== ENCOUNTER 2023-03-30 09:00 | Day surgery (SDC) | payer MEDICARE, MEDICAID, SELFPAY ==
--- NOTE | 2023-03-30 09:41 | W.PM.OPN ---
Operative Note Operative Note Date of Service: 03/30/23 Narrative: Preop diagnosis: 1. left Carpal tunnel syndrome Postop diagnosis: same Procedure: 1. left Carpal tunnel release Surgeon: Ivanna Urena MD Anesthesia: local block using 1% lidocaine with epinephrine Findings: Thickened transverse carpal ligament. EBL: Less than 5 mL Specimens: None Complications: None Disposition: Brought to recovery room in stable condition Plan: Follow-up for 10-14 days for wound check and suture removal Indications: The patient is 57 years old, with left carpal tunnel syndrome that has been unresponsive to nonoperative management. The risks and benefits of operative treatment including but not limited to risk of damage to blood vessels, nerves, tendons, infection, persistent pain, persistent symptoms, or possible need for additional surgery were discussed with the patient and the patient wishes to proceed with surgery. Procedure: Once consent was obtained a local block was performed using a combination of 1% lidocaine with epinephrine. The patient was then brought back to the operating suite and placed on the operative table in supine position. The left upper extremity was prepped and draped in a standard surgical fashion. Once assured that we had a good block, a 2.0 cm longitudinal incision was made centered over the carpal tunnel. The incision was made through the skin to the subcutaneous tissues using a #15 blade. Dissection was made down to the level of the transverse carpal ligament with care being taken to protect the palmar cutaneous nerve. Once the transverse carpal ligament was clearly visualized, a longitudinal incision was made in the transverse carpal ligament 1st using a #15 blade, then using tenotomy scissors under direct visualization. Care was taken to look for and protect the motor branch of the median nerve when seen in this area. Once satisfied with our carpal tunnel release the wound was copiously irrigated with normal saline and hemostasis was obtained with a brief period of local pressure. The skin edges were reapproximated with some 5.0 nylon suture material and a sterile dressing was applied. The patient appears to have tolerated the procedure well and with no complications. All digits were well vascularized at the conclusion of the case.
[2023-03-30 09:47] VITALS: BP 132/54; PULSE 84; RESP 16; TEMP 36.2; O2SAT 99
--- NOTE | 2023-03-30 12:12 | MHC.SHP ---
Pre-Procedural Eval Section A Date of Service: 03/30/23 The patient is an INPATIENT: No Changes since office visit: No Cold of Flu in the past 2 weeks, No New Medical Problems, No Changes in Medication and No Patient answered all questions The History & Physical has been completed within 30 days and I have reviewed it.: Yes Section B Chief Complaint: Carpal tunnel syndrome, left upper limb Allergies: Allergies Allergy/AdvReac Type Severity Reaction Status Date / Time atorvastatin AdvReac Intermediate headache Verified 03/27/23 13:10 Plan I have reviewed the history and physical and performed a pertinent physical examination on my patient. No changes have occurred unless specified. Time Spent With Patient Time: Total time managing care of this patient today ____ minutes.
[2023-03-30 13:14] VITALS: BP 151/73; RESP 18
== END 2023-03-30 13:16 | disposition home or self-care (01) ==
PROVIDERS: PCP Internal Medicine; Visit Provider Orthopaedic Surgery
PROC: (CPT 64721; principal; 2023-03-30 10:10)
DX: G56.02 Carpal tunnel syndrome, left upper limb (principal); R20.0 Anesthesia of skin; F41.1 Generalized anxiety disorder; I10 Essential (primary) hypertension; G47.33 Obstructive sleep apnea (adult) (pediatric); Z98.84 Bariatric surgery status; Z98.890 Other specified postprocedural states; Z88.8 Allergy status to other drugs, medicaments and biological substances; Z87.891 Personal history of nicotine dependence
CPT/HCPCS: 64721; J0171

== ENCOUNTER → 2023-03-30 09:00 | Outpatient (BNV) | payer MEDICARE, MEDICAID, SELFPAY | PROVIDERS: PCP Internal Medicine; Visit Provider Orthopaedic Surgery | DX: G56.02 Carpal tunnel syndrome, left upper limb (principal) | CPT/HCPCS: 64721 ==

== ENCOUNTER 2023-04-02 08:21 | Outpatient (REF) | payer MEDICARE, MEDICAID, SELFPAY ==
--- NOTE | ~2023-04-02 | CT_ITS ---
EXAMINATION: CT SOFT TISSUE NECK WITH CONTRAST CLINICAL INFORMATION: 57-year-old with localized swelling, mass and lump in neck. COMPARISON: None available. TECHNIQUE: Following the intravenous administration of 60 mL of Omnipaque 350 intravenous contrast, helical imaging was performed in the axial plane with generation of coronal and sagittal reformatted images. No markers were placed by the senior nuclear medicine technologist. This CT examination was performed using dose optimization techniques as appropriate, variously including the following: *Automated exposure control *Adjustment of mA and/or kV according to patient size (this includes techniques or standardized protocols for targeted exams where dose is matched to indication/reason for exam; i.e. extremities or head) *Use of iterative reconstruction technique DLP: 287 mGy-cm FINDINGS: SKULL BASE: The bony skull base and visualized calvarium appear grossly intact.?Limited assessment of the visualized intracranial and orbital soft tissue structures is unremarkable.?The visualized mastoids and middle ear cavities are clear. There is mild right-sided and pzknqmqj-kv-vahjgl left-sided mucosal thickening in the maxillary sinuses, with an air-fluid level in the left maxillary sinus. Correlate for acute sinusitis. SUPRAHYOID NECK: The nasopharynx, retropharynx, chronic specialist and parapharyngeal spaces appear symmetric and within normal limits. The major salivary glands are normal in morphology and attenuation. There is prominence of the palatine tonsils bilaterally, with a cluster of tiny calcified tonsilloliths in the right palatine tonsil. The right palatine tonsil appears slightly bulkier than the left but does not enhance abnormally. A tiny hypodensity along its posterior margin is probably a retention cyst. Recommend correlation with direct visualization. Findings could be inflammatory or infectious. Neoplastic disease is considered less likely. The visualized oral tongue, base of the tongue and floor of the mouth structures appear grossly intact with no abnormal enhancement. There are small, normal-sized, nonpathologic-appearing bilateral submandibular space and submental lymph nodes. There are bilateral IJ chain lymph nodes at level IIa, measuring 1.4 x 0.9 cm on the right and 1.5 x 0.9 cm on the left. These are at the upper limits of normal in size for this location and demonstrate no evidence for lymph node necrosis or capsular invasion. Multiple other smaller lymph nodes are seen at levels IIa and IIb bilaterally with a mildly enlarged level IIb lymph node on the right measuring 1.1 cm maximum long axis. Findings are consistent with mild lymphadenopathy. Vallecula and epiglottis are smoothly contoured. INFRAHYOID NECK: The hypopharynx, larynx and thyroid gland appear within normal limits with a normal appearance to the tracheoesophageal grooves. There are multiple small, nonenlarged bilateral level IIIb lymph nodes. Note is made of a 1.3 cm focus of curvilinear enhancement posterior to the right thyroid lobe and common carotid artery on image 80 of series 3 with an associated 8 mm soft tissue density with a punctate calcification within it. Etiology of this finding is uncertain. This could reflect an ectatic vein or partially thrombosed varix. Followup is recommended. VASCULAR: There is opacification of the major arterial and venous structures within the neck. UPPER CHEST: The visualized lung parenchyma demonstrates dependent atelectatic densities and probable minimal fibrotic changes at the right lung apex. The visualized mediastinum is grossly unremarkable. There are multiple lymph nodes in the axillary regions bilaterally, with one of these on the left being enlarged measuring 1.4 x 0.8 cm greatest dimensions. Small subpectoral lymph nodes are seen bilaterally. SKELETAL: Skeletal structures appear grossly intact. OTHER COMMENTS: None. CT/CT soft tissue neck w IV con IMPRESSION: 1. Mild cervical lymphadenopathy is seen at the suprahyoid level as detailed above, which is nonspecific and could be infectious or inflammatory in nature. Cannot exclude neoplastic disease. 2. Bilateral maxillary sinus mucosal inflammatory changes, left more than right, with an air-fluid level in the left maxillary sinus. Correlate for acute sinusitis. 3. Prominence of the palatine tonsils bilaterally, right more than left, with a tiny hypodensity along its posterior margin on the right, which may reflect a retention cyst. Recommend correlation with direct visualization. Differential diagnostic considerations include infectious or inflammatory disease. Neoplastic disease is considered less likely but not entirely excluded. 4. A 1.3 cm curvilinear focus of enhancement posterior to the right thyroid lobe and common carotid artery with an associated 8 mm soft tissue density with a punctate calcification adjacent to its posterior margin. Etiology is uncertain. This could reflect an ectatic vein or partially thrombosed varix. A pathologic lymph node is less likely given this appearance. Recommend followup for this finding with additional contrast-enhanced CT at a clinically appropriate interval depending on workup of the above findings. 5. Findings suggesting left axillary lymphadenopathy. CT of the chest may be of additional value for further assessment depending on the clinical workup. 6. Probable minimal fibrotic changes at the right lung apex.
[2023-04-02] MEDS: iohexoL 350 MG/ML 75 ML INFUS..BTL 60 ML IV (09:45)
[2023-04-03 08:35] LABS: Creatinine POC 0.5 mg/dL (0.5-1.4); GFR POC > 60
== END 2023-04-02 08:22 | disposition home or self-care (01) ==
LOC: HO.CT 08:21
PROVIDERS: PCP Internal Medicine; Visit Provider Internal Medicine
DX: R22.0 Localized swelling, mass and lump, head (principal)
CPT/HCPCS: 70491; 82565; Q9967

== ENCOUNTER 2023-04-09 09:00 | Outpatient (RCR) | payer MEDICARE, MEDICAID, SELFPAY | END 2023-04-09 11:39 | disposition home or self-care (01) | LOC: HO.PT 09:00 | PROVIDERS: PCP Internal Medicine; Visit Provider Internal Medicine | DX: M54.2 Cervicalgia (principal) | CPT/HCPCS: 97110; 97140; 97161 ==

== ENCOUNTER 2023-04-13 15:05 | Outpatient (AMB) | payer MEDICARE, MEDICAID, SELFPAY ==
--- NOTE | 2023-04-13 15:09 | A.OFFVIS_ITS ---
Intake Vital Signs 04/13/23 15:10 Height 5 ft 4 in Weight 152 lb BMI 26.1 Intake Visit Reasons: PO L CTR 03/30/23 AR Intake Note: Adrianne 57 yr old female presents today for her P/O visit for her left CTR from 03/30/[address] Urena. States she no longer has numbness and tingling but is concern about her incision. States its looks like she might have puss. Allergies atorvastatin Adverse Reaction (Intermediate, Verified 04/13/23 15:11) headache HPI PO L CTR 03/30/23 AR HPI Details 57-year-old female who returns to the office today for post-op left CTR, 03/30/[address] Urena. She states she has no numbness and tingling in her wrist but she does c/o possible puss at the incision site. She is doing well otherwise and has no concerns today. [facility] Medical History Abnormal EKG Anxiety Binge eating disorder Binge-eating disorder, in full remission, moderate BMI 34.0-34.9,adult BMI 36.0-36.9,adult BMI 37.0-37.9, adult Cervicalgia COVID-19 vaccine series completed Depression H. 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 Son No problems noted. Son No problems noted. Daughter No problems noted. Social History Household Members: Spouse Housing: Apartment Are you a primary certified social workers in health care to a significant other at home: No Do you presently have visiting nurse or other home services: No Alcohol intake: never Patient Tobacco Use Status: Former Tobacco user Quit Date: age 36 Tobacco use type: Cigarette service: No Current occupational status: unemployed Review of Systems Const All systems reviewed & are unremarkable except as noted in HPI and below Physical Exam Vital Signs: BMI result Body Mass Index 26.1 Extrem Other: Left wrist: Incision clean, dry and intact. No erythema or drainage. Sensation intact. Assessment & Plan Assessment & Plan (1) Carpal tunnel syndrome of left wrist: Code(s): G56.02 - Carpal tunnel syndrome, left upper limb Plan Sutures removed today, steri strips applied. She will increase activity as tolerated. I did ask that she avoids any creams or lotions and no submerging underwater for the next week. She will increase activity as tolerated as long as she is pain free. She will follow-up as needed. Patient Instructions: Scribed for Judy Soria PA-C, by Vahid Salinas medical recruiter, on 04/13/2023 at 3:00 PM EST. I, Judy Soria PA-C, have personally reviewed and agree with the information entered by the scribe. Coding Level of Care Code Global (31963) Diagnoses Carpal tunnel syndrome of left wrist G56.02
[2023-04-13 15:10] VITALS: BMI 26.1
== END 2023-04-13 15:18 | disposition home or self-care (01) ==
PROVIDERS: Visit Provider Physician Assistant
DX: G56.02 Carpal tunnel syndrome, left upper limb (principal); Z47.89 Encounter for other orthopedic aftercare
CPT/HCPCS: 99024

== ENCOUNTER → 2023-04-13 15:05 | Outpatient (BNVA) | payer MEDICARE, MEDICAID, SELFPAY | PROVIDERS: Visit Provider Physician Assistant ==

== ENCOUNTER 2023-04-23 11:53 | Outpatient (REF) | payer MEDICARE, MEDICAID, SELFPAY ==
--- NOTE | ~2023-04-23 | MM_ITS ---
EXAMINATION: MM SCREENING DIGITAL BREAST TOMOSYNTHESIS, BILATERAL CLINICAL INFORMATION: Screening. Asymptomatic. COMPARISON: Mammography: 12/09/2021, 12/26/2020, 03/04/2020, 11/29/2017. TECHNIQUE: Digital breast tomosynthesis is performed in both the craniocaudal and mediolateral oblique views along with computer-aided detection (CAD). Synthesized 2D images are generated from the tomosynthesis. FINDINGS: There are scattered areas of fibroglandular density (ACR BI-RADS breast composition Category b). There are no suspicious masses, suspicious grouped calcifications, or areas of architectural distortion. The parenchymal pattern is stable from prior exams. Unchanged calcified fibroadenoma in the upper lateral left breast, middle one third. MM/MM tomosynthesis screening BI IMPRESSION: No mammographic evidence of malignancy. Stable benign findings. ASSESSMENT: BI-RADS BI-RADS 2 - Benign Findings RECOMMENDATION: Routine annual mammography screening. 1 year F/U This examination should not preclude the clinical evaluation of a suspicious palpable abnormality. This patient's information was entered into a reminder system with a target due date for their next mammogram.
== END 2023-04-23 11:54 | disposition home or self-care (01) ==
LOC: HO.MAMMO 11:53
PROVIDERS: Visit Provider Internal Medicine
DX: Z12.31 Encounter for screening mammogram for malignant neoplasm of breast (principal)
CPT/HCPCS: 77063; 77067

== ENCOUNTER → 2023-04-23 12:00 | Outpatient (BNV) | payer MEDICARE, MEDICAID, SELFPAY | PROVIDERS: Visit Provider Radiology Diagnostic Radiology | DX: Z12.31 Encounter for screening mammogram for malignant neoplasm of breast (principal) | CPT/HCPCS: 77063; 77067 ==

== ENCOUNTER 2023-06-04 09:10 | Outpatient (REF) | payer MEDICARE, MEDICAID, SELFPAY ==
[2023-06-04 11:04] LABS: Anion Gap 15 (12-20); Blood Urea Nitrogen 17 mg/dL (9-16); Calcium 9.2 mg/dL (8.4-10.2); Carbon Dioxide 25 mmol/L (22-29); Chloride 106 mmol/L (96-108); Estimated Glomerular Filt Rate > 60; Glucose Random 79 mg/dL (60-115); Potassium 3.7 mmol/L (3.3-5.1); Sodium 142 mmol/L (135-145)
== END 2023-06-04 09:11 | disposition home or self-care (01) ==
LOC: HO.LAB 09:10
PROVIDERS: PCP Internal Medicine; Visit Provider Family Medicine
DX: I10 Essential (primary) hypertension (principal)
CPT/HCPCS: 36415; 80048

== ENCOUNTER 2023-06-16 09:38 | Outpatient (AMB) | payer MEDICARE, MEDICAID, SELFPAY ==
--- NOTE | 2023-06-16 09:43 | MHC.OFFVISWM ---
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: No Allergies atorvastatin Adverse Reaction (Intermediate, Verified 06/16/23 09:48) headache Medication List - Last Reconciled 06/16/23 by YVES Alcantar calcium citrate-vitamin D3 315 mg-5 mcg (200 unit) (Calcium Citrate + D) 1 tab PO BID cyclobenzaprine 5 mg PO BEDTIME 30 days diphenhydramine HCl (Benadryl Allergy) 25 mg PO TID PRN docusate sodium (Colace) 100 mg orally once a day; 90 days emollient combination no.69 (Eucerin Skin Calming cream) 1 appl topical Q6-8H 30 days epinephrine (EpiPen 2-Juan Carlos) 0.3 mg (0.3 mL) IM Q4H PRN losartan 25 mg PO DAILY [id number] K 45 mg iron- 800 mcg-120 mcg (Bariatric Multivitamins) 1 cap PO DAILY oxycodone-acetaminophen 5-325 mg 1 tab PO Q6H PRN polyethylene glycol 3350 (Miralax) 17 grams PO DAILY PRN HPI HPI Comments History of Present Illness Details Very pleasant 58-year-old female returns to the clinic today in follow-up. She is status post panniculectomy on 12/23/2022, she additionally had a sleeve gastrectomy with hiatal hernia repair performed by Dr. De Oliveira on 10/08/21. This is a 6 month follow-up for her panniculectomy She is doing very well overall has no significant complaints. She is very happy with the results of her procedures. She continues with bariatric fusion multi vitamin and calcium plus D. Meal plan: One ready to drink Premier protein shake and 2 meals consisting of 6-8 forks of protein and 6 forks of vegetables. 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 [facility] Medical History Liver fibrosis Steatosis, liver Depression Anxiety COVID-19 vaccine series completed BMI 34.0-34.9,adult CHARAN (obstructive sleep apnea) Binge-eating disorder, in full remission, moderate BMI 37.0-37.9, adult BMI 36.0-36.9,adult Binge eating disorder Abnormal EKG H. pylori infection Obesity Right knee pain Myalgia Paresthesias Cervicalgia Upper back pain Physical examination of employee Other specified nonscarring hair loss High cholesterol Knee pain, bilateral Rash Primary osteoarthritis of right knee (Unknown) HTN (hypertension) Surgical History (Updated 06/16/23 @ 10:06 by YVES Alcantar) S/P laparoscopic sleeve gastrectomy H/O colonoscopy Hx of dilation and curettage History of removal of ovarian cyst History of carpal tunnel release History of partial hysterectomy Family History Father Emphysema lung Mother Afib Hypertension Brother HIV (human immunodeficiency virus infection) Brother Afib Daughter No problems noted. Son No problems noted. Son No problems noted. Daughter No problems noted. Social History Household Members: Spouse Housing: Apartment Are you a primary resident care spec to a significant other at home: No Do you presently have visiting nurse or other home services: No Alcohol intake: never Patient Tobacco Use Status: Former Tobacco user Quit Date: age 36 Tobacco use type: Cigarette service: No Current occupational status: unemployed Review of Systems Const All systems reviewed & are unremarkable except as noted in HPI and below Physical Exam GI Inspection: Yes incision (well healed, no s/sx fluid accumulation) Assessment & Plan Assessment & Plan (1) S/P panniculectomy: Code(s): Z98.890 - Other specified postprocedural states Plan: Continue current meal plan and exercise plan. (2) S/P laparoscopic sleeve gastrectomy: Code(s): Z98.84 - Bariatric surgery status Plan: As above, additionally, she will return to the office in October for her 2 year follow-up Coding Level of Care Code Est Pt Level 3 (54643) Diagnoses S/P panniculectomy Z98.890 S/P laparoscopic sleeve gastrectomy Z98.84
[2023-06-16 09:49] VITALS: BP 169/79; PULSE 74; TEMP 35.7; O2SAT 99; BMI 26.1
== END 2023-06-16 10:08 | disposition home or self-care (01) ==
PROVIDERS: PCP Internal Medicine; Visit Provider Physician Assistant Surgical
DX: L98.7 Excessive and redundant skin and subcutaneous tissue (principal); Z48.817 Encounter for surgical aftercare following surgery on the skin and subcutaneous tissue
CPT/HCPCS: 99213

== ENCOUNTER → 2023-06-16 09:38 | Outpatient (BNVA) | payer MEDICARE, MEDICAID, SELFPAY | PROVIDERS: PCP Internal Medicine; Visit Provider Physician Assistant Surgical | DX: Z98.84 Bariatric surgery status (principal) | CPT/HCPCS: 99212 ==

== ENCOUNTER 2023-06-18 08:26 | Outpatient (REF) | payer MEDICARE, MEDICAID, SELFPAY ==
--- NOTE | ~2023-06-18 | CT_ITS ---
EXAMINATION: CT SOFT TISSUE NECK WITH CONTRAST CLINICAL INFORMATION: Submandibular region mass COMPARISON: CT neck 04/02/2023 TECHNIQUE: Following the administration of 60 mL of Omnipaque 350 intravenous contrast, helical imaging was performed in the axial plane with generation of coronal and sagittal reformatted images. This CT examination was performed using dose optimization techniques as appropriate, variously including the following: *Automated exposure control. *Adjustment of mA and/or kV according to patient size (this includes techniques or standardized protocols for targeted exams where dose is matched to indication/reason for exam; i.e. extremities or head). *Use of iterative reconstruction technique. DLP: [address] chest mGy-cm. FINDINGS: Soft tissue skin marker inferior to the mandible. Deep to the skin marker is a mildly prominent lymph node measuring up to 0.8 x 0.6 cm. This appears comparable to the prior examination. Nasopharynx/Skull Base: The fat planes at the skull base and the soft tissues of the nasopharynx are within normal limits. Trace mucosal thickening in the left maxillary sinus. The mastoid air cells are well-aerated. Suprahyoid Neck: Mild asymmetric prominence of the right lingual tonsil. Right palatine tonsilliths are noted. Small focus of cystic change along the right palatine tonsil. No exophytic mass/lesion is otherwise visualized along the oral cavity and oropharynx. The parotid and submandibular glands appear within normal limits. Infrahyoid Neck: The hypopharynx, larynx, and proximal subglottic airway are within normal limits. Thyroid: The thyroid is unremarkable without identifiable nodules. Nodes: Mildly prominent bilateral cervical level 2A lymph nodes are again noted. Lung Apices: Right apical pleural parenchymal scarring. Please see separately dictated CT scan of the chest for full intrathoracic findings. Vascular Structures:Inferiorly directed outpouching from the right supraclinoid internal carotid artery measuring up to 2.5 mm. Image conspicuity of enhancement posterior to the right thyroid lobe which may represent a thrombosed vein. Osseous Structures: No acute osseous abnormality. Other Findings: Limited intracranial evaluation is within normal limits. CT/CT soft tissue neck w IV con IMPRESSION: A mildly prominent, rounded cervical level Ia lymph node corresponds to the palpable abnormality deep to the soft tissue skin marker. This appears stable compared to the prior examination of 04/02/2023. No exophytic mass/lesion along the aerodigestive tract. Additional mildly prominent cervical lymph nodes appear stable compared to the prior examination and remain indeterminate. Inferiorly directed outpouching from the right supraclinoid internal carotid artery measuring up to 2.5 mm may represent an infundibulum with a small aneurysm not excluded. Attention on follow-up dedicated CT angiogram is recommended.
--- NOTE | ~2023-06-18 | CT_ITS ---
EXAMINATION: CT CHEST WITH CONTRAST CLINICAL INFORMATION: Axillary lymphadenopathy. COMPARISON: No prior chest CT. CT scan of the abdomen and pelvis dated September 24, 2018. TECHNIQUE: Multidetector volumetric CT imaging of the chest was obtained after the administration of 60 mL of Omnipaque 350 intravenous contrast without immediate adverse reactions. Axial MIP volume rendering provided. Sagittal and coronal reformatted images were obtained. This CT examination was performed using dose optimization techniques as appropriate, variously including the following: *Automated exposure control *Adjustment of mA and/or kV according to patient size (this includes techniques or standardized protocols for targeted exams where dose is matched to indication/reason for exam; i.e. extremities or head) *Use of iterative reconstruction technique DLP: 488 mGy-cm FINDINGS: LUNGS: The lungs appear clear, with no evidence of inflammation or nodules. MEDIASTINUM: The mediastinum is normal. PLEURA: There is no pleural effusion. No pleural mass or thickening. AXILLA: No lymphadenopathy by size criteria. UPPER ABDOMEN: 1.5 x 1.3 cm, homogeneously enhancing left adrenal nodule demonstrating Hounsfield unit density of 87, not significant changed compared with September 24, 2018. Evidence of sleeve gastrectomy. OSSEOUS STRUCTURES: Unremarkable. CT/CT chest w IV con IMPRESSION: No evidence of adenopathy by size criteria. 1.5 cm left adrenal nodule which has been stable over more than one year, therefore benign. No dedicated follow up imaging of this nodule is indicated.
[2023-06-18] MEDS: iohexoL 350 MG/ML 100 ML INFUS..BTL IV (09:32)
== END 2023-06-18 08:27 | disposition home or self-care (01) ==
LOC: HO.CT 08:26
PROVIDERS: PCP Internal Medicine; Visit Provider Internal Medicine
DX: R22.0 Localized swelling, mass and lump, head (principal)
CPT/HCPCS: 70491; 71260; Q9967

== ENCOUNTER 2023-08-18 08:32 | Outpatient (REF) | payer MEDICARE, MEDICAID, SELFPAY ==
--- NOTE | ~2023-08-18 | MR_ITS ---
EXAMINATION: MR CERVICAL SPINE WITHOUT CONTRAST CLINICAL INFORMATION: Right-sided neck pain with radiation to right shoulder. COMPARISON: CT scan of the neck 06/18/2023. Plain films of the cervical spine 02/20/2023. TECHNIQUE: MRI of the cervical spine was obtained using routine sequences without contrast. FINDINGS: VERTEBRAL BODIES AND PARASPINAL SOFT TISSUES: There is anatomic alignment of the vertebral bodies. There is minimal narrowing of intervertebral disc height at C4-C5 and C5-C6. Intervertebral disc signal is normal. The vertebral bodies have normal height and contour, and no fractures are demonstrated. There is an area of increased T2 and STIR signal in the posterior body and right pedicle of T3, most consistent with an atypical hemangioma. There is a small hemangioma in the superior aspect of T4 on the right. There is mild prominence of the palatine tonsils. There are a few mildly prominent level IIA/IIB lymph nodes, similar compared to prior imaging. CERVICOMEDULLARY JUNCTION AND VISUALIZED POSTERIOR FOSSA: The craniocervical and posterior fossa structures are normal. Accounting for artifact, spinal cord signal appears normal. SPINAL LEVELS: C2-C3: The facet joints appear normal bilaterally. Posterior disc contour is normal. There is no spinal cord compression or central stenosis. The neural foramina are patent bilaterally. C3-C4: The facet joints appear normal bilaterally. Posterior disc contour is normal. There is no spinal cord compression or central stenosis. The neural foramina are patent bilaterally. C4-C5: There is minimal bilateral facet arthropathy. There is a shallow posterior disc protrusion with mild effacement of CSF ventral to the spinal cord, but there is no spinal cord compression or central stenosis. The neural foramina are patent bilaterally. C5-C6: There is minimal bilateral facet arthropathy. There is a shallow posterior disc protrusion with mild effacement of CSF ventral to the spinal cord, but there is no spinal cord compression or central stenosis. The neural foramina are patent bilaterally. C6-C7: The facet joints appear normal. There is a shallow posterior disc protrusion without mass effect and there is no central stenosis or cord compression. The neural foramina are patent bilaterally. C7-T1: There is mild bilateral facet arthropathy. Posterior disc contour is normal and there is no cord compression or central stenosis. The neural foramina are patent bilaterally. MR/MR cervical spine wo con IMPRESSION: 1. There are no acute fractures or subluxations. 2. There are shallow posterior disc protrusions at C4-C5, C5-C6 and C6-C7 without spinal cord compression or central stenosis. The neural foramina are patent.
== END 2023-08-18 08:33 | disposition home or self-care (01) ==
LOC: HO.MRI 08:32
PROVIDERS: PCP Internal Medicine; Visit Provider Internal Medicine
DX: M54.2 Cervicalgia (principal)
CPT/HCPCS: 72141

== ENCOUNTER 2023-09-14 09:08 | Outpatient (REF) | payer MEDICARE, MEDICAID, SELFPAY ==
--- NOTE | ~2023-09-14 | CT_ITS ---
EXAMINATION: CT HEAD WITHOUT CONTRAST CT ANGIOGRAM HEAD CT ANGIOGRAM NECK CLINICAL INFORMATION: Reason for Exam right internal carotid artery aneurysm COMPARISON: CT neck 06/18/2023 TECHNIQUE: Initial noncontrast resistance welder imaging of the head and neck was performed. Noncontrast head CT was also performed. Test bolus sequences followed by intravenous administration 70 mL of Omnipaque 350. Helical imaging was performed in the axial plane from the aortic arch to the skull vertex. Delayed postcontrast imaging of the head was also performed. The data was processed at the pathology laboratory technologist's workstation for generation of MIP sequences. Angled MIPs and volume rendered reformatted images were also generated at an offline 3D workstation. Stenoses are assessed in accordance with Mensah et al. Quantification of Carotid Stenosis on CT Angiography. AJR 2006. 27(1):13-19. This CT examination was performed using dose optimization techniques as appropriate, variously including the following: *Automated exposure control *Adjustment of mA and/or kV according to patient size (this includes techniques or standardized protocols for targeted exams where dose is matched to indication/reason for exam; i.e. extremities or head) *Use of iterative reconstruction technique DLP: 2143 mGy-cm FINDINGS: CT HEAD: There is no evidence of acute intracranial hemorrhage. No mass-effect or ventricular shift is noted. No acute, territorial loss of fischer-white differentiation. The ventricles and sulci are appropriate in size and configuration for the patient's stated age. No abnormal intracranial enhancement is visualized. No depressed calvarial fracture. Extensive polypoid mucosal thickening in the left greater than right maxillary sinus with additional partially opacified left ethmoid air cells. The mastoid air cells are well-aerated. CTA HEAD: Anterior circulation: Right internal carotid artery: No hemodynamically significant stenosis. Stable approximately 2.5 mm inferiorly directed outpouching from the supraclinoid segment. Right middle cerebral artery: No hemodynamically significant stenosis. Right anterior cerebral artery: No hemodynamically significant stenosis. Left internal carotid artery: No hemodynamically significant stenosis. Left middle cerebral artery: No hemodynamically significant stenosis. Left anterior cerebral artery: No hemodynamically significant stenosis. Posterior circulation: Right vertebral artery: No hemodynamically significant stenosis. Left vertebral artery: No hemodynamically significant stenosis. Basilar artery: No hemodynamically significant stenosis. Right posterior cerebral artery: No hemodynamically significant stenosis. Left posterior cerebral artery: No hemodynamically significant stenosis. The major dural venous sinuses are grossly within normal limits given arterial technique. CTA NECK: Aortic arch: Normal anatomy. Scattered atherosclerosis of the thoracic aorta and proximal great vessels. Right common carotid artery: No hemodynamically significant stenosis. Right proximal internal carotid artery: No hemodynamically significant stenosis. Right mid/distal internal carotid artery: No hemodynamically significant stenosis. Left common carotid artery: No hemodynamically significant stenosis. Left proximal internal carotid artery: No hemodynamically significant stenosis. Left mid/distal internal carotid artery: No hemodynamically significant stenosis. Right vertebral artery: The V1 segment is obscured by refluxed dense venous contrast. Otherwise, no flow-limiting stenosis. Left vertebral artery: Nondominant. Patent. CT NECK: Nonspecific prominence of the right lingual tonsil effacing the right vallecula. Subcentimeter nodules in the bilateral parotid glands may represent lymph nodes. Right palatine tonsilloliths. Extensive polypoid mucosal thickening in left greater than right maxillary sinus. CT/CT angio neck IMPRESSION: CT HEAD: No acute intracranial hemorrhage or territorial loss of fischer-white differentiation. CTA NECK: No hemodynamically significant stenosis. Small soft tissue nodules in the parotid glands likely represent intraparotid lymph nodes. Additional findings as above. CTA HEAD: No proximal vessel occlusion or high-grade stenosis. Stable approximately 2.5 mm outpouching from the right supraclinoid internal carotid artery which may represent a small infundibulum or aneurysm. Continued attention on follow-up is recommended to monitor stability.
--- NOTE | ~2023-09-14 | CT_ITS ---
EXAMINATION: CT HEAD WITHOUT CONTRAST CT ANGIOGRAM HEAD CT ANGIOGRAM NECK CLINICAL INFORMATION: Reason for Exam right internal carotid artery aneurysm COMPARISON: CT neck 06/18/2023 TECHNIQUE: Initial noncontrast fourdrinier operator imaging of the head and neck was performed. Noncontrast head CT was also performed. Test bolus sequences followed by intravenous administration 70 mL of Omnipaque 350. Helical imaging was performed in the axial plane from the aortic arch to the skull vertex. Delayed postcontrast imaging of the head was also performed. The data was processed at the architectural technologist's workstation for generation of MIP sequences. Angled MIPs and volume rendered reformatted images were also generated at an offline 3D workstation. Stenoses are assessed in accordance with Mensah et al. Quantification of Carotid Stenosis on CT Angiography. AJR 2006. 27(1):13-19. This CT examination was performed using dose optimization techniques as appropriate, variously including the following: *Automated exposure control *Adjustment of mA and/or kV according to patient size (this includes techniques or standardized protocols for targeted exams where dose is matched to indication/reason for exam; i.e. extremities or head) *Use of iterative reconstruction technique DLP: 2143 mGy-cm FINDINGS: CT HEAD: There is no evidence of acute intracranial hemorrhage. No mass-effect or ventricular shift is noted. No acute, territorial loss of fischer-white differentiation. The ventricles and sulci are appropriate in size and configuration for the patient's stated age. No abnormal intracranial enhancement is visualized. No depressed calvarial fracture. Extensive polypoid mucosal thickening in the left greater than right maxillary sinus with additional partially opacified left ethmoid air cells. The mastoid air cells are well-aerated. CTA HEAD: Anterior circulation: Right internal carotid artery: No hemodynamically significant stenosis. Stable approximately 2.5 mm inferiorly directed outpouching from the supraclinoid segment. Right middle cerebral artery: No hemodynamically significant stenosis. Right anterior cerebral artery: No hemodynamically significant stenosis. Left internal carotid artery: No hemodynamically significant stenosis. Left middle cerebral artery: No hemodynamically significant stenosis. Left anterior cerebral artery: No hemodynamically significant stenosis. Posterior circulation: Right vertebral artery: No hemodynamically significant stenosis. Left vertebral artery: No hemodynamically significant stenosis. Basilar artery: No hemodynamically significant stenosis. Right posterior cerebral artery: No hemodynamically significant stenosis. Left posterior cerebral artery: No hemodynamically significant stenosis. The major dural venous sinuses are grossly within normal limits given arterial technique. CTA NECK: Aortic arch: Normal anatomy. Scattered atherosclerosis of the thoracic aorta and proximal great vessels. Right common carotid artery: No hemodynamically significant stenosis. Right proximal internal carotid artery: No hemodynamically significant stenosis. Right mid/distal internal carotid artery: No hemodynamically significant stenosis. Left common carotid artery: No hemodynamically significant stenosis. Left proximal internal carotid artery: No hemodynamically significant stenosis. Left mid/distal internal carotid artery: No hemodynamically significant stenosis. Right vertebral artery: The V1 segment is obscured by refluxed dense venous contrast. Otherwise, no flow-limiting stenosis. Left vertebral artery: Nondominant. Patent. CT NECK: Nonspecific prominence of the right lingual tonsil effacing the right vallecula. Subcentimeter nodules in the bilateral parotid glands may represent lymph nodes. Right palatine tonsilloliths. Extensive polypoid mucosal thickening in left greater than right maxillary sinus. CT/CT angio head IMPRESSION: CT HEAD: No acute intracranial hemorrhage or territorial loss of fischer-white differentiation. CTA NECK: No hemodynamically significant stenosis. Small soft tissue nodules in the parotid glands likely represent intraparotid lymph nodes. Additional findings as above. CTA HEAD: No proximal vessel occlusion or high-grade stenosis. Stable approximately 2.5 mm outpouching from the right supraclinoid internal carotid artery which may represent a small infundibulum or aneurysm. Continued attention on follow-up is recommended to monitor stability.
[2023-09-15 07:06] LABS: Creatinine POC 0.6 mg/dL (0.5-1.4); GFR POC 60
== END 2023-09-14 09:09 | disposition home or self-care (01) ==
LOC: HO.CT 09:08
PROVIDERS: PCP Internal Medicine; Visit Provider Internal Medicine
DX: I67.1 Cerebral aneurysm, nonruptured (principal)
CPT/HCPCS: 70496; 70498; 82565; Q9967

== ENCOUNTER 2023-10-01 11:44 | Outpatient (REF) | payer MEDICARE, MEDICAID, SELFPAY ==
[2023-10-01 12:48] LABS: Alanine Aminotransferase 14 U/L (0-31); Albumin Level 3.9 g/dL (3.5-5.0); Alkaline Phosphatase 52 U/L (39-117); Aspartate Amino Transferase 18 U/L (5-31); Bilirubin Direct 0.2 mg/dL (0.0-0.5); Bilirubin Total 0.6 mg/dL (0.0-1.0); Total Protein 6.9 g/dL (6.5-8.0)
== END 2023-10-01 11:45 | disposition home or self-care (01) ==
LOC: HO.LAB 11:44
PROVIDERS: Visit Provider Podiatrist Foot Surgery
DX: M79.675 Pain in left toe(s) (principal); B35.1 Tinea unguium
CPT/HCPCS: 36415; 80076

== ENCOUNTER 2023-11-02 10:04 | Outpatient (AMB) | payer MEDICARE, SELFPAY ==
--- NOTE | 2023-11-02 10:07 | A.OFFVIS_ITS ---
Intake VS Expanded 11/02/23 10:15 BP 151/69 H Blood Pressure Location Rt brachial Blood Pressure Position Sitting Pulse 83 Pulse Source Pulse Oximeter Temp 97.0 F Temperature Source Tympanic Pulse Oximetry 98 Oxygen Delivery Method Room Air Height 5 ft 4 in Weight 158 lb 3.2 oz BMI 27.2 Body Fat % 34.5 Body Fat Mass 54.2 Fat Free Mass 103.8 Visceral Fat Rating 8.0 Body Water % 46.4 Body Water Mass 73.4 Muscle Mass/Score 98.6 Basal Metabolic Rate/Score 1,402 Intake Visit Reasons: (OV) s/p Panniculectomy 12/23/22 Allergies atorvastatin Adverse Reaction (Intermediate, Verified 06/16/23 09:48) headache Medication List - Last Reconciled 11/02/23 by YVES Alcantar calcium citrate-vitamin D3 315 mg-5 mcg (200 unit) (Calcium Citrate + D) 1 tab PO BID cyclobenzaprine 5 mg PO BEDTIME 30 days diphenhydramine HCl (Benadryl Allergy) 25 mg PO TID PRN emollient combination no.69 (Eucerin Skin Calming cream) 1 appl topical Q6-8H 30 days epinephrine (EpiPen 2-Juan Carlos) 0.3 mg (0.3 mL) IM Q4H PRN [iron PO] losartan 25 mg PO DAILY uutvhpzxffma-zbo-zqkq-FA-vit K 45 mg iron- 800 mcg-120 mcg (Bariatric Multivitamins) 1 cap PO DAILY polyethylene glycol 3350 (Miralax) 17 grams PO DAILY PRN sennosides (senna) 17.2 mg (2 x 8.6 mg) PO BEDTIME 90 days [facility] Medical History Liver fibrosis Steatosis, liver Depression Anxiety COVID-19 vaccine series completed BMI 34.0-34.9,adult CHARAN (obstructive sleep apnea) Binge-eating disorder, in full remission, moderate BMI 37.0-37.9, adult BMI 36.0-36.9,adult Binge eating disorder Abnormal EKG H. pylori infection Obesity Right knee pain Myalgia Paresthesias Cervicalgia Upper back pain Physical examination of employee Other specified nonscarring hair loss High cholesterol Knee pain, bilateral Rash Primary osteoarthritis of right knee (Unknown) HTN (hypertension) Surgical History (Updated 10/10/23 @ 10:06 by YVES Alcantar) S/P laparoscopic sleeve gastrectomy H/O colonoscopy Hx of dilation and curettage History of removal of ovarian cyst History of carpal tunnel release History of partial hysterectomy Family History Father Emphysema lung Mother Afib Hypertension Brother HIV (human immunodeficiency virus infection) Brother Afib Daughter No problems noted. Son No problems noted. Son No problems noted. Daughter No problems noted. Social History Household Members: Spouse Housing: Apartment Are you a primary continuum of care manager to a significant other at home: No Do you presently have visiting nurse or other home services: No Alcohol intake: never Patient Tobacco Use Status: Former Tobacco user Quit Date: age 36 Tobacco use type: Cigarette service: No Current occupational status: unemployed Physical Exam Vital Signs: Last Vital Signs Temp 97.0 F 11/02/23 10:15 Pulse 83 11/02/23 10:15 BP 151/69 H 11/02/23 10:15 Pulse Ox 98 11/02/23 10:15 Oxygen Delivery Method Room Air 11/02/23 10:15 BMI result Body Mass Index 27.2 Assessment & Plan Assessment & Plan (1) S/P panniculectomy: Code(s): Z98.890 - Other specified postprocedural states Orders: Orders Insulin Today E78.00 - Pure hypercholesterolemia, unspecified, I10 - Essential (primary) hypertension, K76.0 - Fatty (change of) liver, not elsewhere classified, Z98.890 - Other specified postprocedural states Complete Blood Count Auto Diff Today E78.00 - Pure hypercholesterolemia, unspecified, I10 - Essential (primary) hypertension, K76.0 - Fatty (change of) liver, not elsewhere classified, Z98.890 - Other specified postprocedural states Lipid Panel Today E78.00 - Pure hypercholesterolemia, unspecified, I10 - Essential (primary) hypertension, K76.0 - Fatty (change of) liver, not elsewhere classified, Z98.890 - Other specified postprocedural states IRON PROFILE Today E78.00 - Pure hypercholesterolemia, unspecified, I10 - Essential (primary) hypertension, K76.0 - Fatty (change of) liver, not elsewhere classified, Z98.890 - Other specified postprocedural states Vitamin B1 Today E78.00 - Pure hypercholesterolemia, unspecified, I10 - Essential (primary) hypertension, K76.0 - Fatty (change of) liver, not elsewhere classified, Z98.890 - Other specified postprocedural states Vitamin A Today E78.00 - Pure hypercholesterolemia, unspecified, I10 - Essential (primary) hypertension, K76.0 - Fatty (change of) liver, not elsewhere classified, Z98.890 - Other specified postprocedural states Vitamin D 25-OH Total Today E78.00 - Pure hypercholesterolemia, unspecified, I10 - Essential (primary) hypertension, K76.0 - Fatty (change of) liver, not elsewhere classified, Z98.890 - Other specified postprocedural states Hemoglobin A1c Today E78.00 - Pure hypercholesterolemia, unspecified, I10 - Ess ential (primary) hypertension, K76.0 - Fatty (change of) liver, not elsewhere classified, Z98.890 - Other specified postprocedural states Vitamin B12 and Folate Today E78.00 - Pure hypercholesterolemia, unspecified, I10 - Essential (primary) hypertension, K76.0 - Fatty (change of) liver, not elsewhere classified, Z98.890 - Other specified postprocedural states Zinc Today E78.00 - Pure hypercholesterolemia, unspecified, I10 - Essential (primary) hypertension, K76.0 - Fatty (change of) liver, not elsewhere classified, Z98.890 - Other specified postprocedural states C Reactive Protein Today E78.00 - Pure hypercholesterolemia, unspecified, I10 - Essential (primary) hypertension, K76.0 - Fatty (change of) liver, not elsewhere classified, Z98.890 - Other specified postprocedural states TSH reflex Free T4 Today E78.00 - Pure hypercholesterolemia, unspecified, I10 - Essential (primary) hypertension, K76.0 - Fatty (change of) liver, not elsewhere classified, Z98.890 - Other specified postprocedural states Ferritin Today E78.00 - Pure hypercholesterolemia, unspecified, I10 - Essential (primary) hypertension, K76.0 - Fatty (change of) liver, not elsewhere classified, Z98.890 - Other specified postprocedural states Basic Metabolic Panel Today E78.00 - Pure hypercholesterolemia, unspecified, I10 - Essential (primary) hypertension, K76.0 - Fatty (change of) liver, not elsewhere classified, Z98.890 - Other specified postprocedural states Medications: New sennosides (senna) 17.2 mg (2 x 8.6 mg) PO BEDTIME 180 tabs 0RF 90 days Coding Diagnoses S/P panniculectomy Z98.890
[2023-11-02 10:15] VITALS: BP 151/69; PULSE 83; TEMP 36.1; O2SAT 98; BMI 27.2
--- NOTE | 2023-11-02 10:16 | A.OFFVIS_ITS ---
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 Allergies atorvastatin Adverse Reaction (Intermediate, Verified 06/16/23 09:48) headache Medication List - Last Reconciled 11/02/23 by YVES Alcantar calcium citrate-vitamin D3 315 mg-5 mcg (200 unit) (Calcium Citrate + D) 1 tab PO BID cyclobenzaprine 5 mg PO BEDTIME 30 days diphenhydramine HCl (Benadryl Allergy) 25 mg PO TID PRN emollient combination no.69 (Eucerin Skin Calming cream) 1 appl topical Q6-8H 30 days epinephrine (EpiPen 2-Juan Carlos) 0.3 mg (0.3 mL) IM Q4H PRN [iron PO] losartan 25 mg PO DAILY htdfkafqdzfk-aib-krnp-FA-vit K 45 mg iron- 800 mcg-120 mcg (Bariatric Multivitamins) 1 cap PO DAILY polyethylene glycol 3350 (Miralax) 17 grams PO DAILY PRN sennosides (senna) 17.2 mg (2 x 8.6 mg) PO BEDTIME 90 days HPI HPI Comments History of Present Illness Details Patient is a pleasant 58-year-old female who returns to the office today in follow-up. She underwent a panniculectomy on 12/23/2022 and history of laparoscopic sleeve gastrectomy with hiatal hernia repair on 10/08/2021. She states she is doing great and has no complaints. She is very satisfied with her panniculectomy resluts. Meal plan: Premier protein rtd divehi yogurt or small meal with 5 forks protein and 5 forks salad meal 5-6 forks protein and 5-6 forks veg, 2 forks rice divehi yogurt Drinkin oz water Exercise plan: [employer] or home videos 4 days per week 300 calories. Any post op complications: none CHARAN: never DM: never HTN: improved Hyperlipidemia: resolved GERD:?0-5 scale ??0 = no symptoms ??1 = symptoms noticeable but not bothersome 2 =symptoms bothersome but not daily ? 3 = symptoms bothersome and daily 4 = symptoms affect daily activities 5 = symptoms are incapacitating, unable to do daily activities ? How bad is the heartburn: 0 ? Heartburn while lying down: 0 ? Heartburn when standing up: 0 ? Heartburn after meals: 0 ? Does heartburn change your diet: 0 ? Does heartburn wake you up from sleep: 0 ? Do you have difficulty swallowin ? Do you have pain with swallowin ? If you take medicine for your reflux, does this affect your daily life: 0 Satisfaction with present condition - satisfied or not satisfied: satisfied [facility] Medical History Liver fibrosis Steatosis, liver Depression Anxiety COVID-19 vaccine series completed BMI 34.0-34.9,adult CHARAN (obstructive sleep apnea) Binge-eating disorder, in full remission, moderate BMI 37.0-37.9, adult BMI 36.0-36.9,adult Binge eating disorder Abnormal EKG H. pylori infection Obesity Right knee pain Myalgia Paresthesias Cervicalgia Upper back pain Physical examination of employee Other specified nonscarring hair loss High cholesterol Knee pain, bilateral Rash Primary osteoarthritis of right knee (Unknown) HTN (hypertension) Surgical History (Updated 06/16/23 @ 10:06 by YVES Alcantar) S/P laparoscopic sleeve gastrectomy H/O colonoscopy Hx of dilation and curettage History of removal of ovarian cyst History of carpal tunnel release History of partial hysterectomy Family History Father Emphysema lung Mother Afib Hypertension Brother HIV (human immunodeficiency virus infection) Brother Afib Daughter No problems noted. Son No problems noted. Son No problems noted. Daughter No problems noted. Social History Household Members: Spouse Housing: Apartment Are you a primary career coach to a significant other at home: No Do you presently have visiting nurse or other home services: No Alcohol intake: never Patient Tobacco Use Status: Former Tobacco user Quit Date: age 36 Tobacco use type: Cigarette service: No Current occupational status: unemployed Review of Systems Const All systems reviewed & are unremarkable except as noted in HPI and below Physical Exam Vital Signs: Last Vital Signs Temp 97.0 F 11/02/23 10:15 Pulse 83 11/02/23 10:15 BP 151/69 H 11/02/23 10:15 Pulse Ox 98 11/02/23 10:15 Oxygen Delivery Method Room Air 11/02/23 10:15 BMI result Body Mass Index 27.2 Const General: cooperative and no acute distress Orientation/consciousness: patient oriented x3 Resp Effort & Inspection: normal respiratory effort Auscultation: clear to auscultation bilaterally Cardio Rate: regular rate Rhythm: regular rhythm GI Inspection: Yes normal to inspection and Yes incision (well healed) Palpation (GI): Soft to palpation and no masses Neuro General: patient oriented x3 Assessment & Plan Assessment & Plan (1) S/P laparoscopic sleeve gastrectomy: Code(s): Z98.84 - Bariatric surgery status Plan: Patient has generally done well although she has increased her weight slightly since June. We discussed changing her meal plan to split her ready to drink Premier protein shake in half, having half in the morning and then half in the evening. She can continue her 2 small meals of 5 forks of protein and 5 of vegetables. Encouraged to remove rice from her meal. Encouraged to increase her exercise to a goal of 450-500 calories per session as she is working out 4 days per week. Again the goal is 2000 calories per week. Her incision from her panniculectomy as healed nicely. Check yearly labs. Encouraged to text weekly. Return to clinic in 2 months. Orders: Orders Insulin Today E78.00 - Pure hypercholesterolemia, unspecified, I10 - Essential (primary) hypertension, K76.0 - Fatty (change of) liver, not elsewhere classified, Z98.890 - Other specified postprocedural states Complete Blood Count Auto Diff Today E78.00 - Pure hypercholesterolemia, unspecified, I10 - Essential (primary) hypertension, K76.0 - Fatty (change of) liver, not elsewhere classified, Z98.890 - Other specified postprocedural states Lipid Panel Today E78.00 - Pure hypercholesterolemia, unspecified, I10 - Essential (primary) hypertension, K76.0 - Fatty (change of) liver, not elsewhere classified, Z98.890 - Other specified postprocedural states IRON PROFILE Today E78.00 - Pure hypercholesterolemia, unspecified, I10 - Essential (primary) hypertension, K76.0 - Fatty (change of) liver, not elsewhere classified, Z98.890 - Other specified postprocedural states Vitamin B1 Today E78.00 - Pure hypercholesterolemia, unspecified, I10 - Essential (primary) hypertension, K76.0 - Fatty (change of) liver, not elsewhere classified, Z98.890 - Other specified postprocedural states Vitamin A Today E78.00 - Pure hypercholesterolemia, unspecified, I10 - Essential (primary) hypertension, K76.0 - Fatty (change of) liver, not elsewhere classified, Z98.890 - Other specified postprocedural states Vitamin D 25-OH Total Today E78.00 - Pure hypercholesterolemia, unspecified, I10 - Essential (primary) hypertension, K76.0 - Fatty (change of) liver, not elsewhere classified, Z98.890 - Other specified postprocedural states Hemoglobin A1c Today E78.00 - Pure hypercholesterolemia, unspecified, I10 - Essential (primary) hypertension, K76.0 - Fatty (change of) liver, not elsewhere classified, Z98.890 - Other specified postprocedural states Vitamin B12 and Folate Today E78.00 - Pure hypercholesterolemia, unspecified, I10 - Essential (primary) hypertension, K76.0 - Fatty (change of) liver, not elsewhere classified, Z98.890 - Other specified postprocedural states Zinc Today E78.00 - Pure hypercholesterolemia, unspecified, I10 - Essential (primary) hypertension, K76.0 - Fatty (change of) liver, not elsewhere classified, Z98.890 - Other specified postprocedural states C Reactive Protein Today E78.00 - Pure hypercholesterolemia, unspecified, I10 - Essential (primary) hypertension, K76.0 - Fatty (change of) liver, not elsewhere classified, Z98.890 - Other specified postprocedural states TSH reflex Free T4 Today E78.00 - Pure hypercholesterolemia, unspecified, I10 - Essential (primary) hypertension, K76.0 - Fatty (change of) liver, not elsewhere classified, Z98.890 - Other specified postprocedural states Ferritin Today E78.00 - Pure hypercholesterolemia, unspecified, I10 - Essential (primary) hypertension, K76.0 - Fatty (change of) liver, not elsewhere classified, Z98.890 - Other specified postprocedural states Basic Metabolic Panel Today E78.00 - Pure hypercholesterolemia, unspecified, I10 - Essential (primary) hypertension, K76.0 - Fatty (change of) liver, not elsewhere classified, Z98.890 - Other specified postprocedural states Medications: New sennosides (senna) 17.2 mg (2 x 8.6 mg) PO BEDTIME 180 tabs 0RF 90 days Coding Level of Care Code Est Pt Level 4 (45454) Diagnoses S/P laparoscopic sleeve gastrectomy Z98.84
== END 2023-11-02 10:41 | disposition home or self-care (01) ==
PROVIDERS: PCP Internal Medicine; Visit Provider Physician Assistant Surgical
DX: E66.3 Overweight (principal); Z68.27 Body mass index [BMI] 27.0-27.9, adult; Z90.3 Acquired absence of stomach [part of]; Z98.84 Bariatric surgery status
CPT/HCPCS: 99214

== ENCOUNTER → 2023-11-02 10:04 | Outpatient (BNVA) | payer MEDICARE, SELFPAY | PROVIDERS: PCP Internal Medicine; Visit Provider Physician Assistant Surgical | DX: Z98.84 Bariatric surgery status (principal); Z98.890 Other specified postprocedural states | CPT/HCPCS: 99212 ==

== ENCOUNTER 2023-11-20 09:25 | Outpatient (REF) | payer MEDICARE, SELFPAY ==
[2023-11-20 09:47] LABS: MANUAL DIFF FLAG NO
[2023-11-20 10:04] LABS: Estimated Average Glucose 97 mg/dL
[2023-11-20 10:05] LABS: Basophils Absolute Auto 0.1 X10*3/uL (0.0-0.2); Basophils Percent Auto 0.8 % (0-2); Eosinophils Absolute Auto 0.3 X10*3/uL (0.0-0.4); Eosinophils Percent Auto 4.1 % (0-4); Hematocrit 37.4 % (37.0-47.0); Hemoglobin 12.3 g/dl (12.0-16.0); Imm Gran Abs Auto 0.02 X10*3/uL (0.00-0.03); Imm Gran Pct Auto 0.3 % (0.0-0.4); Lymphocytes Absolute Auto 2.9 X10*3/uL (1.2-4.9); Lymphocytes Percent Auto 38.5 % (20-40); Mean Corpuscular HGB Conc 32.9 g/dl (31.0-35.0); Mean Corpuscular Hemoglobin 30.5 pg (27.0-33.0); Mean Corpuscular Volume 92.8 fL (80.0-98.0); Mean Platelet Volume 9.3 fL (9.4-12.3); Monocytes Absolute Auto 0.5 X10*3/uL (0.1-1.2); Monocytes Percent Auto 6.4 % (2-11); Neutrophils Absolute Auto 3.8 x10*3/uL (2.0-8.3); Neutrophils Percent Auto 49.9 % (45-73); Platelet Count 322 X10*3/uL (160-400); Red Blood Count 4.03 X10*6/uL (4.20-5.50); Red Cell Distribution Width 13.2 % (11.0-16.0); White Blood Count 7.6 X10*3/uL (4.8-10.8)
[2023-11-20 10:46] LABS: Anion Gap 11 (12-20); Blood Urea Nitrogen 11 mg/dL (9-16); C Reactive Protein 0.12 mg/dL (< or = 0.50); Calcium 9.1 mg/dL (8.4-10.2); Carbon Dioxide 29 mmol/L (22-29); Chloride 106 mmol/L (96-108); Cholesterol 247 mg/dL (<200); Estimated Glomerular Filt Rate > 60; Glucose Random 89 mg/dL (60-115); HDL Cholesterol 71 mg/dL (>40); Iron 86 mcg/dL (30-160); LDL Cholesterol Calculated 161 mg/dL (<100); Percent Iron Saturation 34 % (15-50); Potassium 4.5 mmol/L (3.3-5.1); Sodium 141 mmol/L (135-145); Total Iron Binding Capacity 255 mcg/dL (228-428); Triglycerides 76 mg/dL (<150); Unsaturated Iron Binding 169 ug/dL
[2023-11-20 11:06] LABS: Ferritin 50 ng/mL (10-250); Insulin 5 uU/mL (2-29); TSH reflex Free T4 1.32 uIU/mL (0.32-4.0); Vitamin D 25-OH Total 36.4 ng/mL (>30)
[2023-11-20 11:14] LABS: Folate 12.2 ng/mL (> or = 4.0); Vitamin B12 1391 pg/mL (200-900)
[2023-11-24 03:13] LABS: Zinc 70 mcg/dL (60-130)
[2023-11-24 19:59] LABS: Vitamin A 51 mcg/dL (38-98)
[2023-11-25 16:02] LABS: Vitamin B1 28 nmol/L (8-30)
== END 2023-11-20 09:26 | disposition home or self-care (01) ==
LOC: HO.LAB 09:25
PROVIDERS: PCP Internal Medicine; Visit Provider Physician Assistant Surgical
DX: I10 Essential (primary) hypertension (principal); K76.0 Fatty (change of) liver, not elsewhere classified; E78.00 Pure hypercholesterolemia, unspecified; Z98.890 Other specified postprocedural states
CPT/HCPCS: 36415; 80048; 80061; 82306; 82607; 82728; 82746; 83036; 83525; 83540; 84425; 84443; 84590; 84630; 85025; 86140

== ENCOUNTER 2023-12-29 11:04 | Outpatient (REF) | payer MEDICARE, MEDICAID, SELFPAY ==
--- NOTE | ~2023-12-29 | MR_ITS ---
EXAMINATION: MR ANGIOGRAPHY BRAIN WITHOUT CONTRAST CLINICAL INFORMATION: Supraclinoid carotid artery aneurysm COMPARISON: CTA of the head 09/14/2023 TECHNIQUE: Noncontrast [id number] MRA of the head was performed FINDINGS: Redemonstration of a 3 mm inferomedially directed aneurysm involving the right supraclinoid ICA. No other intracranial aneurysms are identified. Normal flow-related signal within the anterior circulation without evidence of focal stenosis or occlusion of the intradural internal carotid, middle cerebral, or anterior cerebral arteries. Normal flow-related signal within the posterior circulation without evidence of focal stenosis or occlusion of the intradural vertebral, basilar, superior cerebellar, or posterior cerebral arteries. 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
== END 2023-12-29 11:05 | disposition home or self-care (01) ==
LOC: HO.MRI 11:04
PROVIDERS: PCP Internal Medicine; Visit Provider Internal Medicine
DX: I67.1 Cerebral aneurysm, nonruptured (principal)
CPT/HCPCS: 70544

== ENCOUNTER 2024-01-25 11:32 | Outpatient (AMB) | payer MEDICARE, SELFPAY ==
--- NOTE | 2024-01-25 11:35 | MHC.OFFVISWM ---
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 Allergies atorvastatin Adverse Reaction (Intermediate, Verified 01/25/24 11:40) headache Medication List - Last Reconciled 01/25/24 by YVES Alcantar calcium citrate-vitamin D3 315 mg-5 mcg (200 unit) (Calcium Citrate + D) 1 tab PO BID cyclobenzaprine 5 mg PO BEDTIME 30 days diphenhydramine HCl (Benadryl Allergy) 25 mg PO TID PRN emollient combination no.69 (Eucerin Skin Calming cream) 1 appl topical Q6-8H 30 days epinephrine (EpiPen 2-Juan Carlos) 0.3 mg (0.3 mL) IM Q4H PRN [iron PO] losartan 25 mg PO DAILY buxfxrkwygrj-ijk-xijn-FA-vit K 45 mg iron- 800 mcg-120 mcg (Bariatric Multivitamins) 1 cap PO DAILY polyethylene glycol 3350 (Miralax) 17 grams PO DAILY PRN sennosides (senna) 17.2 mg (2 x 8.6 mg) PO BEDTIME 90 days HPI Comments Details: Patient is a pleasant 58-year-old female who returns to the office today in follow-up. She underwent a panniculectomy on 12/23/2022 and history of laparoscopic sleeve gastrectomy with hiatal hernia repair on 10/08/2021. She was last seen in the office in October 2023 with a weight of 158.2 lb and a BMI of 27.2. Weight today is 158 lb and a BMI of 27.1. She states she is doing great and has no complaints. She is very satisfied with her panniculectomy resluts. Sometimes having a RTD shake one day and the next 2 eggs. Eating fish and salad. Rare bread, sometimes 2 tablespoons of rice. Meal plan: Premier protein rtd split in 1/2 with added 6 oz unsweetened almond milk, am/pm dinner small meal with 5 forks protein and 5 forks salad Drinkin oz water Exercise plan: home videos 4 days per week 300-350 calories. [facility] Medical History Liver fibrosis Steatosis, liver Depression Anxiety COVID-19 vaccine series completed BMI 34.0-34.9,adult CHARAN (obstructive sleep apnea) Binge-eating disorder, in full remission, moderate BMI 37.0-37.9, adult BMI 36.0-36.9,adult Binge eating disorder Abnormal EKG H. pylori infection Obesity Right knee pain Myalgia Paresthesias Cervicalgia Upper back pain Physical examination of employee Other specified nonscarring hair loss High cholesterol Knee pain, bilateral Rash Primary osteoarthritis of right knee (Unknown) HTN (hypertension) Surgical History S/P laparoscopic sleeve gastrectomy H/O colonoscopy Hx of dilation and curettage History of removal of ovarian cyst History of carpal tunnel release History of partial hysterectomy Family History Father Emphysema lung Mother Afib Hypertension Brother HIV (human immunodeficiency virus infection) Brother Afib Daughter No problems noted. Son No problems noted. Son No problems noted. Daughter No problems noted. Social History Household Members: Spouse Housing: Apartment Are you a primary home health caregiver to a significant other at home: No Do you presently have visiting nurse or other home services: No Alcohol intake: never Patient Tobacco Use Status: Former Tobacco user Quit Date: age 36 Tobacco use type: Cigarette service: No Current occupational status: unemployed Physical Exam Const General: healthy appearing and no acute distress Resp Effort & Inspection: normal respiratory effort Auscultation: clear to auscultation bilaterally Cardio Rate: regular rate Rhythm: regular rhythm GI Auscultation: normal bowel sounds Extrem General: Yes normal to inspection Assessment & Plan Assessment & Plan (1) S/P laparoscopic sleeve gastrectomy: Code(s): Z98.84 - Bariatric surgery status Category: Surgical Plan: Encouraged to continue meal plan consistently. Minimizing bread and rice. Sticking with 2 shakes and a meal. Additionally, recommend increasing exercise by 1 day and focusing on cardio. She is very happy with her current weight and does not wish to lose or gain weight. Encouraged to continue to text with any questions or concerns as well as her weight measurements and follow-up in clinic in 2 months
[2024-01-25 11:45] VITALS: BP 122/76; PULSE 87; TEMP 36.1; O2SAT 99; BMI 27.1
== END 2024-01-25 12:12 | disposition home or self-care (01) ==
PROVIDERS: PCP Internal Medicine; Visit Provider Physician Assistant Surgical
DX: E66.3 Overweight (principal); Z68.27 Body mass index [BMI] 27.0-27.9, adult; Z90.3 Acquired absence of stomach [part of]; Z98.84 Bariatric surgery status
CPT/HCPCS: 99213

== ENCOUNTER → 2024-01-25 11:32 | Outpatient (BNVA) | payer MEDICARE, SELFPAY | PROVIDERS: PCP Internal Medicine; Visit Provider Physician Assistant Surgical | DX: Z48.817 Encounter for surgical aftercare following surgery on the skin and subcutaneous tissue (principal); E66.01 Morbid (severe) obesity due to excess calories; Z68.27 Body mass index [BMI] 27.0-27.9, adult; Z90.3 Acquired absence of stomach [part of] | CPT/HCPCS: 99212 ==

== ENCOUNTER 2024-02-24 10:48 | Emergency (ER) | payer MEDICARE, MEDICAID, SELFPAY ==
--- NOTE | ~2024-02-24 | XR_ITS ---
EXAMINATION: XR FOOT, RIGHT CLINICAL INFORMATION: Heel pain. COMPARISON: None available. TECHNIQUE: AP, lateral, and oblique views of the right foot. FINDINGS: No evidence of acute fractures or subluxation. Minimal degenerative osteoarthritis of the first metatarsophalangeal joint. Small calcaneal spurs. Mild diffuse soft tissue swelling, more noticeable in the plantar surface of the hindfoot. No unexpected radiopaque foreign bodies. XR/XR foot RT min 3V IMPRESSION: 1. No acute fractures or subluxation. 2. Small calcaneal spurs. 3. Mild soft tissue swelling.
[2024-02-24 10:56] VITALS: BP 154/81; PULSE 84; RESP 18; TEMP 37; O2SAT 100; BMI 27.2
--- NOTE | 2024-02-24 10:59 | ED_ITS ---
HPI - URI/Sore Throat General Chief Complaint: Upper Respiratory Symptoms Stated Complaint: r foot swelling Time Seen by Provider: 02/24/24 11:10 Source: patient and hunter guide (All interactions with this patient were facilitated via an [facility] lockstitcher) Mode of arrival: ambulatory Limitations: language barrier (All interactions with this patient were facilitated via an [facility] lockstitcher) History of Present Illness ED Provider: Carmel Mckee PA-C HPI Narrative: Patient is a 58 year old assigned female at with a history of anxiety, depression, HTN, and fibromyalgia presenting to the emergency department today with right foot pain, body aches, and sore throat. Patient states that she isn't sure what she stepped on but there is something stuck in the bottom of her right foot. Patient states that she has also been feeling generally unwell with body aches and a sore throat. Patient states someone else in the house has had similar symptoms. Patient denies any dizziness, lightheadedness, abdominal pain, nausea, vomiting, fever, chills, blurry vision, double vision, loss of vision, chest pain, difficulty breathing, shortness of breath, back pain, night sweats, pain with urination, increased urinary frequency, increased urinary urgency, blood in her urine or stool, syncope or a near syncopal episode, bowel incontinence, bladder incontinence, or any other complaints at this time. Treatments prior to arrival: none Related Data Home Medications ?Medication ?Instructions ?Recorded ?Confirmed calcium citrate 315 mg-vitamin D3 1 tab PO BID 12/13/21 01/25/24 5 mcg (200 unit) tablet (Calcium Citrate + D) [id number] 45 mg-folic 1 cap PO DAILY 12/13/21 01/25/24 acid 800 mcg-vit K 120 mcg capsule (Bariatric Multivitamins) losartan 50 mg tablet 25 mg PO DAILY 01/08/22 01/25/24 iron PO 11/02/23 01/25/24 Previous Rx's ?Medication ?Instructions ?Recorded emollient combination no.69 1 appl topical Q6-8H 30 days #226 10/15/20 (Eucerin Skin Calming cream) grams cyclobenzaprine 5 mg tablet 5 mg PO BEDTIME 30 days #30 tabs 05/20/21 polyethylene glycol 3350 17 17 g PO DAILY PRN constipation 04/17/22 gram/dose oral powder (Miralax) #238 grams diphenhydramine HCl 25 mg tablet 25 mg PO TID PRN allergic reaction 06/21/22 (Benadryl Allergy) #14 tabs epinephrine 0.3 mg/0.3 mL 0.3 mg (0.3 mL) IM Q4H PRN 06/21/22 injection, auto-injector (EpiPen anaphylaxis #2 ea 2-Juan Carlos) sennosides 8.6 mg tablet (senna) 17.2 mg (2 x 8.6 mg) PO BEDTIME 90 02/18/24 days #180 tabs cephalexin 500 mg capsule 500 mg PO Q6H 7 days #28 caps 02/24/24 Allergies Allergy/AdvReac Type Severity Reaction Status Date / Time atorvastatin AdvReac Intermediate headache Verified 02/24/24 10:59 Review of Systems 2 Constitutional: Constitutional: Reports no additional constitutional complaints, Reports body ache(s), Denies chills, Denies fever(s) and Denies night sweats Eyes: Eyes: Reports no additional eye complaints, Denies blurry vision, Denies change in vision, Denies diplopia, Denies eye discharge, Denies loss of vision and Denies eye pain ENT: Denies dizziness and Reports sore throat Cardiovascular: Cardiovascular: Reports no additional cardiovascular complaints, Denies chest pain, Denies lightheadedness, Denies Loss of Consciousness and Denies dyspnea Respiratory: Respiratory: Reports no additional respiratory complaints and Denies dyspnea Gastrointestinal: Gastrointestinal: Reports no additional gastrointestinal complaints, Denies abdominal pain, Denies melena, Denies hematochezia, Denies change in bowel habits and Denies change in stool character Genitourinary: Genitourinary: Denies hematuria, Denies urinary frequency, Denies dysuria, Denies urinary incontinence, Denies urinary hesitancy and Denies urinary urgency Musculoskeletal: Musculoskeletal: Reports no additional musculoskeletal complaints, Denies numbness and Denies tingling Comments: right foot pain Neurologic: Denies dizziness, Denies loss of vision, Denies numbness and Denies tingling Psychiatric: Psychiatric: Reports no additional psychiatric complaints Endocrine: Endocrine: Reports no additional endocrine complaints Hematologic/Lymphatic: Hematologic/Lymphatic: Reports no additional hematologic/lymphatic complaints Allergic/Immunologic: Allergic/Immunologic: Reports no additional allergic/immunologic complaints PMFSH Past Medical History Attestation statement: The following information was validated with the patient. Source: old records reviewed and nursing notes reviewed Medical History Liver fibrosis Steatosis, liver Depression Anxiety COVID-19 vaccine series completed BMI 34.0-34.9,adult CHARAN (obstructive sleep apnea) Binge-eating disorder, in full remission, moderate BMI 37.0-37.9, adult BMI 36.0-36.9,adult Binge eating disorder Abnormal EKG H. pylori infection Obesity Right knee pain Myalgia Paresthesias Cervicalgia Upper back pain Physical examination of employee Other specified nonscarring hair loss High cholesterol Knee pain, bilateral Rash Primary osteoarthritis of right knee (Unknown) HTN (hypertension) Surgical History S/P laparoscopic sleeve gastrectomy H/O colonoscopy Hx of dilation and curettage History of removal of ovarian cyst History of carpal tunnel release History of partial hysterectomy Family History Family History Father Emphysema lung Mother Afib Hypertension Brother HIV (human immunodeficiency virus infection) Brother Afib Daughter No problems noted. Son No problems noted. Son No problems noted. Daughter No problems noted. Social History Social History Household Members: Spouse Housing: Apartment Are you a primary rn patient care to a significant other at home: No Do you presently have visiting nurse or other home services: No Alcohol intake: never Patient Tobacco Use Status: Former Tobacco user Tobacco use type: Cigarette Advance Directives: No Advance Directives Information Provided: No service: No Current occupational status: unemployed Physical Exam 2 Vital Signs: Vital Signs: Last Vital Signs Temp 98.3 F 02/24/24 12:49 Pulse 77 02/24/24 12:49 Resp 16 02/24/24 12:49 BP 138/66 02/24/24 12:49 Pulse Ox 100 02/24/24 12:49 O2 Del Method Room Air 02/24/24 12:49 BMI result Body Mass Index 27.2 Const: General: cooperative, no acute distress, alert and awake Nutritional Appearance: well nourished Orientation/consciousness: patient oriented x3 Limitations: no limitations HEENT: Head: Yes normal to inspection and Yes atraumatic Ears: hearing grossly normal bilaterally and external ears normal General nose exam: Normal external nose present, no nasal discharge noted and no epistaxis Face and sinus: Yes normal facial exam, No abrasion and No laceration Mouth: Normal oral and palatal mucosa present, no drooling and no muffled voice Eyes: General: appearance normal, both eyes and all related structures P eriorbital: periorbital findings normal Eyelids: Yes eyelids normal C onjunctivae: conjunctivae normal Pupils: Equal, round and reactive pupils present EOM: EOMs intact bilaterally Neck: Neck: Yes normal visual inspection, Yes full ROM and Yes no lymphadenopathy Chest: Chest palpation & inspection: normal inspection of the chest Resp: Effort & Inspection: normal respiratory effort and able to speak in complete sentences GI: Inspection: Yes normal to inspection Neuro: General: patient oriented x3 and moves all extremities Cranial nerves: Yes Equal, round and reactive pupils present Cognition (Neuro): n ormal cognition Motor exam (neuro): 5/5 motor strength present throughout Sensory Exam: Normal double simultaneous stimulation for sensation C oordination: [id number] test normal Extrem: General: Yes full ROM and Yes capillary refill normal Ankle/foot/toe images: 1. dark area consistent with FB, callused over Psych: Appearance: grossly normal Mental Status: mental status grossly normal Affect: normal affect Attitude: cooperative Thought process: N ormal thought process present Thought content: Normal thought content present Insight: Good insight present (Psych) Course Course Course Narrative: This is an RME done by YVES Arrington: Additional HPI, ROS, PE not included below will be deferred to primary provider. 58 yo f hx of postgastrectomy malabsorption, depression, anxiety, fibromyalgia, obeity, charan, hld, htn presents w/ concerns of body aches and pain, cough, sore throat, R heel pain ( feels like fb in heel) x 2 days. Multiple sick contacts at home w/ similar sx. Denies cp, sob, n/v/d, abd pain Appearance: Alert.? Oriented X3.? No acute cardiopulmonary distress distress.? Head: Normocephalic, atraumatic, no step-offs or deformities Neck: Normal inspection.? Neck supple.? CVS: Pulses normal.? Respiratory: No respiratory distress.? Abdomen: Normal appearing Skin: ? Normal skin color. Extremities: 5/5 strength to bilateral upper and lower extremities Neuro: Oriented X 3.? No motor deficit.? No sensory deficit. Medical Decision Making Medical Decision Making [facility] Narrative: Patient is a 58 year old assigned female at with a history of depression, anxiety, HTN, and fibromyalgia presenting to the emergency department today with right foot pain and feeling generally unwell. Patient's physical exam was as noted in the physical exam portion of this note. Patient's COVID-19, influenza, RSV, and strep tests were all negative. Patient's right foot x-ray showed no acute process. I explained my physical exam findings as well as all test results to the patient. I answered all questions asked by the patient. The possible foreign body visualized on the patient's physical exam in the right foot is not easily accessible, will refer to outpatient surgery for removal and cover with prophylactic ABX. I stressed the importance of the patient taking her medication as prescribed. I stressed the importance of the patient following up with her primary care provider and a general surgeon. I stressed the importance of the patient returning to the emergency department immediately if her symptoms were to worsen or if she were to develop any dizziness, shortness of breath, difficulty breathing, chest pain, blurry vision, loss of vision, nausea, vomiting, abdominal pain, fever, chills, back pain, or any other complaints. Patient verbalized agreement and understanding with this treatment plan and discharge. Differential Diagnosis Differential Diagnoses: The differential diagnosis associated with the presentation includes COVID-19 Influenza RSV strep pharyngitis Viral illness Retained foreign body in right foot Admission/Observation Consideration of admission/observation: Escalation of care including admission/observation considered Patient would have been admitted to the hospital had her work up had any findings where hospital admission was appropriate and her clinical presentation warranted hospital admission. Lab Data [facility] Lab Attestation statement: I reviewed the patient's lab results. My interpretation of these studies and their corresponding values is that they are grossly normal. Labs: Lab Results 02/24/24 Range/Units 11:06 Influenza Type A (PCR) NEGATIVE (Negative) Influenza Type B (PCR) NEGATIVE (Negative) RSV RNA Qual (PCR) NEGATIVE (Negative) SARS-CoV-2 RNA (RT-PCR) NEGATIVE (Negative) S. pyogenes GrpA MARIA GUADALUPE Negative (Negative) Independent Interpretation I performed an independent interpretation of an: Plain X-Ray Interpretation: My interpretation is in agreement with the radiologist's impression of this imaging study. - EXAMINATION: XR FOOT, RIGHT CLINICAL INFORMATION: Heel pain. COMPARISON: None available. TECHNIQUE: AP, lateral, and oblique views of the right foot. FINDINGS: No evidence of acute fractures or subluxation. Minimal degenerative osteoarthritis of the first metatarsophalangeal joint. Small calcaneal spurs. Mild diffuse soft tissue swelling, more noticeable in the plantar surface of the hindfoot. No unexpected radiopaque foreign bodies. XR/XR foot RT min 3V IMPRESSION: 1. No acute fractures or subluxation. 2. Small calcaneal spurs. 3. Mild soft tissue swelling. Dictated By: Wendy Horan Signed By: Electronically signed by Wendy Horan 02/24/24 0215 Radiology Impression Discussion of test interpretation with radiology: I have reviewed the radiologist's reading. Prescription Management I considered prescription management with: Antibiotic (patient prescribed prophylactic ABX for retained right foot FB) Chronic Conditions Patient?s care impacted by: Hypertension Discharge Plan Discharge Clinical Impression: Viral illness, Foreign body in foot Patient Disposition: Home, Self-Care Instructions: Soft Tissue Foreign Body (ED), Viral Syndrome (ED) Additional Instructions: Follow up with the general surgeon to have your foreign body in the right foot removed. Follow up with your primary care provider. Return to the emergency department immediately if your symptoms worsen or if you develop any dizziness, shortness of breath, difficulty breathing, chest pain, blurry vision, loss of vision, nausea, vomiting, abdominal pain, fever, chills, back pain, or any other complaints. Ravi un seguimiento con el cirujano general para que le extraigan el cuerpo extra?o del pie derecho. Acuda a hannon m?dico de cabecera. Vuelva al servicio de urgencias inmediatamente si galen s?ntomas empeoran o si presenta mareos, falta de aliento, dificultad para respirar, dolor tor?cico, visi?n borrosa, p?rdida de visi?n, n?useas, v?mitos, dolor abdominal, fiebre, escalofr?os, dolor de espalda o cualquier otra molestia. Prescriptions: New cephalexin 500 mg capsule 500 mg PO Q6H 7 Days Qty: 28 0RF No Action sennosides [senna] 8.6 mg tablet 17.2 mg PO BEDTIME 90 Days Qty: 180 0RF losartan 50 mg tablet 25 mg PO DAILY diphenhydramine HCl [Benadryl Allergy] 25 mg tablet 25 mg PO TID PRN (Reason: allergic reaction) Qty: 14 0RF epinephrine [EpiPen 2-Juan Carlos] 0.3 mg/0.3 mL auto-injector 0.3 mg IM Q4H PRN (Reason: anaphylaxis) Qty: 2 0RF Eucerin Skin Calming Cream 1 appl topical Q6-8H 30 Days Qty: 226 0RF cyclobenzaprine 5 mg tablet 5 mg PO BEDTIME 30 Days Qty: 30 0RF polyethylene glycol 3350 [Miralax] 17 gram/dose powder 17 g PO DAILY PRN (Reason: constipation) Qty: 238 3RF Bariatric Multivitamins 45 mg iron- 800 mcg-120 mcg capsule 1 cap PO DAILY calcium citrate-vitamin D3 [Calcium Citrate + D] 315 mg-5 mcg (200 unit) tablet 1 tab PO BID iron PO Referrals: [facility] General Surgeons [Provider Group] (Call to establish and follow up with a general surgeon to have the foreign body in your right foot removed. Llame para establecer y seguir con un cirujano general para que le extraigan el cuerpo extra?o del pie derecho. ) Khan-Christopher,Efrain J, MD [Primary Care Provider] - Interventions: ED Discharge Assessment Last Done: 02/24/24 12:49 Discharge Date/Time: 02/24/24 12:50 Print Language: [place]
[2024-02-24 11:29] LABS: IDNOW Serial# 6674DD1D; Strep A Nucleic Acid Negative (Negative)
[2024-02-24 11:54] LABS: Influenza A PCR NEGATIVE (Negative); Influenza B PCR NEGATIVE (Negative); Resp Syncy Virus RNA Qual PCR NEGATIVE (Negative); SARS COV2 PCR INHOUSE NEGATIVE (Negative)
[2024-02-24 12:49] VITALS: BP 138/66; PULSE 77; RESP 16; TEMP 36.8; O2SAT 100
== END 2024-02-24 12:50 | disposition home or self-care (01) ==
PROVIDERS: Physician Assistant; Emergency Provider Emergency Medicine; PCP Internal Medicine
DX: B34.9 Viral infection, unspecified (principal); M77.31 Calcaneal spur, right foot; R60.0 Localized edema; J02.8 Acute pharyngitis due to other specified organisms; Z03.818 Encounter for observation for suspected exposure to other biological agents ruled out
CPT/HCPCS: 0241U; 73630; 87651; 99282; 99283

== ENCOUNTER 2024-03-07 07:57 | Outpatient (AMB) | payer MEDICARE, MEDICAID, SELFPAY ==
--- NOTE | 2024-03-07 08:02 | A.OFFVIS_ITS ---
Vital Signs 03/07/24 08:06 Height 5 ft 5 in Weight 163 lb BMI 27.1 BP 139/65 Blood Pressure Location Rt brachial Position Sitting Pulse 79 Intake Visit Reasons: Foreign body~ Rt foot Intake Note: Patient referred after ER visit for foreign body stuck on Rt heel of foot. Patient c/o: foot felt swollen but much improved since starting on cephalexin 500mg x7d. Finished abx course. ER: 02-24-24. Production Supv Required: Yes Production Supv Name: Elaine QUIGLEY Accompanied by: Self / Same As Patient Allergies atorvastatin Adverse Reaction (Intermediate, Verified 03/07/24 08:04) headache Medication List - Last Reconciled 03/07/24 by Sage German MD calcium citrate-vitamin D3 315 mg-5 mcg (200 unit) (Calcium Citrate + D) 1 tab PO BID cyclobenzaprine 5 mg PO BEDTIME 30 days diphenhydramine HCl (Benadryl Allergy) 25 mg PO TID PRN doxycycline monohydrate 50 mg PO DAILY emollient combination no.69 (Eucerin Skin Calming cream) 1 appl topical Q6-8H 30 days epinephrine (EpiPen 2-Juan Carlos) 0.3 mg (0.3 mL) IM Q4H PRN [iron PO] losartan 25 mg PO DAILY minoxidil 2.5 mg PO DAILY smzhqfvvgtym-nrf-qegx-FA-vit K 45 mg iron- 800 mcg-120 mcg (Bariatric Multivitamins) 1 cap PO DAILY polyethylene glycol 3350 (Miralax) 17 grams PO DAILY PRN sennosides (senna) 17.2 mg (2 x 8.6 mg) PO BEDTIME 90 days HPI Comments Details: Patient presents because of pain in the feeling of a foreign body in her right heel. It has been going on for a proximally 3 weeks time. Patient was seen ER where workup including x-ray demonstrated no obvious foreign body. She presents here for persistence of symptoms. Chart was reviewed and patient evaluated [facility] Medical History Liver fibrosis Steatosis, liver Depression Anxiety COVID-19 vaccine series completed BMI 34.0-34.9,adult CHARAN (obstructive sleep apnea) Binge-eating disorder, in full remission, moderate BMI 37.0-37.9, adult BMI 36.0-36.9,adult Binge eating disorder Abnormal EKG H. pylori infection Obesity Right knee pain Myalgia Paresthesias Cervicalgia Upper back pain Physical examination of employee Other specified nonscarring hair loss High cholesterol Knee pain, bilateral Rash Primary osteoarthritis of right knee (Unknown) HTN (hypertension) Surgical History S/P laparoscopic sleeve gastrectomy H/O colonoscopy Hx of dilation and curettage History of removal of ovarian cyst History of carpal tunnel release History of partial hysterectomy Family History Father Emphysema lung Mother Afib Hypertension Brother HIV (human immunodeficiency virus infection) Brother Afib Daughter No problems noted. Son No problems noted. Son No problems noted. Daughter No problems noted. Social History Household Members: Spouse Housing: Apartment Are you a primary respiratory care instructor to a significant other at home: No Do you presently have visiting nurse or other home services: No Alcohol intake: never Patient Tobacco Use Status: Former Tobacco user Tobacco use type: Cigarette service: No Current occupational status: unemployed Physical Exam Vital Signs: Last Vital Signs Pulse 79 03/07/24 08:06 BP 139/65 03/07/24 08:06 BMI result Body Mass Index 27.1 Extrem Other: Patient has an indurated area proximally 1 by 1 cm the right mid heel consistent with a foreign body/small abscess. Office Procedures I&D Drain Details: Risks, benefits, alternatives of incision and drainage of right heel abscess/question foreign body were reviewed with the patient included but not limited to bleeding, infection, recurrence, numbness, pain, scarring the patient wished to proceed. All questions answered. After appropriate positioning, patient underwent 1% lidocaine and Betadine prepped and a transverse incision made over the fluctuant area were purulent material was retrieved along with the removal of a retained foreign body consistent with a sliver which look like the tip of a pencil. Wound was irrigated, debrided of nonviable tissue/eschar, secured hemostasis, and bacitracin and dressing applied. Patient tolerated procedure well. 27452-Iynqzlam of Skin Abscess, complex All charges added?: Procedure code (CPT) selection complete Assessment & Plan Assessment & Plan (1) Foreign body (FB) in soft tissue: Code(s): M79.5 - Residual foreign body in soft tissue Category: Surgical Plan: Patient was been given local instructions including bacitracin with dressed sterile dressing each day, elevation, Tylenol or Motrin p.r.n., patient will see me as directed or p.r.n.. All questions answered (2) Abscess: Code(s): L02.91 - Cutaneous abscess, unspecified Category: Surgical Plan: See above Orders: Orders AMB Incision & Drainage Today L02.91 - Cutaneous abscess, unspecified, M79.5 - Residual foreign body in soft tissue Coding Level of Care Code New Pt Level 5 (20931) Diagnoses Foreign body (FB) in soft tissue M79.5 Abscess L02.91 CPT Codes I&D Drain - Drain 2: 21195-Tjmiqzne of Skin Abscess, complex ([id number])
[2024-03-07 08:06] VITALS: BP 139/65; PULSE 79; BMI 27.1
== END 2024-03-07 08:19 | disposition home or self-care (01) ==
PROVIDERS: PCP Internal Medicine; Visit Provider Surgery
DX: M79.5 Residual foreign body in soft tissue (principal); L02.91 Cutaneous abscess, unspecified
CPT/HCPCS: 10120; 99204

== ENCOUNTER → 2024-03-07 07:57 | Outpatient (BNVA) | payer MEDICARE, MEDICAID, SELFPAY | PROVIDERS: PCP Internal Medicine; Visit Provider Surgery | DX: M79.5 Residual foreign body in soft tissue (principal); L02.91 Cutaneous abscess, unspecified | CPT/HCPCS: 10120; 99202 ==

== ENCOUNTER 2024-03-15 08:38 | Outpatient (AMB) | payer MEDICARE, MEDICAID, SELFPAY ==
--- NOTE | 2024-03-15 08:49 | A.OFFVIS_ITS ---
Intake Visit Reasons: s/p Foreign body~ Rt foot Intake Note: Patient here to f/u foreign body rxn on Rt heel. Reports site healing well. Patient c/o: no concerns. Leather Belt Loop Cutter Required: No Accompanied by: Self / Same As Patient Allergies atorvastatin Adverse Reaction (Intermediate, Verified 03/15/24 08:50) headache HPI Comments Details: Patient presents for follow-up status post removal of foreign body right foot. She has no issues or complaints. Minimal discomfort. Complete resolution of original symptoms. [facility] Medical History Liver fibrosis Steatosis, liver Depression Anxiety COVID-19 vaccine series completed BMI 34.0-34.9,adult CHARAN (obstructive sleep apnea) Binge-eating disorder, in full remission, moderate BMI 37.0-37.9, adult BMI 36.0-36.9,adult Binge eating disorder Abnormal EKG H. pylori infection Obesity Right knee pain Myalgia Paresthesias Cervicalgia Upper back pain Physical examination of employee Other specified nonscarring hair loss High cholesterol Knee pain, bilateral Rash Primary osteoarthritis of right knee (Unknown) HTN (hypertension) Surgical History S/P laparoscopic sleeve gastrectomy H/O colonoscopy Hx of dilation and curettage History of removal of ovarian cyst History of carpal tunnel release History of partial hysterectomy Family History Father Emphysema lung Mother Afib Hypertension Brother HIV (human immunodeficiency virus infection) Brother Afib Daughter No problems noted. Son No problems noted. Son No problems noted. Daughter No problems noted. Social History Household Members: Spouse Housing: Apartment Are you a primary rn managed care to a significant other at home: No Do you presently have visiting nurse or other home services: No Alcohol intake: never Patient Tobacco Use Status: Former Tobacco user Tobacco use type: Cigarette service: No Current occupational status: unemployed Physical Exam Extrem Other: Incision site clean dry and intact completely healed. Assessment & Plan Assessment & Plan (1) Postop check: Code(s): Z09 - Encounter for follow-up examination after completed treatment for conditions other than malignant neoplasm Category: Surgical Plan Patient has been given local instructions, and will otherwise follow-up p.r.n.. All questions answered. Coding Level of Care Code Global (10804) Diagnoses Postop check Z09
== END 2024-03-15 08:46 | disposition home or self-care (01) ==
PROVIDERS: PCP Internal Medicine; Visit Provider Surgery
DX: Z09 Encounter for follow-up examination after completed treatment for conditions other than malignant neoplasm (principal)
CPT/HCPCS: 99024

== ENCOUNTER → 2024-03-15 08:38 | Outpatient (BNVA) | payer MEDICARE, MEDICAID, SELFPAY | PROVIDERS: PCP Internal Medicine; Visit Provider Surgery | DX: Z09 Encounter for follow-up examination after completed treatment for conditions other than malignant neoplasm (principal) | CPT/HCPCS: 99212 ==

== ENCOUNTER 2024-04-25 11:43 | Outpatient (REF) | payer MEDICARE, MEDICAID, SELFPAY ==
--- NOTE | ~2024-04-25 | MM_ITS ---
EXAMINATION: MM SCREENING DIGITAL BREAST TOMOSYNTHESIS, BILATERAL CLINICAL INFORMATION: Screening. Asymptomatic. COMPARISON: Mammography: This study is compared with prior exams dating back to 2019. TECHNIQUE: Digital breast tomosynthesis is performed in both the craniocaudal and mediolateral oblique views along with computer-aided detection (CAD). Synthesized 2D images are generated from the tomosynthesis. FINDINGS: There are scattered areas of fibroglandular density (ACR BI-RADS breast composition Category b). There are no significant masses, abnormal calcifications, or other abnormalities. This is benign, partially calcified MM/MM tomosynthesis screening BI IMPRESSION: No mammographic evidence of malignancy. ASSESSMENT: BI-RADS BI-RADS 2 - Benign Findings RECOMMENDATION: Routine annual mammography screening. 1 year F/U This examination should not preclude the clinical evaluation of a suspicious palpable abnormality. This patient's information was entered into a reminder system with a target due date for their next mammogram. Electronically signed by: Pau Sims MD 05/23/2024 10:02 AM EDT
== END 2024-04-25 11:44 | disposition home or self-care (01) ==
LOC: HO.MAMMO 11:43
PROVIDERS: PCP Internal Medicine; Visit Provider Internal Medicine
DX: Z12.31 Encounter for screening mammogram for malignant neoplasm of breast (principal)
CPT/HCPCS: 77063; 77067

== ENCOUNTER → 2024-04-25 12:00 | Outpatient (BNV) | payer MEDICARE, MEDICAID, SELFPAY | PROVIDERS: PCP Internal Medicine; Visit Provider Radiology Diagnostic Radiology | DX: Z12.31 Encounter for screening mammogram for malignant neoplasm of breast (principal) | CPT/HCPCS: 77063; 77067 ==

== ENCOUNTER 2024-05-27 11:12 | Outpatient (AMB) | payer MEDICARE, MEDICAID, SELFPAY ==
--- NOTE | 2024-05-27 11:16 | MHC.OFFVISWM ---
VS Expanded 05/27/24 11:33 BP 122/60 Blood Pressure Location Rt brachial Blood Pressure Position Sitting Pulse 81 Pulse Source Pulse Oximeter Temp 97.2 F Temperature Source Temporal Artery Scan Pulse Oximetry 100 Oxygen Delivery Method Room Air Height 5 ft 4 in Weight 160 lb 9.6 oz BMI 27.6 Body Fat % 37.6 Body Fat Mass 60.4 Fat Free Mass 100.0 Visceral Fat Rating 9.0 Body Water % 44.1 Body Water Mass 70.8 Muscle Mass/Score 95.0 Basal Metabolic Rate/Score 1,369 Intake Visit Reasons: (OV) F/U Panniculectomy 12/23/22 Auricular Acupuncturist Required: Yes Auricular Acupuncturist Services: Auricular Acupuncturist Present Auricular Acupuncturist Name: office cmi Allergies atorvastatin Adverse Reaction (Intermediate, Verified 05/27/24 11:39) headache Medication List - Last Reconciled 05/27/24 by YVES Alcantar calcium citrate-vitamin D3 315 mg-5 mcg (200 unit) (Calcium Citrate + D) 1 tab PO BID cyclobenzaprine 5 mg PO BEDTIME 30 days diphenhydramine HCl (Benadryl Allergy) 25 mg PO TID PRN doxycycline monohydrate 50 mg PO DAILY emollient combination no.69 (Eucerin Skin Calming cream) 1 appl topical Q6-8H 30 days epinephrine (EpiPen 2-Juan Carlos) 0.3 mg (0.3 mL) IM Q4H PRN [iron PO] losartan 25 mg PO DAILY minoxidil 2.5 mg PO DAILY yarneikuyiak-kts-tdmr-FA-vit K 45 mg iron- 800 mcg-120 mcg (Bariatric Multivitamins) 1 cap PO DAILY polyethylene glycol 3350 (Miralax) 17 grams PO DAILY PRN sennosides (senna) 17.2 mg (2 x 8.6 mg) PO BEDTIME 90 days HPI Comments Details: Patient is a pleasant 58-year-old female who returns to the office today in follow-up. She underwent a panniculectomy on 12/23/2022 and history of laparoscopic sleeve gastrectomy with hiatal hernia repair on 10/08/2021. Weight today is 160.6 lb and a BMI of 27.6. She states she is doing great and has no complaints. She is very satisfied with her panniculectomy resluts. Sometimes having a RTD shake one day and the next 2 eggs. Eating fish and salad. Meal plan: Premier protein rtd split in 1/2 with added 6 oz unsweetened almond milk, am/pm dinner small meal with 5 forks protein and 5 forks salad Drinkin oz water Exercise plan: home videos 4 days per week 300-350 calories. [facility] Medical History Liver fibrosis Steatosis, liver Depression Anxiety COVID-19 vaccine series completed BMI 34.0-34.9,adult CHARAN (obstructive sleep apnea) Binge-eating disorder, in full remission, moderate BMI 37.0-37.9, adult BMI 36.0-36.9,adult Binge eating disorder Abnormal EKG H. pylori infection Obesity Right knee pain Myalgia Paresthesias Cervicalgia Upper back pain Physical examination of employee Other specified nonscarring hair loss High cholesterol Knee pain, bilateral Rash Primary osteoarthritis of right knee (Unknown) HTN (hypertension) Surgical History S/P laparoscopic sleeve gastrectomy H/O colonoscopy Hx of dilation and curettage History of removal of ovarian cyst History of carpal tunnel release History of partial hysterectomy Family History Father Emphysema lung Mother Afib Hypertension Brother HIV (human immunodeficiency virus infection) Brother Afib Daughter No problems noted. Son No problems noted. Son No problems noted. Daughter No problems noted. Social History Household Members: Spouse Housing: Apartment Are you a primary home child care provider to a significant other at home: No Do you presently have visiting nurse or other home services: No Alcohol intake: never Patient Tobacco Use Status: Former Tobacco user Tobacco use type: Cigarette service: No Current occupational status: unemployed Physical Exam Vital Signs: Last Vital Signs Temp 97.2 F 05/27/24 11:33 Pulse 81 05/27/24 11:33 BP 122/60 05/27/24 11:33 Pulse Ox 100 05/27/24 11:33 Oxygen Delivery Method Room Air 05/27/24 11:33 BMI result Body Mass Index 27.6 Skin Other: Well healed panniculectomy incision. Assessment & Plan Assessment & Plan (1) S/P laparoscopic sleeve gastrectomy: Code(s): Z98.84 - Bariatric surgery status Category: Surgical Plan: Overall doing very well. She is very happy with her weight loss and strength and energy. Recommend continue current plan, increasing exercise as she is able. She will text with any questions or concerns. Return to office as scheduled.
[2024-05-27 11:33] VITALS: BP 122/60; PULSE 81; TEMP 36.2; O2SAT 100; BMI 27.6
== END 2024-05-27 12:16 | disposition home or self-care (01) ==
PROVIDERS: PCP Internal Medicine; Visit Provider Physician Assistant Surgical
DX: E66.3 Overweight (principal); Z68.27 Body mass index [BMI] 27.0-27.9, adult; Z98.84 Bariatric surgery status
CPT/HCPCS: 99213

== ENCOUNTER → 2024-05-27 13:36 | Outpatient (REF) | payer MEDICARE, MEDICAID, SELFPAY ==
--- NOTE | 2024-05-27 13:40 | CA_ITS ---
Transthoracic Echocardiogram Patient (Last, First, Middle): Adrianne Salomon D Gender: Female Date of : 1965 Age: 58 Procedure Date: 05/27/2024 Procedure Type: Transthoracic Echocardiogram Location: OP Height: 162. cm Weight: 72.58 kg BSA: 1.77 m2 Heart Rate: 77 bpm BP: 142 / 65 mmHg Customer Success Representative: PATRICIA Morales MD: Efrain Aponte MD Crotch Breaker: Jaciel Verduzco MD Symptoms: SOB R06.02 Study Quality: Adequate ECG Rhythm: Sinus Conclusions: - 1. Normal LV ejection fraction of 65-70% with impaired relaxation filling pattern 2. Normal cardiac valvular Dopplers 3. Normal RV systolic pressure 4. No gross pericardial effusion Findings Left Ventricle Normal left ventricular size, thickness, and systolic function. The visually estimated ejection fraction is between 65-70%. Spectral Doppler is indicative of an impaired relaxation filling pattern. E/E prime ratio is between 8 and 15 consistent with indeterminate filling pressures. Right Ventricle Normal right ventricular cavity size and systolic function. Atria Both atria are normal in size. There is no evidence of interatrial shunt. Aortic Valve Normal aortic valve structure and function. There is no aortic valve stenosis. There is no aortic valve regurgitation. Mitral Valve Normal mitral valve structure and function. There is trace mitral valve regurgitation. There is no mitral valve stenosis. Pulmonic Valve The pulmonic valve is likely normal. Tricuspid Valve Normal tricuspid valve structure. There is trace tricuspid valve regurgitation. The right ventricular systolic pressure is normal. The right ventricular systolic pressure is 10 mmHg. Normal right atrial pressure. There is no evidence of pulmonary hypertension. Great Vessels All visible segments of the aorta are normal in size. The pulmonary artery was not well visualized. There is no dilatation of the ascending aorta measuring 2.60 cm. Venous The inferior vena cava is normal in size and collapses greater than 50% with inspiration. Pericardium/Pleural There is no evidence of pericardial effusion. Prior Study Comparison No significant change compared to prior study dated: 08/20/2021. Measurements 2D Linear Measurements IVSd: 1.00 0.6-0.9/0.6-1.0 cm LVIDd: 4.07 3.9-5.3/4.2-5.9 cm LVIDd Index: 2.30 2.4-3.2/2.2-3.1 cm/m2 LVIDs: 2.31 2.0-3.6 cm LVPWd: 0.90 0.7-1.1 cm LA Diam: 3.40 2.7-3.8/3.0-4.0 cm LAIDs Index: 1.92 1.5-2.3 cm/m2 LV Mass: 151.06 67-162/88-224 g LV Mass Index: 85.34 43-95/49-115 g/m2 LVOT Diam: 1.80 3.0+(-)1.3 cm 2D Systolic Function EF 4C: 67.20 >55% EF 2C: 71.10 >55% EF BiP: 69.00 >55% Mitral Valve MV Pk E: 0.71 MV PK A: 0.90 MV Decel Time: 206.00 E/A: 0.80 E'Lateral: 7.72 E'Medial: 5.98 E/E' Med: 11.90 E/E' Lat: 9.20 PHT: 60.00 MVA PHT: 3.67 Decel Smith: 3.46 Aortic Valve AoV Pk Sujit: 1.44 AoV Mn Sujit: 1.13 AoV VTI: 0.31 AoV Pk Grad: 8.00 Aov Mn Grad: 5.00 JAYLON Cont.VTI: 2.10 LVOT LVOT Pk Sujit: 1.12 LVOT Mn Sujit: 0.82 LVOT VTI: 0.26 LVOT Pk Grad: 5.00 LVOT Mn Grad: 3.00 LVOT Diam: 1.80 LVOT Area: 2.54 Diastolic Function MV Pk E: 0.71 MV Pk A: 0.90 E/A: 0.80 E'Medial: 5.98 E/E' Med: 11.90 E' Laterial: 7.72 E/E' Lat: 9.20 Right Ventricle TAPSE (mm): 25.00 TVS' Sujit: 12.30 Tricuspid Valve TR Pk Sujit: 1.34 TR Pk Grad: 7.00 RA Press: 3.00 RVSP: 10.00 Great Vessels Aorta Sinus of Valsalva: 2.50 2.0-3.5 cm Ao Asc: 2.60 2.1-3.4 cm Pulmonary Valve PV Pk Sujit: 0.90 Peak PV Grad: 3.00 Updated in Other Vendor System with Status of Final Jaciel Verduzco MD electronically signed on 05/27/2024 3:33:50 PM with status of Final
== END ==
LOC: HO.CARD 13:36
PROVIDERS: PCP Internal Medicine; Visit Provider Internal Medicine
DX: R06.02 Shortness of breath (principal); Z98.84 Bariatric surgery status
CPT/HCPCS: 93306; 99212

== ENCOUNTER → 2024-05-27 13:40 | Outpatient (BNV) | payer MEDICARE, MEDICAID, SELFPAY | PROVIDERS: PCP Internal Medicine; Visit Provider Internal Medicine Cardiovascular Disease | DX: R06.02 Shortness of breath (principal) | CPT/HCPCS: 93306 ==

== ENCOUNTER 2024-07-14 11:52 | Outpatient (REF) | payer MEDICARE, MEDICAID, SELFPAY ==
--- NOTE | ~2024-07-14 | XR_ITS ---
EXAMINATION: XR KNEE, LEFT CLINICAL INFORMATION: Left knee pain COMPARISON: Left knee xray on 05/13/2019 TECHNIQUE: Four views of the left knee. FINDINGS: No fracture or joint effusion. Alignment is anatomic. Moderate medial joint space narrowing and osteophyte formation. No abnormal soft tissue calcification. XR/XR knee LT 2V IMPRESSION: Moderate degenerative disease of the left knee. Electronically signed by: Lizzy Dupont MD 07/14/2024 01:42 PM GUY
== END 2024-07-14 11:53 | disposition home or self-care (01) ==
LOC: HO.HHCX 11:52
PROVIDERS: Visit Provider Internal Medicine
DX: M25.562 Pain in left knee (principal)
CPT/HCPCS: 73560

== ENCOUNTER 2024-08-17 06:09 | Outpatient (REF) | payer MEDICARE, MEDICAID, SELFPAY ==
--- OUTSIDE RECORDS SUMMARY | 2024-08-17 22:40 | XMS_ITS | Continuity of Care Document ---
Author Organization [facility] Address [address] [place] [address] Phone Care Team Providers Care Coal Deliverer Name Role Phone Kaiden Gabriel MD Unavailable [...] Providers Copied on Encounter [facility], [address] [place] [address], [place], [id number], [place] tel:[phone] [facility] Office No Information 0 2 Nery Richey. [address] [facility] [address], [place], [id number]. tel:[phone] Follow-up, Comprehensive [facility], [address] [facility] [address], [place], [id number], [place] tel:[phone] [facility] Office back pain (chief complaint) SHOULDER REGION DIS NECLumbar Thoracic Radicular Pain, NOSCarpal Tunnel Syndrome 2 No Information Follow-up, Detailed [facility], [address] [place] [address], [id number], tel:[phone] [facility] Office back pain (chief complaint) Lumbar Thoracic Radicular Pain, NOSCarpal Tunnel SyndromeCervi radha Degenerative Disc Disease 2 No Information Follow-up, Detailed [facility], [address] [place] [address], [id number], [place] tel:[phone] [facility] Office thoracic back pain (chief complaint) low back pain (chief complaint) No Information 2 No Information New Pt, Moderate 45min [facility], [address] [place] [address], [id number], tel:[phone] [facility] Office low back pain (chief complaint) thoracic back pain (chief complaint) Lumbar Thoracic Radicular Pain, NOSCarpal Tunnel SyndromeCervi radha Degenerative Disc Disease 2 No Information WARNING: Some information has been stripped due to its sensitive nature Family History Family Member Type Diagnosis Age At Onset No Information Payers Payer name Insurance type Covered libertarian ID Aby cuadra(s) [place] [facility] [id number] Social History Type Description Quantity Date Captured [...]
== END 2024-08-17 06:10 | disposition home or self-care (01) ==
LOC: HO.HOSX 06:09
PROVIDERS: Visit Provider Physician Assistant
DX: M25.562 Pain in left knee (principal); M25.561 Pain in right knee; M17.12 Unilateral primary osteoarthritis, left knee
CPT/HCPCS: 73560; 99212

== ENCOUNTER 2024-08-17 15:06 | Outpatient (AMB) | payer MEDICARE, MEDICAID, SELFPAY ==
--- NOTE | 2024-08-17 15:22 | A.OFFVIS_ITS ---
Vital Signs 08/17/24 15:25 Height 5 ft 4 in Weight 160 lb BMI 27.5 Intake Visit Reasons: New problem-Acute left knee pain Intake Note: Ross 59 year old female who presents today for an evaluation of left knee pain. Patient reports her knee pain has been present for a while. She received a cortisone injection about a year ago which had provided her with relief for ab out 6-7 months. Her pain is located at the anterior aspect of knee and will fluctuates in intensity. States her pain can be constant as well as comes and goes. She is would like to discuss her options. Finds little relief with cyclobenzaprine. Photographic Process Screen Maker Required: Yes Photographic Process Screen Maker Services: Photographic Process Screen Maker Present Photographic Process Screen Maker Name: Jeremie ID#[id number] Allergies atorvastatin Adverse Reaction (Intermediate, Verified 08/17/24 15:32) headache Medication List - Last Reconciled 08/17/24 by Judy Soria PA-C calcium citrate-vitamin D3 315 mg-5 mcg (200 unit) (Calcium Citrate + D) 1 tab PO BID cyclobenzaprine 5 mg PO BEDTIME 30 days diphenhydramine HCl (Benadryl Allergy) 25 mg PO TID PRN doxycycline monohydrate 50 mg PO DAILY emollient combination no.69 (Eucerin Skin Calming cream) 1 appl topical Q6-8H 30 days epinephrine (EpiPen 2-Juan Carlos) 0.3 mg (0.3 mL) IM Q4H PRN [iron PO] losartan 25 mg PO DAILY losartan 25 mg PO DAILY minoxidil 2.5 mg PO DAILY cbovrrlgxnou-ubu-sbah-FA-vit K 45 mg iron- 800 mcg-120 mcg (Bariatric Multivitamins) 1 cap PO DAILY polyethylene glycol 3350 (Miralax) 17 grams PO DAILY PRN rosuvastatin 5 mg PO DAILY sennosides (senna) 17.2 mg (2 x 8.6 mg) PO BEDTIME 90 days HPI HPI New problem-Acute left knee pain: Details: 59-year-old female who presents to the office today with an house furnishings supervisor for an evaluation of acute left knee pain. She had a cortisone injection about a year ago that provided her relief for about 7 months. She currently states she has pain at the anterior aspect of her knee that fluctuates in intensity. Her pain can be constant as well as intermittent. She finds relief with cyclobenzaprine. [facility] Medical History Liver fibrosis Steatosis, liver Depression Anxiety COVID-19 vaccine series completed BMI 34.0-34.9,adult CHARAN (obstructive sleep apnea) Binge-eating disorder, in full remission, moderate BMI 37.0-37.9, adult BMI 36.0-36.9,adult Binge eating disorder Abnormal EKG H. pylori infection Obesity Right knee pain Myalgia Paresthesias Cervicalgia Upper back pain Physical examination of employee Other specified nonscarring hair loss High cholesterol Knee pain, bilateral Rash Primary osteoarthritis of right knee (Unknown) HTN (hypertension) Surgical History S/P laparoscopic sleeve gastrectomy H/O colonoscopy Hx of dilation and curettage History of removal of ovarian cyst History of carpal tunnel release History of partial hysterectomy Family History Father Emphysema lung Mother Afib Hypertension Brother HIV (human immunodeficiency virus infection) Brother Afib Daughter No problems noted. Son No problems noted. Son No problems noted. Daughter No problems noted. Social History Household Members: Spouse Housing: Apartment Are you a primary child care lead teacher to a significant other at home: No Do you presently have visiting nurse or other home services: No Alcohol intake: never Patient Tobacco Use Status: Former Tobacco user Tobacco use type: Cigarette service: No Current occupational status: unemployed Review of Systems Const All systems reviewed & are unremarkable except as noted in HPI and below Physical Exam Vital Signs: BMI result Body Mass Index 27.5 Extrem Other: Left knee: Skin intact, no erythema or joint effusion. Lateral retropatellar tenderness present. Full ROM with crepitus. Negative Minda?s. No ligamentous laxity. NVI. Results Reviewed Results Reviewed: Xrays were obtained in the office today and personally reviewed by me show mild PF OA Assessment & Plan Assessment & Plan (1) Patellofemoral arthritis of left knee: Code(s): M17.12 - Unilateral primary osteoarthritis, left knee Category: Medical Plan We discussed options which include PT, NSAIDs and injections. The patient will defer on the injection today and proceed with PT and NSAIDs. I did send a prescription of Celebrex to his pharmacy. If symptoms persist, she will contact me for an injection, otherwise, PRN. Orders: Orders XR knee RT 1V Today M25.561 - Pain in right knee XR knee LT 2V Today M25.562 - Pain in left knee PT Evaluation and Treatment Today M17.12 - Unilateral primary osteoarthritis, left knee Medications: New celecoxib (Celebrex) 200 mg PO BID 60 caps 3RF 30 days Patient Instructions: Scribed for Judy Soria PA-C, by Vahid Salinas auditor medical claims, on 08/17/2024 at 3:15 PM EST.? I, Judy Soria PA-C, have personally reviewed and agree with the information entered by the scribe. Coding Level of Care Code Est Pt Level 3 (49849) Complex EM visit Add On G2211 Diagnoses Patellofemoral arthritis of left knee M17.12
[2024-08-17 15:25] VITALS: BMI 27.5
--- OUTSIDE RECORDS SUMMARY | 2024-08-18 03:00 | XMS_ITS | Continuity of Care Document ---
Author Organization [facility] Address [address] [facility] [address] [place] [address] Phone Care Team Providers Care Clean Up Worker Name Role Phone Kaiden Gabriel MD Unavailable [...] Copied on Encounter [facility], [address] [place] [address], [place], [id number], [place] tel:[phone] [facility] Office No Information 0 2 Nery Richey. [address] [facility] [address], [place], [id number]. tel:[phone] Follow-up, Comprehensive [facility], [address] [facility] [address], [place], [id number], [place] tel:[phone] [facility] Office back pain (chief complaint) SHOULDER REGION DIS NECLumbar Thoracic Radicular Pain, NOSCarpal Tunnel Syndrome 2 No Information Follow-up, Detailed [facility], [address] [place] [address], [id number], tel:[phone] [facility] Office back pain (chief complaint) Lumbar Thoracic Radicular Pain, NOSCarpal Tunnel SyndromeCervi radha Degenerative Disc Disease 2 No Information Follow-up, Detailed [facility], [address] [place] [address], [id number], [place] tel:[phone] [facility] Office thoracic back pain (chief complaint) low back pain (chief complaint) No Information 2 No Information New Pt, Moderate 45min [facility], [address] [place] [address], [id number], tel:[phone] [facility] Office low back pain (chief complaint) thoracic back pain (chief complaint) Lumbar Thoracic Radicular Pain, NOSCarpal Tunnel SyndromeCervi radha Degenerative Disc Disease 2 No Information WARNING: Some information has been stripped due to its sensitive nature Family History Family Member Type Diagnosis Age At Onset No Information Payers Payer name Insurance type Covered republican ID Aby cuadra(s) [place] [facility] [id number] Social History Type Description Quantity Date Captured [...]
== END 2024-08-17 15:43 | disposition home or self-care (01) ==
PROVIDERS: PCP Internal Medicine; Visit Provider Physician Assistant
DX: M17.12 Unilateral primary osteoarthritis, left knee (principal)
CPT/HCPCS: 99213; G2211

== ENCOUNTER 2024-10-06 13:53 | Outpatient (RCR) | payer MEDICARE, MEDICAID, SELFPAY ==
--- NOTE | 2024-09-08 12:16 | MHC.PT.EP ---
[facility] [place] [facility] [place] [facility] [place] [facility] [address] [place] [address] [phone] F: [phone] F: [phone] F: [phone] F: [phone] Physical Therapy Plan of Care Date of Evaluation: 09/08/24 Date of Surgery: n/a Diagnosis: Unilateral primary osteoarthritis, left knee Patellofemoral arthritis of left knee Assessment: Pt is a pleasant and motivated 59yo F who presents to PT with L knee pain for ~1 year. Pt presents to PT with current impairments in pain, decreased strength, soft tissue restrictions, and impaired gait. She is limited functionally by taking care of her mom, cleaning, prolonged standing, walking, and stair navigation. She is a good candidate for skilled PT in order to address current impairments to facilitate return to PLOF. She is recommended to be seen 2x/week for 4 weeks and will be reassessed at that time Frequency and Duration: The patient will be seen 2x/week for 4 weeks Short Term Goals: Pt will be I with HEP to promote self management of symptoms Pt will improve L quad strength to at least 4+/5 Commodity Lead Goals: Pt will tolerate prolonged standing and walking > 1 hour with minimal to no discomfort Pt will ascend/descend 1 flight of stairs with reciprocal pattern with minimal to no discomfort Pt will demonstrate improvements in function as evidenced by statistically significant improvement in LEFI outcome measure Treatment Plan: Modalities to reduce pain, spasms and effusion. Manual therapy to restore motion and function. Therapeutic exercise to improve strength and flexibility. Neuromuscular re-education for posture and balance. Therapeutic activities to return to functional activities of daily living. Electronically signed by: Rema Martínez, PT, DPT Please sign and return to therapist. Thank you for your referral.
--- NOTE | 2024-11-17 10:19 | MHC.PT.DC ---
[facility] [place] [facility] [place] [facility] [address] [place] [address] [phone] F: [phone] F: [phone] F: [phone] F: [phone] Physical Therapy Discharge Report Diagnosis: Unilateral primary osteoarthritis, left knee Patellofemoral arthritis of left knee Date of Surgery: n/a Date of Evaluation: 09/08/24 Date of Discharge: 11/17/24 Treatments to Date: 5 Cancellations to Date: 3 No Shows to Date: Discharge Status: Patient Elected to Stop Discharge Summary: Pt was seen for PT from 09/08/24-10/06/24. Her last attended appointment was 10/06/24. She cancelled her last 2 scheduled appointments. She is being D/C from skilled PT as she has not attended or called to reschedule in > 30 days. Pt current level of function unknown at this time Electronically signed by: Rema Martínez, PT, DPT Please sign and return to therapist. Thank you for your referral.
== END 2024-11-17 10:19 | disposition home or self-care (01) ==
LOC: HO.PT 13:53
PROVIDERS: PCP Internal Medicine; Visit Provider Physician Assistant
DX: M17.12 Unilateral primary osteoarthritis, left knee (principal)
CPT/HCPCS: 97110; 97161

== ENCOUNTER 2024-10-21 10:38 | Outpatient (AMB) | payer MEDICARE, MEDICAID, SELFPAY ==
--- NOTE | 2024-10-21 10:41 | A.OFFVIS_ITS ---
VS Expanded 10/21/24 10:46 BP 173/74 H Blood Pressure Location Rt brachial Blood Pressure Position Sitting Pulse 85 Pulse Source Pulse Oximeter Temp 98.1 F Temperature Source Temporal Artery Scan Pulse Oximetry 99 Oxygen Delivery Method Room Air Height 5 ft 4 in Weight 162 lb 12.8 oz BMI 27.9 Body Fat % 37.4 Body Fat Mass 60.8 Fat Free Mass 101.8 Visceral Fat Rating 9.0 Body Water % 44.3 Body Water Mass 72.0 Muscle Mass/Score 96.8 Basal Metabolic Rate/Score 1,389 Intake Visit Reasons: (OV) PO LSG 10/18/2021 Machinery Dismantler Required: Yes Machinery Dismantler Services: Machinery Dismantler Present Machinery Dismantler Name: hospital cmi Allergies atorvastatin Adverse Reaction (Intermediate, Verified 08/17/24 15:32) headache Medication List - Last Reconciled 10/21/24 by YVES Alcantar calcium citrate-vitamin D3 315 mg-5 mcg (200 unit) (Calcium Citrate + D) 1 tab PO BID celecoxib (Celebrex) 200 mg PO BID 30 days cyclobenzaprine 5 mg PO BEDTIME 30 days diphenhydramine HCl (Benadryl Allergy) 25 mg PO TID PRN emollient combination no.69 (Eucerin Skin Calming cream) 1 appl topical Q6-8H 30 days epinephrine (EpiPen 2-Juan Carlos) 0.3 mg (0.3 mL) IM Q4H PRN [iron PO] losartan 25 mg PO DAILY minoxidil 2.5 mg PO DAILY osidontrbavd-zsf-glzf-FA-vit K 45 mg iron- 800 mcg-120 mcg (Bariatric Multi vitamins) 1 cap PO DAILY polyethylene glycol 3350 (Miralax) 17 grams PO DAILY PRN rosuvastatin 5 mg PO DAILY sennosides (senna) 17.2 mg (2 x 8.6 mg) PO BEDTIME 90 days HPI Comments Details: Patient is a pleasant 59-year-old female who returns to the office today in follow-up. She underwent a panniculectomy on 12/23/2022 and history of laparoscopic sleeve gastrectomy with hiatal hernia repair on 10/08/2021. Weight today is 162.8 lb and a BMI of 27.9. She states she is doing great and has no complaints. She is very satisfied with her panniculectomy resluts. Meal plan: Premier protein rtd split in 1/2 with added 6 oz unsweetened almond milk, am/pm dinner small meal with 5 forks protein and 5 forks salad Drinkin oz water Exercise plan: treadmill, 3 x per week, 300 home videos 3 days per week 300-350 calories. Any post op complications: None CHARAN: Never DM: Never HTN: Improved Hyperlipidemia: Resolved GERD:?0-5 scale ??0 = no symptoms ??1 = symptoms noticeable but not bothersome 2 =symptoms bothersome but not daily ? 3 = symptoms bothersome and daily 4 = symptoms affect daily activities 5 = symptoms are incapacitating, unable to do daily activities ? How bad is the heartburn: 0 ? Heartburn while lying down: 0 ? Heartburn when standing up: 0 ? Heartburn after meals: 0 ? Does heartburn change your diet: 0 ? Does heartburn wake you up from sleep: 0 ? Do you have difficulty swallowin ? Do you have pain with swallowin ? If you take medicine for your reflux, does this affect your daily life: 0 Satisfaction with present condition - satisfied or not satisfied: Satisfied [facility] Medical History Liver fibrosis Steatosis, liver Depression Anxiety COVID-19 vaccine series completed BMI 34.0-34.9,adult CHARAN (obstructive sleep apnea) Binge-eating disorder, in full remission, moderate BMI 37.0-37.9, adult BMI 36.0-36.9,adult Binge eating disorder Abnormal EKG H. pylori infection Obesity Right knee pain Myalgia Paresthesias Cervicalgia Upper back pain Physical examination of employee Other specified nonscarring hair loss High cholesterol Knee pain, bilateral Rash Primary osteoarthritis of right knee (Unknown) HTN (hypertension) Surgical History S/P laparoscopic sleeve gastrectomy H/O colonoscopy Hx of dilation and curettage History of removal of ovarian cyst History of carpal tunnel release History of partial hysterectomy Family History Father Emphysema lung Mother Afib Hypertension Brother HIV (human immunodeficiency virus infection) Brother Afib Daughter No problems noted. Son No problems noted. Son No problems noted. Daughter No problems noted. Social History Household Members: Spouse Housing: Apartment Are you a primary patient care technician instructor to a significant other at home: No Do you presently have visiting nurse or other home services: No Alcohol intake: never Patient Tobacco Use Status: Former Tobacco user Tobacco use type: Cigarette service: No Current occupational status: unemployed Physical Exam Const General: cooperative and no acute distress Orientation/consciousness: patient oriented x3 Resp Effort & Inspection: normal respiratory effort Auscultation: clear to auscultation bilaterally Cardio Rate: regular rate Rhythm: regular rhythm GI Inspection: Yes normal to inspection and Yes incision (well healed) Palpation (GI): Soft to palpation and no masses Neuro General: patient oriented x3 Assessment & Plan Assessment & Plan (1) S/P laparoscopic sleeve gastrectomy: Code(s): Z98.84 - Bariatric surgery status Category: Surgical Plan: Check 3 year postop labs. Encouraged to follow meal plan more consistently Encouraged to track calories and try to achieve a goal of 2000 per week Return to clinic as scheduled Encouraged to send weight is weekly and text with any questions or concerns. Orders: Orders Comprehensive Met. Panel Today E78.00 - Pure hypercholesterolemia, unspecified, I10 - Essential (primary) hypertension, K74.00 - Hepatic fibrosis, unspecified, Z98.84 - Bariatric surgery status Zinc Today E78.00 - Pure hypercholesterolemia, unspecified, I10 - Essential (primary) hypertension, K74.00 - Hepatic fibrosis, unspecified, Z98.84 - Bariatric surgery status Vitamin B1 Today E78.00 - Pure hypercholesterolemia, unspecified, I10 - Essential (primary) hypertension, K74.00 - Hepatic fibrosis, unspecified, Z98.84 - Bariatric surgery status Vitamin A Today E78.00 - Pure hypercholesterolemia, unspecified, I10 - Essential (primary) hypertension, K74.00 - Hepatic fibrosis, unspecified, Z98.84 - Bariatric surgery status Ferritin Today E78.00 - Pure hypercholesterolemia, unspecified, I10 - Essential (primary) hypertension, K74.00 - Hepatic fibrosis, unspecified, Z98.84 - Bariatric surgery status Vitamin D 25-OH Total Today E78.00 - Pure hypercholesterolemia, unspecified, I10 - Essential (primary) hypertension, K74.00 - Hepatic fibrosis, unspecified, Z98.84 - Bariatric surgery status Insulin Today E78.00 - Pure hypercholesterolemia, unspecified, I10 - Essential (primary) hypertension, K74.00 - Hepatic fibrosis, unspecified, Z98.84 - Bariatric surgery status Hemoglobin A1c Today E78.00 - Pure hypercholesterolemia, unspecified, I10 - Essential (primary) hypertension, K74.00 - Hepatic fibrosis, unspecified, Z98.84 - Bariatric surgery status Complete Blood Count Auto Diff Today E78.00 - Pure hypercholesterolemia, unspecified, I10 - Essential (primary) hypertension, K74.00 - Hepatic fibrosis, unspecified, Z98.84 - Bariatric surgery status Lipid Panel Today E78.00 - Pure hypercholesterolemia, unspecified, I10 - Essential (primary) hypertension, K74.00 - Hepatic fibrosis, unspecified, Z98.84 - Bariatric surgery status IRON PROFILE Today E78.00 - Pure hypercholesterolemia, unspecified, I10 - Essential (primary) hypertension, K74.00 - Hepatic fibrosis, unspecified, Z98.84 - Bariatric surgery status Vitamin B12 and Folate Today E78.00 - Pure hypercholesterolemia, unspecified, I10 - Essential (primary) hypertension, K74.00 - Hepatic fibrosis, unspecified, Z98.84 - Bariatric surgery status C Reactive Protein Today E78.00 - Pure hypercholesterolemia, unspecified, I10 - Essential (primary) hypertension, K74.00 - Hepatic fibrosis, unspecified, Z98.84 - Bariatric surgery status TSH reflex Free T4 Today E78.00 - Pure hypercholesterolemia, unspecified, I10 - Essential (primary) hypertension, K74.00 - Hepatic fibrosis, unspecified, Z98.84 - Bariatric surgery status
[2024-10-21 10:46] VITALS: BP 173/74; PULSE 85; TEMP 36.7; O2SAT 99; BMI 27.9
--- OUTSIDE RECORDS SUMMARY | 2024-10-21 11:25 | XMS_ITS | Encounter Summary ---
Author Organization [employer] Address [address] [place] [address] [address] [place] [address] Care Team Providers Care Field Service Supervisor Name Role Phone Efrain River MD Primary Care Provide r Encounter Details Date Type Department Care Team (Late st Contact Info) Description 08/12/2022 Abstract [facility] [address] [place], [place] [id number] Dental, Provider, DDS Social History Tobacco Use Types Packs/Day Years Used Date Smoking Tobacco: Never Assessed Comments Unknown Sex and Gender Information Value Date Recorded Sex Assigned at Female 07/07/2022 10:19 AM EDT Legal Sex Female 10:19 AM EDT Gender Identity Female 07/07/2022 10:19 AM EDT Sexual Orientation Straight 07/07/2022 10 :19 AM EDT documented as of this encounter Plan of Treatment Upcoming Encounters Date Type Department Care Team (Late st Contact Info) Description 11/10/2024 11:15 AM EST Office Visit [facility] [address] [place] [address] Efrain River MD [address] [place] [address] documented as of this encounter Procedures Procedure Name Priority Date/Time Associated Diagnosis Comments 3 MOD COMPOSITE FILLING Routine 08/12/2022 12:00 AM EST 21 B(V) COMPOSITE FILLING Routine 08/12/2022 12:00 AM EST 2 MOL COMPOSITE FILLING Routine 08/12/2022 12:00 AM EST 9 ROOT CANAL Routine 08/12/2022 12:00 AM EST documented in this encounter Visit Diagnoses Not on filedocumented in this encounter Care Teams Field Service Supervisor Relationship Specialty Start Date End Date Efrain River MD [address] [place] [id number] PCP - General Internal Medicine 07/30/21 documented as of this encounter
--- OUTSIDE RECORDS SUMMARY | 2024-10-21 11:26 | XMS_ITS | Clinical Summary ---
Author Organization [employer] Address [address] [place] [address] Care Team Providers Care [employer] Teacher Name Role Phone Efrain River MD Primary Care Provide r Allergies No known active allergies Medications cholecalciferol (Vitamin D-3) 50 MCG (1999 UT) capsule Take 1 capsule by mouth in the morning. 1 Active doxycycline (Vibra-Tabs) 100 MG tablet Take 100 mg by mouth with breakfast and with evening meal. 2 Active Melatonin 5 MG capsule use one daily at HS 1 Active pantoprazole (ProtoNix) 40 MG EC tablet Take 40 mg by mouth in the morning. 2 Active polyethylene glycol, PEG, 3350 (Miralax) 17 g packet MIX EACH PACKET INTO 8 OUNCES OF WATER. DO 7 PACKETS ON 10/06/21 AND 7 PACKETS ON 10/07/21 2 Active thiamine (,Vitamin B-1,) 100 MG tablet Take 100 mg by mouth in the morning. 2 Active triamcinolone (Kenalog) 0.025 % cream APPLY THIN LAYER TOPICALLY TO THE AFFECTED AREA TWICE DAILY 2 Active clotrimazole (Lotrimin) 1 % cream APPLY TOPICALLY TO THE AFFECTED AREA TWICE DAILY 3 Active docusate sodium (Colace) 100 MG capsule Take 100 mg by mouth in the morning. 3 Active ibuprofen 600 MG tablet Take 1 tablet (600 mg) by mouth every 6 (six) hours if needed for mild pain for up to 20 doses. 20 tablet 4 Active cyclobenzaprine (Flexeril) 5 MG tabletIndications: Carpal tunnel syndrome of left wrist Take 1 tablet (5 mg) by mouth if needed each day for muscle spasms. 30 tablet 3 4 Active rosuvastatin (Crestor) 5 MG tabletIndications: Mixed hyperlipidemia Take 1 tablet (5 mg) by mouth Once per day. 30 tablet 6 4 07/14/20 25 Active Diclofenac Sodium 1 % gelIndications:Acu te pain of left knee Use in affected joint twice a day prn 100 g 3 4 Active losartan (Cozaar) 25 MG tablet TAKE 1 TABLET BY MOUTH EVERY DAY 90 tablet 1 5 Active Active Problems Problem Noted Date Diagnosed Date Acute pain of left knee 07/14/2024 Assessment & Plan (07/14/2024 11:15 AM EST): Pt with c/o recurrent knee pain Exam indicative of OA Plan: plain films , Ortho eval for steroid injection SOB (shortness of breath) 04/12/2024 Assessment & Plan (04/12/2024 2:55 PM EDT): Patient with c/o new onset of SOB, particularly after she has been talking for long periods of time. On exam lungs are clear. 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 Attention on follow-up dedicated CT angiogram was recommended. This was performed September 2023 and it showed: CTA HEAD: No proximal vessel occlusion or high-grade stenosis. Stable approximately 2.5 mm outpouching from the right supraclinoid internal carotid artery which may represent a small infundibulum or aneurysm. Continued attention on follow-up is recommended to monitor stability. Patient was referred to Neurosurgeon. They declined the referral until after patient had MRA done MRA was done 01/07/2024 and showed: IMPRESSION: Redemonstration of a 3 mm right supraclinoid ICA aneurysm. On 04/15/2024 she was seen by Dr Chris Oliveira, he discussed the natural hx , and mentioned pt was aware of the small yearly risk of rupture and its associated morbidity and mortality. They discussed treatment options and she opted for observation, and giving its size Dr. Oliveira thought that was reasonable and recommended a 1 year follow up with MRA. Assessment & Plan (04/12/2024 2:30 PM EDT): While evaluating a cervical lymphadenopathy Incidental finding of: Inferiorly directed outpouching from the right supraclinoid internal carotid artery measuring up to 2.5 mm may represent an infundibulum with a small aneurysm not excluded. Attention on follow-up dedicated CT angiogram was recommended. This was performed September 2023 and it showed: CTA HEAD: No proximal vessel occlusion or high-grade stenosis. Stable approximately 2.5 mm outpouching from the right supraclinoid internal carotid artery which may represent a small infundibulum or aneurysm. Continued attention on follow-up is recommended to monitor stability. Patient was referred to Neurosurgeon. They declined the referral until after patient had MRA done MRA was done 01/07/2024 and showed: IMPRESSION: Redemonstration of a 3 mm right supraclinoid ICA aneurysm. Notes were faxed to their office once again and we are awaiting their response Assessment & Plan (11/24/2023 1:10 PM EDT): While evaluating a cervical lymphadenopathy Incidental finding of: Inferiorly directed outpouching from the right supraclinoid internal carotid artery measuring up to 2.5 mm may represent an infundibulum with a small aneurysm not excluded. Attention on follow-up dedicated CT angiogram was recommended. This was performed September 2023 and it showed: CTA HEAD: No proximal vessel occlusion or high-grade stenosis. Stable approximately 2.5 mm outpouching from the right supraclinoid internal carotid artery which may represent a small infundibulum or aneurysm. Continued attention on follow-up is recommended to monitor stability. Plan: Will refer to Neurosurgeon Assessment & Plan (08/13/2023 2:20 PM EST): While evaluating a cervical lymphadenopathy Incidental finding of: Inferiorly directed outpouching from the right supraclinoid internal carotid artery measuring up to 2.5 mm may represent an infundibulum with a small aneurysm not excluded. Attention on follow-up dedicated CT angiogram is recommended. This has been scheduled for September 2023 Assessment & Plan (07/07/2023 11:57 AM EDT): While evaluating a cervical lymphadenopathy Incidental finding of: Inferiorly directed outpouching from the right supraclinoid internal carotid artery measuring up to 2.5 mm may represent an infundibulum with a small aneurysm not excluded. Attention on follow-up dedicated CT angiogram is recommended. Axillary lymphadenopathy 05/07/2023 Assessment & Plan (04/12/2024 2:33 PM EDT): Seen on CT of neck Radiologist recommended to obtain a Chest CT CT showed: No evidence of adenopathy by size criteria. 1.5 cm left adrenal nodule which has been stable over more than one year, therefore benign. No dedicated follow up imaging of this nodule is indicated. Per radiologist. Assessment & Plan (05/07/2023 11:37 AM EDT): Seen on CT of neck Radiologist recommended to obtain a Chest CT Routine physical examination 04/02/2023 Assessment & Plan (04/02/2023 10:43 AM EDT): Patient here for a routine physical examination, has no particular complaints or concerns Mass of submandibular region 02/19/2023 Assessment & Plan (07/14/2024 10:55 AM EST): Previous visit patient came in with c/o newly discovered mass underneath her chin On exam she had a palpable submandibular mass approximately 0.6 x 0.6 cm No redness, no swelling, throat clear, no other palpable masses, no difficulty swallowing. I ordered a CT of neck to evaluate soft tissue mass. CT was done 03/2023 and it showed: IMPRESSION: 1. Mild cervical lymphadenopathy is seen at the suprahyoid level as, which is nonspecific and could be infectious or inflammatory in nature. Cannot exclude neoplastic disease. 2. Bilateral maxillary sinus mucosal inflammatory changes, left more than right, with an air-fluid level in the left maxillary sinus. Correlate for acute sinusitis. 3. Prominence of the palatine tonsils bilaterally, right more thanleft, with a tiny hypodensity along its posterior margin on the right, which may reflect a retention cyst. Recommend correlation with direct visualization. Differential diagnostic considerations include infectious or inflammatory disease. Neoplastic disease is consideredless likely but not entirely excluded. 4. A 1.3 cm curvilinear focus of enhancement posterior to the right thyroid lobe and common carotid artery with an associated 8 mm soft tissue density with a punctate calcification adjacent to its posterior margin. Etiology is uncertain. This could reflect an ectatic vein or partially thrombosed varix. A pathologic lymph node is less likely given this appearance. Recommend followup for this finding with additional contrast-enhanced CT at a clinically appropriate interval depending on workup of the above findings. 5. Findings suggesting left axillary lymphadenopathy. CT of the chest may be of additional value for further assessment depending on the clinical workup. 6. Probable minimal fibrotic changes at the right lung apex. Repeat contrast enhanced Neck CT 06/18/2023 showed: IMPRESSION: A mildly prominent, rounded cervical level Ia lymph node corresponds to the palpable abnormality deep to the soft tissue skin marker. This appears stable compared to the prior examination of 04/02/2023. No exophytic mass/lesion along the aerodigestive tract. Additional mildly prominent cervical lymph nodes appear stable compared to the prior examination and remain indeterminate. Patient was seen by ENT 07/2023 who did a fiberoptic exam and found no abnormality he recommended follow up CT to reassess Patient had a repeat CT soft tissue neck with contrast 07/01/2024: that showed no acute pathology. Assessment & Plan (04/12/2024 3:42 PM EDT): Previous visit patient came in with c/o newly discovered mass underneath her chin On exam she had a palpable submandibular mass approximately 0.6 x 0.6 cm No redness, no swelling, throat clear, no other palpable masses, no difficulty swallowing. I ordered a CT of neck to evaluate soft tissue mass. CT was done 03/2023 and it showed: IMPRESSION: 1. Mild cervical lymphadenopathy is seen at the suprahyoid level as, which is nonspecific and could be infectious or inflammatory in nature. Cannot exclude neoplastic disease. 2. Bilateral maxillary sinus mucosal inflammatory changes, left more than right, with an air-fluid level in the left maxillary sinus. Correlate for acute sinusitis. 3. Prominence of the palatine tonsils bilaterally, right more thanleft, with a tiny hypodensity along its posterior margin on the right, which may reflect a retention cyst. Recommend correlation with direct visualization. Differential diagnostic considerations include infectious or inflammatory disease. Neoplastic disease is consideredless likely but not entirely excluded. 4. A 1.3 cm curvilinear focus of enhancement posterior to the right thyroid lobe and common carotid artery with an associated 8 mm soft tissue density with a punctate calcification adjacent to its posterior margin. Etiology is uncertain. This could reflect an ectatic vein or partially thrombosed varix. A pathologic lymph node is less likely given this appearance. Recommend followup for this finding with additional contrast-enhanced CT at a clinically appropriate interval depending on workup of the above findings. 5. Findings suggesting left axillary lymphadenopathy. CT of the chest may be of additional value for further assessment depending on the clinical workup. 6. Probable minimal fibrotic changes at the right lung apex. Repeat contrast enhanced Neck CT 06/18/2023 showed: IMPRESSION: A mildly prominent, rounded cervical level Ia lymph node corresponds to the palpable abnormality deep to the soft tissue skin marker. This appears stable compared to the prior examination of 04/02/2023. No exophytic mass/lesion along the aerodigestive tract. Additional mildly prominent cervical lymph nodes appear stable compared to the prior examination and remain indeterminate. Patient was seen by ENT 07/2023 who did a fiberoptic exam and found no abnormality he recommended follow up CT to reassess Today we contacted the ENT office and they will be contacting patient to schedule a follow up and repeat CT. Pt was given the direct line of the [place] at the ENT office if she does not hear from them in 2 weeks to call them and let us know Assessment & Plan (11/24/2023 1:06 PM EDT): Previous visit patient came in with c/o newly discovered mass underneath her chin On exam she had a palpable submandibular mass approximately 0.6 x 0.6 cm No redness, no swelling, throat clear, no other palpable masses, no difficulty swallowing. I ordered a CT of neck to evaluate soft tissue mass. CT was done 03/2023 and it showed: IMPRESSION: 1. Mild cervical lymphadenopathy is seen at the suprahyoid level as, which is nonspecific and could be infectious or inflammatory in nature. Cannot exclude neoplastic disease. 2. Bilateral maxillary sinus mucosal inflammatory changes, left more than right, with an air-fluid level in the left maxillary sinus. Correlate for acute sinusitis. 3. Prominence of the palatine tonsils bilaterally, right more thanleft, with a tiny hypodensity along its posterior margin on the right, which may reflect a retention cyst. Recommend correlation with direct visualization. Differential diagnostic considerations include infectious or inflammatory disease. Neoplastic disease is consideredless likely but not entirely excluded. 4. A 1.3 cm curvilinear focus of enhancement posterior to the right thyroid lobe and common carotid artery with an associated 8 mm soft tissue density with a punctate calcification adjacent to its posterior margin. Etiology is uncertain. This could reflect an ectatic vein or partially thrombosed varix. A pathologic lymph node is less likely given this appearance. Recommend followup for this finding with additional contrast-enhanced CT at a clinically appropriate interval depending on workup of the above findings. 5. Findings suggesting left axillary lymphadenopathy. CT of the chest may be of additional value for further assessment depending on the clinical workup. 6. Probable minimal fibrotic changes at the right lung apex. Repeat contrast enhanced Neck CT 06/18/2023 showed: IMPRESSION: A mildly prominent, rounded cervical level Ia lymph node corresponds to the palpable abnormality deep to the soft tissue skin marker. This appears stable compared to the prior examination of 04/02/2023. No exophytic mass/lesion along the aerodigestive tract. Additional mildly prominent cervical lymph nodes appear stable compared to the prior examination and remain indeterminate. Patient was seen by ENT 07/2023 who did a fiberoptic exam and found no abnormality he recommended follow up CT to reassess Assessment & Plan (08/13/2023 2:22 PM EST): Previous visit patient came in with c/o newly discovered mass underneath her chin On exam she had a palpable submandibular mass approximately 0.6 x 0.6 cm No redness, no swelling, throat clear, no other palpable masses, no difficulty swallowing. I ordered a CT of neck to evaluate soft tissue mass. CT was done 03/2023 and it showed: IMPRESSION: 1. Mild cervical lymphadenopathy is seen at the suprahyoid level as, which is nonspecific and could be infectious or inflammatory in nature. Cannot exclude neoplastic disease. 2. Bilateral maxillary sinus mucosal inflammatory changes, left more than right, with an air-fluid level in the left maxillary sinus. Correlate for acute sinusitis. 3. Prominence of the palatine tonsils bilaterally, right more thanleft, with a tiny hypodensity along its posterior margin on the right, which may reflect a retention cyst. Recommend correlation with direct visualization. Differential diagnostic considerations include infectious or inflammatory disease. Neoplastic disease is consideredless likely but not entirely excluded. 4. A 1.3 cm curvilinear focus of enhancement posterior to the right thyroid lobe and common carotid artery with an associated 8 mm soft tissue density with a punctate calcification adjacent to its posterior margin. Etiology is uncertain. This could reflect an ectatic vein or partially thrombosed varix. A pathologic lymph node is less likely given this appearance. Recommend followup for this finding with additional contrast-enhanced CT at a clinically appropriate interval depending on workup of the above findings. 5. Findings suggesting left axillary lymphadenopathy. CT of the chest may be of additional value for further assessment depending on the clinical workup. 6. Probable minimal fibrotic changes at the right lung apex. Repeat contrast enhanced Neck CT 06/18/2023 showed: IMPRESSION: A mildly prominent, rounded cervical level Ia lymph node corresponds to the palpable abnormality deep to the soft tissue skin marker. This appears stable compared to the prior examination of 04/02/2023. No exophytic mass/lesion along the aerodigestive tract. Additional mildly prominent cervical lymph nodes appear stable compared to the prior examination and remain indeterminate. Patient was seen by ENT 07/2023 who did a fiberoptic exam and found no abnormality he recommended follow up CT to reassess Assessment & Plan (07/07/2023 11:48 AM EDT): Previous visit patient came in with c/o newly discovered mass underneath her chin On exam she had a palpable submandibular mass approximately 0.6 x 0.6 cm No redness, no swelling, throat clear, no other palpable masses, no difficulty swallowing. I ordered a CT of neck to evaluate soft tissue mass. CT was done 03/2023 and it showed: IMPRESSION: 1. Mild cervical lymphadenopathy is seen at the suprahyoid level as, which is nonspecific and could be infectious or inflammatory in nature. Cannot exclude neoplastic disease. 2. Bilateral maxillary sinus mucosal inflammatory changes, left more than right, with an air-fluid level in the left maxillary sinus. Correlate for acute sinusitis. 3. Prominence of the palatine tonsils bilaterally, right more thanleft, with a tiny hypodensity along its posterior margin on the right, which may reflect a retention cyst. Recommend correlation with direct visualization. Differential diagnostic considerations include infectious or inflammatory disease. Neoplastic disease is consideredless likely but not entirely excluded. 4. A 1.3 cm curvilinear focus of enhancement posterior to the right thyroid lobe and common carotid artery with an associated 8 mm soft tissue density with a punctate calcification adjacent to its posterior margin. Etiology is uncertain. This could reflect an ectatic vein or partially thrombosed varix. A pathologic lymph node is less likely given this appearance. Recommend followup for this finding with additional contrast-enhanced CT at a clinically appropriate interval depending on workup of the above findings. 5. Findings suggesting left axillary lymphadenopathy. CT of the chest may be of additional value for further assessment depending on the clinical workup. 6. Probable minimal fibrotic changes at the right lung apex. Plan: ENT appointment already scheduled for 07/2023 Repeat contrast enhanced Neck CT 06/18/2023 showed: IMPRESSION: A mildly prominent, rounded cervical level Ia lymph node corresponds to the palpable abnormality deep to the soft tissue skin marker. This appears stable compared to the prior examination of 04/02/2023. No exophytic mass/lesion along the aerodigestive tract. Additional mildly prominent cervical lymph nodes appear stable compared to the prior examination and remain indeterminate. Inferiorly directed outpouching from the right supraclinoid internal carotid artery measuring up to 2.5 mm may represent an infundibulum with a small aneurysm not excluded. Attention on follow-up dedicated CT angiogram is recommended. Dedicated CT chest was negative for axillary lymphadenopathy Assessment & Plan (05/07/2023 11:35 AM EDT): Previous visit patient came in with c/o newly discovered mass underneath her chin On exam she had a palpable submandibular mass approximately 0.6 x 0.6 cm No redness, no swelling, throat clear, no other palpable masses, no difficulty swallowing. I ordered a CT of neck to evaluate soft tissue mass. CT was done 03/2023 and it showed: IMPRESSION: 1. Mild cervical lymphadenopathy is seen at the suprahyoid level as, which is nonspecific and could be infectious or inflammatory in nature. Cannot exclude neoplastic disease. 2. Bilateral maxillary sinus mucosal inflammatory changes, left more than right, with an air-fluid level in the left maxillary sinus. Correlate for acute sinusitis. 3. Prominence of the palatine tonsils bilaterally, right more thanleft, with a tiny hypodensity along its posterior margin on the right, which may reflect a retention cyst. Recommend correlation with direct visualization. Differential diagnostic considerations include infectious or inflammatory disease. Neoplastic disease is consideredless likely but not entirely excluded. 4. A 1.3 cm curvilinear focus of enhancement posterior to the right thyroid lobe and common carotid artery with an associated 8 mm soft tissue density with a punctate calcification adjacent to its posterior margin. Etiology is uncertain. This could reflect an ectatic vein or partially thrombosed varix. A pathologic lymph node is less likely given this appearance. Recommend followup for this finding with additional contrast-enhanced CT at a clinically appropriate interval depending on workup of the above findings. 5. Findings suggesting left axillary lymphadenopathy. CT of the chest may be of additional value for further assessment depending on the clinical workup. 6. Probable minimal fibrotic changes at the right lung apex. Plan: ENT appointment already scheduled for 07/2023 Will order a repeat contrast enhanced Neck CT as recommended and also a Chest CT given findings of axillary lymohadenopathy Assessment & Plan (04/02/2023 11:01 AM EDT): Previous visit patient came in with c/o newly discovered mass underneath her chin On exam she had a palpable submandibular mass approximately 0.6 x 0.6 cm No redness, no swelling, throat clear, no other palpable masses, no difficulty swallowing. I ordered a CT of neck to evaluate soft tissue mass. CT was done this morning report is pending. Assessment & Plan (02/19/2023 3:48 PM EDT): Pt today c/o newly discovered mass underneath her chin On exam he has a palpable submandibular mass approximately 0.6x0.6 cm No redness, no swelling, throat clear, no other palpable masses, no difficulty swallowing. Plan: CT of neck to evaluate soft tissue mass. Neck pain on right side 02/19/2023 Assessment & Plan (04/12/2024 2:42 PM EDT): Patient with c/o acute on chronic neck pain with radiation to right side. Associated with right sided numbness and tingling On exam muscle spasm. Plain films cervical spine were unremarkable. PT evaluation completed Pt continue to complain of right sided neck pain with radiation right shoulder. Need to rule out cervical radiculopathy MRI Cervical Spine 08/18/2023 showed: 1. There are no acute fractures or subluxations. 2. There are shallow posterior disc protrusions at C4-C5, C5-C6 and C6-C7 without spinal cord compression or central stenosis. The neural foramina are patent. Pt evaluated by [facility] recommended steroid injection, has a follow up appointment. Assessment & Plan (11/24/2023 1:06 PM EDT): Patient with c/o acute on chronic neck pain with radiation to right side. Associated with right sided numbness and tingling On exam muscle spasm. Plain films cervical spine were unremarkable. PT evaluation completed Pt continue to complain of right sided neck pain with radiation right shoulder. Need to rule out cervical radiculopathy MRI Cervical Spine 08/18/2023 showed: 1. There are no acute fractures or subluxations. 2. There are shallow posterior disc protrusions at C4-C5, C5-C6 and C6-C7 without spinal cord compression or central stenosis. The neural foramina are patent. Pt evaluated by [facility] September 2023 recommended steroid injection Assessment & Plan (08/13/2023 2:23 PM EST): Patient with c/o acute on chronic neck pain with radiation to right side. Associated with right sided numbness and tingling On exam muscle spasm. Plain films cervical spine were unremarkable. PT evaluation completed Pt continue to complain of right sided neck pain with radiation right shoulder. Need to rule out cervical radiculopathy MRI Cervical Spine scheduled for 08/18/2023 Assessment & Plan (07/07/2023 12:05 PM EDT): Patient with c/o acute on chronic neck pain with radiation to right side. Associated with right sided numbness and tingling On exam muscle spasm. Plain films cervical spine were unremarkable. PT evaluation completed Pt continue to complain of right sided neck pain with radiation right shoulder. Need to rule out cervical radiculopathy Plan: MRI Cervical Spine Assessment & Plan (02/19/2023 1:38 PM EDT): Pt with c/o acute on chronic neck pain with radiation to right side. On exam muscle spasm. Plan: Plain films cervical spine PT eval Alopecia 11/04/2022 Assessment & Plan (11/04/2022 9:01 AM EST): Evaluated in the past by [employer] Dr. Ashley Pham Used topical minoxidil/clobetasol combination cream and Doxycycline BID in the past Preventative health care 11/04/2022 Assessment & Plan (07/14/2024 11:08 AM EST): Mammogram: 05/23/2024 Normal Pap Smear: Pt is s/p Hysterectomy she has one ovary left 2018 Colonoscopy: Pt claims she had one In [place] in 2016 records unavailable she tells me everything was normal, FOBTS given on 10/30/2021 Cologuard February NEGATIVE (scanned under MEDIA) Assessment & Plan (04/12/2024 2:49 PM EDT): Mammogram: 04/23/2023 Normal Pap Smear: Pt is s/p Hysterectomy she has one ovary left 2018 Colonoscopy: Pt claims she had one In [place] in 2016 records unavailable she tells me everything was normal, FOBTS given on 10/30/2021 Cologuard February NEGATIVE (scanned under MEDIA) Assessment & Plan (04/02/2023 10:49 AM EDT): Mammogram: 04/10/2022 Normal Pap Smear: Pt is s/p Hysterectomy she has one ovary left 2018 Colonoscopy: Pt claims she had one In [place] in 2016 records unavailable she tells me everything was normal, FOBTS given on 10/30/2021 Cologuard February NEGATIVE Assessment & Plan (11/04/2022 9:03 AM EST): Mammogram: 04/10/2022 Normal Pap Smear: Pt is s/p Hysterectomy she has one ovary left 2018 Colonoscopy: Pt claims she had one In [place] in 2016 records unavailable she tells me everything was normal, FOBTS given on 10/30/2021 Hives of unknown origin 11/04/2022 Assessment & Plan (11/04/2022 10:32 AM EST): Pt with c/o intermittent hives, for at least 4 months. Uses antihistaminics PRN, Has an Epi pen Plan: will refer to [employer] operations specialist Mixed hyperlipidemia 11/03/2022 Assessment & Plan (07/14/2024 11:11 AM EST): Patient with elevated lipids. Most recent lipid profile from: Lab Results Component Value Date TRIG 76 11/20/2023 TRIG 64 10/21/2022 CHOL 247 (H) 11/20/2023 CHOL 176 10/21/2022 LDLCHOLCAL 161 (H) 11/20/2023 LDLCHOLCAL 97 10/21/2022 HDL 71 11/20/2023 HDL 67 10/21/2022 In the past she was taking Atorvastatin but pt developed muscle pain . Most recent LFT'S from: 10/21/2022 were wnl Start Crestor 5 mg po qhs advised to try to adhere to a low cholesterol diet, counseled and educated about diet and exercise, Patient encouraged to come up with a personal goal for weight loss. Assessment & Plan (11/04/2022 10:27 AM EST): Patient with elevated lipids. Most recent lipid profile from: 10/21/2022 shows a total cholesterol of: 176 triglycerides of: 64 HDL of: 67 and LDL of: 97 In the past she was taking Atorvastatin but pt developed muscle pain . Most recent LFT'S from: 10/21/2022 were wnl She is on Crestor 5 mg po qhs advised to try to adhere to a low cholesterol diet, counseled and educated about diet and exercise, Patient encouraged to come up with a personal goal for weight loss. 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 Primary hypertension 01/19/2017 Assessment & Plan (07/14/2024 11:05 AM EST): Patient with Hypertension currently controlled on a regimen of: Losartan 25 mg po daily (lowered by Dr barajas ) Given adequate blood pressure control will continue with current regimen Most recent electrolytes, Bun and Creatinine done on: 11/20/2023 were within normal limits. patient advised to adhere to a low sodium diet, encouraged about medication compliance, counseled about weight loss. Assessment & Plan (04/12/2024 2:31 PM EDT): Patient with Hypertension currently controlled on a regimen of: Losartan 25 mg po daily (lowered by Dr barajas ) Given adequate blood pressure control will continue with current regimen Most recent electrolytes, Bun and Creatinine done on: 11/20/2023 were within normal limits. patient advised to adhere to a low sodium diet, encouraged about medication compliance, counseled about weight loss. Assessment & Plan (11/24/2023 1:06 PM EDT): Patient with Hypertension currently controlled on a regimen of: Losartan 25 mg po daily (lowered by Dr barajas ) Given adequate blood pressure control will continue with current regimen Most recent electrolytes, Bun and Creatinine done on: 11/20/2023 were within normal limits. patient advised to adhere to a low sodium diet, encouraged about medication compliance, counseled about weight loss. Assessment & Plan (07/07/2023 12:04 PM EDT): Patient with Hypertension currently controlled on a regimen of: Losartan 25 mg po daily (lowered by Dr barajas ) Given adequate blood pressure control will continue with current regimen Most recent electrolytes, Bun and Creatinine done on: were within normal limits. patient advised to adhere to a low sodium diet, encouraged about medication compliance, counseled about weight loss. Assessment & Plan (02/19/2023 1:28 PM EDT): Patient with Hypertension currently controlled on a regimen of: Losartan 25 mg po daily (lowered by Dr barajas ) Given adequate blood pressure control will continue with current regimen Most recent electrolytes, Bun and Creatinine done on: were within normal limits. patient advised to adhere to a low sodium diet, encouraged about medication compliance, counseled about weight loss. Assessment & Plan (11/04/2022 10:27 AM EST): Patient with Hypertension currently controlled on a regimen of: Losartan 25 mg po daily (lowered by Dr barajas ) Given adequate blood pressure control will continue with current regimen Most recent electrolytes, Bun and Creatinine done on: were within normal limits. patient advised to adhere to a low sodium diet, encouraged about medication compliance, counseled about weight loss. Sleep apnea 01/19/2017 Assessment & Plan (11/04/2022 9:00 AM EST): Sleep Study from 02/23/2017 showed Mild CHARAN Position therapy was recommended Encounters Date Type Department Care Team Description 09/13/2024 Refill [facility] [address] [place] [address] Efrain River MD 09/09/2024 Telephone [facility] [address] [place] [address] Amarjit Santos 08/29/2024 Telephone [facility] [address] [place] [address] Jovani Madrigal 08/08/2024 Telephone [facility] [address] [place], [place] [phone] Efrain River MD from Last 3 Months Immunizations Name Administration Dates Next Due INFLUENZA INJECTABLE QUADRIV ALANT CCIIV4 MDCK Multi-dose vial 05/14/2018 Influenza injectable quadriv alent IIV4 with preservative 07/15/2017 Influenza injectable quadriv alent preservative free 07/07/2023,06/30/2022,07/30/2021,2020,08/18/2019 Influenza, seasonal, injecta ble, preservative free 07/14/2024 PPD Test 10/21/2018 Tdap 10/21/2018,02/08/2018 Zoster, Recombinant 02/26/2023,12/18/2022 Social History Tobacco Use Types Packs/Day Years Used Date Smoking Tobacco: Never Passive Smoke Exposure: Never Smokeless Tobacco: Never Tobacco Cessation:Counseling Given: Not Answered Alcohol Answer Date Recorded Frequency of Alcohol Consumption Not on file 07/14/2024 Average Number of Drinks Not on file 024 Frequency of Binge Drinking Not on file 03/2024 Score 0 07/14/2024 Depression Answer Date Recorded Patient Health Questionnaire-9 Score 0 04/12/2024 Patient Health Questionnaire-9 Score 0 04/12/2024 Last PHQ-9: Questionnaire Data Not on file 0 04/12/2024 Housing Stability Answer Date Recorded What is your housing situation today? I have saragabriela sherwood 11/24/[address] you li ve. Do you have problems with any of the following? None of the above 11/24/2023 Food Insecurity Answer Date Recorded Within the past 12 months, y ou worried that your food would run out before you got money to buy more: Never True 11/24/2023 Within the past 12 months,th e food you bought just didn't last and you didn't have enough money to get more: Never True Transportation Answer Date Recorded In the past 12 months, has l ack of transportation kept you from medical appts, meetings, work or from getting things needed for daily living? No 11/24/2023 Utilities Answer Date Recorded In the past 12 months, has t he electric, gas, oil or water company threatened to shut off services in your home? No 11/24/2023 Depression Answer Date Recorded Patient Health Questionnaire-2 Score 0 04/12/2024 Comments Unknown Sex and Gender Information Value Date Recorded Sex Assigned at Female 07/07/2022 10:19 AM EDT Legal Sex Female 10:19 AM EDT Gender Identity Female 07/07/2022 10:19 AM EDT Sexual Orientation Straight 07/07/2022 10 :19 AM EDT Last Filed Vital Signs Vital Sign Reading Time Taken Comments Blood Pressure 131/77 07/14/2024 10:59 AM EST Pulse 76 07/14/2024 10:59 AM EST Temperature 36.1 ??C (96.9 ??F) 07/14/2024 10:[address] Respiratory Rate 20 07/14/2024 10:59 AM EST Oxygen Saturation 96% 07/14/2024 10:59 AM EST Inhaled Oxygen Concentration - - Weight 74.8 kg (165 lb) 07/14/2024 10:59 AM EST Height 165.1 cm (5' 5 ) 07/14/2024 10:59 AM EST Body Mass Index 27.46 07/14/2024 10:59 AM EST Plan of Treatment Upcoming Encounters Date Type Department Care Team (Late st Contact Info) Description 11/10/2024 11:15 AM EST Office Visit [facility] [address] [place] [address] Efrain River MD [address] [place] [address] Health Maintenance Due Date Last Done Comments CT Colonography 1965 Colonoscopy 1965 FIT 1965 FOBT 1965 HIV Screening 1965 Sigmoidoscopy 1965 Pap Smear 1984 Cervical Cancer Screening 1993 HPV/Cotest 1993 Pneumococcal Vaccine: 50+ Years (1 of 1 - PCV) 2013 COVID-19 Vaccine ( season) 2024 08/05/2022, 07/23/2021, 04/25/2021, Additional history exists Dental Oral Exam 06/05/2024 12/03/2023 Dental Prophylaxis 06/05/2024 12/03/2023 SDOH Screening 11/23/2024 11/24/2023 Dental X-Ray: Bitewings 12/03/2024 12/03/2023 Depression Screening 04/12/2025 04/12/2024, 04/12/20 24 Mammogram 04/25/2025 04/25/2024, 04/07, 04/23/2023, Additional history exists Tobacco Screening 05/25/2025 05/25/2024 Alcohol/Substance Use Screening 07/14/2025 07/14/2024 Colorectal Cancer Screening 03/03/2026 FIT DNA/Cologuard 03/03/2026 03/03/2023 Dental X-Ray: Full Mouth 12/03/2026 12/03/2023 DTaP/Tdap/Td Vaccines (3 - Td or Tdap) 10/21/2028 10/21/2018, 02/08/2018 Lipid Panel 11/19/2028 11/20/2023, 10/21/2022 RSV Patients and Patients Aged 60 years or older (1 - 1-dose 75+ series) 2038 Hepatitis C Screening Completed 11/22/2021 Zoster Vaccines Completed 02/26/2023, 12/18/2022 Influenza Vaccine Completed 07/14/2024, , 06/30/2022, Additional history exists HIB Vaccines Aged Out No longer eligi ble based on patient's age to complete this topic HPV Vaccines Aged Out No longer eligi ble based on patient's age to complete this topic Hepatitis A Vaccines Aged Out No long er eligible based on patient's age to complete this topic Hepatitis B Vaccines Aged Out No long er eligible based on patient's age to complete this topic IPV Vaccines Aged Out No longer eligi ble based on patient's age to complete this topic Meningococcal Vaccine Aged Out No johan jessica eligible based on patient's age to complete this topic RSV under 20 months Aged Out No longe r eligible based on patient's age to complete this topic Rotavirus Vaccines Aged Out No longer eligible based on patient's age to complete this topic Procedures Procedure Name Priority Date/Time Associated Diagnosis Comments BI MAMMOGRAM SCREENING TOMOSYNTHESIS BILATERAL Routine 04/25/2024 11:50 AM EDT Preventative health care Breast cancer screening by mammogram PROPHYLAXIS - ADULT Routine 12/03/2023 1 :00 PM EDT INTRAORAL - COMPLETE SERIES OF RADIOGRAPHIC IMAGES Routine 12/03/2023 1:00 PM EDT PERIODIC ORAL EVALUATION - ESTABLISHED PATIENT Routine 12/03/2023 1:00 PM EDT LIPID PANEL, STANDARD Routine 11/20/2023 9:46 AM EDT HM FIT DNA/COLOGUARD CANCER SCREENING Routine 03/03/2023 ZZZ HISTORICAL HEPATITIS C AB W/REFL TO HCV RNA, QN, PCR Routine 11/22/2021 12:00 AM EDT from Last 3 Months or Most Recently Relevant to Health Maintenance Results * BI Mammogram Screening Tomosynthesis Bilateral (04/25/2024 11:50 AM EDT) Anatomical Region Laterality Modality Breast Bilateral Mammography 04/25/2024 11:5 0 AM EDT Narrative 05/23/2024 10:05 AM EDT ? [facility] [place] ? [address] ?[place] [id number] ? Mammography Report ? Signed ? Patient: Adrianne Salomon ?MR#: [id number] ?? [id number] ? : 1965 ?Acct:[id number] ? Age/Sex: 58 / F ?ADM Date: 08/19/24 ? Loc: HO.MAMMO ? Attending Dr: Efrain Aponte MD ? Ordering Physician: Efrain Aponte MD ?Resu ?? lts: 2Benign Findings ? Date of Service: 04/25/24 ?Follow Up: 1 Year From Orig ?? inal Mammogram ? Procedure(s): MM tomosynthesis screening BI ?? Accession Number(s): [id number] ? cc: Efrain Aponte MD ? EXAMINATION: ?? MM SCREENING DIGITAL BREAST TOMOSYNTHESIS, BILATERAL ? CLINICAL INFORMATION: ? Screening. Asymptomatic. ? COMPARISON: ?? Mammography: This study is compared with prior exams dating back to ? 2019. ? TECHNIQUE: ?? Digital breast tomosynthesis is performed in both the craniocaudal and ?? mediolateral oblique views along with computer-aided detection (CAD). ? Synthesized 2D images are generated from the tomosynthesis. ? FINDINGS: ?? There are scattered areas of fibroglandular density (ACR BI-RADS breast ?? composition Category b). ? There are no significant masses, abnormal calcifications, or other ?? abnormalities. ?? This is benign, partially calcified ? MM/MM tomosynthesis screening BI ?? IMPRESSION: ?? No mammographic evidence of malignancy. ? ASSESSMENT: ? BI-RADS BI-RADS 2 - Benign Findings ? RECOMMENDATION: ?? Routine annual mammography screening. ? 1 year F/U ? This examination should not preclude the clinical evaluation of a ?? suspicious palpable abnormality. ? This patient's information was entered into a reminder system with a ?? target due date for their next mammogram. ? Electronically signed by: ??Pau Sims MD ??05/23/2024 10:02 AM EDT RP ? Dictated By: ?Pau Sims MD ? Signed By: ?<Electronically signed by Pau Sims MD in OV> ? 05/23/24 1002 ? DD/ 1150 ? TD/TT: 04/25/24 1209 ? Blade Grader Operator: ? Procedure Note Donotuseinterpreter, Image - 05/23/2024 [facility] [address] [place] [address] [place] [address] Mammography Report Signed Patient: Adrianne Salomon DMR#: [id number] : 1965Acct:[id number] Age/Sex: 58 / FADM Date: 04/25/24 Loc: HO.MAMMO Attending Dr: Efrain Aponte MD Ordering Physician: Efrain Aponte MDResu lts: 2Benign Findings Date of Service: 04/25/24Follow Up: 1 Year From Orig inal Mammogram Procedure(s): MM tomosynthesis screening BI Accession Number(s): [id number] cc: Efrain Aponte MD EXAMINATION: MM SCREENING DIGITAL BREAST TOMOSYNTHESIS, BILATERAL CLINICAL INFORMATION: Screening. Asymptomatic. COMPARISON: Mammography: This study is compared with prior exams dating back to 2019. TECHNIQUE: Digital breast tomosynthesis is performed in both the craniocaudal and mediolateral oblique views along with computer-aided detection (CAD). Synthesized 2D images are generated from the tomosynthesis. FINDINGS: There are scattered areas of fibroglandular density (ACR BI-RADS breast composition Category b). There are no significant masses, abnormal calcifications, or other abnormalities. This is benign, partially calcified MM/MM tomosynthesis screening BI IMPRESSION: No mammographic evidence of malignancy. ASSESSMENT: BI-RADS BI-RADS 2 - Benign Findings RECOMMENDATION: Routine annual mammography screening. 1 year F/U This examination should not preclude the clinical evaluation of a suspicious palpable abnormality. This patient's information was entered into a reminder system with a target due date for their next mammogram. Electronically signed by: Pau Sims MD 05/23/2024 10:02 AM EDT Dictated By: Pau Sims MD Signed By: <Electronically signed by Pau Sims MD in OV> 05/23/24 1002 DD/ 1150 TD/TT: 04/25/24 1209 Blade Grader Operator: us Efrain White MD IMG BI PROCEDURES Sean antonio Result - Final * (ABNORMAL) Lipid Panel, Standard (11/20/2023 9:46 AM EDT) Triglycerides 76 <150 mg/dL [facility] Comment:Desirable Triglyceri de: less than 150 mg/dLBorderline High Triglyceride 150-199 mg/dLHigh Triglyceride: 200-499 mg/dLVery High Triglyceride: greater than or equal to 5OO mg/dL Cholesterol 247(H) <200 mg/dL [facility] Comment:Desirable Cholestero l: less than 200 mg/dLBorderline High Cholesterol: 200-239 mg/dLHigh Cholesterol: greater than 239 mg/dL LDL Cholesterol Calculated 161(H) <100 mg/dL [facility] Comment:Desirable LDL: less than 100 mg/dLNear Optimal/Above Optimal LDL: 110- 129 mg/dLBorderline High LDL: 130-159 mg/dLHigh LDL: 160-189 mg/dLVery High LDL: greater than or equal to 190 mg/dL HDL Cholesterol 71 >40 mg/dL [facility] Comment:Desirable HDL: great er than 40 mg/dL Note: This HDL assay may give artificially low results in patients with liver disease. 11/20/2023 9:46 AM EDT 11/20/2023 9:46 AM EDT us Generic External Data Provider LAB BLOOD ORDERAB LES Final Result [facility] [address] [place], [place] [phone] * FIT DNA/Cologuard Cancer Screening (03/03/2023) Cologuard Cancer Screen Negative Stool 03/03/2023 Historical Provider HEALTH MAINTENANCE Final Result * HEPATITIS C AB W/REFL TO HCV RNA, QN, PCR (11/22/2021 12:00 AM EDT) HEPATITIS C ANTIBODY NON-REACT CY NON-REACT CY [facility] INDEX 0.01 <1.00 [facility] Comment: ?? HCV antibody was non-reactive. There is no laboratory ?? evidence of HCV infection. ?? In most cases, no further action is required. However, if recent HCV exposure is suspected, a test for HCV RNA (test code 18149) is suggested. ?? For additional information please refer to http://education.[employer]/faq/MBR16z1 (This link is being provided for informational/ educational purposes only.) ?? 11/22/2021 us Efrain White MD HISTORICAL/NON ORDERA BLE LABS Final Result [facility] [address] from Last 3 Months or Most Recently Relevant to Health Maintenance Insurance [facility] [place] [id number] [facility] ST[facility] AD[facility] [id number] , [place] [id number] Care Teams Mineral Industry Teacher Relationship Specialty Start Date End Date Efrain River MD [address] [place] [address] PCP - General Internal Medicine 07/30/21
--- OUTSIDE RECORDS SUMMARY | 2024-10-21 11:26 | XMS_ITS | Encounter Summary ---
Author Organization [employer] Address [address] [place] [address] Care Team Providers Care Finishing Frame Runner Name Role Phone Efrain River MD Primary Care Provide r Reason for Visit * Reason Onset Date Comments Appointment 11/17/2022 Encounter Details Date Type Department Care Team (Late st Contact Info) Description 11/17/2022 Telephone [facility] [address] [place] [address] Paul Romero, DDS [address] [place] [address] Appointment Social History Tobacco Use Types Packs/Day Years Used Date Smoking Tobacco: Never Smokeless Tobacco: Never Depression Answer Date Recorded Patient Health Questionnaire-9 Score 0 11/04/2022 Depression Answer Date Recorded Patient Health Questionnaire-2 Score 0 11/04/2022 Comments Unknown Sex and Gender Information Value Date Recorded Sex Assigned at Female 07/07/2022 10:19 AM EDT Legal Sex Female 10:19 AM EDT Gender Identity Female 07/07/2022 10:19 AM EDT Sexual Orientation Straight 07/07/2022 10 :19 AM EDT COVID-19 Exposure Response Date Recorded In the last 10 days, have yo u been in contact with someone who was confirmed or suspected to have Coronavirus/COVID-19? No / Unsure 11/19/2022 1:01 PM EDT documented as of this encounter Miscellaneous Notes * Telephone Encounter - Ana Rosa Levy - 11/17/2022 10:19 AM EDT Patient is calling to confirm if crown is back from lab. Temp crown fell again. She was told to call and verify if in. She is travelling on the so looking to be seen before that date for delivery. documented in this encounter Plan of Treatment Upcoming Encounters Date Type Department Care Team (Late st Contact Info) Description 11/10/2024 11:15 AM EST Office Visit [facility] [address] [place] [address] Efrain River MD [address] [place], [place] [phone] documented as of this encounter Visit Diagnoses Not on filedocumented in this encounter Additional Health Concerns Assessment Noted Time PHQ-9 Depression Total Score: 0 11/04/19 23 10:17 AM EST documented as of this encounter Care Teams Finishing Frame Runner Relationship Specialty Start Date End Date Efrain River MD [address] [place] [address] PCP - General Internal Medicine 07/30/21 documented as of this encounter
--- OUTSIDE RECORDS SUMMARY | 2024-10-21 11:26 | XMS_ITS | Encounter Summary ---
Author Organization [employer] [facility] Address [address] [place] [address] [address] [place] [address] Care Team Providers Care Multigraph Operator Name Role Phone Efrain River MD Primary Care Provide r Encounter Details Date Type Department Care Team (Latest Contact Info) Description 07/09/2022 Abstract [facility] CONVERSIONS Dental, Provider, DDS Social History Tobacco Use [...] Description 11/10/2024 11:15 AM EST Office Visit [facility] [address] [place] [address] Efrain River MD [address] [place] [address] documented as of this encounter Visit Diagnoses Not on filedocumented in this encounter Care Teams Multigraph Operator Relationship Specialty Start Date End Date Efrain River MD [address] [place] [address] PCP - General Internal Medicine 07/30/21 documented as of this encounter
--- OUTSIDE RECORDS SUMMARY | 2024-10-21 11:26 | XMS_ITS | Encounter Summary ---
Author Organization [facility] Address [address] [place] [address] 7t [place] [address] Care Team Providers Care Edgerman Name Role Phone Efrain River MD Primary Care Provide r Encounter Details Date Type Department Care Team (Late st Contact Info) Description 05/18/2023 Abstract [facility] MEDICINE [address] [place] [address] [phone] Efrain River MD [address] [place] [address] [phone] Social History Tobacco Use Types Packs/Day Years Used Date Smoking Tobacco: Never Passive Smoke Exposure: Never Smokeless Tobacco: Never Depression Answer Date [...] 11:15 AM EST Office Visit [facility] [address] [place] [address] [phone] Efrain River MD [address] [place] [phone] documented as of this encounter Procedures Procedure Name Priority Date/Time Associated Diagnosis Comments MAMMOGRAPHY Routine 04/23/2023 documented in this encounter Results * Mammography (04/23/2023) Mammogram BI-RADS 2 - Benign Findings Anatomical Region Laterality Modality Other Efrain White MD HEALTH MAINTENANCE nal Result documented in this encounter Visit Diagnoses Not on filedocumented in this encounter Additional Health Concerns Assessment Noted Time PHQ-9 Depression Total Score: 0 11/04/19 23 10:17 AM EST documented as of this encounter Care Teams Edgerman Relationship Specialty Start Date End Date Efrain River MD [address] [place] [address] PCP - General Internal Medicine 07/30/21 documented as of this encounter
--- OUTSIDE RECORDS SUMMARY | 2024-10-21 11:26 | XMS_ITS | Encounter Summary ---
Author Organization [facility] Address [address] [place] [address] 7t [place] [address] Care Team Providers Care Scalper Operator Name Role Phone Efrain River MD Primary Care Provide r Encounter Details Date Type Department Care Team (Latest Contact Info) Description 11/05/2020 Abstract [facility] CONVERSIONS Dental, Provider, DDS Social [...] Description 11/10/2024 11:15 AM EST Office Visit [facility] MEDICINE [address] [place] [address] Efrain River MD [address] [place] [address] documented as of this encounter Visit Diagnoses Not on filedocumented in this encounter Care Teams Scalper Operator Relationship Specialty Start Date End Date Efrain River MD [address] [place] [address] PCP - General Internal Medicine 07/30/21 documented as of this encounter
== END 2024-10-21 11:23 | disposition home or self-care (01) ==
PROVIDERS: PCP Internal Medicine; Visit Provider Physician Assistant Surgical
DX: E66.3 Overweight (principal); Z68.27 Body mass index [BMI] 27.0-27.9, adult; Z90.3 Acquired absence of stomach [part of]; Z98.84 Bariatric surgery status
CPT/HCPCS: 99213

== ENCOUNTER → 2024-10-21 10:38 | Outpatient (BNVA) | payer MEDICARE, MEDICAID, SELFPAY | PROVIDERS: PCP Internal Medicine; Visit Provider Physician Assistant Surgical | DX: I10 Essential (primary) hypertension (principal); E78.00 Pure hypercholesterolemia, unspecified; K74.00 Hepatic fibrosis, unspecified; Z98.84 Bariatric surgery status | CPT/HCPCS: 99212 ==

== ENCOUNTER 2024-11-07 08:00 | Outpatient (REF) | payer MEDICARE, MEDICAID, SELFPAY ==
--- OUTSIDE RECORDS SUMMARY | 2024-11-07 08:06 | XMS_ITS | Encounter Summary ---
Author Organization [facility] Address [address] [place] [address] 7t [place] [address] Care Team Providers Care Production Engine Repairer Name Role Phone Efrain River MD Primary Care Provide r Encounter Details Date Type Department Care Team (Latest Contact Info) Description 11/05/2020 Abstract [facility] CONVERSIONS Dental, Provider, DDS Social History Tobacco [...] 11/10/2024 11:15 AM EST Office Visit [facility] MEDICINE [address] [place] [address] Efrain River MD [address] [place] [address] documented as of this encounter Visit Diagnoses Not on filedocumented in this encounter Care Teams Production Engine Repairer Relationship Specialty Start Date End Date Efrain River MD [address] [place] [address] PCP - General Internal Medicine 07/30/21 documented as of this encounter
--- OUTSIDE RECORDS SUMMARY | 2024-11-07 08:06 | XMS_ITS | Encounter Summary ---
Author Organization [employer] Address [address] [facility] 7t [place] [address] Care Team Providers Care Train Starter Name Role Phone Efrain River MD Primary Care Provide r Reason for Visit * Reason Onset Date Comments Appointment 11/17/2022 Encounter Details Date Type Department Care Team (Late st Contact Info) Description 11/17/2022 Telephone [facility] [address] [place] [address] Paul Romero, DDS [address] [place] [address] Appointment Social History Tobacco Use Types Packs/Day [...] Description 11/10/2024 11:15 AM EST Office Visit [facility] MEDICINE 230 [place] [address] Efrain River MD [address] [place], [place] [phone] documented as of this encounter Visit Diagnoses Not on filedocumented in this encounter Additional Health Concerns Assessment Noted Time PHQ-9 Depression Total Score: 0 11/04/19 23 10:17 AM EST documented as of this encounter Care Teams Train Starter Relationship Specialty Start Date End Date Efrain River MD [address] [place] [address] PCP - General Internal Medicine 07/30/21 documented as of this encounter
--- OUTSIDE RECORDS SUMMARY | 2024-11-07 08:06 | XMS_ITS | Encounter Summary ---
Author Organization [facility] Address [address] [place] [address] 7t [place] [address] Care Team Providers Care Insurance Licensing Supervisor Name Role Phone Efrain River MD Primary Care Provide r Encounter Details Date Type Department Care Team (Late st Contact Info) Description 05/18/2023 Abstract [facility] MEDICINE [address] [place] [address] [phone] Efrain River MD [address] [place] [address] [phone] Social History Tobacco Use Types Packs/Day Years [...] Description 11/10/2024 11:15 AM EST Office Visit [facility] MEDICINE [address] [place] [address] [phone] Efrain River MD [address] [place] [address] documented as of this encounter Procedures [...] documented as of this encounter Care Teams Insurance Licensing Supervisor Relationship Specialty Start Date End Date Efrain River MD [address] [place] [address] PCP - General Internal Medicine 07/30/21 documented as of this encounter
--- OUTSIDE RECORDS SUMMARY | 2024-11-07 08:06 | XMS_ITS | Encounter Summary ---
Author Organization [facility] Address [address] [place] [address] 7t [place] [address] Care Team Providers Care All Terrain Vehicle Technician Name Role Phone Efrain River MD Primary Care Provide r Encounter Details Date Type Department Care Team (Late st Contact Info) Description 08/12/2022 Abstract [facility] ADULT DENTAL [address] [place], [place] [phone] Dental, Provider, DDS Social History Tobacco Use [...] Description 11/10/2024 11:15 AM EST Office Visit [facility] MEDICINE 230 [place] [address] Efrain River MD 230 [place] [address] documented as of this encounter Procedures Procedure Name Priority Date/Time Associated Diagnosis Comments 3 MOD COMPOSITE FILLING Routine 08/12/2022 12:00 AM EST 21 B(V) COMPOSITE FILLING Routine 08/12/2022 12:00 AM EST 2 MOL COMPOSITE FILLING Routine 08/12/2022 12:00 AM EST 9 ROOT CANAL Routine 08/12/2022 12:00 AM EST documented in this encounter Visit Diagnoses Not on filedocumented in this encounter Care Teams All Terrain Vehicle Technician Relationship Specialty Start Date End Date Efrain River MD [address] [place] [address] PCP - General Internal Medicine 07/30/21 documented as of this encounter
--- OUTSIDE RECORDS SUMMARY | 2024-11-07 08:06 | XMS_ITS | Encounter Summary ---
Author Organization [employer] Address [address] [facility] 7t [place] [address] Care Team Providers Care Stationary Equipment Mechanic Name Role Phone Efrain River MD Primary Care Provide r Reason for Visit * Reason Comments Pre-visit Planning SDOH Screening negat bakari and Tobacco screening negative Encounter Details Date Type Department Care Team ([facility] st Contact Info) Description 11/01/2024 Patient Outreach [facility] MEDICINE 230 [place] [address] Efrain River MD 230 [place], [place] [phone] Pre-visit Planning (SDOH Screening negative and Tobacco screening negative) Social History Tobacco Use Types Packs/Day Years Used Date Smoking Tobacco: Never Passive Smoke Exposure: Never Smokeless Tobacco: Never Depression Answer Date Recorded Patient Health Questionnaire-9 Score 0 04/12/2024 Patient Health Questionnaire-9 Score 0 04/12/2024 Last PHQ-9: Questionnaire Data Not on file 0 04/12/2024 Housing Stability Answer Date Recorded What is your housing situation today? I have sara sherwood 11/24/[address] you [...] Recorded Patient Health Questionnaire-2 Score 0 04/12/2024 Internet Access Answer Date Recorded Internet Access Q1 Yes 11/01/2024 Internet Access Q2 Not on file 11/01/2024 Comments Unknown Sex and Gender Information Value Date Recorded Sex Assigned at Female 07/07/2022 10:19 AM EDT Legal Sex Female 10:19 AM EDT Gender Identity Female 07/07/2022 10:19 AM EDT Sexual Orientation Straight 07/07/2022 10 :19 AM EDT documented as of this encounter Progress Notes * Ivette Eubanks - 11/01/2024 1:57 PM EST MORRIS Schneider placed successful outbound call to patient for pre-visit planning. Patient name and confirmed. Patient confirms appt date and time, and has transportation arrangements. Biggest concern for appointment at this time is no concerns at the moment. Patient advised to bring to appointment a photo id and insurance card. Appropriate screenings completed in anticipation of appointment. documented in this encounter Plan of Treatment Upcoming Encounters Date Type Department Care Team (Late st Contact Info) Description 11/10/2024 11:15 AM EST Office Visit [facility] MEDICINE [address] [place] [address] Efrain River MD [address] [place] [address] documented as of this encounter Visit Diagnoses Not on filedocumented in this encounter Additional Health Concerns Assessment Noted Time PHQ-9 Depression Total Score: 0 04/12/20 24 2:17 PM EDT documented as of this encounter Care Teams Stationary Equipment Mechanic Relationship Specialty Start Date End Date Efrain River MD [address] [place] [address] PCP - General Internal Medicine 07/30/21 documented as of this encounter
--- OUTSIDE RECORDS SUMMARY | 2024-11-07 08:06 | XMS_ITS | Encounter Summary ---
Author Organization [facility] Address [address] [place] [address] 7t [place] [address] Care Team Providers Care Party Plan Sales Director Name Role Phone Efrain River MD Primary Care Provide r Encounter Details Date Type Department Care Team (Latest Contact Info) Description 07/09/2022 Abstract [facility] CONVERSIONS Dental, Provider, DDS Social History Tobacco [...] Description 11/10/2024 11:15 AM EST Office Visit [facility] MEDICINE [address] [place] [address] Efrain River MD [address] [place] [address] documented as of this encounter Visit Diagnoses Not on filedocumented in this encounter Care Teams Party Plan Sales Director Relationship Specialty Start Date End Date Efrain River MD [address] [place] [address] PCP - General Internal Medicine 07/30/21 documented as of this encounter
--- OUTSIDE RECORDS SUMMARY | 2024-11-07 08:06 | XMS_ITS | Continuity of Care Document ---
Author Organization [facility] Address [address] [facility] [address] [place] [address] Phone Care Team Providers Care Underwriting Service Representative Name Role Phone Kaiden Gabriel MD Unavailable [...] Copied on Encounter [facility], [address] [place] [address] [address], [place], [id number], [place] tel:[phone] [facility] Office No Information 0 2 Nery Richey. [address] [facility] [address], [place], [id number]. tel:[phone] Follow-up, Comprehensive [facility], [address] [facility] [address], [place], [id number], [place] tel:[phone] [facility] Office back pain (chief complaint) SHOULDER REGION DIS NECLumbar Thoracic Radicular Pain, NOSCarpal Tunnel Syndrome 2 No Information Follow-up, Detailed [facility], [address] [place] [address], [id number], tel:[phone] [facility] Office back pain (chief complaint) Lumbar Thoracic Radicular Pain, NOSCarpal Tunnel SyndromeCervi radha Degenerative Disc Disease 2 No Information Follow-up, Detailed [facility], [address] [place] [address], [id number], [place] tel:[phone] [facility] Office thoracic back pain (chief complaint) low back pain (chief complaint) No Information 2 No Information New Pt, Moderate 45min [facility], [address] [place] [address], [id number], tel:[phone] [facility] Office low back pain (chief complaint) thoracic back pain (chief complaint) Lumbar Thoracic Radicular Pain, NOSCarpal Tunnel SyndromeCervi radha Degenerative Disc Disease 2 No Information WARNING: Some information has been stripped due to its sensitive nature Family History Family Member Type Diagnosis Age At Onset No Information Payers Payer name Insurance type Covered democrat ID Aby cuadra(s) WC Kena [facility] [id number] Social History Type Description Quantity Date Captured [...]
--- OUTSIDE RECORDS SUMMARY | 2024-11-07 08:06 | XMS_ITS | Encounter Summary ---
Author Organization [employer] Address [address] [facility] 7t [place] [address] Care Team Providers Care Etcher Apprentice Name Role Phone Efrain River MD Primary Care Provide r Reason for Visit * Reason Onset Date Comments Chart Prep 10/27/2024 Encounter Details Date Type Department Care Team ([facility] st Contact Info) Description 10/27/2024 Telephone [facility] MEDICINE [address] [place] [address] Efrain River MD [address] [place] [address] Chart Prep Social History Tobacco Use Types Packs/Day Years [...] AM EDT documented as of this encounter Miscellaneous Notes * Telephone Encounter - Yanira William [place] - 10/27/2024 10:56 AM EST Chart Prep Labs: not done Images: done Vaccines due: Covid Due and PCV20 Due Referrals: Orthopedics Completed Screenings: PAP and HIV screening Overdue care gaps: SDNC Chart prep for upcoming appt with Dr.Esparza alvarado. LB documented in this encounter Plan of Treatment Upcoming Encounters Date Type Department Care Team (Late st Contact Info) Description 11/10/2024 11:15 AM EST Office Visit [facility] MEDICINE [address] [place] [address] Efrain River MD [address] [place] [address] documented as of this encounter Visit Diagnoses Not on filedocumented in this encounter Additional Health Concerns Assessment Noted Time PHQ-9 Depression Total Score: 0 04/12/20 24 2:17 PM EDT documented as of this encounter Care Teams Etcher Apprentice Relationship Specialty Start Date End Date Efrain River MD [address] [place] [address] PCP - General Internal Medicine 07/30/21 documented as of this encounter
--- OUTSIDE RECORDS SUMMARY | 2024-11-07 08:06 | XMS_ITS | Clinical Summary ---
Author Organization [employer] Address [address] [facility] 7t [place] [address] Care Team Providers Care Beet Topper Name Role Phone Efrain River MD Primary [...] AM EST): Evaluated in the past by Help Desk Supervisor Dr. Ashley Pham Used topical minoxidil/clobetasol combination cream and Doxycycline BID in the past Preventative health care 11/04/2022 Assessment & Plan (07/14/2024 11:08 AM EST): Mammogram: 05/23/2024 Normal Pap Smear: Pt is s/p Hysterectomy she has one ovary left 2018 Colonoscopy: Pt claims she had one In [place] in 2016 records unavailable she tells me everything was normal, FOBTS given on 10/30/2021 Cologuard February NEGATIVE (scanned under MEDIA) Assessment & Plan (04/12/2024 2:49 PM EDT): Mammogram: 04/23/2023 Normal Pap Smear: Pt is s/p Hysterectomy she has one ovary left 2018 Colonoscopy: Pt claims she had one In [place] in 2016 records unavailable she tells me everything was normal, FOBTS given on 10/30/2021 Cologuard February NEGATIVE (scanned under MEDIA) Assessment & Plan (04/02/2023 10:49 AM EDT): Mammogram: 04/10/2022 Normal Pap Smear: Pt is s/p Hysterectomy she has one ovary left 2018 Colonoscopy: Pt claims she had one In [place] in 2016 records unavailable she tells me everything was normal, FOBTS given on 10/30/2021 Cologuard February NEGATIVE Assessment & Plan (11/04/2022 9:03 AM EST): Mammogram: 04/10/2022 Normal Pap Smear: Pt is s/p Hysterectomy she has one ovary left 2018 Colonoscopy: Pt claims she had one In [place] in 2016 records unavailable she tells me everything was normal, FOBTS given on 10/30/2021 Hives of unknown origin 11/04/2022 Assessment & Plan (11/04/2022 10:32 AM EST): Pt with c/o intermittent hives, for at least 4 months. Uses antihistaminics PRN, Has an Epi pen Plan: will refer to home care specialist Mixed hyperlipidemia 11/03/2022 Assessment & Plan [...] Encounters Date Type Department Care Team Description 11/01/2024 Patient Outreach [facility] MEDICINE [address] [place] [address] Efrain River MD Pre-visit Planning (SDOH Screening negative and Tobacco screening negative) 10/27/2024 Telephone [facility]IC[facility] [address] [place] [address] Efrain River MD Chart Prep 09/13/2024 Refill [facility] [address] [place] [address] Efrain River MD 09/09/2024 Telephone [facility] [address] [place], [place] [phone] Amarjit Santos 08/29/2024 Telephone [facility] [address] [place] [address] Jovani Chew from Last 3 Months Immunizations Name Administration [...] Tobacco: Never Tobacco Cessation:Counseling Given: Not Answered Depression Answer Date Recorded Patient Health Questionnaire-9 [...] Description 11/10/2024 11:15 AM EST Office Visit [facility] MEDICINE [address] [place] [address] Efrain River MD [address] [place] [address] Health Maintenance Due Date Last Done Comments CT Colonography 1963 Colonoscopy 1963 FIT 1963 HIV Screening 1965 Sigmoidoscopy 1965 Pap Smear 1984 Cervical Cancer Screening 1993 HPV/Cotest 1993 Pneumococcal Vaccine: 50+ Years (1 of 1 - PCV) 2013 FOBT 03/03/2024 03/03/2023 COVID-19 Vaccine ( season) 2024 08/05/2022, 07/23/2021, 04/25/2021, Additional history exists Dental Oral Exam 06/05/2024 12/03/2023 Dental Prophylaxis 06/05/2024 12/03/2023 Dental X-Ray: Bitewings 12/03/2024 12/03/2023 Depression Screening 04/12/2025 04/12/2024, 04/12/20 Mammogram 04/25/2025 04/25/2024, 04/07, 04/23/2023, Additional history exists Tobacco Screening 05/25/2025 05/25/2024 Alcohol/Substance Use Screening 07/14/2025 07/14/2024 SDOH Screening 11/01/2025 11/01/2024 Colorectal Cancer Screening 03/03/2026 FIT DNA/Cologuard 03/03/2026 [...] EDT Narrative 05/23/2024 10:05 AM EDT ? [facility] [place] ? [address] ?[place] [address] ? Mammography Report ? Signed ? Patient: RamirezAdrianne Lorenz ?MR#: [id number] ?? [id number] ? : 1965 ?Acct:[id number] ? Age/Sex: 58 / F ?ADM Date: 08/19/24 ? Loc: HO.MAMMO ? Attending Dr: Efrain Aponte MD ? Ordering Physician: Efrain Aponte MD ?Resu ?? lts: 2Benign Findings ? Date of Service: 04/25/24 ?Follow Up: 1 Year From Orig ?? inal Mammogram ? Procedure(s): MM tomosynthesis screening BI ?? Accession Number(s): [id number] ? cc: Efrain Aponte MD ? EXAMINATION: [...] DD/ 1150 ? TD/TT: 04/25/24 1209 ? Yeast Maker: ? Procedure Note Donotuseinterpreter, Image - 05/23/2024 [facility] [address] [place] [address] Mammography Report Signed Patient: Adrianne Salomon DMR#: [id number] : 1965Acct:[id number] Age/Sex: 58 / FADM Date: 04/25/24 Loc: HO.MAMMO Attending Dr: Efrain Aponte MD Ordering Physician: Efrain Aponte MDResu lts: 2Benign Findings Date of Service: 04/25/24Follow Up: 1 Year From Orig inal Mammogram Procedure(s): MM tomosynthesis screening BI Accession Number(s): [id number] cc: Efrain Aponte MD EXAMINATION: MM SCREENING [...] Pau Sims MD 05/23/2024 10:02 AM EDT RP Dictated By: Pau Sims MD Signed By: <Electronically signed by Pau Sims MD in OV> 05/23/24 1002 DD/ 1150 TD/TT: 04/25/24 1209 Yeast Maker: us Efrain White MD IMG BI PROCEDURES Sean antonio Result - Final * (ABNORMAL) Lipid Panel, Standard (11/20/2023 9:46 AM EDT) Triglycerides 76 <150 mg/dL [facility] Comment:Desirable Triglyceri de: less than 150 mg/dLBorderline High Triglyceride 150-199 mg/dLHigh Triglyceride: 200-499 mg/dLVery High Triglyceride: greater than or equal to 5OO mg/dL Cholesterol 247(H) <200 mg/dL [facility] Comment:Desirable Cholestero l: less than 200 mg/dLBorderline High Cholesterol: 200-239 mg/dLHigh Cholesterol: greater than 239 mg/dL LDL Cholesterol Calculated 161(H) <100 mg/dL [facility] Comment:Desirable LDL: less than 100 mg/dLNear Optimal/Above Optimal LDL: 110- 129 mg/dLBorderline High LDL: 130-159 mg/dLHigh LDL: 160-189 mg/dLVery High LDL: greater than or equal to 190 mg/dL HDL Cholesterol 71 >40 mg/dL [facility] Comment:Desirable HDL: great er than 40 mg/dL Note: This HDL assay may give artificially low results in patients with liver disease. 11/20/2023 9:46 AM EDT 11/20/2023 9:46 AM EDT us Generic External Data Provider LAB BLOOD ORDERAB LES Final Result [facility] [address] [place] [phone] * FIT DNA/Cologuard Cancer Screening (03/03/2023) Cologuard Cancer Screen Negative Stool 03/03/2023 Historical Provider MD HEALTH MAINTENANCE Final Result * HEPATITIS C AB W/REFL TO HCV RNA, QN, PCR (11/22/2021 12:00 AM EDT) HEPATITIS C ANTIBODY NON-REACT CY NON-REACT CY [facility] INDEX 0.01 <1.00 [facility] Comment: ?? HCV antibody was non-reactive. There is no laboratory ?? evidence of HCV infection. ?? In most cases, no further action is required. However, if recent HCV exposure is suspected, a test for HCV RNA (test code 19452) is suggested. ?? For additional information please refer to http://Joox.Loylap/faq/JDJ77b3 (This link is being provided for informational/ educational purposes only.) ?? 11/22/2021 Efrain White MD HISTORICAL/NON ORDERA BLE LABS Final Result [facility] [address] from Last 3 Months or Most Recently Relevant to Health Maintenance [place] [address] [address] [place] [address] STANDARD [employer] PPO DENTAL-[facility] MEDICAID STAND ADULT DENTAL - [employer]ET[employer] DENTAL PPO Care Teams Beet Topper Relationship Specialty Start Date End Date Efrain River MD [address] [place] [address] PCP - General Internal Medicine 07/30/21
[2024-11-07 08:29] LABS: MANUAL DIFF FLAG NO
[2024-11-07 09:08] LABS: Basophils Absolute Auto 0.1 X10*3/uL (0.0-0.2); Basophils Percent Auto 0.9 % (0-2); Eosinophils Absolute Auto 0.4 X10*3/uL (0.0-0.4); Eosinophils Percent Auto 4.2 % (0-4); Hematocrit 39.7 % (37.0-47.0); Imm Gran Abs Auto 0.03 X10*3/uL (0.00-0.03); Imm Gran Pct Auto 0.4 % (0.0-0.4); Lymphocytes Absolute Auto 3.4 X10*3/uL (1.2-4.9); Lymphocytes Percent Auto 39.8 % (20-40); Mean Corpuscular HGB Conc 32.7 g/dl (31.0-35.0); Mean Corpuscular Hemoglobin 29.5 pg (27.0-33.0); Mean Corpuscular Volume 90.2 fL (80.0-98.0); Mean Platelet Volume 9.3 fL (9.4-12.3); Monocytes Absolute Auto 0.7 X10*3/uL (0.1-1.2); Monocytes Percent Auto 7.8 % (2-11); Neutrophils Percent Auto 46.9 % (45-73); Platelet Count 365 X10*3/uL (160-400); Red Cell Distribution Width 13.2 % (11.0-16.0); White Blood Count 8.6 X10*3/uL (4.8-10.8)
[2024-11-07 09:20] LABS: Estimated Average Glucose 111 mg/dL; Hemoglobin A1C 121.5801 umol/L; Hemoglobin A1c % 5.5 % (<6.0); Total Hemoglobin (HGBA1C) 3367.6066 umol/L
[2024-11-07 09:42] LABS: Alanine Aminotransferase 15 U/L (0-31); Albumin Level 4.2 g/dL (3.5-5.0); Alkaline Phosphatase 54 U/L (39-117); Anion Gap 11 (12-20); Aspartate Amino Transferase 22 U/L (5-31); Bilirubin Total 0.8 mg/dL (0.0-1.0); Blood Urea Nitrogen 10 mg/dL (9-16); C Reactive Protein 0.22 mg/dL (< or = 0.50); Calcium 9.4 mg/dL (8.4-10.2); Carbon Dioxide 29 mmol/L (22-29); Chloride 105 mmol/L (96-108); Cholesterol 235 mg/dL (<200); Estimated Glomerular Filt Rate > 60; Glucose Random 104 mg/dL (60-115); HDL Cholesterol 71 mg/dL (>40); Iron 91 mcg/dL (30-160); LDL Cholesterol Calculated 148 mg/dL (<100); Percent Iron Saturation 35 % (15-50); Sodium 141 mmol/L (135-145); Total Iron Binding Capacity 260 mcg/dL (228-428); Total Protein 7.9 g/dL (6.5-8.0); Triglycerides 84 mg/dL (<150); Unsaturated Iron Binding 169 ug/dL
[2024-11-07 09:59] LABS: Ferritin 71 ng/mL (10-250); TSH reflex Free T4 1.24 uIU/mL (0.32-4.0); Vitamin D 25-OH Total 48.5 ng/mL (>30)
[2024-11-07 10:01] LABS: Folate 15.5 ng/mL (> or = 4.0); Vitamin B12 1026 pg/mL (200-900)
[2024-11-07 10:45] LABS: Insulin 6 uU/mL (2-29)
[2024-11-10 13:18] LABS: Vitamin A 56 mcg/dL (38-98)
[2024-11-10 13:47] LABS: Zinc 81 mcg/dL (60-130)
[2024-11-14 05:58] LABS: Vitamin B1 16 nmol/L (8-30)
== END 2024-11-07 08:01 | disposition home or self-care (01) ==
LOC: HO.LAB 08:00
PROVIDERS: PCP Internal Medicine; Visit Provider Physician Assistant Surgical
DX: E78.00 Pure hypercholesterolemia, unspecified (principal); I10 Essential (primary) hypertension; K74.00 Hepatic fibrosis, unspecified; Z98.84 Bariatric surgery status; Z13.1 Encounter for screening for diabetes mellitus
CPT/HCPCS: 36415; 80053; 80061; 82306; 82607; 82728; 82746; 83036; 83525; 83540; 84425; 84443; 84590; 84630; 85025; 86140

== ENCOUNTER 2025-04-08 13:03 | Inpatient (IN) | payer MEDICARE, MEDICAID, SELFPAY ==
--- NOTE | ~2025-04-08 | CT_ITS ---
CLINICAL HISTORY: strep throat b l tonsillar swelling R>L r o [employer] CT soft tissue neck with intravenous contrast: Comparison: 09/14/2023 Findings: Normal visualized intracranial contents, orbits, paranasal sinuses, and mastoid air cells. Normal prevertebral soft tissues and paraspinous musculature. Enlarged bilateral level 2 deep fascia are lymph nodes are present, example: 2.2 x 1.7 cm lymph node adjacent to left carotid bifurcation. Auto Vinyl Top Installer spaces are normal. Parapharyngeal tonsils are enlarged . Retropharyngeal space is normal. Visualized lungs are normal. There is normal vertebral body alignment. There is no significant degenerative change, fracture, or bone lesion Impression: Enlarged parapharyngeal tonsils with edematous/purulent small coalescing abscesses involving the bilateral tonsillar crypts most of which measure 2-3 mm in diameter. Largest right parapharyngeal tonsillar abscess measures 8.3 mm x 4.4 mm, image 52, series 2. This document has been electronically signed by: Kaiden Pinzon MD on 04/08/2025 16:14:21
--- NOTE | ~2025-04-08 | XR_ITS ---
CLINICAL HISTORY: fever, cough 2 view chest x-ray. Comparison: CT 06/18/2023 Findings: No consolidation. Heart size normal No acute fracture. Impression: Lungs are clear. This document has been electronically signed by: Kaiden Pinzon MD on 04/08/2025 14:43:40
[2025-04-08 13:09] VITALS: BP 127/60; PULSE 111; RESP 18; TEMP 38.7; O2SAT 95; BMI 27.8
--- NOTE | 2025-04-08 13:09 | ED.GENADULT ---
HPI - General Adult General Chief complaint: Fever Stated complaint: fever Time Seen by Provider: 04/08/25 13:32 Source: patient, family () and line palletizer (bahamian - VOYCE) Mode of arrival: ambulatory Limitations: language barrier (bahamian speaking) History of Present Illness ED Provider: MADELINE MEZA PA-C HPI narrative: 59 year old female with pmhx significant for HTN, CHARAN, anxiety, depression, hepatic steatosis presents to the ED today for evaluation of sore throat, odynophagia, productive cough, myalgias, low back pain, and subjective fevers since last night. Her at bedside reports giving patient tylenol/motrin last night as she felt warm . No documented temperature. Denies dysphagia. Able to tolerate solids and liquids with discomfort. Denies any known sick contacts. She reports feeling warm and generally weak this morning, causing a near syncopal episode. Denies fall to the ground or LOC. She was noted to report to triage that she was experiencing urinary frequency. She denies this to me. Denies dysuria, hematuria. Denies abdominal pain, N/V. Related Data Home Medications ?Medication ?Instructions ?Recorded ?Confirmed calcium 315 mg (as 1 tab PO BID 12/13/21 10/21/24 citrate)-vitamin D3 5 mcg (200 unit) tablet (Calcium Citrate + D) hxrixonr-wsmocbyy-dssa 45 mg-folic 1 cap PO DAILY 12/13/21 10/21/24 acid 800 mcg-vit K 120 mcg capsule (Bariatric Multivitamins) iron PO 11/02/23 10/21/24 minoxidil 2.5 mg tablet 2.5 mg PO DAILY alopecia 03/07/24 10/21/24 losartan 25 mg tablet 25 mg PO DAILY 08/17/24 10/21/24 rosuvastatin 5 mg tablet 5 mg PO DAILY 08/17/24 10/21/24 Previous Rx's ?Medication ?Instructions ?Recorded emollient combination no.69 1 appl topical Q6-8H 30 days #226 10/15/20 (Eucerin Skin Calming cream) grams cyclobenzaprine 5 mg tablet 5 mg PO BEDTIME 30 days #30 tabs 05/20/21 polyethylene glycol 3350 17 17 g PO DAILY PRN constipation 04/17/22 gram/dose oral powder (Miralax) #238 grams diphenhydramine HCl 25 mg tablet 25 mg PO TID PRN allergic reaction 06/21/22 (Benadryl Allergy) #14 tabs epinephrine 0.3 mg/0.3 mL 0.3 mg (0.3 mL) IM Q4H PRN 06/21/22 injection, auto-injector (EpiPen anaphylaxis #2 ea 2-Juan Carlos) celecoxib 200 mg capsule (Celebrex) 200 mg PO BID 30 days #60 caps 08/17/24 sennosides 8.6 mg tablet (senna) 17.2 mg (2 x 8.6 mg) PO BEDTIME 90 08/17/24 days #180 tabs Allergies Allergy/AdvReac Type Severity Reaction Status Date / Time atorvastatin AdvReac Intermediate headache Verified 04/08/25 13:11 Review of Systems Review of Systems: Yes all other systems are reviewed and are negative [facility] Past Medical History Attestation statement: The following information was validated with the patient. Source: old records reviewed and nursing notes reviewed Medical History Liver fibrosis Steatosis, liver Depression Anxiety COVID-19 vaccine series completed BMI 34.0-34.9,adult CHARAN (obstructive sleep apnea) Binge-eating disorder, in full remission, moderate BMI 37.0-37.9, adult BMI 36.0-36.9,adult Binge eating disorder Abnormal EKG H. pylori infection Obesity Right knee pain Myalgia Paresthesias Cervicalgia Upper back pain Physical examination of employee Other specified nonscarring hair loss High cholesterol Knee pain, bilateral Rash Primary osteoarthritis of right knee (Unknown) HTN (hypertension) Surgical History S/P laparoscopic sleeve gastrectomy H/O colonoscopy Hx of dilation and curettage History of removal of ovarian cyst History of carpal tunnel release History of partial hysterectomy Family History Family History Father Emphysema lung Mother Afib Hypertension Brother HIV (human immunodeficiency virus infection) Brother Afib Daughter No problems noted. Son No problems noted. Son No problems noted. Daughter No problems noted. Social History Social History Household Members: Spouse Housing: Apartment Are you a primary anesthesiologist and critical care to a significant other at home: No Do you presently have visiting nurse or other home services: No Alcohol intake: never Patient Tobacco Use Status: Former Tobacco user Tobacco use type: Cigarette Advance Directives: No Advance Directives Information Provided: No service: No Current occupational status: unemployed Physical Exam ED Vital Signs: Vital Signs - 24 hr 04/08/25 13:09 04/08/25 15:49 04/08/25 16:20 Temperature 101.6 F H 98.4 F 98.5 F Pulse Rate 111 H 86 89 Respiratory Rate 18 22 H 22 H Blood Pressure 127/60 138/64 124/62 Pulse Oximetry 95 93 93 Oxygen Delivery Method Room Air Room Air Room Air 04/08/25 17:49 Temperature 97.9 F Pulse Rate 84 Respiratory Rate 18 Blood Pressure 124/54 L Pulse Oximetry 95 Oxygen Delivery Method Room Air BMI result Body Mass Index 27.8 tachycardic to 111, febrile to 101.6F, not hypoxic General: Well appearing, in no acute distress. Skin: Warm, dry, intact. No rashes or lesions. Head: Normocephalic, atraumatic. EENT: Hearing is intact b/l. Conjunctiva clear. Sclera is anicteric. PERRLA. EOM intact. Moist mucous membranes.?Posterior oropharynx erythematous with bilateral tonsilar hypertrophy (R>L). No tonsilar exudates. No peritonsilar masses. Uvula midline. Controlling secretions and speaking complete sentences. No muffled voice. Neck: Supple without LAD Cardiac: Chest wall symmetric. RRR Lungs: Normal respiratory effort without accessory muscle use. CTA bilaterally. No rales, rhonchi, or wheezes.? Abdomen: Soft, non-tender, non-distended. No rebound tenderness or guarding. Positive BS x4. no cvat. Back: No midline spinous or paraspinal tenderness. No step off deformity. Ext: Upper and lower extremities atraumatic, without tenderness, deformity, swelling or erythema Neuro: AOx3. Normal speech. NIH 0. Ambulating with steady gait Course Course Course Narrative: This is an RME performed by [employer] LAW REPORTER: Additional HPI, ROS, PE not included below will be deferred to primary provider. Patient is a 59-year-old female who presents emergency department for evaluation she has been experiencing sore throat, back pain, dizziness and feeling off balance with near syncopal this morning, Tactile fevers and chills, urinary frequency. Symptoms since yesterday/ last night. She has been 101.6, tachycardic 111 meeting SIRS criteria, discharge door operator made aware. Plan: Serum labs, group a strep, viral serologies, lactic acid and blood cultures, ECG Reevaluation(s) Reevaluation #1: 1415 -- patient meets SIRs criteria at this time (WBC 25.7, tachycardic, febrile, concern for infection). sepsis called. tylenol given for fever in triage. > lactic/blood cultures pending. ceftriaxone + IVF ordered. 1450 -- leukocytosis to 25.7 with left shift. No anemia. H&H stable. Chemistry without acute electrolyte abnormality requiring intervention. No FREDDY. Random glucose 137. Lactic WNL at 1.8. Liver function around baseline. Troponin WNL at 16.5. ekg showing sinus tachycardia, rate of 108 beats per minute, QT 320, QTC 428, no acute ischemic changes or ST elevations. Chest x-ray without infiltrate or consolidation. Patient tested positive for strep throat. Negative for COVID, flu, RSV. given tonsilar hypertrophy (R>L) + white count of 25.7, will order ct soft tissue neck to r/o [facility]. 1629 -- received call from radiology regarding CT results. CT soft tissues neck showing enlarged parapharyngeal tonsils with edematous/purulent small coalescing abscesses involving the bilateral tonsilar crypts, most of which measure 2-3 mm in diameter. The largest right parapharyngeal tonsilar abscess measures 8.3 mm by 4.4 mm. > patient's airway is patent and she is not in any respiratory distress. temp has normalized to 98.4F after tylenol/ toradol. no longer tachycardic. > spoke with my attending dr. flores regarding case. Given that we do not have ENT coverage at our facility, he recommends reaching out to [facility] for recommendation/ possible transfer. 1800 -- spoke with [facility] Dr. Roa - states that these abscesses are tiny and do not require drainage or any intervention on their part. he is not recommending transfer at this time as patient is stable and airway is patent. recommending treatment with IV antibiotics. Discussed case with Dr. Wilhelm - patient to be admitted to medicine for further treatment. patient and are agreeable. dr. wilhelm to place admission orders. Medications Administered Discontinued Medications Generic Name Dose Route Start Last Admin Trade Name Bryon PRN Reason Stop Dose Admin Acetaminophen 975 mg 04/08/25 13:11 04/08/25 13:34 Acetaminophen 325 Mg Tablet PO 04/08/25 13:12 975 mg ONCE ONE Administration Ceftriaxone Sodium 1 gm 04/08/25 14:13 04/08/25 14:37 Ceftriaxone Sodium 1 Gm Vial IVPUSH 04/08/25 14:14 1 gm ONCE ONE Administration Dexamethasone Sodium Phosphate 10 mg 04/08/25 14:23 04/08/25 14:37 Dexamethasone Sod Phosphate 10 Mg/Ml Vial IVPUSH 04/08/25 14:24 10 mg ONCE ONE Administration Sodium Chloride 1,000 mls @ 999 mls/hr 04/08/25 14:15 04/08/25 15:45 Ns IV 04/08/25 15:15 Infused .Q1H1M FAIZAN Infusion Sodium Chloride 1,000 mls @ 999 mls/hr 04/08/25 16:45 04/08/25 17:55 Ns IV 04/08/25 17:45 Infused .Q1H1M FAIZAN Infusion Iohexol 100 ml 04/08/25 15:10 04/08/25 15:11 Iohexol 350 Mg/Ml 100 Ml Infus..Btl IV 04/08/25 15:11 60 ml ONCE ONE Administration Ketorolac Tromethamine 15 mg 04/08/25 14:13 04/08/25 14:37 Ketorolac Tromethamine 15 Mg/Ml Vial IVPUSH 04/08/25 14:14 15 mg ONCE ONE Administration Medical Decision Making Medical Decision Making MDM Narrative: 59 year old female with pmhx significant for HTN, CHARAN, anxiety, depression, hepatic steatosis presents to the ED today for evaluation of sore throat, odynophagia, productive cough, myalgias, low back pain, and subjective fevers since last night. Initially tachycardic to 111 and febrile to 101.6F on arrival. in NAD. airway patent. on exam, Moist mucous membranes.?Posterior oropharynx erythematous with bilateral tonsilar hypertrophy (R>L). No tonsilar exudates. No peritonsilar masses. Uvula midline. Controlling secretions and speaking complete sentences. No muffled voice. Differential diagnosis includes anemia, electrolyte abnormality, dehydration, viral syndrome, strep throat, peritonsillar abscess, retropharyngeal abscess. Unlikely epiglottitis. Labs, viral/strep swabs, EKG, CXR ordered from triage. Tylenol given. Will add on fluids, abx, and imaging of soft tissues neck. Differential Diagnosis Differential Diagnoses: The differential diagnosis associated with the presentation includes as above. Admission/Observation Consideration of admission/observation: Escalation of care including admission/observation considered patient admitted to medicine for IV antibiotic treatment Consult Healthcare Provider Management of the patient was discussed with: Hospitalist (dr. wilhelm) and Auto Body Worker [facility] - dr. florez Lab Data MDM Lab Attestation statement: I reviewed the patient's lab results. as above. 04/08/25 17:57 04/08/25 13:50 Labs: Lab Results 04/08/25 04/08/25 04/08/25 Range/Units 13:50 13:51 15:27 WBC 25.7 H (4.8-10.8) X10*3/uL RBC 4.25 (4.20-5.50) X10*6/uL Hgb 12.9 (12.0-16.0) g/dl Hct 37.7 (37.0-47.0) % MCV 88.7 (80.0-98.0) fL MCH 30.4 (27.0-33.0) pg MCHC 34.2 (31.0-35.0) g/dl RDW 13.7 (11.0-16.0) % Plt Count 263 D (160-400) X10*3/uL MPV 9.4 (9.4-12.3) fL Immature Gran % (Auto) 1.5 H (0.0-0.4) % Neut % (Auto) 85.9 H (45-73) % Lymph % (Auto) 6.1 L (20-40) % Roane % (Auto) 6.2 (2-11) % Eos % (Auto) 0.0 (0-4) % Baso % (Auto) 0.3 (0-2) % Lymph # (Auto) 1.6 (1.2-4.9) X10*3/uL Roane # (Auto) 1.6 H (0.1-1.2) X10*3/uL Eos # (Auto) 0.0 (0.0-0.4) X10*3/uL Baso # (Auto) 0.1 (0.0-0.2) X10*3/uL Abs Immat Gran (auto) 0.39 H (0.00-0.03) X10*3/uL Absolute Neuts (auto) 22.1 H (2.0-8.3) x10*3/uL Absolute Nucleated RBC 0.000 (0.0-0.012) X10*3/uL Nucleated RBC % (auto) 0.0 (0.0-0.2) /100WBC Smear Tech's Comments VERIFIED Sodium 135 (135-145) mmol/L Potassium 3.4 (3.3-5.1) mmol/L Chloride 101 (96-108) mmol/L Carbon Dioxide 26 (22-29) mmol/L Anion Gap 11 L (12-20) BUN 10 (9-16) mg/dL Creatinine 0.87 (0.5-1.4) mg/dL Estim Creat Clear Calc 69.1 Estimated GFR > 60 Random Glucose 137 H (60-115) mg/dL Lactic Acid 1.8 (0.5-2.0) mmol/L Calcium 9.4 (8.4-10.2) mg/dL Magnesium 1.8 (1.6-2.6) mg/dL Total Bilirubin 0.9 (0.0-1.0) mg/dL AST 32 H (5-31) U/L ALT 26 (0-31) U/L Alkaline Phosphatase 72 (39-117) U/L Troponin I High Sens 16.5 (<3.5-17.0) ng/L Total Protein 8.0 (6.5-8.0) g/dL Albumin 4.3 (3.5-5.0) g/dL Lipase 14 (8-78) U/L Urine Color Dark Yellow Urine Appearance Clear Urine pH 5.5 (5.0-9.0) Ur Specific Cowen >= 1.030 H (1.005-1.025) Urine Protein 300 (3+) H (Neg-Trace) mg/dL Urine Glucose (UA) Negative (Negative) mg/dL Urine Ketones 40 (Negative) mg/dL Urine Blood Large (3+) H (Negative) Urine Nitrite Negative (Negative) Ur Leukocyte Esterase Negative (Negative) Urine RBC >20 H (0-2) /HPF Urine WBC 0-5 (0-5) /HPF Ur Squamous Epith Cells 6-10 (0-2) /HPF Urine Bacteria 1+ (None Seen) Hyaline Casts 0-2 (0-2) /LPF Influenza Type A (PCR) NEGATIVE (Negative) Influenza Type B (PCR) NEGATIVE (Negative) RSV RNA Qual (PCR) NEGATIVE (Negative) SARS-CoV-2 RNA (RT-PCR) NEGATIVE (Negative) S. pyogenes GrpA MARIA GUADALUPE Positive A (Negative) 04/08/25 Range/Units 17:57 WBC 25.4 H (4.8-10.8) X10*3/uL RBC 3.76 L (4.20-5.50) X10*6/uL Hgb 11.5 L (12.0-16.0) g/dl Hct 33.0 L (37.0-47.0) % MCV 87.8 (80.0-98.0) fL MCH 30.6 (27.0-33.0) pg MCHC 34.8 (31.0-35.0) g/dl RDW 13.7 (11.0-16.0) % Plt Count 238 (160-400) X10*3/uL MPV 9.2 L (9.4-12.3) fL Immature Gran % (Auto) 2.1 H (0.0-0.4) % Neut % (Auto) 85.0 H (45-73) % Lymph % (Auto) 5.9 L (20-40) % Roane % (Auto) 6.4 (2-11) % Eos % (Auto) 0.4 (0-4) % Baso % (Auto) 0.2 (0-2) % Lymph # (Auto) 1.5 (1.2-4.9) X10*3/uL Roane # (Auto) 1.6 H (0.1-1.2) X10*3/uL Eos # (Auto) 0.1 (0.0-0.4) X10*3/uL Baso # (Auto) 0.1 (0.0-0.2) X10*3/uL Abs Immat Gran (auto) 0.54 H (0.00-0.03) X10*3/uL Absolute Neuts (auto) 21.6 H (2.0-8.3) x10*3/uL Absolute Nucleated RBC 0.000 (0.0-0.012) X10*3/uL Nucleated RBC % (auto) 0.0 (0.0-0.2) /100WBC Smear Tech's Comments Sodium (135-145) mmol/L Potassium (3.3-5.1) mmol/L Chloride (96-108) mmol/L Carbon Dioxide (22-29) mmol/L Anion Gap (12-20) BUN (9-16) mg/dL Creatinine (0.5-1.4) mg/dL Estim Creat Clear Calc Estimated GFR Random Glucose (60-115) mg/dL Lactic Acid (0.5-2.0) mmol/L Calcium (8.4-10.2) mg/dL Magnesium (1.6-2.6) mg/dL Total Bilirubin (0.0-1.0) mg/dL AST (5-31) U/L ALT (0-31) U/L Alkaline Phosphatase (39-117) U/L Troponin I High Sens (<3.5-17.0) ng/L Total Protein (6.5-8.0) g/dL Albumin (3.5-5.0) g/dL Lipase (8-78) U/L Urine Color Urine Appearance Urine pH (5.0-9.0) Ur Specific Cowen (1.005-1.025) Urine Protein (Neg-Trace) mg/dL Urine Glucose (UA) (Negative) mg/dL Urine Ketones (Negative) mg/dL Urine Blood (Negative) Urine Nitrite (Negative) Ur Leukocyte Esterase (Negative) Urine RBC (0-2) /HPF Urine WBC (0-5) /HPF Ur Squamous Epith Cells (0-2) /HPF Urine Bacteria (None Seen) Hyaline Casts (0-2) /LPF Influenza Type A (PCR) (Negative) Influenza Type B (PCR) (Negative) RSV RNA Qual (PCR) (Negative) SARS-CoV-2 RNA (RT-PCR) (Negative) S. pyogenes GrpA MARIA GUADALUPE (Negative) Independent Interpretation I performed an independent interpretation of an: EKG, Plain X-Ray and CT Scan Interpretation: EKG showing sinus tachycardia with a rate of 108 beats per minute, QT 320, QTC 428, no acute ischemic changes or ST elevations cxr without infiltrate or consolidation Radiology Impression Discussion of test interpretation with radiology: I have reviewed the radiologist's reading. Radiologist Impression: Date of Service: 04/08/25 Procedure(s): ECG 12 lead EKG Accession Number(s): [id number] cc: ~ Test Reason : DIZZINESS Blood Pressure : */* mmHG Vent. Rate : 108 BPM Atrial Rate : 108 BPM P-R Int : 146 ms QRS Dur : 82 ms QT Int : 320 ms P-R-T Axes : 62 64 44 degrees QTcB Int : 428 ms Sinus tachycardia Possible Left atrial enlargement Borderline ECG When compared with ECG of 15-Dec-2022 14:13, Non-specific change in ST segment in Inferior leads Date of Service: 04/08/25 Procedure(s): XR chest 2V Accession Number(s): [id number] cc: Zenobia Mills CNP; Efrain Aponte MD~ CLINICAL HISTORY: fever, cough 2 view chest x-ray. Comparison: CT 06/18/2023 Findings: No consolidation. Heart size normal No acute fracture. Impression: Lungs are clear. This document has been electronically signed by: Kaiden Pinzon MD on 04/08/2025 14:43:40 Procedure(s): CT soft tissue neck w IV con Accession Number(s): [id number] cc: Efrain Aponte MD; Madeline Meza~ Report Number: [id number]: Total DLP = 484.00 mGy-cm ADDENDUMThis document has been electronically signed by: Kaiden Pinzon MD on 04/08/2025 16:14:21 ADDENDUM: Receipt of this report by the clinical staff was confirmed with Madeline Meza on Apr 08, 2025 16:20:00 EDT. This document has been electronically signed by: Dianna Queen on 04/08/2025 16:20:30 Addendum Dictated By: Kaiden Pinzon MD Addendum Signed By: <Electronically signed by Kaiden Pinzon MD in OV> 04/08/25 1621 Addendum Cosigned By: DD/ /01/1613 TD/TT: 04/08/2511/01/1619 CLINICAL HISTORY: strep throat b l tonsillar swelling R>L r o [employer] DISPATCHER CT soft tissue neck with intravenous contrast: Comparison: 09/14/2023 Findings: Normal visualized intracranial contents, orbits, paranasal sinuses, and mastoid air cells. Normal prevertebral soft tissues and paraspinous musculature. Enlarged bilateral level 2 deep fascia are lymph nodes are present, example: 2.2 x 1.7 cm lymph node adjacent to left carotid bifurcation. Refrigerated Cargo Clerk spaces are normal. Parapharyngeal tonsils are enlarged . Retropharyngeal space is normal. Visualized lungs are normal. There is normal vertebral body alignment. There is no significant degenerative change, fracture, or bone lesion Impression: Enlarged parapharyngeal tonsils with edematous/purulent small coalescing abscesses involving the bilateral tonsillar crypts most of which measure 2-3 mm in diameter. Largest right parapharyngeal tonsillar abscess measures 8.3 mm x 4.4 mm, image 52, series 2. This document has been electronically signed by: Kaiden Pinzon MD on 04/08/2025 16:14:21 Independent Historian Clinical information obtained from an independent historian. History obtained from or confirmed by: Spouse () External Record Review External record reviewed: Inpatient record Prescription Management I considered prescription management with: Pain Medication and Antibiotic Social Determinants Patient?s care significantly limited by Social Determinants of Health including: Other Social Determinant of Health Critical Care Time Critical Care Time Critical Care Time: Yes Total Critical Care Time: 40 Attestation: Critical care time in the amount of 40 minutes has been provided to the patient in terms of direct patient care, frequent reevaluation, consultation with [facility] and hospitalist, review and interpretation of medical data and results, and management of potentially life-threatening conditions. This is all outside of any medical procedures. Discharge Plan Discharge Clinical Impression: Acute streptococcal pharyngitis, Abscess of parapharyngeal space Patient Disposition: Admitted As Inpatient
[2025-04-08 14:05] LABS: Hematocrit 37.7 % (37.0-47.0); Hemoglobin 12.9 g/dl (12.0-16.0); Imm Gran Abs Auto 0.39 X10*3/uL (0.00-0.03); Imm Gran Pct Auto 1.5 % (0.0-0.4); Lymphocytes Absolute Auto 1.6 X10*3/uL (1.2-4.9); MANUAL DIFF FLAG SCAN; Mean Corpuscular HGB Conc 34.2 g/dl (31.0-35.0); Mean Corpuscular Hemoglobin 30.4 pg (27.0-33.0); Mean Corpuscular Volume 88.7 fL (80.0-98.0); NRBC Abs Auto 0.000 X10*3/uL (0.0-0.012); NRBC Pct Auto 0.0 /100WBC (0.0-0.2); Platelet Count 263 X10*3/uL (160-400); Red Blood Count 4.25 X10*6/uL (4.20-5.50); SCAN SMEAR FLAG 1; White Blood Count 25.7 X10*3/uL (4.8-10.8)
[2025-04-08 14:15] LABS: IDNOW Serial# 55D5AD1C; Strep A Nucleic Acid Positive (Negative)
[2025-04-08 14:25] LABS: Alanine Aminotransferase 26 U/L (0-31); Albumin Level 4.3 g/dL (3.5-5.0); Alkaline Phosphatase 72 U/L (39-117); Anion Gap 11 (12-20); Aspartate Amino Transferase 32 U/L (5-31); Blood Urea Nitrogen 10 mg/dL (9-16); Calcium 9.4 mg/dL (8.4-10.2); Carbon Dioxide 26 mmol/L (22-29); Chloride 101 mmol/L (96-108); Creatinine Clr Calc Pharmacy 69.1; Estimated Glomerular Filt Rate > 60; Lipase 14 U/L (8-78); Magnesium 1.8 mg/dL (1.6-2.6); Potassium 3.4 mmol/L (3.3-5.1); Sodium 135 mmol/L (135-145); Total Protein 8.0 g/dL (6.5-8.0)
[2025-04-08 14:28] LABS: Troponin-I High Sensitivity 16.5 ng/L (<3.5-17.0)
[2025-04-08 14:42] LABS: Resp Syncy Virus RNA Qual PCR NEGATIVE (Negative); SARS COV2 PCR INHOUSE NEGATIVE (Negative)
[2025-04-08] MEDS: iohexoL 350 MG/ML 100 ML INFUS..BTL IV (15:11)
[2025-04-08 15:32] LABS: Appearance Urine Clear; Glucose Urine UA Negative (Negative); PH 5.5 (5.0-9.0); Specific Gravity - Urine >= 1.030 (1.005-1.025); UMIC TRIGGER UACC YES
[2025-04-08 15:49] VITALS: BP 138/64; PULSE 86; RESP 22; TEMP 36.9; O2SAT 93
[2025-04-08 16:20] VITALS: BP 124/62; PULSE 89; RESP 22; TEMP 36.9; O2SAT 93
[2025-04-08 17:49] VITALS: BP 124/54; PULSE 84; RESP 18; TEMP 36.6; O2SAT 95
[2025-04-08 18:04] LABS: Hematocrit 33.0 % (37.0-47.0); Hemoglobin 11.5 g/dl (12.0-16.0); Imm Gran Abs Auto 0.54 X10*3/uL (0.00-0.03); Imm Gran Pct Auto 2.1 % (0.0-0.4); Lymphocytes Absolute Auto 1.5 X10*3/uL (1.2-4.9); MANUAL DIFF FLAG SCAN; Mean Corpuscular HGB Conc 34.8 g/dl (31.0-35.0); Mean Corpuscular Hemoglobin 30.6 pg (27.0-33.0); Mean Corpuscular Volume 87.8 fL (80.0-98.0); NRBC Abs Auto 0.000 X10*3/uL (0.0-0.012); NRBC Pct Auto 0.0 /100WBC (0.0-0.2); Platelet Count 238 X10*3/uL (160-400); Red Blood Count 3.76 X10*6/uL (4.20-5.50); SCAN SMEAR FLAG 1; White Blood Count 25.4 X10*3/uL (4.8-10.8)
--- NOTE | 2025-04-08 18:50 | PHA.MEDREC ---
Addendum entered by Lanie Rogers RPh 04/08/25 18:51: Reviewed by [facility] Original Note: Pharmacy Consult ? Medication Reconciliation Pharmacy has completed the medication reconciliation. Spoke with patient through an print production associate to confirm.
[2025-04-08 20:10] VITALS: BP 130/68; PULSE 82; RESP 18; TEMP 36.5; O2SAT 98
--- NOTE | 2025-04-08 20:20 | P.HPHOSP_ITS ---
History of Present Illness Date of Service: 04/08/25 Attending physician on admission: Jaxson Gaxiola Chief Complaint: sore throat Patient is a 59-year-old female with a past medical history significant for fatty liver disease, anxiety, hypertension, fibromyalgia, CHARAN and hyperlipidemia, who presented to the ED due to sore throat, back pain, difficulty swallowing, body aches, dizziness and poor balance starting this morning. The patient denies any falls. She reports a subjective fever overnight but not measured. She denies any recent sick contacts. Has been having pain adn difficulty with swallowing so has not been eating solids. FORMERLY [facility] Medical History Liver fibrosis Steatosis, liver Depression Anxiety COVID-19 vaccine series completed BMI 34.0-34.9,adult CHARAN (obstructive sleep apnea) Binge-eating disorder, in full remission, moderate BMI 37.0-37.9, adult BMI 36.0-36.9,adult Binge eating disorder Abnormal EKG H. pylori infection Obesity Right knee pain Myalgia Paresthesias Cervicalgia Upper back pain Physical examination of employee Other specified nonscarring hair loss High cholesterol Knee pain, bilateral Rash Primary osteoarthritis of right knee (Unknown) HTN (hypertension) Family History Father Emphysema lung Mother Afib Hypertension Brother HIV (human immunodeficiency virus infection) Brother Afib Daughter No problems noted. Son No problems noted. Son No problems noted. Daughter No problems noted. Surgical History S/P laparoscopic sleeve gastrectomy H/O colonoscopy Hx of dilation and curettage History of removal of ovarian cyst History of carpal tunnel release History of partial hysterectomy Social History Household Members: Spouse Housing: Apartment Are you a primary life care planner to a significant other at home: No Do you presently have visiting nurse or other home services: No Alcohol intake: never Patient Tobacco Use Status: Former Tobacco user Tobacco use type: Cigarette Advance Directives: No Advance Directives Information Provided: No Nutrition Risks: No Nutritional Risk service: No Current occupational status: unemployed Meds Allergies Allergy/AdvReac Type Severity Reaction Status Date / Time atorvastatin AdvReac Intermediate headache Verified 04/08/25 13:11 Active Medications: Current Medications Acetaminophen (Acetaminophen 325 Mg Tablet) 650 mg PO Q6H PRN PRN Reason: Pain, Mild 1-3,fever,headache Atorvastatin Calcium (Atorvastatin Calcium 40 Mg Tablet) 40 mg PO DAILY [facility] Last Admin: 04/08/25 20:04 Dose: 40 mg Benzocaine (Throat Lozenge, Medicated Lozenge) 1 lozenge MUCOUS MEM Q2H PRN PRN Reason: Sore Throat Calcium Carbonate (Calcium Carbonate 750 Mg Tab.Chew) 750 mg PO Q4H PRN PRN Reason: Heartburn Cyclobenzaprine HCl (Cyclobenzaprine Hcl 5 Mg Tablet) 5 mg PO DAILY PRN PRN Reason: Muscle Spasm Enoxaparin Sodium (Enoxaparin Sodium 40 Mg/0.4 Ml Syringe) 40 mg SUBCUT Q24H [facility] Last Admin: 04/08/25 20:04 Dose: 40 mg Ampicillin Sodium/Sulbactam (Sodium 3 gm/ Sodium Chloride) 100 mls @ 200 mls/hr IV Q6H [facility] Last Admin: 04/08/25 20:04 Dose: 200 mls/hr Losartan Potassium (Losartan Potassium 25 Mg Tablet) 25 mg PO DAILY [facility]; Protocol Magnesium Hydroxide (Milk Of Magnesia 30 Ml Oral.Susp) 30 ml PO DAILY PRN PRN Reason: Constipation Melatonin (Melatonin 3 Mg Tablet) 6 mg PO BEDTIME PRN PRN Reason: Insomnia Morphine Sulfate (Morphine Sulfate 4 Mg/Ml Cartridge) 2 mg IVPUSH Q4H PRN; Protocol PRN Reason: Pain, Severe (Pain Scale 7-10) Ondansetron HCl (Ondansetron Hcl 4 Mg/2 Ml Vial) 4 mg IVPUSH Q8H PRN PRN Reason: Nausea and Vomiting Sodium Chloride (0.9 % Sodium Chloride Flush 3 Ml Syringe) 3 ml IVFLUSH QSHIFT [facility] Home Medications ?Medication ?Instructions ?Recorded ?Confirmed ?Last Taken ?Type cyclobenzaprine 5 mg tablet 5 mg PO DAILY PRN Muscle S pasm 04/08/25 04/08/25 Unknown History losartan 25 mg tablet 25 mg PO DAILY 04/08/2511/0104/07/25 History rosuvastatin 10 mg tablet 10 mg PO DAILY 04/08/2511/01/25 History sennosides 8.6 mg tablet (senna) 17.2 mg PO BEDTIME 04/08/25 04/07/25 History Physical Exam 2 Vital Signs and Narrative: Vital Signs: Last Vital Signs Temp 97.7 F 04/08/25 20:10 Pulse 82 04/08/25 20:10 Resp 18 04/08/25 20:10 BP 130/68 04/08/25 20:10 Pulse Ox 98 04/08/25 20:10 O2 Del Method Room Air 04/08/25 20:10 BMI result Body Mass Index 27.8 General: AOx3, no acute distress Resp: CTA bilaterally, no respiratory distress HEENT: posterior pharnyx eythematous. edematous tonsils R>L. no muffled voice. CVS: S1, S2, RRR GI: +BS, NT, no distention Skin: Warm, dry Neuro: Cranial nerves II-XII grossly intact bilaterally. Motor grossly intact bilaterally Extremities: No LE edema Psych: Appropriate affect Results Labs 04/08/25 17:57 04/08/25 13:50 Labs: Laboratory Results - last 24 hr 04/08/25 04/08/25 04/08/25 13:50 13:51 15:27 MCV 88.7 MCH 30.4 MCHC 34.2 RDW 13.7 Plt Count 263 D MPV 9.4 Immature Gran % (Auto) 1.5 H Neut % (Auto) 85.9 H Lymph % (Auto) 6.1 L [place] % (Auto) 6.2 Eos % (Auto) 0.0 Baso % (Auto) 0.3 Lymph # (Auto) 1.6 [place] # (Auto) 1.6 H Eos # (Auto) 0.0 Baso # (Auto) 0.1 Abs Immat Gran (auto) 0.39 H Absolute Neuts (auto) 22.1 H Absolute Nucleated RBC 0.000 Nucleated RBC % (auto) 0.0 Smear Tech's Comments VERIFIED Anion Gap 11 L Estim Creat Clear Calc 69.1 Estimated GFR > 60 Random Glucose 137 H Lactic Acid 1.8 Calcium 9.4 Magnesium 1.8 Total Bilirubin 0.9 AST 32 H ALT 26 Alkaline Phosphatase 72 Total Protein 8.0 Albumin 4.3 Lipase 14 Urine Color Dark Yellow Urine Appearance Clear Urine pH 5.5 Ur Specific [place] >= 1.030 H Urine Protein 300 (3+) H Urine Glucose (UA) Negative Urine Ketones 40 Urine Blood Large (3+) H Urine Nitrite Negative Ur Leukocyte Esterase Negative Urine RBC >20 H Urine WBC 0-5 Ur Squamous Epith Cells 6-10 Urine Bacteria 1+ Hyaline Casts 0-2 Influenza Type A (PCR) NEGATIVE Influenza Type B (PCR) NEGATIVE RSV RNA Qual (PCR) NEGATIVE SARS-CoV-2 RNA (RT-PCR) NEGATIVE S. pyogenes GrpA MARIA GUADALUPE Positive A 04/08/25 17:57 MCV 87.8 MCH 30.6 MCHC 34.8 RDW 13.7 Plt Count 238 MPV 9.2 L Immature Gran % (Auto) 2.1 H Neut % (Auto) 85.0 H Lymph % (Auto) 5.9 L [place] % (Auto) 6.4 Eos % (Auto) 0.4 Baso % (Auto) 0.2 Lymph # (Auto) 1.5 [place] # (Auto) 1.6 H Eos # (Auto) 0.1 Baso # (Auto) 0.1 Abs Immat Gran (auto) 0.54 H Absolute Neuts (auto) 21.6 H Absolute Nucleated RBC 0.000 Nucleated RBC % (auto) 0.0 Smear Tech's Comments Anion Gap Estim Creat Clear Calc Estimated GFR Random Glucose Lactic Acid Calcium Magnesium Total Bilirubin AST ALT Alkaline Phosphatase Total Protein Albumin Lipase Urine Color Urine Appearance Urine pH Ur Specific [place] Urine Protein Urine Glucose (UA) Urine Ketones Urine Blood Urine Nitrite Ur Leukocyte Esterase Urine RBC Urine WBC Ur Squamous Epith Cells Urine Bacteria Hyaline Casts Influenza Type A (PCR) Influenza Type B (PCR) RSV RNA Qual (PCR) SARS-CoV-2 RNA (RT-PCR) S. pyogenes GrpA MARIA GUADALUPE Assessment and Plan (1) Sepsis: Status: Acute (2) Acute streptococcal pharyngitis: Status: Acute (3) Abscess of parapharyngeal space: Status: Acute (4) Microscopic hematuria: Status: Acute Plan Patient is a 59-year-old female with a past medical history significant for fatty liver disease, anxiety, hypertension, fibromyalgia, CHARAN and hyperlipidemia, who presented to the ED due to sore throat, back pain, difficulty swallowing, body aches, dizziness and poor balance starting this morning. sepsis secondary to acute strep pharyngitis with abscesses of pharyngeal space - WBC 25.4, febrile and tachycardiac, lactic acid normal, blood cultures x2 pending, not severe sepsis - CXR negative - strep + - COVID/flu/RSV negative - soft tissue CT neck with enlarged parapharyngeal tonsils with edematous/purulent small coalescing abscesses involving the bilateral tonsillar crypts most of which measure 2-3 mm in diameter. Largest right parapharyngeal tonsillar abscess measures 8.3 mm x 4.4 mm - ED provider spoke with ENT at [facility] who suggested abscesses to small for drainage, treat with IV antibiotics, no need for transfer - patient is started on ceftriaxone in ED, switch to Unasyn - given dexamethasone 10 mg in ED, continue 6 mg b.i.d. - given 2 L IV fluids, blood pressure stable, hold on further fluids at this time - clear liquid diet - speech swallow evaluation - aspiration precautions - ID consult - monitor CBC and BMP Microscopic hematuria - UA with large blood, no gross hematuria - UA negative for infection - no urinary symptoms - GFR greater than 60 - follow-up outpatient Fatty liver disease - AST 32, ALT 26, pt does not have severe sepsis, lactic acid normal, BP normal. elevated AST likely from fatty liver - follow up outpt anxiety - no home meds HTN - continue losartan CHARAN - does not use CPAP HLD - continue statin full code VTE prophy: lovenox Patient with sepsis secondary to strep pharyngitis with abscesses of the parapharyngeal space, requiring admission for at least 2 midnights stay for IV antibiotics, steroids and monitoring. Quality Stroke Does the patient have a stroke diagnosis?: No VTE Prior VTE?: No VTE Risk Level:: Medical - moderate - high VTE Device Contraindication: Treatment Not Indicated VTE Drug Contraindication: N/A - Med Ordered
[2025-04-09] VITALS (8 sets, daily range): BP systolic 122–142; BP diastolic 55–65; PULSE 73–87; RESP 16–20; TEMP 36.2–36.6; O2SAT 95–99; BMI 28.3
[2025-04-09] MEDS: 0.9 % Sodium Chloride Flush 3 ML SYRINGE IVFLUSH ×2 (02:06→19:54)
[2025-04-09] MEDS: Throat Lozenge, Medicated LOZENGE 1 LOZENGE MUCOUS MEM (06:14)
--- NOTE | 2025-04-09 07:57 | P.PNIM_ITS ---
Subjective Subjective Date of Service: 04/09/25 Interval History: headache, sore throat Physical Exam 2 Exam: Exam: General: AO X 3, no acute distress Resp: CTA bilateral, no accessory muscles used CVS: S1,S2,RRR GI: soft, non tender, non distended Neuro: motor grossly intact, alert Psych: appropriate affect, appropriate insight Vital Signs: Vital Signs: Last Vital Signs Temp 97.5 F 04/09/25 02:04 Pulse 78 04/09/25 06:06 Resp 16 04/09/25 06:06 BP 142/65 H 04/09/25 06:06 Pulse Ox 96 04/09/25 06:06 O2 Del Method Room Air 04/09/25 06:06 BMI result Body Mass Index 27.8 Objective Data Active Medications Acetaminophen (Acetaminophen 325 Mg Tablet) 650 mg PO Q6H PRN PRN Reason: Pain, Mild 1-3,fever,headache Last Admin: 04/09/25 06:14 Dose: 650 mg Documented By: MARIA DEL CARMEN Atorvastatin Calcium (Atorvastatin Calcium 40 Mg Tablet) 40 mg PO DAILY [facility] Last Admin: 04/08/25 20:04 Dose: 40 mg Documented By: MARIA DEL CARMEN Benzocaine (Throat Lozenge, Medicated Lozenge) 1 lozenge MUCOUS MEM Q2H PRN PRN Reason: Sore Throat Last Admin: 04/09/25 06:14 Dose: 1 lozenge Documented By: MARIA DEL CARMEN Calcium Carbonate (Calcium Carbonate 750 Mg Tab.Chew) 750 mg PO Q4H PRN PRN Reason: Heartburn Cyclobenzaprine HCl (Cyclobenzaprine Hcl 5 Mg Tablet) 5 mg PO DAILY PRN PRN Reason: Muscle Spasm Dexamethasone Sodium Phosphate (Dexamethasone Sod Phosphate 4 Mg/Ml Vial) 6 mg IVPUSH BID [facility] Enoxaparin Sodium (Enoxaparin Sodium 40 Mg/0.4 Ml Syringe) 40 mg SUBCUT Q24H [facility] Last Admin: 04/08/25 20:04 Dose: 40 mg Documented By: MARIA DEL CARMEN Ampicillin Sodium/Sulbactam (Sodium 3 gm/ Sodium Chloride) 100 mls @ 200 mls/hr IV Q6H [facility] Last Admin: 04/09/25 07:30 Dose: 200 mls/hr Documented By: PAOLA Losartan Potassium (Losartan Potassium 25 Mg Tablet) 25 mg PO DAILY [facility]; Protocol Magnesium Hydroxide (Milk Of Magnesia 30 Ml Oral.Susp) 30 ml PO DAILY PRN PRN Reason: Constipation Melatonin (Melatonin 3 Mg Tablet) 6 mg PO BEDTIME PRN PRN Reason: Insomnia Morphine Sulfate (Morphine Sulfate 4 Mg/Ml Cartridge) 2 mg IVPUSH Q4H PRN; Protocol PRN Reason: Pain, Severe (Pain Scale 7-10) Ondansetron HCl (Ondansetron Hcl 4 Mg/2 Ml Vial) 4 mg IVPUSH Q8H PRN PRN Reason: Nausea and Vomiting Sodium Chloride (0.9 % Sodium Chloride Flush 3 Ml Syringe) 3 ml IVFLUSH QSHIFT [facility] Last Admin: 04/09/25 07:32 Dose: Not Given Documented By: PAOLA Non-Admin Reason: IV Running Labs 04/08/25 17:57 04/08/25 13:50 Labs: Laboratory Results - last 24 hr 04/08/25 04/08/25 04/08/25 13:50 13:51 15:27 MCV 88.7 MCH 30.4 MCHC 34.2 RDW 13.7 Plt Count 263 D MPV 9.4 Immature Gran % (Auto) 1.5 H Neut % (Auto) 85.9 H Lymph % (Auto) 6.1 L [place] % (Auto) 6.2 Eos % (Auto) 0.0 Baso % (Auto) 0.3 Lymph # (Auto) 1.6 [place] # (Auto) 1.6 H Eos # (Auto) 0.0 Baso # (Auto) 0.1 Abs Immat Gran (auto) 0.39 H Absolute Neuts (auto) 22.1 H Absolute Nucleated RBC 0.000 Nucleated RBC % (auto) 0.0 Smear Tech's Comments VERIFIED Anion Gap 11 L Estim Creat Clear Calc 69.1 Estimated GFR > 60 Random Glucose 137 H Lactic Acid 1.8 Calcium 9.4 Magnesium 1.8 Total Bilirubin 0.9 AST 32 H ALT 26 Alkaline Phosphatase 72 Total Protein 8.0 Albumin 4.3 Lipase 14 Urine Color Dark Yellow Urine Appearance Clear Urine pH 5.5 Ur Specific [place] >= 1.030 H Urine Protein 300 (3+) H Urine Glucose (UA) Negative Urine Ketones 40 Urine Blood Large (3+) H Urine Nitrite Negative Ur Leukocyte Esterase Negative Urine RBC >20 H Urine WBC 0-5 Ur Squamous Epith Cells 6-10 Urine Bacteria 1+ Hyaline Casts 0-2 Influenza Type A (PCR) NEGATIVE Influenza Type B (PCR) NEGATIVE RSV RNA Qual (PCR) NEGATIVE SARS-CoV-2 RNA (RT-PCR) NEGATIVE S. pyogenes GrpA MARIA GUADALUPE Positive A 04/08/25 17:57 MCV 87.8 MCH 30.6 MCHC 34.8 RDW 13.7 Plt Count 238 MPV 9.2 L Immature Gran % (Auto) 2.1 H Neut % (Auto) 85.0 H Lymph % (Auto) 5.9 L [place] % (Auto) 6.4 Eos % (Auto) 0.4 Baso % (Auto) 0.2 Lymph # (Auto) 1.5 [place] # (Auto) 1.6 H Eos # (Auto) 0.1 Baso # (Auto) 0.1 Abs Immat Gran (auto) 0.54 H Absolute Neuts (auto) 21.6 H Absolute Nucleated RBC 0.000 Nucleated RBC % (auto) 0.0 Smear Tech's Comments Anion Gap Estim Creat Clear Calc Estimated GFR Random Glucose Lactic Acid Calcium Magnesium Total Bilirubin AST ALT Alkaline Phosphatase Total Protein Albumin Lipase Urine Color Urine Appearance Urine pH Ur Specific [place] Urine Protein Urine Glucose (UA) Urine Ketones Urine Blood Urine Nitrite Ur Leukocyte Esterase Urine RBC Urine WBC Ur Squamous Epith Cells Urine Bacteria Hyaline Casts Influenza Type A (PCR) Influenza Type B (PCR) RSV RNA Qual (PCR) SARS-CoV-2 RNA (RT-PCR) S. pyogenes GrpA MARIA GUADALUPE Assessment and Plan (1) Acute streptococcal pharyngitis: Status: Acute Plan 59F PMH obesity s/p sleeve gastrectomy with successful weight loss, nafld, htn, shreya, hld presented with odynophagia sepsis due to acute strep pharyngitis with abscess of pharyngeal space Continue Unasyn, follow up cultures We will advance to full liquid Hypertension Losartan Hyperlipidemia Statin DVT prophylaxis with Lovenox Full Code reason for continued hospitalization: Awaiting cultures Quality Stroke Does the patient have a stroke diagnosis?: No VTE Prior VTE?: No VTE Risk Level:: Medical - moderate - high VTE Device Contraindication: Treatment Not Indicated VTE Drug Contraindication: N/A - Med Ordered
[2025-04-10 04:00] VITALS: BP 142/66; PULSE 78; RESP 16; TEMP 36.2; O2SAT 93
[2025-04-10 06:48] LABS: Anion Gap 11 (12-20); Blood Urea Nitrogen 12 mg/dL (9-16); Calcium 8.9 mg/dL (8.4-10.2); Carbon Dioxide 27 mmol/L (22-29); Chloride 107 mmol/L (96-108); Creatinine Clr Calc Pharmacy 99.4; Estimated Glomerular Filt Rate > 60; Potassium 3.9 mmol/L (3.3-5.1); Sodium 141 mmol/L (135-145)
[2025-04-10 06:57] LABS: Hematocrit 31.0 % (37.0-47.0); Hemoglobin 10.7 g/dl (12.0-16.0); Mean Corpuscular HGB Conc 34.5 g/dl (31.0-35.0); Mean Corpuscular Hemoglobin 30.3 pg (27.0-33.0); Mean Corpuscular Volume 87.8 fL (80.0-98.0); NRBC Abs Auto 0.000 X10*3/uL (0.0-0.012); NRBC Pct Auto 0.0 /100WBC (0.0-0.2); Platelet Count 303 X10*3/uL (160-400); Red Blood Count 3.53 X10*6/uL (4.20-5.50); White Blood Count 28.1 X10*3/uL (4.8-10.8)
[2025-04-10 07:43] VITALS: BP 138/65; PULSE 77; RESP 12; TEMP 36.2; O2SAT 96
[2025-04-10] MEDS: 0.9 % Sodium Chloride Flush 3 ML SYRINGE IVFLUSH (08:23)
--- NOTE | 2025-04-10 08:26 | P.DS_ITS ---
DS: Providers Provider Date of Service: 04/10/25 Date of admission: 04/08/25 18:27 Date of discharge: 04/10/25 Primary care physician: Efrain Aponte MD Consults: 04/08/25 19:25 Consult to Infectious Diseases Routine Consulting Provider: [facility] Reason for consultation: tonsillar abscess DS: Diagnosis Discharge Diagnosis (1) Acute streptococcal pharyngitis: Status: Acute DS: Summary Hospital Course Hospital Course: from initial hpi: 59-year-old female with a past medical history significant for fatty liver disease, anxiety, hypertension, fibromyalgia, CHARAN and hyperlipidemia, who presented to the ED due to sore throat, back pain, difficulty swallowing, body aches, dizziness and poor balance starting this morning. The patient denies any falls. She reports a subjective fever overnight but not measured. She denies any recent sick contacts. Has been having pain adn difficulty with swallowing so has not been eating solids. hospital course: Patient was admitted for sepsis due to acute strep pharyngitis with abscess she was treated with IV Unasyn and sepsis resolved. Symptoms improved. Cultures were negative. We will be discharged on 8 more days of p.o. penicillin. For hypertension was continued on losartan. For hyperlipidemia continued on statin. Time Attestation Discharge Coordination Time (in mins): 34 Quality: Safe Use of Opioids Does Pt have an Active Cancer Diagnosis on the Problem List?: No Quality: Stroke Does the patient have a stroke diagnosis?: No Physical Exam Exam: Exam: General: AO X 3, no acute distress Resp: CTA bilateral, no accessory muscles used CVS: S1,S2,RRR GI: soft, non tender, non distended Neuro: motor grossly intact, alert Psych: appropriate affect, appropriate insight Vital Signs: Vital Signs: Last Vital Signs Temp 97.1 F 04/10/25 07:43 Pulse 77 04/10/25 07:43 Resp 12 04/10/25 07:43 BP 138/65 04/10/25 07:43 Pulse Ox 96 04/10/25 07:43 O2 Del Method Room Air 04/10/25 07:43 BMI result Body Mass Index 28.3 DS: Data Data Completed and Pending Completed studies during hospitalization [Text1]: Procedures Excision of Stomach, Percutaneous Endoscopic Approach, Vertical (10/08/21) Repair Diaphragm, Percutaneous Endoscopic Approach (10/08/21) Labs on day of discharge: Laboratory Results - last 24 hr 04/10/25 05:45 WBC 28.1 H RBC 3.53 L Hgb 10.7 L Hct 31.0 L MCV 87.8 MCH 30.3 MCHC 34.5 RDW 13.9 Plt Count 303 D MPV 10.0 Absolute Nucleated RBC 0.000 Nucleated RBC % (auto) 0.0 Sodium 141 Potassium 3.9 Chloride 107 Carbon Dioxide 27 Anion Gap 11 L BUN 12 Creatinine 0.61 Estim Creat Clear Calc 99.4 Estimated GFR > 60 Random Glucose 146 H Calcium 8.9 Preliminary micro results at discharge 04/08/25 14:35 Blood Culture - Preliminary Blood - Venous No growth after 24 hours. 04/08/25 13:50 Blood Culture - Preliminary Blood - Venous No growth after 24 hours. Discharge Plan Discharge Anticipated Discharge Date/Time: 04/10/25 08:23 Patient Disposition: Home, Self-Care Discharge Diagnosis: strep pharyngitis with abscess and sepsis Referrals: Efrain Aponte MD [Primary Care Provider, Medical] - 1 Week Discharge Medications: New penicillin V potassium 500 mg tablet 500 mg PO TID Qty: 24 0RF Continued sennosides [senna] 8.6 mg tablet 17.2 mg PO BEDTIME losartan 25 mg tablet 25 mg PO DAILY cyclobenzaprine 5 mg tablet 5 mg PO DAILY PRN (Reason: Muscle Spasm) rosuvastatin 10 mg tablet 10 mg PO DAILY Discharge Orders: Discharge Order (Routine); Ordered 04/10/25 Ordered By: Dusty Buckner Diet: Advance to usual diet Activity on Discharge: As tolerated Stand Alone Forms: Patient Portal Discharge page Print Language: Hebrew Care Plan Goals: recovery Health Concerns: sepsis, strep pharyngitis Plan of Treatment: 8 more days penicillin V 500 3 times per day Assessment: see above
--- NOTE | 2025-04-10 09:20 | MHC.CM.PN ---
pt being dcd home self care prior to being seen by cm
[2025-04-10 09:43] LABS: CDiff Gene PCR NEGATIVE (Negative)
[2025-04-10 10:28] VITALS: BP 154/67; PULSE 85; RESP 15; TEMP 35.7; O2SAT 97
== END 2025-04-10 10:49 | disposition home or self-care (01) | DRG 872 ==
LOC: HO.ED 15:20 → HO.EDOVER 18:36 → HO.S3 04-09 10:23
PROVIDERS: Nurse Practitioner Family; Physician Assistant Medical; Admitting Provider Internal Medicine; Emergency Provider Emergency Medicine; PCP Internal Medicine; Visit Provider Internal Medicine
DX: A40.9 Streptococcal sepsis, unspecified (principal); J02.0 Streptococcal pharyngitis; I10 Essential (primary) hypertension; E78.5 Hyperlipidemia, unspecified; G47.33 Obstructive sleep apnea (adult) (pediatric); K76.0 Fatty (change of) liver, not elsewhere classified; Z79.899 Other long term (current) drug therapy
CPT/HCPCS: 36415; 70491; 71046; 80048; 80053; 81001; 83605; 83690; 83735; 84484; 85025; 85027; 87040; 87493; 87637; 87651; 93005; 99285; J0295; J0696; J1100; J1650; J1885; J2270; Q9967

== ENCOUNTER → 2025-04-08 13:11 | Outpatient (BNV) | payer MEDICARE, MEDICAID, SELFPAY | PROVIDERS: Admitting Provider Internal Medicine; Emergency Provider Emergency Medicine; PCP Internal Medicine; Visit Provider Internal Medicine Cardiovascular Disease | DX: R00.0 Tachycardia, unspecified (principal) | CPT/HCPCS: 93010 ==

== ENCOUNTER → 2025-04-08 13:12 | Outpatient (BNV) | payer MEDICARE, MEDICAID, SELFPAY | PROVIDERS: Emergency Provider Emergency Medicine; PCP Internal Medicine; Visit Provider Radiology Diagnostic Radiology | DX: J39.0 Retropharyngeal and parapharyngeal abscess (principal); R50.9 Fever, unspecified | CPT/HCPCS: 70491; 71046 ==

== ENCOUNTER → 2025-04-08 18:27 | Outpatient (BNV) | payer MEDICARE, MEDICAID, SELFPAY | PROVIDERS: Admitting Provider Internal Medicine; Emergency Provider Emergency Medicine; PCP Internal Medicine; Visit Provider Internal Medicine | DX: A41.9 Sepsis, unspecified organism (principal); J39.0 Retropharyngeal and parapharyngeal abscess; R31.29 Other microscopic hematuria | CPT/HCPCS: 99222; 99232; 99239 ==

== ENCOUNTER 2025-04-27 11:40 | Outpatient (REF) | payer MEDICARE, MEDICAID, SELFPAY | END 2025-04-27 11:41 | disposition home or self-care (01) | LOC: HO.MAMMO 11:40 | PROVIDERS: PCP Internal Medicine; Visit Provider Internal Medicine | DX: Z12.31 Encounter for screening mammogram for malignant neoplasm of breast (principal) | CPT/HCPCS: 77063; 77067 ==

== ENCOUNTER → 2025-04-27 12:00 | Outpatient (BNV) | payer MEDICARE, MEDICAID, SELFPAY | PROVIDERS: PCP Internal Medicine; Visit Provider Internal Medicine | DX: Z12.31 Encounter for screening mammogram for malignant neoplasm of breast (principal) | CPT/HCPCS: 77063; 77067 ==

== ENCOUNTER 2025-05-29 14:41 | Outpatient (REF) | payer MEDICARE, MEDICAID, SELFPAY ==
[2025-05-29 16:44] LABS: Alanine Aminotransferase 16 U/L (0-31); Albumin Level 4.2 g/dL (3.5-5.0); Alkaline Phosphatase 57 U/L (39-117); Anion Gap 10 (12-20); Aspartate Amino Transferase 35 U/L (5-31); Blood Urea Nitrogen 11 mg/dL (9-16); Calcium 9.4 mg/dL (8.4-10.2); Carbon Dioxide 31 mmol/L (22-29); Chloride 104 mmol/L (96-108); Cholesterol 186 mg/dL (<200); Estimated Glomerular Filt Rate > 60; HDL Cholesterol 61 mg/dL (>40); Potassium 4.2 mmol/L (3.3-5.1); Sodium 141 mmol/L (135-145); Total Protein 7.3 g/dL (6.5-8.0); Triglycerides 139 mg/dL (<150)
== END 2025-05-29 14:42 | disposition home or self-care (01) ==
LOC: HO.HHCL 14:41
PROVIDERS: PCP Internal Medicine; Visit Provider Internal Medicine
DX: E78.2 Mixed hyperlipidemia (principal); I10 Essential (primary) hypertension
CPT/HCPCS: 36415; 80053; 80061

== ENCOUNTER 2025-06-12 13:22 | Outpatient (AMB) | payer MEDICARE, MEDICAID, SELFPAY ==
--- OUTSIDE RECORDS SUMMARY | 2012-07-27 13:22 | XMS_ITS | Continuity of Care Document ---
Author Organization [facility] Address [address] [place] [address] Phone Care Team Providers Care Supervisor Logging Name Role Phone Kaiden Gabriel MD Unavailable Unavailable Allergies, Adverse Reactions, Alerts Substance Reaction Status Criticality No Known allergies Medications Medication Instructions Dosage Effective Dates (start - stop) Status Comments cyclobenzaprine 10 mg tablet take 1 tablet (10MG) by ORAL route 3 times every day for 1 month 10 MG - Active orphenadrine citrate ER 100 mg tablet,extended release take 1 tablet (100MG) by oral route 2 times every day in the morning and evening as needed 100 MG - Active alprazolam 0.25 mg tablet take 1 tablet (0.25MG) by oral route 3 times every day 0.25 MG - Active Procedures Procedure Date Follow-up, Comprehensive Follow-up, Detailed Follow-up, Detailed UDT, CLIA-waived New Pt, Moderate 45min Advance Directives Directive Yes / No Effective Date File Name No Information Encounters Encounter Description Practice Location Reason(s) For Visit Diagnoses Date Provider Providers Copied on Encounter [facility] , [address], [place], [id number], [place] tel:[phone] [facility] Office No Information 0-201 2 Nery Richey. [address] [facility], [address], [place], [place], [id number]. tel:[phone] Follow-up, Comprehensive [facility] , [address], [place], [id number], [place] tel:[phone] [facility] Office back pain (chief complaint) SHOULDER REGION DIS NECLumbar Thoracic Radicular Pain, NOSCarpal Tunnel Syndrome 2 No Information Follow-up, Detailed [facility] , [address] [place] [address], [id number], tel:[phone] [facility] Office back pain (chief complaint) Lumbar Thoracic Radicular Pain, NOSCarpal Tunnel SyndromeCervic al Degenerative Disc Disease 2 No Information Follow-up, Detailed [facility] , [address] [place] [address], [id number], [place] tel:[phone] [facility] Office thoracic back pain (chief complaint) low back pain (chief complaint) No Information 2 No Information New Pt, Moderate 45min [facility] , [address] [place] [address], [id number], [place] tel:[phone] [facility] Office low back pain (chief complaint) thoracic back pain (chief complaint) Lumbar Thoracic Radicular Pain, NOSCarpal Tunnel SyndromeCervic al Degenerative Disc Disease 2 No Information WARNING: Some information has been stripped due to its sensitive nature Family History Family Member Type Diagnosis Age At Onset No Information Payers Payer name Insurance type Covered libertarian ID Aby cuadra(s) Kena [facility] [id number] Social History Type Description Quantity Date Captured Comments Sex Female Smoking Status No Information Chief Complaint And Reason For Visit No Information Plan Of Treatment Date Type Action Status Referral Referred To: [facility] Ordered: Referral: [facility].(1) Evaluate and treat. ordered Referral Ordered: MRI of Lumbar Spine (W/O Contrast) ordered Referral Ordered: MRI of Cervical Spine (W/O Contrast) ordered History Of Present Illness Encounter Date Complaint History Of Prese nt Illness No Information Instructions Date Instruction Additional Infor mation INSTRUCT INSTRUCT Assessments Type Assessment Date No Information
--- NOTE | 2025-06-12 12:55 | A.OFFVIS_ITS ---
VS Expanded 06/12/25 13:04 Height 5 ft 5 in Weight 160 lb BMI 26.6 Intake Visit Reasons: TV PO LSG 10/18/2021 Deputy Sheriff Bailiff Required: Yes Deputy Sheriff Bailiff Name: Jacquelyn [id number] Information Interpreted: clinical only Allergies atorvastatin Adverse Reaction (Intermediate, Verified 04/08/25 13:11) headache Medication List - Last Reconciled 06/12/25 by YVES Cardona cyclobenzaprine 5 mg PO DAILY PRN losartan 25 mg PO DAILY rosuvastatin 10 mg PO DAILY sennosides (senna) 17.2 mg PO BEDTIME HPI Comments Details: 59-year-old female who returns to the office today in follow-up. She underwent a panniculectomy on 12/23/2022 and history of laparoscopic sleeve gastrectomy with hiatal hernia repair on 10/08/2021. Weight today is 160lbs, with BMI 26.6. She states she is doing great and has no complaints aside from constipation for which she takes senna. She is very satisfied with her panniculectomy results. Meal plan: Premier protein rtd split in 1/2 with added 6 oz unsweetened almond milk, am/pm dinner small meal with 5 forks protein and 5 forks salad Drinkin oz water -pt reports she is getting most of her protein from food, no longer consistently has protein shakes; prefers eggs for breakfast, fruit for lunch (not much appetite), meat and veg for dinner Exercise plan: treadmill, 3 x per week, 300 home videos 3 days per week 300-350 calories Has [employer] membership [facility] Medical History Liver fibrosis Steatosis, liver Depression Anxiety COVID-19 vaccine series completed BMI 34.0-34.9,adult CHARAN (obstructive sleep apnea) Binge-eating disorder, in full remission, moderate BMI 37.0-37.9, adult BMI 36.0-36.9,adult Binge eating disorder Abnormal EKG H. pylori infection Obesity Right knee pain Myalgia Paresthesias Cervicalgia Upper back pain Physical examination of employee Other specified nonscarring hair loss High cholesterol Knee pain, bilateral Rash Primary osteoarthritis of right knee (Unknown) HTN (hypertension) Surgical History S/P laparoscopic sleeve gastrectomy H/O colonoscopy Hx of dilation and curettage History of removal of ovarian cyst History of carpal tunnel release History of partial hysterectomy Family History Father Emphysema lung Mother Afib Hypertension Brother HIV (human immunodeficiency virus infection) Brother Afib Daughter No problems noted. Son No problems noted. Son No problems noted. Daughter No problems noted. Social History Household Members: Spouse and Other Household Members Other:: Mother. Housing: Apartment Are you a primary director of health care marketing to a significant other at home: No Do you presently have visiting nurse or other home services: No Alcohol intake: never Patient Tobacco Use Status: Former Tobacco user Tobacco use type: Cigarette service: No Current occupational status: unemployed Telehealth Telehealth Telehealth Platform: Telephone Location of provider rendering services: other Location of patient: address on file Patient Identification confirmed using: Name, : Yes Telehealth method: voice only Patient verbally consented to treatment: Yes Patient verbally consented to billing insurance company: Yes Patient informed of any privacy concerns related to visit: Yes Minutes spent on Phone/Video with Pt.: 16 Assessment & Plan Assessment & Plan (1) S/P laparoscopic sleeve gastrectomy: Code(s): Z98.84 - Bariatric surgery status Category: Surgical (2) Overweight: Code(s): E66.3 - Overweight Category: Medical Plan Discussed the risks of not getting adequate protein each day which at this point I believe is the case for pt. Recommended incorporating protein at lunchtime to start as right now she is only eating fruit. Recommended trying protein water at lunchtime; sent pt photo of protein water options via text. Senna refilled per pt request. RTC in October 2025 for annual visit. Will repeat labs at that time. Medications: New sennosides (senna) 17.2 mg (2 x 8.6 mg) PO BEDTIME 90 tabs 3RF
[2025-06-12 13:04] VITALS: BMI 26.6
--- OUTSIDE RECORDS SUMMARY | 2025-06-12 15:46 | XMS_ITS | Encounter Summary ---
Author Organization [facility] Address [address] [place] [address] Care Team Providers Care Offset Press Assistant Name Role Phone Efrain River MD Primary Care Provide r Encounter Details Date Type Department Care Team (Latest Contact Info) Description 07/09/2022 Abstract [facility] CONVERSIONS Dental, Provider, DDS Social History [...] Care Team (Late st Contact Info) Description 07/25/2025 9:15 AM EST Office Visit [facility] MEDICINE [address] [place] [address] Efrain River MD [address] [place] [address] documented as of this encounter Visit Diagnoses Not on filedocumented in this encounter Care Teams Offset Press Assistant Relationship Specialty Start Date End Date Efrain River MD [address] [place] [address] PCP - General Internal Medicine 07/30/21 [facility] [address] [place] [address] [place] [id number] Physical Therapy 11/10/24 documented as of this encounter
--- OUTSIDE RECORDS SUMMARY | 2025-06-12 15:46 | XMS_ITS | Encounter Summary ---
Author Organization [facility] Address [address] [place] [address] Care Team Providers Care Home Hospice Aide Name Role Phone Efrain River MD Primary Care Provide r Encounter Details Date Type Department Care Team (Late st Contact Info) Description 05/18/2023 Abstract [facility] MEDICINE [address] [place] [address] [phone] Efrain River MD [address] [place] [address] [phone] Social History Tobacco Use Types Packs/Day Years [...] Description 07/25/2025 9:15 AM EST Office Visit [facility] [address] [place] [address] [phone] Efrain River MD [address] [place] [address] [phone] documented as of this encounter Procedures Procedure [...] documented as of this encounter Care Teams Home Hospice Aide Relationship Specialty Start Date End Date Efrain River MD [address] [place] [phone] PCP - General Internal Medicine 07/30/21 [facility] [address] [place] [id number] Physical Therapy 11/10/24 documented as of this encounter
--- OUTSIDE RECORDS SUMMARY | 2025-06-12 15:46 | XMS_ITS | Encounter Summary ---
Author Organization [employer] Address [address] [place] [address] Care Team Providers Care Campground Hand Name Role Phone Efrain River MD Primary Care Provide r Reason for Visit * Reason Onset Date Comments Appointment 11/17/2022 Encounter Details Date Type Department Care Team (Late st Contact Info) Description 11/17/2022 Telephone [facility] [address] [place] [address] Paul Romero, DDS [address] [place] [address] Appointment Social History Tobacco Use Types Packs/Day [...] Description 07/25/2025 9:15 AM EST Office Visit [facility] MEDICINE [address] [place] [address] Efrain River MD [address] [place] [address] documented as of this encounter Visit Diagnoses Not on filedocumented in this encounter Additional Health Concerns Assessment Noted Time PHQ-9 Depression Total Score: 0 11/04/19 10:17 AM EST documented as of this encounter Care Teams Campground Hand Relationship Specialty Start Date End Date Efrain River MD [address] [place] [address] PCP - General Internal Medicine 07/30/21 [facility] [address] [place] [address] [place] [address] Physical Therapy 11/10/24 documented as of this encounter
--- OUTSIDE RECORDS SUMMARY | 2025-06-12 15:46 | XMS_ITS | Clinical Summary ---
Author Organization [employer] Address [address] [facility] [address] [place] [address] Care Team Providers Care Crystallographer Name Role Phone Efrain River MD Primary Care Provide r Allergies Active Allergy Reactions Criticality Noted Date Comments Atorvastatin 05/22/2025 Medications cholecalciferol (Vitamin D-3) 50 MCG (1999) capsule Take 1 capsule by mouth in the morning. 1 Active Melatonin 5 MG capsule use one [...] muscle spasms. 30 tablet 3 4 Active Diclofenac Sodium 1 % gelIndications:Acu te pain of left knee Use in affected joint twice a day prn 100 g 3 4 Active losartan (Cozaar) 25 MG tabletIndications: Primary hypertension Take 1 tablet (25 mg) by mouth Once per day. 90 tablet 1 5 Active rosuvastatin (Crestor) 10 MG tabletIndications: Mixed hyperlipidemia Take 1 tablet (10 mg) by mouth Once per day. 30 tablet 11 5 03/30/20 26 Active celecoxib (CeleBREX) 200 MG capsule Take 1 capsule by mouth 2 times daily. 5 Active senna (Senokot) 8.6 MG tablet Take 2 tablets by mouth at bedtime. 5 Active Active Problems Problem Noted Date Diagnosed Date Pharyngitis due to Streptococcus species 025 Tonsillar abscess 04/17/2025 Degenerative arthritis of left knee 07/14/2024 Assessment & Plan (11/10/2024 11:17 AM EST): Pt with c/o recurrent knee pain Exam indicative of OA Plain films 07/14/2024 showed: Moderate degenerative disease of the left knee. 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 Due for 04/2025 Assessment & Plan (07/14/2024 10:52 AM EST): [...] on right side 02/19/2023 Assessment & Plan (03/30/2025 2:12 PM EDT): Patient with c/o acute on [...] Pt evaluated by [facility] recommended steroid injection, Last seen 01/2025 they recommended an MRI of cervical spine Assessment & Plan (11/10/2024 11:24 AM EST): Patient with c/o acute on chronic [...] a follow up appointment. Assessment & Plan (04/12/2024 2:42 PM EDT): [...] AM EST): Evaluated in the past by [employer] Dr. Ashley Pham Used topical minoxidil/clobetasol combination cream and Doxycycline BID in the past Preventative health care 11/04/2022 Assessment & Plan (07/14/2024 11:08 AM EST): Mammogram: 05/23/2024 Normal Pap Smear: Pt is s/p Hysterectomy she has one ovary left 2018 Colonoscopy: Pt claims she had one In [place] in 2015 records unavailable she tells me everything was normal, FOBTS given on 10/30/2021 Cologuard February NEGATIVE (scanned under MEDIA) Assessment & Plan (04/12/2024 2:49 PM EDT): Mammogram: 04/23/2023 Normal Pap Smear: Pt is s/p Hysterectomy she has one ovary left 2018 Colonoscopy: Pt claims she had one In [place] in 2015 records unavailable she tells me everything was normal, FOBTS given on 10/30/2021 Cologuard February NEGATIVE (scanned under MEDIA) Assessment & Plan (04/02/2023 10:49 AM EDT): Mammogram: 04/10/2022 Normal Pap Smear: Pt is s/p Hysterectomy she has one ovary left 2018 Colonoscopy: Pt claims she had one In [place] in 2015 records unavailable she tells me everything was normal, FOBTS given on 10/30/2021 Cologuard February NEGATIVE Assessment & Plan (11/04/2022 9:03 AM EST): Mammogram: 04/10/2022 Normal Pap Smear: Pt is s/p Hysterectomy she has one ovary left 2018 Colonoscopy: Pt claims she had one In [place] in 2015 records unavailable she tells me everything was normal, FOBTS given on 10/30/2021 Hives of unknown origin 11/04/2022 Assessment & Plan (11/04/2022 10:32 AM EST): Pt with c/o intermittent hives, for at least 4 months. Uses antihistaminics PRN, Has an Epi pen Plan: will refer to volunteer specialist Mixed hyperlipidemia 11/03/2022 Assessment & Plan (03/30/2025 2:09 PM EDT): Patient with elevated lipids. Most recent lipid profile from: Lab Results Component Value Date TRIG 84 11/07/2024 TRIG 76 11/20/2023 CHOL 235 (H) 11/07/2024 CHOL 247 (H) 11/20/2023 LDLCHOLCAL 148 (H) 11/07/2024 LDLCHOLCAL 161 (H) 11/20/2023 HDL 71 11/07/2024 HDL 71 11/20/2023 She is on Crestor 10 mg po qhs In the past she was taking Atorvastatin but pt developed muscle pain . Plan: repeat Lipid profile since we increased crestor last visit advised to try to adhere to a low cholesterol diet, counseled and educated about diet and exercise, Patient encouraged to come up with a personal goal for weight loss. Assessment & Plan (11/10/2024 11:19 AM EST): Patient with elevated lipids. Most recent lipid profile from: Lab Results Component Value Date TRIG 84 11/07/2024 TRIG 76 11/20/2023 CHOL 235 (H) 11/07/2024 CHOL 247 (H) 11/20/2023 LDLCHOLCAL 148 (H) 11/07/2024 LDLCHOLCAL 161 (H) 11/20/2023 HDL 71 11/07/2024 HDL 71 11/20/2023 She is on Crestor 5 mg po qhs In the past she was taking Atorvastatin but pt developed muscle pain . Increase Crestor 10 mg po qhs advised to try to adhere to a low cholesterol diet, counseled and educated about diet and exercise, Patient encouraged to come up with a personal goal for weight loss. Assessment & Plan (07/14/2024 11:11 AM EST): [...] with a personal goal for weight loss. Overweight with body mass in dex (BMI) of 28 to 28.9 in adult 11/03/2022 Assessment & Plan (03/30/2025 2:11 PM EDT): S/P Laparoscopic sleeve gastrectomy and repair of diaphragmatic hernia 10/08/2021 Patient has been counseled and educated about diet and exercise. 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 Primary hypertension 01/19/2017 Assessment & Plan (03/30/2025 2:09 PM EDT): Patient with Hypertension here for a follow up currently controlled on a regimen of: Losartan 25 mg po daily (lowered by Dr barajas ) Most recent electrolytes, Bun and Creatinine done on: Lab Results Component Value Date NA 141 11/07/2024 NA 141 11/20/2023 K 4.0 11/07/2024 K 4.5 11/20/2023 CL 105 11/07/2024 CL 106 11/20/2023 BUN 10 11/07/2024 BUN 11 11/20/2023 CREATININE 0.77 11/07/2024 CREATININE 0.78 11/20/2023 were within normal limits. Given adequate blood pressure control will continue with current regimen patient advised to adhere to a low sodium diet, encouraged about medication compliance, counseled about weight loss. Repeat BMP prior to next visit Assessment & Plan (11/10/2024 11:18 AM EST): Patient with Hypertension here for a follow up currently controlled on a regimen of: Losartan 25 mg po daily (lowered by Dr barajas ) Most recent electrolytes, Bun and Creatinine done on: Lab Results Component Value Date NA 141 11/07/2024 NA 141 11/20/2023 K 4.0 11/07/2024 K 4.5 11/20/2023 CL 105 11/07/2024 CL 106 11/20/2023 BUN 10 11/07/2024 BUN 11 11/20/2023 CREATININE 0.77 11/07/2024 CREATININE 0.78 11/20/2023 were within normal limits. Given adequate blood pressure control will continue with current regimen patient advised to adhere to a low sodium diet, encouraged about medication compliance, counseled about weight loss. Assessment & Plan (07/14/2024 11:05 AM EST): [...] Encounters Date Type Department Care Team Description 05/22/2025 Telephone [facility] [address] [place] [address] Efrain River MD November recall 05/19/2025 2:30 PM EDT Office Visit [facility]OMET[facility] [address] [place] [address] Max, Elena, OD Mixed type age-related cataract, both eyes (Primary Dx); Vitreous syneresis of both eyes; Dry eyes; Presbyopia of both eyes 05/19/2025 Travel 04/14/2025 10:15 AM EDT Office Visit [facility] [address] [place] [address] Alta Clarke FNP Pharyngitis due to Streptococcus species (Primary Dx); Tonsillar abscess; Gum inflammation 04/14/2025 Travel 04/13/2025 Telephone [facility] [address] [place] [address] Efrain River MD Nurse Triage 04/08/2025 Orders Only [facility] External Provider, [facility] 04/05/2025 Telephone [facility] [address] [place] [address] Efrain River MD Record Request 03/30/2025 2:00 PM EDT Office Visit [facility] [address] [place] [address] Efrain River MD Primary hypertension (Primary Dx); Mixed hyperlipidemia; Overweight with body mass index (BMI) of 28 to 28.9 in adult; Neck pain on right side 03/30/2025 Travel 03/12/2025 Refill [facility] [address] [place] [address] Efrain River MD from Last 3 Months Immunizations Immunization Administration Dates Next Due INFLUENZA INJECTABLE QUADRIV ALANT CCIIV4 MDCK Multi-dose vial 05/14/2018 Influenza injectable quadriv alent IIV4 with preservative 07/15/2017 Influenza injectable quadriv alent preservative free 07/07/2023,06/30/2022,07/30/2021,2020,08/18/2019 Influenza, seasonal, injecta ble, preservative free 07/14/2024 PPD Test 10/21/2018 Tdap 10/21/2018,02/08/2018 Zoster, Recombinant 02/26/2023,12/18/2022 Social History Tobacco Use Types Packs/Day Years Used Date Smoking Tobacco: Former Cigarettes Passive Smoke Exposure: Past Smokeless Tobacco: Former Tobacco Cessation:Counseling Given: Not Answered Depression Answer [...] Sign Reading Time Taken Comments Blood Pressure 134/76 04/14/2025 10:22 AM EDT Pulse 73 04/14/2025 10:22 AM EDT Temperature 36.3 C (97.4 F) 04/14/2025 10:22 AM EDT Respiratory Rate 18 04/14/2025 10:22 AM EDT Oxygen Saturation 98% 04/14/2025 10:22 AM EDT Inhaled Oxygen Concentration - - Weight 77.7 kg (171 lb 4 oz) 04/14/2025 10:22 AM EDT Height 165.1 cm (5' 5 ) 04/14/2025 10:22 AM EDT Body Mass Index 28.5 04/14/2025 10:22 AM EDT Plan of Treatment Upcoming Encounters Date Type Department Care Team (Late st Contact Info) Description 07/25/2025 9:15 AM EST Office Visit [facility] [address] [place], [place] [phone] Efrain River MD [address] [place] [address] Health Maintenance Due Date Last Done Comments CT Colonography 1965 Colonoscopy 1965 FIT 1965 HIV Screening 1965 Sigmoidoscopy 1965 Pap Smear 1984 HPV/Cotest 1993 Pneumococcal Vaccine: 50+ Years (1 of 1 - PCV) 2013 FOBT 03/03/2024 03/03/2023 Dental Oral Exam 06/05/2024 12/03/2023 Dental Prophylaxis 06/05/2024 12/03/2023 Dental X-Ray: Bitewings 12/03/2024 12/03/2023 Depression Screening 04/12/2025 04/12/2024, 04/12/20 24 COVID-19 Vaccine ( season) 2025 08/05/2022, 07/23/2021, 04/25/2021, Additional history exists Influenza Vaccine (#1) 2025 , 07/07/2023, 06/30/2022, Additional history exists Alcohol/Substance Use Screening 07/14/2025 07/14/2024 SDOH Screening 11/01/2025 11/01/2024 Colorectal Cancer Screening 03/03/2026 FIT DNA/Cologuard 03/03/2026 03/03/2023 Disability Screening 03/30/2026 03/30/2025 Mammogram 04/27/2026 04/27/2025, 04/07, 04/23/2023, Additional history exists Tobacco Screening 05/22/2026 05/22/2025 Dental X-Ray: Full Mouth 12/03/2026 12/03/2023 DTaP/Tdap/Td Vaccines (3 - Td or Tdap) 10/21/2028 10/21/2018, 02/08/2018 Lipid Panel 05/29/2030 05/29/2025, 0311/2024, 11/20/2023, Additional history exists RSV Patients and Patients Aged 60 years or older (1 - 1-dose 75+ series) 2038 Hepatitis C Screening Completed 11/22/2021 Zoster Vaccines Completed 02/26/2023, 12/18/2022 Cervical Cancer Screening Discontinued HIB Vaccines Aged Out No longer eligi [...] patient's age to complete this topic Meningococcal B Vaccine Aged Out No l onger eligible based on patient's age to complete [...] Procedure Name Priority Date/Time Associated Diagnosis Comments COMPREHENSIVE METABOLIC PANEL Routine 05/29/2025 2:45 PM EDT Primary hypertension LIPID PANEL, STANDARD Routine 05/29/2025 2:45 PM EDT Mixed hyperlipidemia BI MAMMOGRAM SCREENING TOMOSYNTHESIS BILATERAL Routine 04/27/2025 11:45 AM EDT CBC WITH AUTO DIFFERENTIAL Routine 04/08/2025 5:[address] SOFT TISSUE NECK W CONTRAST Routine 04/08/2025 4:14 PM EDT URINALYSIS, COMPLETE, WITH REFLEX TO CULTURE Routine 04/08/2025 3:27 PM EDT XR CHEST 2 VIEWS Routine 04/08/2025 2:43 PM EDT SLIDE REVIEW Routine 04/08/2025 1:51 PM EDT CBC WITH AUTO DIFFERENTIAL Routine 04/08/2025 1:51 PM EDT STREP A NUCLEIC ACID Routine 04/08/2025 1:51 PM EDT HIGH SENSITIVITY TROPONIN I Routine 04/08/2025 1:50 PM EDT LIPASE Routine 04/08/2025 1:50 PM EDT MAGNESIUM Routine 04/08/2025 1:50 PM EDT COMPREHENSIVE METABOLIC PANEL Routine 04/08/2025 1:50 PM EDT LACTIC ACID Routine 04/08/2025 1:50 PM EDT SARS COV2/INFLUENZA A/B AND RSV RNA QL NAAT Routine 04/08/2025 1:50 PM EDT PROPHYLAXIS - ADULT Routine 12/03/2023 1 :00 PM EDT INTRAORAL - COMPLETE SERIES OF RADIOGRAPHIC IMAGES Routine 12/03/2023 1:00 PM EDT PERIODIC ORAL EVALUATION - ESTABLISHED PATIENT Routine 12/03/2023 1:00 PM EDT HM FIT DNA/COLOGUARD CANCER SCREENING Routine 03/03/2023 RODY HISTORICAL HEPATITIS C AB W/REFL TO HCV RNA, QN, PCR Routine 11/22/2021 12:00 AM EDT from Last 3 Months or Most Recently Relevant to Health Maintenance Results * Lipid Panel, Standard (05/29/2025 2:45 PM EDT) Triglycerides 139 <150 mg/dL [facility] Comment:Desirable Triglyceri de: less than 150 mg/dLBorderline High Triglyceride 150-199 mg/dLHigh Triglyceride: 200-499 mg/dLVery High Triglyceride: greater than or equal to 5OO mg/dL Cholesterol 186 <200 mg/dL [facility] Comment:Desirable Cholestero l: less than 200 mg/dLBorderline High Cholesterol: 200-239 mg/dLHigh Cholesterol: greater than 239 mg/dL LDL Cholesterol Calculated 98 <100 mg/dL [facility] Comment:Desirable LDL: less than 100 mg/dLNear Optimal/Above Optimal LDL: 110- 129 mg/dLBorderline High LDL: 130-159 mg/dLHigh LDL: 160-189 mg/dLVery High LDL: greater than or equal to 190 mg/dL HDL Cholesterol 61 >40 mg/dL [facility] Comment:Desirable HDL: great er than 40 mg/dL Note: This HDL assay may give artificially low results in patients with liver disease. Blood Venous blood specimen / Unknown 05/29/2025 2:45 PM EDT 05/29/2025 4:09 PM EDT us Efrain White MD LAB BLOOD ORDERABLES Final Result [facility] [address] [place] [address] [phone] * (ABNORMAL) Comprehensive Metabolic Panel (05/29/2025 2:45 PM EDT) Only the most recent of2 resultswithin the time period is included. Sodium 141 135 - 145 mmol/L [facility] Potassium 4.2 3.3 - 5.1 mmol/L [facility] Chloride 104 96 - 108 mmol/L [facility] Carbon Dioxide 31(H) 22 - 29 mmol/L [facility] Anion Gap 10(L) 12 - 20 [facility] Urea Nitrogen (BUN) 11 9 - 16 mg/dL [facility] Creatinine, Serum 0.73 0.5 - 1.4 mg/dL [facility] Estimated Glomerular Filt Rate >60 [facility] Comment:Chronic Kidney Disea se: Estimated GFR < 60 mL/min/[id number] Kidney Disease: Estimated GFR < 15 mL/min/1.73m2 Glucose 85 60 - 115 mg/dL [facility] Calcium 9.4 8.4 - 10.2 mg/dL [facility] Bilirubin, Total 0.5 0.0 - 1.0 mg/dL [facility] Aspartate Amino Transferase 35(H) 5 - 31 U/L [facility] Alanine Aminotransferase 16 0 - 31 U/L [facility] Total Protein 7.3 6.5 - 8.0 g/dL [facility] Albumin Level 4.2 3.5 - 5.0 g/dL [facility] Alkaline Phosphatase 57 39 - 117 U/L [facility] Blood Venous blood specimen / Unknown 05/29/2025 2:45 PM EDT 05/29/2025 4:09 PM EDT us Efrain White MD LAB BLOOD ORDERABLES Final Result [facility] [address] [facility] [place] [address] [phone] * BI Mammogram Screening Tomosynthesis Bilateral (04/27/2025 11:45 AM EDT) Anatomical Region Laterality Modality Breast Bilateral Mammography 04/27/2025 11:4 5 AM EDT Narrative 05/01/2025 3:46 PM EDT [facility] [address] [place] [address] [place] [address] Mammography Report Signed Patient: Adrianne Salomon MR#: [id number] : 1965 Acct:[id number] Age/Sex: 59 / F ADM Date: 04/27/25 Loc: HO.MAMMO Attending Dr: Efrain Aponte MD Ordering Physician: Efrain Aponte MD Resu lts: 2Benign Findings Date of Service: 04/27/25 Follow Up: 1 Year From Orig inal Mammogram Procedure(s): MM tomosynthesis screening BI Accession Number(s): [id number] cc: Efrain Aponte MD EXAMINATION: MM SCREENING DIGITAL BREAST TOMOSYNTHESIS, BILATERAL CLINICAL INFORMATION: Screening. Asymptomatic. COMPARISON: Mammography: Comparison is made with available priors TECHNIQUE: Digital breast mammography with tomosynthesis is performed in both the craniocaudal and mediolateral oblique views along with computer-aided detection (CAD). FINDINGS: There are scattered areas of fibroglandular density (ACR BI-RADS breast composition Category b). Previous ultrasound guided core needle biopsy in the left breast 2:00 mass with pathology of a fibroadenoma in 2007. Circumscribed oval mass in the upper outer left breast middle depth is stable. There are no significant masses, abnormal calcifications, or other abnormalities. MM/MM tomosynthesis screening BI IMPRESSION: No mammographic evidence of malignancy. ASSESSMENT: BI-RADS BI-RADS 2 - Benign Findings RECOMMENDATION: Routine annual mammography screening. 1 year F/U This examination should not preclude the clinical evaluation of a suspicious palpable abnormality. This patient's information was entered into a reminder system with a target due date for their next mammogram. Electronically signed by: Kayce Iyer DO 05/01/2025 03:43 PM EDT Dictated By: Kacye Iyer DO Signed By: <Electronically signed by Kayce Iyer DO in OV> 05/01/25 1543 DD/ 1145 TD/TT: 04/27/25 1204 Cam Specialist: Procedure Note Donotuseinterpreter, Image - 05/01/2025 [facility] [address] [place], [place] [address] Mammography Report Signed Patient: Adrianne Salomon DMR#: [id number] : 1965Acct:[id number] Age/Sex: 59 / FADM Date: 04/27/25 Loc: HO.MAMMO Attending Dr: Efrain Apotne MD Ordering Physician: Efrain Aponte MDResu lts: 2Benign Findings Date of Service: 04/27/25Follow Up: 1 Year From Orig ina Mammogram Procedure(s): MM tomosynthesis screening BI Accession Number(s): [id number] cc: Efrain Aponte MD EXAMINATION: MM SCREENING DIGITAL BREAST TOMOSYNTHESIS, BILATERAL CLINICAL INFORMATION: Screening. Asymptomatic. COMPARISON: Mammography: Comparison is made with available priors TECHNIQUE: Digital breast mammography with tomosynthesis is performed in both the craniocaudal and mediolateral oblique views along with computer-aided detection (CAD). FINDINGS: There are scattered areas of fibroglandular density (ACR BI-RADS breast composition Category b). Previous ultrasound guided core needle biopsy in the left breast 2:00 mass with pathology of a fibroadenoma in 2007. Circumscribed oval mass in the upper outer left breast middle depth is stable. There are no significant masses, abnormal calcifications, or other abnormalities. MM/MM tomosynthesis screening BI IMPRESSION: No mammographic evidence of malignancy. ASSESSMENT: BI-RADS BI-RADS 2 - Benign Findings RECOMMENDATION: Routine annual mammography screening. 1 year F/U This examination should not preclude the clinical evaluation of a suspicious palpable abnormality. This patient's information was entered into a reminder system with a target due date for their next mammogram. Electronically signed by: Kayce Iyer DO 05/01/2025 03:43 PM EDT Dictated By: Kayce Iyer DO Signed By: <Electronically signed by Kayce Iyer DO in OV> 05/01/25 1543 DD/ 1145 TD/TT: 04/27/25 1204 Cam Specialist: us Efrain White MD IMG BI PROCEDURES Fin al Result * (ABNORMAL) CBC auto differential (04/08/2025 5:57 PM EDT) Only the most recent of2 resultswithin the time period is included. White Blood Count 25.4(H) 4.8 - 10.8 X10*3/uL [facility] Red Blood Count 3.76(L) 4.20 - 5.50 X10*6/uL [facility] Hemoglobin 11.5(L) 12.0 - 16.0 g/dl [facility] Hematocrit 33.0(L) 37.0 - 47.0 % [facility] Mean Corpuscular Volume 87.8 80.0 - 98.0 fL [facility] Mean Corpuscular Hemoglobin 30.6 27.0 - 33.0 pg [facility] Mean Corpuscular HGB Conc 34.8 31.0 - 35.0 g/dl [facility] Red Cell Distribution Width 13.7 11.0 - 16.0 % [facility] Platelet Count 238 160 - 400 X10*3/uL [facility] Mean Platelet Volume 9.2(L) 9.4 - 12.3 fL [facility] Neutrophils Percent Auto 85.0(H) 45 - 73 % [facility] Imm Gran Pct Auto 2.1(H) 0.0 - 0.4 % [facility] Lymphocytes Percent Auto 5.9(L) 20 - 40 % [facility] Monocytes Percent Auto 6.4 2 - 11 % [facility] Eosinophils Percent Auto 0.4 0 - 4 % [facility] Basophils Percent Auto 0.2 0 - 2 % [facility] NRBC Pct Auto 0.0 0.0 - 0.2 /100WBC [facility] Neutrophils Absolute Auto 21.6(H) 2.0 - 8.3 x10*3/uL [facility] Imm Gran Abs Auto 0.54(H) 0.00 - 0.03 X10*3/uL [facility] Lymphocytes Absolute Auto 1.5 1.2 - 4.9 X10*3/uL [facility] Monocytes Absolute Auto 1.6(H) 0.1 - 1.2 X10*3/uL [facility] Eosinophils Absolute Auto 0.1 0.0 - 0.4 X10*3/uL [facility] Basophils Absolute Auto 0.1 0.0 - 0.2 X10*3/uL [facility] NRBC Abs Auto 0.000 0.0 - 0.012 X10*3/uL [facility] 04/08/2025 5:57 PM EDT 04/08/2025 6:02 PM EDT us Generic External Data Provider LAB BLOOD ORDERAB LES Edited Result - Final Performing Organization Address City/State/[facility] Co de Phone Number [facility] [address] [place] [address] [phone] * CT Soft Tissue Neck w/ Contrast (04/08/2025 4:14 PM EDT) Anatomical Region Laterality Modality Head, Neck Computed Tomogra phy 04/08/2025 4:14 PM EDT Narrative 04/08/2025 4:15 PM EDT [place] [address] [address] Scan Report Signed with Addenda Patient: Adrianne Salomon MR#: [id number] : 1965 Acct:[id number] Age/Sex: 59 / F ADM Date: 04/08/25 Loc: HO.ED Attending Dr: Ordering Physician: Madeline Meza Date of Service: 04/08/25 Procedure(s): CT soft tissue neck w IV con Accession Number(s): [id number] cc: Efrain Aponte MD; Madeline Meza Report Number: [id number]: Total DLP = 484.00 mGy-cm ADDENDUM This document has been electronically signed by: Kaiden Pinzon MD on 04/08/2025 16:14:21 ADDENDUM: Receipt of this report by the clinical staff was confirmed with Madeline Meza on Apr 08, 2025 16:20:00 EDT. 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 Normal prevertebral soft tissues and paraspinous musculature. Enlarged bilateral level 2 deep fascia are lymph nodes are present, example: 2.2 x 1.7 cm lymph node adjacent to left carotid bifurcation. Contact Center Specialist spaces are normal. Parapharyngeal tonsils are enlarged . Retropharyngeal space is normal. Visualized lungs are normal. There is normal vertebral body alignment. There is no significant degenerative change, fracture, or bone lesion Impression: Enlarged parapharyngeal tonsils with edematous/purulent small coalescing abscesses involving the bilateral tonsillar crypts most of which measure 2-3 mm in diameter. Largest right parapharyngeal tonsillar abscess measures 8.3 mm x 4.4 mm, image 52, series 2. This document has been electronically signed by: Kaiden Pinzon MD on 04/08/2025 16:14:21 Dictated By: Kaiden Pinzon MD Signed By: <Electronically signed by Kaiden Pinzon MD in OV> 04/08/251614 DD/ 13 TD/TT: 04/08/251613 Cam Specialist: Procedure Note Donotuseinterpreter, Image - 04/08/[address] [place] [address] [address] Scan Report Signed with Addjayde Patient: Adrianne Salomon [facility]#: [id number] : 1965Acct:[id number] Age/Sex: 59 / FADM Date: 04/08/25 Loc: HO.ED Attending Dr: Ordering Physician: Madeline Meza Date of Service: 04/08/25 Procedure(s): CT soft tissue neck w IV con Accession Number(s): [id number] cc: Efrain Aponte MD; Madeline Meza Report Number: [id number]: Total DLP = 484.00 mGy-cm ADDENDUM This document has been electronically signed by: Kaiden Pinzon MD on 04/08/2025 16:14:21 ADDENDUM: Receipt of this report by the clinical staff was confirmed with Madeline Meza on Apr 08, 2025 16:20:00 EDT. 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 Normal prevertebral soft tissues and paraspinous musculature. Enlarged bilateral level 2 deep fascia are lymph nodes are present, example: 2.2 x 1.7 cm lymph node adjacent to left carotid bifurcation. Contact Center Specialist spaces are normal. Parapharyngeal tonsils are enlarged . Retropharyngeal space is normal. Visualized lungs are normal. There is normal vertebral body alignment. There is no significant degenerative change, fracture, or bone lesion Impression: Enlarged parapharyngeal tonsils with edematous/purulent small coalescing abscesses involving the bilateral tonsillar crypts most of which measure 2-3 mm in diameter. Largest right parapharyngeal tonsillar abscess measures 8.3 mm x 4.4 mm, image 52, series 2. This document has been electronically signed by: Kaiden Pinzon MD on 04/08/2025 16:14:21 Dictated By: Kaiden Pinzon MD Signed By: <Electronically signed by Kaiden Pinzon MD in OV> 04/08/251614 DD/ 13 TD/TT: 04/08/251613 Cam Specialist: us [facility] External Provider IMG CT PROCEDURES Edited Result - Final * (ABNORMAL) Urinalysis, Complete, with Reflex to Culture (04/08/2025 3:27 PM EDT) Color Urine Dark Yellow [facility] Appearance Urine Clear [facility] PH 5.5 5.0 - 9.0 [facility] Glucose Urine UA Negative Negative mg/dL [facility] Urine Blood Large (3+)(A) Negative [facility] Specific Sebastian - Urine >=1.030(H) 1.005 - 1.025 [facility] Urine Protein 300 (3+)(A) Neg-Trace mg/dL [facility] Urine Ketones 40 Negative mg/dL [facility] Nitrite Urine Negative Negative [facility] Leukocyte Esterase Urine Negative Negative [facility] RBC Urine >20(A) 0 - 2 /HPF [facility] Urine WBC 0-5 0 - 5 /HPF [facility] Urine Squamous Epithelial Cell 6-10 0 - 2 /HPF [facility] Urine Bacteria 1+ None Seen [facility] Hyaline Casts, Urine 0-2 0 - 2 /LPF [facility] 04/08/2025 3:27 PM EDT 04/08/2025 3:29 PM EDT Narrative [facility] - 04/08/2025 3:35 PM EDT [id number], Clean Catch Generic External Data Provider LAB URINE ORDERAB LES Final Result [facility] [address] [place] [phone] * XR Chest 2 Views (04/08/2025 2:43 PM EDT) Anatomical Region Laterality Modality Chest Radiographic Alice ging 04/08/2025 2:43 PM EDT Narrative 04/08/2025 2:44 PM EDT [address] [address] XRay Report Signed Patient: Adrianne Salomon MR#: [id number] : 1965 Acct:[id number] Age/Sex: 59 / F ADM Date: 04/08/25 Loc: HO.ED Attending Dr: Ordering Physician: Zenobia Mills CNP Date of Service: 04/08/25 Procedure(s): XR chest 2V Accession Number(s): [id number] cc: Zenobia Mills CNP; Efrain Aponte MD CLINICAL HISTORY: fever, cough 2 view chest x-ray. Comparison: CT 06/18/2023 Findings: No consolidation. Heart size normal No acute fracture. Impression: Lungs are clear. This document has been electronically signed by: Kaiden Pinzon MD on 04/08/2025 14:43:40 Dictated By: Kaiden Pinzon MD Signed By: <Electronically signed by Kaiden Pinzon MD in OV> 04/08/25 1444 DD/ 1443 TD/TT: 04/08/25 1443 Cam Specialist: Procedure Note Donotuseinterpreter, Image - 04/08/[address] [address] XRay Report Signed Patient: Adrianne Salomon DMR#: [id number] : 1965Acct:[id number] Age/Sex: 59 / FADM Date: 04/08/25 Loc: HO.ED Attending Dr: Ordering Physician: Zenobia Mills CNP Date of Service: 04/08/25 Procedure(s): XR chest 2V Accession Number(s): [id number] cc: Zenobia Mills CNP; Efrain Aponte MD CLINICAL HISTORY: fever, cough 2 view chest x-ray. Comparison: CT 06/18/2023 Findings: No consolidation. Heart size normal No acute fracture. Impression: Lungs are clear. This document has been electronically signed by: Kaidne Pinzon MD on 04/08/2025 14:43:40 Dictated By: Kaiden Pinzon MD Signed By: <Electronically signed by Kaiden Pinzon MD in OV> 04/08/251443 DD/ 42 TD/TT: 04/08/251442 Cam Specialist: [facility] External Provider IMG XR PROCEDURES Edited Result - Final * Slide Review (04/08/2025 1:51 PM EDT) Slide Review VERIFIED [facility] 04/08/2025 1:51 PM EDT 04/08/2025 2:00 PM EDT Generic External Data Provider LAB BLOOD ORDERAB LES Final Result Performing Organization Address [facility]/State/ZIP Co de Phone Number [facility] [address] [place] [phone] * (ABNORMAL) Strep A Nucleic Acid (04/08/2025 1:51 PM EDT) IDNOW SERIAL# [id number] [facility] Strep A Nucleic Acid Positive(A ) Negative [facility] Comment:All test results mus t be correlated with clinical findings.This test has not been evaluated for monitoring treatment ofinfection.Additional follow-up testing using the culture method isrequired if the result is negative and clinical symptomspersist, or in the event of an acute rheumatic feveroutbreak. 04/08/2025 1:51 PM EDT 04/08/2025 2:02 PM EDT Generic External Data Provider LAB MICROBIOLOGY - GENERAL ORDERABLES Final Result Performing Organization Address City/[facility] Co de Phone Number [facility] [address] [place] [phone] * High Sensitivity Troponin I (04/08/2025 1:50 PM EDT) Pathologist [facility] TROPONIN I HIGH SENSITIVITY 16.5 <3.5 - 17.0 ng/L [facility] Comment:The [place] high sens itivity Troponin-I results should beused in conjunction with other diagnostic information suchas ECG, clinical observations and information, and patientsymptoms to aid in the diagnosis of NM. 04/08/2025 1:50 PM EDT 04/08/2025 2:00 PM EDT us Generic External Data Provider LAB BLOOD ORDERAB LES Final Result Performing Organization Address [facility] Co de Phone Number [facility] [address] [place] [phone] * SARS-CoV-2 RNA, Influenza A/B, and RSV RNA, Ql NAAT (04/08/2025 1:50 PM EDT) [facility] Influenza A PCR NEGATIVE Negative [facility] Influenza B PCR NEGATIVE Negative [facility] Resp Syncy Virus RNA Qual PCR NEGATIVE Negative [facility] SARS COV2 PCR NEGATIVE Negative [facility] Comment:All test results mus t be correlated with clinical findings.Negative results do not preclude SARS-CoV2, influenza Avirus, influenza B virus and/or RSV infectionand should not be used as the sole basis for treatment orother patient management decisions. Negative results must becombined with clinical observations, patient history, andepidemiological information.This test has not been evaluated for monitoring treatment ofinfection.This test has been authorized by the FDA under an EmergencyUse Authorization (EUA) for use by authorized laboratories.Testing performed on the Instilling Values GeneXpert utilizingreal-time RT-PCR.All SARS CoV2 and positive influenza A/B results arereported to [facility]. 04/08/2025 1:50 PM EDT 04/08/2025 2:00 PM EDT us Generic External Data Provider LAB MICROBIOLOGY - GENERAL ORDERABLES Final Result Performing Organization Address [facility] Co de Phone Number [facility] [address] [place] [phone] * Magnesium (04/08/2025 1:50 PM EDT) Magnesium 1.8 1.6 - 2.6 mg/dL [facility] 04/08/2025 1:50 PM EDT 04/08/2025 2:00 PM EDT us Generic External Data Provider LAB BLOOD ORDERAB LES Final Result Performing Organization Address [facility] Co de Phone Number [facility] [address] [place] [phone] * Lipase (04/08/2025 1:50 PM EDT) Lipase 14 8 - 78 U/L [facility] 04/08/2025 1:50 PM EDT 04/08/2025 2:00 PM EDT us Generic External Data Provider LAB BLOOD ORDERAB LES Final Result Performing Organization Address [facility] Co de Phone Number [facility] [address] [place] [phone] * Lactic Acid (04/08/2025 1:50 PM EDT) Lactic Acid 1.8 0.5 - 2.0 mmol/L [facility] 04/08/2025 1:50 PM EDT 04/08/2025 2:00 PM EDT us Generic External Data Provider LAB BLOOD ORDERAB LES Final Result Performing Organization Address [facility] Co de Phone Number [facility] [address] [place] [phone] * FIT DNA/Cologuard Cancer Screening (03/03/2023) Cologuard Cancer Screen Negative Stool 03/03/2023 Historical Provider MD HEALTH MAINTENANCE Final Result * HEPATITIS C AB W/REFL TO HCV RNA, QN, PCR (11/22/2021 12:00 AM EDT) HEPATITIS C ANTIBODY NON-REACT CY NON-REACT CY [facility] INDEX 0.01 <1.00 [facility] Comment: HCV antibody was non-reactive. There is no laboratory evidence of HCV infection. In most cases, no further action is required. However, if recent HCV exposure is suspected, a test for HCV RNA (test code 28419) is suggested. For additional information please refer to http://education.Beacon Reader/faq/WQZ37e5 (This link is being provided for informational/ educational purposes only.) 11/22/2021 Efrain White MD HISTORICAL/NON ORDERA BLE LABS Final Result [facility] [address] from Last 3 Months or Most Recently Relevant to Health Maintenance Insurance [facility] MEDICARE ADVANTAGE D[place] ST[place] ADULT DENTAL - [employer] DENTAL PPO Care Teams Crystallographer Relationship Specialty Start Date End Date Efrain iRver MD [address] [place] [address] PCP - General Internal Medicine 07/30/21 [facility] [address] [place] [address] [facility] [phone] Physical Therapy 11/10/24
--- OUTSIDE RECORDS SUMMARY | 2025-06-12 15:46 | XMS_ITS | Encounter Summary ---
Author Organization [facility] Address [address] [facility] [address] [place] [address] Care Team Providers Care Rn Transfer Name Role Phone Efrain River MD Primary Care Provide r Encounter Details Date Type Department Care Team (Latest Contact Info) Description 11/05/2020 Abstract [facility] CONVERSIONS Dental, Provider, DDS Social History [...] Description 07/25/2025 9:15 AM EST Office Visit [facility] [address] [place] [address] Efrain River MD [address] [place] [address] documented as of this encounter Visit Diagnoses Not on filedocumented in this encounter Care Teams Rn Transfer Relationship Specialty Start Date End Date Efrain River MD [address] [place] [address] PCP - General Internal Medicine 07/30/21 [facility] [address] [place] [address] [place] [phone] Physical Therapy 11/10/24 documented as of this encounter
--- OUTSIDE RECORDS SUMMARY | 2025-06-12 15:46 | XMS_ITS | Encounter Summary ---
Author Organization [employer] Address [address] [facility] [address] [place] [address] Care Team Providers Care Auth Specialist Name Role Phone Efrain River MD Primary Care Provide r Encounter Details Date Type Department Care Team (Late st Contact Info) Description 08/12/2022 Abstract [facility] ADULT DENTAL [address] [place], [place] [phone] Dental, Provider, DDS Social History Tobacco Use [...] Description 07/25/2025 9:15 AM EST Office Visit [facility] [address] [place] [address] Efrain River MD [address] [place] [address] documented as of this encounter Procedures Procedure Name Priority Date/Time Associated Diagnosis Comments 3 MOD COMPOSITE FILLING Routine 08/12/2022 12:00 AM EST 21 B(V) COMPOSITE FILLING Routine 08/12/2022 12:00 AM EST 2 MOL COMPOSITE FILLING Routine 08/12/2022 12:00 AM EST 9 ROOT CANAL Routine 08/12/2022 12:00 AM EST documented in this encounter Visit Diagnoses Not on filedocumented in this encounter Care Teams Auth Specialist Relationship Specialty Start Date End Date Efrain River MD [address] [place] [phone] PCP - General Internal Medicine 07/30/21 [facility] [address] [place] [phone] Physical Therapy 11/10/24 documented as of this encounter
== END 2025-06-12 13:22 | disposition home or self-care (01) ==
LOC: HO.HBS 13:22
PROVIDERS: PCP Internal Medicine; Visit Provider Physician Assistant Surgical
DX: E66.3 Overweight (principal); Z68.26 Body mass index [BMI] 26.0-26.9, adult; Z90.3 Acquired absence of stomach [part of]; Z98.84 Bariatric surgery status
CPT/HCPCS: 99213; G2211